=== PATIENT | female | born 1970 | race Caucasian/White ===

== ENCOUNTER 2024-01-23 02:22 | Day surgery (SDC) | payer BC, SELFPAY ==
[2024-01-16 09:23] VITALS: BMI 45.3
--- NOTE | 2024-01-16 09:32 | PC.NURSE ---
Report to the Outpatient Waiting Room, entrance under the green pavilion located off [facility], at time _1245_ on date _[id number]_. Planned Procedure Time: _245pm_.? Time changes happen often and if your time is changed the preop area will call you the afternoon before. - You and your visitor will be asked to self-screen and do not enter if you have any COVID symptoms. Please call surgeon if you need to reschedule. - A mask is optional within the hospital at this time. Patients may have clear liquids (water, carbonated beverages, clear teas, apple juice) until 3 hours prior to surgery with a maximum of 20 ounces. - No food from midnight until time of surgery and no smoking Take only the following medications with a SIP of water on the morning of surgery: ___Fluoxetine, Advair and if needed Albuterol DO NOT STOP ANY OF YOUR OTHER PRESCRIPTION MEDICATIONS PRIOR TO SURGERY EXCEPT THE FOLLOWING Medications to discontinue per physician ____All vitamins and supplements Date to take last tenr [id number] Please no make-up, nail bulgarian, hairspray, perfume, deodorant, or body powder the day of surgery.? No jewelry (including any body piercings) or valuables the day of surgery, leave them at home.? Please take a shower or bath the night before, or the morning of, surgery with an antibacterial soap.? Wear comfortable, loose fitting clothing.? - Jewelry must be removed prior to entering the operating room.? Rings and piercings that are not removed may be cut off. - The hospital will not accept responsibility for valuables.? - Please leave all valuables, including medications, at home the day of surgery. If you are going home after surgery, a licensed road driver must drive you home.? - NO public transportation without another adult if you receive anesthesia. - We recommend that an adult stay with you for 24 hours following discharge. - We also recommend that you do not drive, make important decision, drink alcoholic beverages, or take any drugs that were not prescribed by your health care provider for at least 24 hours after your discharge time. Follow any additional instructions given to you from your surgeon. Telephone instructions given to _Staci___and asked if any additional questions and then verbalized understanding. Patient advised to call surgeon office or pre surgery nurse liaison [phone] if any additional questions.
--- NOTE | 2024-01-23 12:13 | PM.IMHP ---
H&P: HPI History of Present Illness Date/Time: 01/23/24 12:13 Chief Complaint: Heavy bleeding. Narrative: 53 y/o female with menometrorrhagia complicating chronic anemia. Ultrasound exam unremarkable. The endometrial complex is 5.7 mm thick. Review of Systems Review of Systems: All systems reviewed & are unremarkable except as noted in HPI and below PMFSH Past Medical History Medical History delivery delivered 1995 Surgical History Surgical History H/O cataract removal with insertion of prosthetic lens 2009 History of appendectomy 1996 History of bone marrow biopsy 2015 History of cholecystectomy 2006 Family History Family History Mother Heart disease Hypertension Father Heart disease Hypertension Sibling Cancer Heart disease Alcohol abuse Hypertension Diabetes mellitus Breast cancer Grandparent Heart disease Social History Social History Social History: caffeine use daily Years smoked: 6 Smoking status: Former smoker Tobacco type: cigarettes Smoking end date: 01/16/96 Alcohol intake: current Drinks per week: 2 Alcohol use details: 1 to 4 drinks weekly Substance use: never Substance use type: does not use Do You Feel Safe in your Home?: Yes Lack of Transportation: No Lack of Food: Never True Current Housing: I Have Housing Concerned About Future Housing: No Difficulty Paying Gas/Electric Bills: No Difficulty Paying for Meds: No Currently Unemployed: No Difficulty w/ Childcare or Family Care: No Living arrangements: with family Spiritual care concerns: No Meds Home Medications and Allergies Home Medications Medication Instructions Recorded Confirmed Type albuterol sulfate 90 mcg/actuation 2 inh inhalation Q6-8H PRN 12/25/23 01/16/24 Rx aerosol inhaler shortness of breath or wheezing #8.5 grams cholecalciferol (vitamin D3) 50 50 mcg PO DAILY 12/25/23 01/16/24 History mcg (2,000 unit) capsule cyclobenzaprine 10 mg tablet 10 mg PO TID PRN Spasms 12/25/23 01/16/24 History fluoxetine 20 mg capsule 20 mg PO DAILY 12/25/23 01/16/24 History fluticasone propionate 115 2 puff inhalation BID 12/25/23 01/16/24 History mcg-salmeterol 21 mcg/actuation HFA inhaler (Advair HFA) ketoconazole 2 % topical cream 1 applic topical DAILY PRN Rash 12/25/23 01/16/24 History montelukast 10 mg tablet 10 mg PO DAILY 12/25/23 01/16/24 History ramipril 10 mg capsule 10 mg PO BID 12/25/23 01/16/24 History rosuvastatin 5 mg tablet 5 mg PO DAILY 12/25/23 01/16/24 History albuterol sulfate 2.5 mg/3 mL 2.5 mg (3 mL) inhalation Q4-6H PRN 01/04/24 01/16/24 Rx (0.083 %) solution for nebulization shortness of breath or wheezing #75 mL semaglutide 1 mg/dose (4 mg/3 mL) 1 mg (0.75 mL) subcut WEEKLY #3 mL 01/04/24 01/16/24 Rx subcutaneous pen injector (Circlefive) flaxseed oil 1,000 mg capsule 1,000 mg PO DAILY 01/16/24 01/16/24 History Allergies Allergy/AdvReac Type Severity Reaction Status Date / Time Penicillins AdvReac Intermediate Hives Verified 01/16/24 09:18 valsartan [From Diovan] AdvReac Intermediate sweating Verified 01/16/24 09:18 and cramping Exam Const: Orientation/consciousness: patient oriented x3 Other: Well-developed, well-nourished female in no acute distress. Neck: Thyroid: thyroid normal Lymphatic: no lymphadenopathy noted (in neck, axilla or inguinal nodes) Resp: Effort & Inspection: normal respiratory effort Auscultation: clear to auscultation bilaterally Cardio: Rate: regular rate Rhythm: regular rhythm Heart sounds: S1 normal heart sound present and S2 normal heart sound present GI: Other: ABD: Soft, nontender, nondistended. No guarding or rebound ten
[2024-01-23] MEDS: LACTATED RINGERS 1,000 ML 30 ML IV CONT (13:00)
[2024-01-23 13:23] LABS: Glucose Point of Care 84 mg/dl (65-105)
[2024-01-23 13:30] VITALS: BP 144/83; PULSE 71; RESP 16; TEMP 36.1; O2SAT 100
[2024-01-23] MEDS: ACETAMINOPHEN 500 MG TABLET 1000 MG PO (13:35)
--- NOTE | 2024-01-23 13:51 | WPDHPUPDATE1 ---
History and Physical Update Update Date/Time: 01/23/24 13:51 History and Physical has been reviewed, including an updated exam of the patient. There are NO changes in the patient's condition. Risks, benefits, and alternatives have been discussed and questions answered. Patient agrees to proceed with procedure.
--- NOTE | 2024-01-23 14:04 | WPDANESEPPF ---
Anes - Initial Pre Proc Eval Procedure: Operation Date: 01/23/24 14:45 Proposed Procedures p Hysteroscopy Dilation and Curettage with Ronel Endometrial Ablation - Rigo Geronimo MD Date/Time: 01/23/24 14:04 Surgeon: Rigo Geronimo MD Pre Op Diagnosis: menorrhagia, chronic anemia Patient Data Age: 53 Gender: F Height: 1.55 m Weight: 109 kg Allergies Allergy/AdvReac Type Severity Reaction Status Date / Time Penicillins AdvReac Intermediate Hives Verified 01/16/24 09:18 valsartan [From Diovan] AdvReac Intermediate sweating Verified 01/16/24 09:18 and cramping Home Medications Medication Instructions Recorded Confirmed Type albuterol sulfate 90 mcg/actuation 2 inh inhalation Q6-8H PRN 12/25/23 01/16/24 Rx aerosol inhaler shortness of breath or wheezing #8.5 grams cholecalciferol (vitamin D3) 50 50 mcg PO DAILY 12/25/23 01/16/24 History mcg (2,000 unit) capsule cyclobenzaprine 10 mg tablet 10 mg PO TID PRN Spasms 12/25/23 01/16/24 History fluoxetine 20 mg capsule 20 mg PO DAILY 12/25/23 01/16/24 History fluticasone propionate 115 2 puff inhalation BID 12/25/23 01/16/24 History mcg-salmeterol 21 mcg/actuation HFA inhaler (Advair HFA) ketoconazole 2 % topical cream 1 applic topical DAILY PRN Rash 12/25/23 01/16/24 History montelukast 10 mg tablet 10 mg PO DAILY 12/25/23 01/16/24 History ramipril 10 mg capsule 10 mg PO BID 12/25/23 01/16/24 History rosuvastatin 5 mg tablet 5 mg PO DAILY 12/25/23 01/16/24 History albuterol sulfate 2.5 mg/3 mL 2.5 mg (3 mL) inhalation Q4-6H PRN 01/04/24 01/16/24 Rx (0.083 %) solution for nebulization shortness of breath or wheezing #75 mL semaglutide 1 mg/dose (4 mg/3 mL) 1 mg (0.75 mL) subcut WEEKLY #3 mL 01/04/24 01/16/24 Rx subcutaneous pen injector (Ozempic) flaxseed oil 1,000 mg capsule 1,000 mg PO DAILY 01/16/24 01/16/24 History oxycodone-acetaminophen 5 mg-325 1 - 2 tablet PO Q6H PRN pain #30 01/23/24 Rx mg tablet (Percocet) tabs Laboratory Tests 01/23/24 13:17 POC Capillary Glucose 84 mg/dl (65-105) Patient hx anesthesia problems: none Family hx anesthesia problems: none Results Review: All pre-operative results and documents have been reviewed as part of the pre-operative evaluation. [facility] Past Medical History Medical History delivery delivered 1995 Surgical History Surgical History H/O cataract removal with insertion of prosthetic lens 2009 History of appendectomy 1996 History of bone marrow biopsy 2015 History of cholecystectomy 2007 Family History Family History Mother Heart disease Hypertension Father Heart disease Hypertension Sibling Cancer Heart disease Alcohol abuse Hypertension Diabetes mellitus Breast cancer Grandparent Heart disease Social History Social History Social History: caffeine use daily Years smoked: 6 Smoking status: Former smoker Tobacco type: cigarettes Smoking end date: 01/16/96 Alcohol intake: current Drinks per week: 2 Alcohol use details: 1 to 4 drinks weekly Substance use: never Substance use type: does not use Do You Feel Safe in your Home?: Yes Lack of Transportation: No Lack of Food: Never True Current Housing: I Have Housing Concerned About Future Housing: No Difficulty Paying Gas/Electric Bills: No Difficulty Paying for Meds: No Currently Unemployed: No Difficulty w/ Childcare or Family Care: No Living arrangements: with family Spiritual care concerns: No Anes - Eval Final PreProcedure Day of Procedure 01/23/24 14:04 Patient weight: morbidly obese Heart: regular rate and rhythm Lungs: clear to auscultation Airway: Mallampati scale class II Ne
[2024-01-23] MEDS: LIDOCAINE HCL 1% LOCAL INJ 20 ML VIAL 10 ML INFILTRATE (14:56)
[2024-01-23 15:04] VITALS: BP 121/64; PULSE 75; RESP 14; O2SAT 98
--- NOTE | 2024-01-23 15:05 | W.PM.PROC2 ---
Procedure Note - Detailed Date of Procedure 01/23/24 Pre-op Diagnosis Menometrorrhagia Post-op Diagnosis Same Procedure Performed Hysteroscopy Dilation and sharp curettage Endometrial ablation Surgeon Rigo Geronimo MD Anesthesia MAC and Local (1% lidocaine) Findings Unremarkable endometrial cavity. Both tubal ostia seen. Description of Procedure The patient was taken to the operating room where she was prepared and draped in the usual sterile fashion in the dorsal lithotomy position. The bladder was drained with a red rubber catheter. A sterile speculum was placed into the vagina. The anterior lip of the cervix was grasped with single-tooth tenaculum. Ten mL of 1% lidocaine was administered in a paracervical block. The cervix was then gently dilated using Hegar dilators until a 7 mm dilator could be passed. Hysteroscopy was performed using sterile saline as a distention medium. Findings are as noted above. Sharp curettage was then performed, and endometrial curettings were collected on a Telfa pad and passed off to be sent to pathology. Finally, the the Ronel device was advanced and endometrial ablation commenced without difficulty. The device was withdrawn and a second look was taken using the hysteroscope. Excellent coverage of the endometrial cavity was noted. The tenaculum was removed. Hemostasis was excellent. Sponge, lap, needle and instrument counts were correct. The patient was awakened and taken to the recovery room in stable condition. I was present and scrubbed through the entire procedure. Implants None Estimated Blood Loss 5 Drains No Packing No Pathology Yes (Endometrial curettings) Complications None Condition Stable Disposition PACU
[2024-01-23 15:24] LABS: Glucose Point of Care 77 mg/dl (65-105)
[2024-01-23 15:30] VITALS: BP 147/70; PULSE 64; RESP 14
[2024-01-23 15:42] LABS: BEDSIDEPREGUCG Negative (Negative)
[2024-01-23] MEDS: oxyCODONE HCL (*CRX) 5 MG TAB IR PO (15:47)
[2024-01-23 16:00] VITALS: BP 137/63; PULSE 64; RESP 14
== END 2024-01-23 16:06 | disposition home or self-care (01) ==
PROVIDERS: PCP Family Medicine; Visit Provider Obstetrics & Gynecology
PROC: 0U5B8ZZ Destruction of Endometrium, Via Natural or Artificial Opening Endoscopic (ICD-10-PCS; CPT 58563; principal; 2024-01-23 14:45)
DX: N85.8 Other specified noninflammatory disorders of uterus (principal); D64.9 Anemia, unspecified; G89.18 Other acute postprocedural pain; E66.01 Morbid (severe) obesity due to excess calories; Z68.42 Body mass index [BMI] 45.0-49.9, adult; Z79.51 Long term (current) use of inhaled steroids; Z79.85 Long-term (current) use of injectable non-insulin antidiabetic drugs; Z79.891 Long term (current) use of opiate analgesic; Z98.890 Other specified postprocedural states; Z90.49 Acquired absence of other specified parts of digestive tract; Z87.891 Personal history of nicotine dependence; Z80.3 Family history of malignant neoplasm of breast; Z82.49 Family history of ischemic heart disease and other diseases of the circulatory system
CPT/HCPCS: 58563; 82948; 88305; A9270; J2003; J2250; J2704; J3010; J7120

== ENCOUNTER 2024-04-24 08:24 | Emergency (ER) | payer OTHER, SELFPAY ==
[2024-04-24 08:34] VITALS: BP 146/63; PULSE 89; RESP 18; TEMP 36.7; O2SAT 97
[2024-04-24 09:00] LABS: EDCOVIDSCREEN Negative (Negative); EDINFLUASCREEN Positive (Negative); EDINFLUBSCREEN Negative (Negative); EDSTREPNEGPOS1 Negative (Negative)
--- NOTE | 2024-04-24 09:34 | ED.URI ---
HPI - URI/Sore Throat General Chief Complaint: Upper Respiratory Infection Stated Complaint: sore throat / body aches Time Seen by Provider: 04/24/24 08:40 Source: patient Mode of arrival: ambulatory Limitations: no limitations History of Present Illness HPI Narrative: 54-year-old female presents with complaint of cough, nasal congestion, headache, fatigue, nausea, low-grade fever for 2 days. Symptoms getting progressively worse. No vomiting or diarrhea. Denies chest pain and shortness of breath. All systems reviewed and negative except as noted above. Related Data Home Medications ?Medication ?Instructions ?Recorded ?Confirmed ?Last Taken ?Type cholecalciferol (vitamin D3) 50 50 mcg PO DAILY 12/25/23 01/16/24 Unknown History mcg (2,000 unit) capsule cyclobenzaprine 10 mg tablet 10 mg PO TID PRN Spasms 12/25/23 01/16/24 Unknown History ketoconazole 2 % topical cream 1 applic topical DAILY PRN Rash 12/25/23 01/16/24 Unknown History flaxseed oil 1,000 mg capsule 1,000 mg PO DAILY 01/16/24 01/16/24 Unknown History Allergies Allergy/AdvReac Type Severity Reaction Status Date / Time Penicillins AdvReac Intermediate Hives Verified 01/23/24 15:37 valsartan (From Diovan) AdvReac Intermediate sweating Verified 01/23/24 15:37 and cramping Review of Systems Review of Systems: CONSTITUTIONAL: Reports fever, chills, or sweats. EYES: Denies visual changes, redness, or discharge. ENT: reports rhinorrhea, congestion, sore throat. Denies otalgia. CARDIOVASCULAR: Denies chest pain, palpitations, or edema. RESPIRATORY: reports cough. Deniesdyspnea. GASTROINTESTINAL: Denies abdominal pain, nausea, vomiting, or diarrhea. GENITOURINARY: Denies dysuria or hematuria. SKIN: Denies rash or itching. MUSCULOSKELETAL: Denies back pain, joint pain, or myalgia. NEUROLOGIC: reports headache. Denies numbness, or weakness. PSYCHIATRIC: Denies anxiety or depression. All other systems reviewed are negative, except as documented in HPI. [facility] Past Medical History Medical History delivery delivered 1995 Surgical History Surgical History H/O cataract removal with insertion of prosthetic lens 2009 History of appendectomy 1996 History of bone marrow biopsy 2015 History of cholecystectomy 2007 Family History Family History Mother Heart disease Hypertension Father Heart disease Hypertension Sibling Cancer Heart disease Alcohol abuse Hypertension Diabetes mellitus Breast cancer Grandparent Heart disease Social History Social History Social History: caffeine use daily Years smoked: 6 Smoking status: Former smoker Tobacco type: cigarettes Smoking end date: 01/16/96 Alcohol intake: current Drinks per week: 2 Alcohol use details: 1 to 4 drinks weekly Substance use: never Substance use type: does not use Do You Feel Safe in your Home?: Yes Lack of Transportation: No Lack of Food: Never True Current Housing: I Have Housing Concerned About Future Housing: No Difficulty Paying Gas/Electric Bills: No Difficulty Paying for Meds: No Currently Unemployed: No Difficulty w/ Childcare or Family Care: No Living arrangements: with family Spiritual care concerns: No Comments At time of signature, agree with nursing past medical, surgical, social and family history. There is no relevant family history pertinent to the presenting complaint. Exam Narrative: GENERAL: This is a well-nourished, well-developed patient, Patient ill-appearing but in no acute distress HEAD: normocephalic, atraumatic. EYES: PERRL. Sclera clear/white. Vision is grossly intact. EARS: External ears normal, auditory canals clear and without drainage, TMs normal without perforation. Hearing grossly intact. NOSE: External nose normal with mild congestion, clear nasal drainage THROAT: Mucous membranes moist, postnasal drainage with mild erythema. No swelling or exudates. NECK: Neck supple, non-tender without lymphadenopathy, masses or thyromegaly. CARDIOVASCULAR: Regular rate and rhythm without murmurs, gallops, or rubs. RESPIRATORY: Clear to auscultation. Breath sounds equal bilaterally. No wheezes, rales, or rhonchi. SKIN: warm, Dry, intact with no suspicious lesions or rash, good texture and turgor. NEURO: awake, alert, and oriented to person, place and time. There were no obvious focal neurologic abnormalities. EXTREMITIES: No joint tenderness, effusion, or edema noted. Course Course Level of Care: Express Care Visit Vital Signs Vital signs: Vital Signs Temperature 36.7 C 04/24/24 08:34 Pulse Rate 89 04/24/24 08:34 Respiratory Rate 18 04/24/24 08:34 Blood Pressure 146/63 H 04/24/24 08:34 Pulse Oximetry 97 04/24/24 08:34 Oxygen Delivery Room Air 04/24/24 08:34 Temperature 36.7 C 04/24/24 08:34 Pulse Rate 89 04/24/24 08:34 Respiratory Rate 18 04/24/24 08:34 Blood Pressure 146/63 H 04/24/24 08:34 Pulse Oximetry 97 04/24/24 08:34 Oxygen Delivery Room Air 04/24/24 08:34 reviewed MDM - URI/Sore Throat MDM Narrative Medical decision making narrative: patient positive for influenza A. Discussed results and diagnosis with patient. Prescribed Tamiflu and Zofran to treat patient's symptoms. Recommend she taking [id number] medication such as DayQuil NyQuil cold and flu. Patient agrees with plan of care. She is well-appearing, nontoxic. Patient is aware of diagnosis, understands and agrees to treatment plan. Anticipatory guidance given. Patient agrees to follow-up as directed and is aware of reasons to seek care at the emergency department. Portions of this record may have been created with voice recognition software Differential Diagnosis Differential diagnosis: Likely upper respiratory infection, sinusitis, viral infection, influenza and pharyngitis Lab Data Labs: Lab Results 04/24/24 Range/Units 08:58 POC Influenza A Ag Positive (Negative) POC Influenza B Ag Negative (Negative) POC SARS CoV-2 Ag Negative (Negative) POC Grp A Strep Screen Negative (Negative) Discharge Plan Discharge Clinical Impression: Influenza A Patient Disposition: Home, Self-Care Condition: Stable Instructions: Influenza (ED) Additional Instructions: You were positive for influenza A today. Influenza is a virus and symptoms may last 10-14 days. Take medications as prescribed. Take an [id number] medication to treat her symptoms such as DayQuil NyQuil cold and flu. Take ibuprofen every 6-8 hours as needed for pain and fever. Drink at least 64 oz of water a day. Follow-up with your primary care physician if symptoms not improving. Patient Language: Azerbaijani Prescriptions: New oseltamivir [Tamiflu] 75 mg capsule 75 mg PO Q12H 5 Days Qty: 10 0RF ondansetron 4 mg tablet,disintegrating 4 mg PO Q8H PRN (Reason: nausea and vomiting) Qty: 12 0RF No Action cholecalciferol (vitamin D3) 50 mcg (2,000 unit) capsule 50 mcg PO DAILY cyclobenzaprine 10 mg tablet 10 mg PO TID PRN (Reason: Spasms) ketoconazole 2 % cream 1 applic topical DAILY PRN (Reason: Rash) albuterol sulfate 90 mcg/actuation HFA aerosol inhaler 2 inh inhalation Q6-8H PRN (Reason: shortness of breath or wheezing) Qty: 8.5 3RF flaxseed oil 1,000 mg Capsule 1,000 mg PO DAILY Rx Instructions: administer with a meal oxycodone-acetaminophen [Percocet] 5-325 mg tablet 1 - 2 tablet PO Q6H PRN (Reason: pain) Qty: 30 0RF Ozempic 2 mg/dose (8 mg/3 mL) pen injector 2 mg subcut WEEKLY Qty: 3 6RF albuterol sulfate 2.5 mg /3 mL (0.083 %) solution for nebulization 2.5 mg inhalation Q4-6H PRN (Reason: shortness of breath or wheezing) Qty: 75 1RF rosuvastatin 5 mg tablet 5 mg PO DAILY Qty: 90 2RF montelukast 10 mg tablet 10 mg PO DAILY Qty: 90 2RF ramipril 10 mg capsule 10 mg PO BID Qty: 180 1RF fluoxetine 20 mg capsule 20 mg PO DAILY Qty: 90 2RF fluticasone propion-salmeterol [Advair HFA] 115-21 mcg/actuation HFA aerosol inhaler 2 puff inhalation BID Qty: 12 5RF Follow-up/Referrals: Laura Shepard MD [Primary Care Provider] - Stand Alone Forms: Work/School Release IP Time of Disposition: 08:55
== END 2024-04-24 09:02 | disposition home or self-care (01) ==
PROVIDERS: Emergency Provider Nurse Practitioner Family; PCP Family Medicine
DX: J10.1 Influenza due to other identified influenza virus with other respiratory manifestations (principal); Z87.891 Personal history of nicotine dependence; Z20.822 Contact with and (suspected) exposure to COVID-19
CPT/HCPCS: 87081; 87426; 87804; 87880; 99213; G0463

== ENCOUNTER 2024-05-07 07:37 | Outpatient (CLI) | payer OTHER, SELFPAY ==
--- NOTE | ~2024-05-07 | MM_ITS ---
EXAMINATION: MM screening [facility] BI w jennifer HISTORY: Screening TECHNIQUE: Craniocaudal and mediolateral oblique 3-D tomosynthesis images were obtained and synthetic 2-D images were generated. CAD analysis was submitted and interpreted. COMPARISON: Comparison to multiple prior studies sequentially, with oldest reviewed study dated 11/25. BREAST PARENCHYMAL COMPOSITION: Not dense: There are scattered areas of fibroglandular density. FINDINGS: There is no evidence of suspicious mass, calcification, or architectural distortion to sugg est malignancy in either breast. There has been no suspicious interval change. IMPRESSION: 1. No mammographic evidence of malignancy. 2. Recommend routine screening mammography in one year. BI-RADS Category 1: Negative Reviewed, dictated and finalized at location A. [facility]
== END 2024-05-07 07:38 | disposition home or self-care (01) ==
LOC: ANHIMG 07:41
PROVIDERS: PCP Family Medicine; Visit Provider Obstetrics & Gynecology
DX: Z12.31 Encounter for screening mammogram for malignant neoplasm of breast (principal)
CPT/HCPCS: 77063; 77067

== ENCOUNTER 2024-07-11 07:53 | Outpatient (CLI) | payer OTHER, SELFPAY ==
--- OUTSIDE RECORDS SUMMARY | 2024-07-11 07:56 | XMS_ITS | Data Portability ---
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 Plan of Treatment Reminders Order Date Submit Date Provider Last Modified By Organization Details Last Modified Time Details Appointments None recorded. Lab None recorded. Referral None recorded. Procedures None recorded. Surgeries None recorded. Imaging None recorded. Medication Orders Advair HFA 115 mcg-21 mcg/actuat ion aerosol inhaler 2021 022 [id number], [address] [place], [place], [id number], 2 11:03:32 Singulair 10 mg tablet 2021 022 [facility] #[id number], [address] [place], [id number], 2 11:03:31 montelukas t 10 mg tablet 2018 019 INTERFACE [facility][id number], [address] [place], [place], [id number], 9 09:50:59 montelukas t 10 mg tablet 2017 018 INTERFACE [id number], [address] [place], [address], 8 10:30:00 Patient TargetsNo targets recorded. Patient Instructions Encounter Date Encounter Id Patient Instructions Last Modified By Organization Details Last Modified Time 10/12/2017 [id number] controlling your asthma: care instructions Not available 10/12/2017 10:29:58 learning about asthma Not available 10/12/2017 10:29:58 sleep apnea: car e instructions Not available 10/12/2017 10:29:59 sleep study, polysomnogram with continuous positive airway pressure* [email or web address] Not available 10/12/2017 12:16:04 shortness of breath: care instructions Not available 10/12/2017 10:30:57 complete PFT w/ post bronchodilator spirometry* SOHAIL Not available 11/26/2017 10:23:54 01/11/2018 [id number] controlling your asthma: care instructions Not available 01/11/2018 11:55:46 learning about asthma Not available 01/11/2018 11:55:46 sleep apnea: car e instructions Not available 01/11/2018 11:55:46 shortness of breath: care instructions Not available 01/11/2018 11:55:46 11/15/2018 [id number] controlling your asthma: care instructions Not available 11/15/2018 09:50:54 learning about asthma Not available 11/15/2018 09:50:54 sleep apnea: car e instructions Not available 11/15/2018 09:50:53 shortness of breath: care instructions Not available 11/15/2018 09:50:54 complete PFT w/ post bronchodilator spirometry* smallafre Not available 11/15/2018 09:55:18 12/02/2019 [id number] controlling your asthma: care instructions Not available 12/02/2019 16:36:46 learning about asthma Not available 12/02/2019 16:36:46 sleep apnea: car e instructions Not available 12/02/2019 16:36:46 shortness of breath: care instructions Not available 12/02/2019 16:36:46 11/04/2021 [id number] controlling your asthma: care instructions Not available 11/04/2021 11:03:22 learning about asthma Not available 11/04/2021 11:03:22 sleep apnea: car e instructions Not available 11/04/2021 11:03:22 shortness of breath: care instructions Not available 11/04/2021 11:03:22 complete PFT w/ post bronchodilator spirometry* SOHAIL Not available 11/18/2021 11:39:04 Reason for Referral None Reported. Results Created Date Observation Date Name Description Value Unit Range Abnormal Flag Note LastModifiedBy Organization Detail LastModifiedTime 11/27/19 18 11/26/2017 compl ete PFT w/ post [facility] hodil ator ochoa metry * No observ ation record ed. [facility] ([facility]) [address] [facility] [address], [place], [address], 01/11/2018 11:51:52 11/26/19 20 11/26/2019 compl ete PFT* No observ ation record ed. [facility] ([facility]) [address] [facility] [address], [place], [address], 12/02/2019 16:34:52 11/19/19 22 11/18/2021 compl ete PFT w/ post [facility] hodil ator ochoa metry * No observ ation record ed. [email or web address] [facility] ([facility]) [address] [facility] [address], [place], [address], 11/30/2021 09:25:04 Result Notes None recorded. Problems Name Problem SNOMED Code Status Onset Date Resolution Date Notes Provider Name and Address Organization Details Recorded Time Obstructive sleep apnea syndrome 42105196 Active Ashely moreno [place] [facility] 5 08:42:39 Overweight 987236957 Active Giana Cunningham MD [address] [facility] [address], [place], [address] [place] [address] - [facility] 4 10:57:09 Allergic rhinitis [id number] Ifeoma Cunningham MD [address] [facility] [address], [place], [address], [facility] 4 10:57:09 Asthma [id number] Ifeoma Cunningham MD [address] [facility] [address], [place], [address], [facility] 4 10:57:09 Periodic limb movement disorder [id number] Ifeoma Cunningham MD [address] [facility] [address], [place], [address], [facility] 4 10:57:09 Problem Notes None recorded. Procedures Surgical History Date Name Laterality Status Provider Name and Address Organization Details Recorded Time 08/26/19 23 PAP Compliance cancelled zan cole [facility] 08/21/2022 08:17:03 11/05/19 22 PAP Compliance completed Cari Mills [facility] 11/02/2021 13:34:39 12/02/19 20 PAP Compliance completed Jyotsna Caballero [facility] 12/02/2019 16:15:26 11/16/19 19 PAP Compliance completed Yamileth Betancourt [facility] 11/15/2018 08:55:07 CHOLECYSTECTOMY completed jose pinto [facility] 10/12/2017 10:03:42 delivery completed jose pinto [facility] 10/12/2017 10:03:58 APPENDECTOMY completed Daisy Choi [facility] 05/31/2012 13:44:12 Imaging Results Imaging Date Name Status LastModified by Organization Details LastModified Time 11/26/2017 complete PFT w/ post bronchodilator spirometry* completed [facility] [address] [facility] [address], [place], [address], 01/11/2018 11:51:52 11/26/2019 complete PFT* completed [facility] [address] [facility] [address], [place], [address], 12/02/2019 16:34:52 11/18/2021 complete PFT w/ post bronchodilator spirometry* completed [email or web address] [facility] ([facility]) [address] [facility] [address], [place], [address], 11/30/2021 09:25:04 Procedure Notes None recorded. Medical Equipment None Reported. Allergies Allergen ID Allergen Name Allergen Category Reaction Reaction Severity Criticality Documentation Date Start Date Code Code System Note Provider Name and Address Organization Details Recorded Time 33931 Diovan medicatio n Not available Not available Not available 05/31/2012 15537 2 [facility] 3 13:44:12 98842 Product containin g penicilli n (product) medicatio n Not available Not available Not available 05/31/2012 28989 8001 [facility]ED [facility] 3 13:44:12 Medications Name Sig Start Date Stop Date Status Note LastModified by Organization Details LastModified Time cyclobenzap rine 10 mg tablet TAKE 1 TABLET BY MOUTH THREE TIMES DAILY FOR 10 DAYS NEEDED active Not Available Not Available No t Available amoxicillin 500 mg capsule active Not Available Not Available Not Available prednisone 10 mg tablet active Not Available Not Available Not Available sulfasalazi ne 500 mg tablet TAKE 2 TABLETS BY MOUTH TWICE DAILY AFTER MEALS 11/04 completed Not Available Not Available Not Available albuterol sulfate 2.5 mg/3 mL (0.083 %) solution for nebulizatio n USE 1 VIAL IN NEBULIZER FOUR TIMES DAILY NEEDED active Not Available Not Available No t Available azithromyci n 250 mg tablet active Not Available Not Available Not Available fluconazole 150 mg tablet TAKE 1 TABLET BY MOUTH EVERY 72 HOURS 11/04 completed Not Available Not Available Not Available benzonatate 200 mg capsule 10/12 completed Not Available Not Available Not Available prednisone 5 mg tablet 11/04 completed Not Available Not Available Not Available meclizine 12.5 mg tablet TAKE 1 TABLET BY MOUTH THREE TIMES DAILY NEEDED 11/04 completed Not Available Not Available Not Available phentermine 37.5 mg tablet TK 1 T PO QD FOR 30 DAYS 10/12 completed Not Available Not Available Not Available methotrexat e sodium 25 mg/mL injection solution INJECT 0.7 ML UNDER THE SKIN EVERY WEEK 10/12 completed Not Available Not Available Not Available ciprofloxac in 500 mg tablet TAKE 1 TABLET BY MOUTH TWICE DAILY active Not Available Not Available No t Available Tamiflu 75 mg capsule active Not Available Not Available N ot Available sulfamethox azole 800 mg-trimetho prim 160 mg tablet TAKE 1 TABLET BY MOUTH EVERY 12 HOURS FOR 10 DAYS active Not Available Not Available No t Available triamcinolo ne acetonide 0.1 % topical cream 10/12 completed Not Available Not Available Not Available BD Safety-Ferdinand Tuberculin 1 mL 27 gauge x 1/2 syringe U WITH METHOTREX ATE ONCE WEEKLY 10/12 completed Not Available Not Available Not Available BD Tuberculin Syringe 1 mL 27 x 1/2 U WITH METHOTREX ATE ONCE WEEKLY 10/12 completed Not Available Not Available Not Available amoxicillin 875 mg tablet 10/12 completed Not Available Not Available Not Available lorazepam 0.5 mg tablet Take 2 tablets 3 times a day by oral route. active Not Available Not Available No t Available benzonatate 100 mg capsule active Not Available Not Available Not Available cephalexin 500 mg capsule active Not Available Not Available Not Available fluoxetine 20 mg tablet Take 1 tablet every day by oral route. 11/15 completed Not Available Not Available Not Available nystatin 100,000 unit/gram topical cream APPLY TOPICALLY TO THE AFFECTED AREA TWICE DAILY active Not Available Not Available No t Available omeprazole 20 mg capsule,del ayed release 10/12 completed Not Available Not Available Not Available folic acid 1 mg tablet TK 1 T PO QD 11/04 completed Not Available Not Available Not Available montelukast 10 mg tablet TAKE 1 TABLET BY MOUTH EVERY DAY active Not Available Not Available No t Available ammonium lactate 12 % topical cream 11/15 completed Not Available Not Available Not Available mupirocin 2 % topical ointment DEIRDRE AA WITH Q BANDAGE CHANGE UNTIL FULLY HEALED 11/15 completed Not Available Not Available Not Available clobetasol 0.05 % topical ointment 11/15 completed Not Available Not Available Not Available azelastine 137 mcg (0.1 %) nasal spray active Not Available Not Available Not Available hydroxychlo roquine 200 mg tablet TK 2 TS PO QD 10/12 completed Not Available Not Available Not Available methylpredn isolone 4 mg tablets in a dose pack FOLLOW PACKAGE DIRECTION S active Not Available Not Available No t Available albuterol sulfate HFA 90 mcg/actuati on aerosol inhaler INL 2 PFS PO Q 4 H PRN active Not Available Not Available No t Available ketoconazol e 2 % topical cream APPLY EXTERNALL Y TO THE AFFECTED AREA EVERY DAY 11/04 completed Not Available Not Available Not Available ondansetron 4 mg disintegrat ing tablet active Not Available Not Available N ot Available fluoxetine 20 mg capsule TAKE 1 CAPSULE BY MOUTH EVERY DAY active Not Available Not Available No t Available fluticasone propionate 50 mcg/actuati on nasal spray,suspe nsion active Not Available Not Available Not Available ramipril 10 mg capsule TAKE 1 CAPSULE BY MOUTH TWICE DAILY active Not Available Not Available No t Available amoxicillin 875 mg-potassiu m clavulanate 125 mg tablet active Not Available Not Available Not Available rosuvastati n 5 mg tablet TAKE 1 TABLET BY MOUTH EVERY NIGHT AT BEDTIME active Not Available Not Available No t Available iron 11/04 completed Not Available Not Available Not Available Humira Pen 40 mg/0.8 mL subcutaneou s kit 10/12 completed Not Available Not Available Not Available Advair HFA 115 mcg-21 mcg/actuati on aerosol inhaler INHALE 2 PUFFS BY MOUTH TWICE DAILY active Not Available Not Available No t Available Simponi 50 mg/0.5 mL subcutaneou s pen injector Inject 0.5 mL every month by subcutane ous route. 11/15 completed Not Available Not Available Not Available Vitamin D3 50 mcg (2,000 unit) capsule Take by oral route. active Not Available Not Available No t Available TRUEplus Lancets 30 gauge U BID UTD 11/15 completed Not Available Not Available Not Available True Metrix Glucose Test Strip 11/15 completed Not Available Not Available Not Available Cosentyx Pen 300 mg/2 pens (150 mg/mL) subcutaneou s pen injector 11/04 completed Not Available Not Available Not Available True Metrix Air Glucose Meter 11/15 completed Not Available Not Available Not Available Vitamin B12 active Not Available Not A vailable Not Available Taltz Autoinjecto r 80 mg/mL subcutaneou s 11/04 completed Not Available Not Available Not Available Orencia ClickJect 125 mg/mL subcutaneou s auto-inject or 11/15 completed Not Available Not Available Not Available Lomaira 8 mg tablet TK 1 T PO TID 10/12 completed Not Available Not Available Not Available Norlyda 0.35 mg tablet TK 1 T PO QD 11/04 completed Not Available Not Available Not Available Isibloom 0.15 mg-0.03 mg tablet TK 1 T PO D 11/15 completed Not Available Not Available Not Available Isibloom 11/15 completed Not Available Not Available Not Available Tremfya 100 mg/mL subcutaneou s auto-inject or active Not Available Not Available Not Available Ozempic 1 mg/dose (4 mg/3 mL) subcutaneou s pen injector INJECT 1 MG UNDER THE SKIN EVERY WEEK active Not Available Not Available No t Available Paxlovid 300 mg (150 mg x 2)-100 mg tablets in a dose pack TAKE DIRECTED active Not Available Not Available No t Available Vitals Date Recorded Body height Body mass index (BMI) Body weight Respiratory rate Heart rate Oxygen saturation Oxygen saturation in Arterial blood by Pulse oximetry Body temperature Systolic blood pressure Diastolic blood pressure Provider Name and Address Organization Details Last Updated DateTime 8 157.48 cm 49.5 kg/m2 783769. 38 g 16 /min 75 /min 97 % 97 % 98 [degF] 128 mm[Hg] 78 mm[Hg] [facility] 8 10:10:47 Date Recorded Body height Body mass index (BMI) Body weight Respiratory rate Heart rate Oxygen saturation Oxygen saturation in Arterial blood by Pulse oximetry Body temperature Systolic blood pressure Diastolic blood pressure Provider Name and Address Organization Details Last Updated DateTime 8 157.48 cm 49.4 kg/m2 189176. 94 g 16 /min 76 /min 97 % 97 % 98.6 [degF] 130 mm[Hg] 80 mm[Hg] [facility] 8 11:42:39 Date Recorded Body height Body mass index (BMI) Body weight Heart rate Respiratory rate Oxygen saturation Oxygen saturation in Arterial blood by Pulse oximetry Body temperature Systolic blood pressure Diastolic blood pressure Provider Name and Address Organization Details Last Updated DateTime 9 157.48 cm 45.5 kg/m2 253174. 78 g 71 /min 18 /min 98 % 98 % 98.7 [degF] 118 mm[Hg] 80 mm[Hg] Yamileth Betancourt [facility] 9 08:59:15 Date Recorded Heart rate Oxygen saturation Oxygen saturation in Arterial blood by Pulse oximetry Respiratory rate Body temperature Body weight Body mass index (BMI) Body height Systolic blood pressure Diastolic blood pressure Provider Name and Address Organization Details Last Updated DateTime 2 69 /min 98 % 98 % 18 /min 98.7 [degF] 812410. 72 g 49.9 kg/m2 157.48 cm 120 mm[Hg] 70 mm[Hg] Cari Mills [facility] Sleep [facility] 2 10:36:56 Social History Question Answer Notes LastModified by [employer] ion Details LastModified Time Tobacco Smoking Status [facility] 05/31/2012 13:44:12 Do You Have An Advance Directive? No Information not available 11/15/2018 What Is Your Level Of Alcohol Consumption? Occasional [email or web address] Information not available 05/31/2012 Are You Blind Or Do You Have Difficulty Seeing? No Information not available 11/04/2021 What Is Your Level Of Caffeine Consumption? Moderate 3 Cups Daily Information not available 11/15/2018 How Much Tobacco Do You Chew? None Information not available 11/15/2018 In The 14 Days Before Symptom Onset, Have You Had Close Contact With A Laboratory-confir med COVID-19 While That Case Was Ill? No [email or web address] Information not available 12/02/2019 In The 14 Days Before Symptom Onset, Have You Had Close Contact With A Person Who Is Under Investigation For COVID-19 While That Person Was Ill? No [email or web address] Information not available 12/02/2019 Have You Been To An Area Known To Be High Risk For COVID-19? No [email or web address] Information not available 12/02/2019 Are You Deaf Or Do You Have Serious Difficulty Hearing? No Information not available 11/04/2021 Do You Or Have You Ever Used E-cigarettes Or Vape? 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 3 Information not available 11/04/2021 Have You Been Exposed To Chemicals Or Toxins? No Information not available 11/04/2021 Live Alone Or With Others? With Others [email or web address] Information not available 05/31/2012 Tobacco-quit Date 25 Years Of Age Information not available 11/15/2018 Marital Status [email or web address] Informatio n not available 05/31/2012 Do You Have A Medical Power Of Manager Intensive Care Unit? No Information not available 11/04/2021 What Was The Date Of Your Most Recent Tobacco Screening? 11/04/2021 Information not available 11/04/2021 Are There Any Occupational Health Risks Where You Work? Denies Information not available 11/15/2018 Do You Have An Out Of Hospital DNR? No Information not available 11/04/2021 At What Age Did You Start Smoking Tobacco? 17 Information not available 05/31/2012 Are You Passively Exposed To Smoke? Yes All Of Life Information not available 10/12/2017 Do You Or Have You Ever Used Smokeless Tobacco? Never Used Smokeless Tobacco Information not available 11/15/2018 Are There Any Smokers In Your House? No Information not available 11/04/2021 How Much Tobacco Do You Smoke? 1 PPD [email or web address] Information not available 05/31/2012 Do You Feel Stressed (tense, Restless, Nervous, Or Anxious, Or Unable To Sleep At Night)? [id number] Information not available 11/04/2021 Do You Use Any Illicit Or Recreational Drugs? No Information not available 11/04/2021 Has Tobacco Cessation Counseling Been Provided? No Information not available 11/04/2021 How Many Years Have You Smoked Tobacco? 8 Information not available 10/12/2017 Have You Recently Traveled Abroad? No Information not available 11/04/2021 Do You Or Have You Ever Used Any Other Forms Of Tobacco Or Nicotine? No Information not available 11/04/2021 Sex: Unknown Functional Status Question Answer Note LastModified by Organizat ion Details LastModified Time Do you have difficulty walking or climbing stairs? No Information not available 11/04/2021 Are you able to walk? YESWOREST Information not available 11/04/2021 Do you have difficulty doing errands alone? No Information not available 11/04/2021 Are you able to care for yourself? Yes Information not available 11/04/2021 Do you have difficulty dressing or bathing? No Information not available 11/04/2021 What is your exercise level? Occasional Information not available 11/04/2021 Mental Status Question Answer Note LastModified by Organization D etails LastModified Time Do you have difficulty concentrating, remembering or making decisions? No Information no t available 11/04/2021 Family History Relationship Description Onset Age of this Age Resolved Age Notes LastModified by Organization Details LastModified Time Father Problem 83 adenise Not available 0 04/25/2013 10:32:19 Mother Heart disease 55 [email or web address] Not available 2017 10:02:49 Medical History Condition Response COPD N COR PULMONALE N OBESITY Y GERD N OVERWEIGHT N RENAL FAILURE N EMPHYSEMA N PLEURAL EFFUSION N CAD N ASTHMA Y ANEMIA N CHF N CVA N TIFFANI Y HYPERTENSION Y HEART DISEASE N LUNG CANCER N CENTRAL SLEEP APNEA N PULMONARY FIBROSIS N TB exposure N CANCER N PULMONARY HYPERTENSION N RLS N GI BLEEDING N NARCOLEPSY N BRONCHIECTASIS N ARRHYTHMIA N DIABETES, TYPE II UNSPECIFIED N ALLERGIC RHINITIS Y PULMONARY EMBOLISM N BLACK LUNG DISEASE N Gynecological HistoryNo gynecological history recorded. Obstetrics History GPAL:G 0 P 0 0 0 0 Immunizations Vaccine Type Date Status Note Provider Nam e and Address Organization Details Recorded Time influenza, unspecified formulation 7 completed [facility] 10/12/2017 10:07:56 Influenza, [place] 8 completed Yamileth Cranedahlia [facility] 11/15/2018 08:59:38 COVID-19, mRNA, LNP-S, PF, 100 mcg/0.5mL dose or 50 mcg/0.25mL dose 1 completed Cari Mills [facility] 11/04/2021 10:38:18 COVID-19, mRNA, LNP-S, PF, 100 mcg/0.5mL dose or 50 mcg/0.25mL dose 1 completed Cari Mills [facility] 11/04/2021 10:38:24 COVID-19, mRNA, LNP-S, PF, 100 mcg/0.5mL dose or 50 mcg/0.25mL dose 1 completed Cari Mills [facility] 11/04/2021 10:38:40 Influenza, split virus, quadrivalent, preservative 1 completed Cari Mills [facility] 11/04/2021 10:39:05 Influenza, split virus, trivalent, preservative 0 completed Daisy Choi [facility] 05/31/2012 13:52:53 Past Encounters Encounter ID Performer Location Encounter Start Date Encounter Closed Date Diagnosis/Indication Diagnosis SNOMED-CT Code Diagnosis ICD10 Code Diagnosis Note [id number] MD MASTER Dinh [address] [place] [address] [address] [facility] [place] [address] 05/31/2012 13:27:03 05/31/2012 14:37:57 [id number] Tana Jerry [facility] [id number] [place] [address] [address] [facility] [place] [address] 07/26/2012 09:18:03 07/26/2012 09:51:04 [id number] LISSYLEVI [place] [address] [place] [address] [address] [facility] [place] [address] 10/04/2012 10:48:55 10/04/2012 11:42:45 [id number] MASTER XAVIER [id number] [place] [address] [address] [address] [place] [address] 04/25/2013 10:26:44 04/25/2013 11:01:44 Obstructive sleep apnea syndrome [id number] On CPAP 9 with full face mask , she has being tolerating well , last compliance data was 90% She has being loosing weight and will notify me if lost more than 50 pounds Overweight [id number] con t weight loss and diest modificati on. Asthma [id number] Cont advair and singualir Albuterol as needed ( ventolin) Periodic l imb movement disorder [id number] she is asymptomat ic Allergic rhinitis 55857268 cont singualir [id number] JASPER MONA VERMA MARY [address] [place] [address] 10/12/2017 09:11:31 10/12/2017 11:29:34 Obstructive sleep apnea syndrome [id number] G47.33 She has TIFFANI since 2012 and has been on CPAP 9 . She has gain over 30 pounds and has been tired during the day , taking naps even when she ahs been complaint w treatment . She has new diagnosis of autoimmune ds .I recommende d to get the compliance and maybe change to APAP 5-15 given that her CPAP machine it is not working properly , she may need a titration given the weight gain Asthma 846918779 J45.90 9 I will cont the adavair and sent for PFTa nd restart singualair , proair as needed Ex-smoker 1029297 Z87.89 1 and second hand exposure Anemia 745990882 D64.9 she has iron infusion Obesity 369718188 E66.9 weight loss recommeded Dyspnea 147641374 R06.02 [id number] Giana Young [address] [place] [address] 01/11/2018 10:57:13 01/11/2018 12:11:49 Obstructive sleep apnea syndrome 29111418 G47.33 She has TIFFANI since 2012 and she has been now on APAP and she has been compliant and w benefit .INITIAL COMPLIANCE PASSED @ 100 % AHI 0.4 LEAK WNL Asthma 274717813 J45.90 9 I have reviewed the PFT and she has good reversibil ity and will cont advair and singualir and proair as needed Obesity 045365072 E66.9 weight loss recommende d Dyspnea 221375794 R06.02 [id number] Giana Young [place] [id number] [place], [place] [address] [address] [place] [address] 11/15/2018 08:50:05 11/15/2018 09:55:55 Obstructive sleep apnea syndrome 18319196 G47.33 She ahs oksana on the APAP and sh ehas been 97% complaint and AHI .7She ahs oksana loosing weight and soing well and w great benefit Asthma 255619093 J45.90 9 She ahs been on the advaircont singulairp roair as neededwill follow PFT Obesity 194532396 E66.9 she has been loosing weight and doing well w dieta na recommende d exercise Dyspnea 919304853 R06.02 Ex-smoker 7017057 Z87.89 1 and second hand exposure [id number] Giana Young [address] [facility] [place] [address] 12/02/2019 16:14:58 12/02/2019 16:44:39 Obstructive sleep apnea syndrome 51153143 G47.33 she has been complaint and with benefits and I have reviewed compliance Asthma 012315925 J45.90 9 She ahs oksana stable on the advair 115cont singulairp roair as needed Obesity 169343654 E66.9 she ahs been trying to loose weight Dyspnea 086763076 R06.02 Ex-smoker 1148168 Z87.89 1 and second hand exposure Psoriatic arthritis 1563 96594 L40.50 on cocentric 031453 Giana Young [address] [place] [address] 11/04/2021 10:16:02 11/04/2021 11:15:34 Obstructive sleep apnea syndrome 22505915 G47.33 I have reviewed the complaince and she has been complaint and with great benefitsI have reviewed the complaince Asthma 205949266 J45.90 9 stable on the advair 115 BIDcont singulairp roair as needed Obesity 841687236 E66.9 weight loss recommende d Dyspnea 973293761 R06.02 Ex-smoker 4303751 Z87.89 1 and second hand exposure Psoriatic arthritis 1563 21691 L40.50 on biologics Health Concerns Section Related Observation LastModified by Organization Detai ls LastModified Time None Recorded Concern Status LastModified by Organization Details LastModified Time None Recorded Advance Directives Directive N: Payers Encounter Date Sequence Insurance Name Policy Number Policy Clarke Covered Member ID Clarke Member ID Guarantor Name 10/12/2017 1 [place] [id number] Cristian New [id number] [place] 01/11/2018 1 [place] [id number] Cristian New [id number] [place]aci [place] 11/15/2018 1 [place] [id number] Cristian New [id number] [place] [place] 12/02/2019 1 [place] [id number] Cristian New [id number] [place] 11/04/2021 1 [place] [id number] Cristian New [id number] [place] Notes Date Note Type Note Provider Name and Address Organization Details Recorded Time 10/12/2017 text/html She is here to b e established for TIFFANI . In the last 4 years she was treated for vasculitis and iron deficiency anemia , she has been seen the rheumatology and has been started on biologicals and she is better . She has SOB on exertion and she has been complaining of sneezing and post nasal drip , she has no wheezing . She has been on the advair and she has been using the rescue inhalers as needed , now more with the heat .She has been using the CPAp at night and she can no sleep without it . She has been gaining weight on and off about 30 pounds . She has been taking nap at lunch everyday and she takes naps in am , she has dreams sometimes and ofr the last couple months she talk on her sleep . She does not snores but has been tired during the day. . JASPER HERNANDEZ [address] [facility],[address], [place], [address], [facility] 10/12/2017 15:38:49 01/11/2018 text/html She si shere for follow up and she ahs been doing well , she has a little cough likely from allergies and she ahs no sputum and ahs no wheezing and she has been on the advair and no need to use the rescue inhalers . Giana Cunningham [address] [address], [place], [address], [facility] 01/11/2018 11:56:12 11/15/2018 text/html She si here for follow up and she has been diagnosed w diabetes. She ahs oksana on a diest and loosing weight. She ahs been seen rheumatology for possible Psoriatic arthritis . She has been using the advair daily and no need to use the rescue inhaler. Giana Cunningham Md[address] [facility],[place] [address], [place], [address], [facility] 11/15/2018 09:51:28 12/02/2019 text/html Patient is seen on AUDIO/TELE Medicine due to COVID-19 and agree w encounter . She ahs oksana doing well and she ahs been started on medication for psoriatic arthritis . She ahs oksana doing well on the PAp and has been tolerating well .She ahs not been taking naps usually . She ahs mild cough from post nasal drip . She ahs no wheezing and has been on the singualir . Has been on the advair Giana Young [address] [facility],[address], [place], [address], [facility] 12/02/2019 16:38:15 11/04/2021 text/html She is here for follow up and has been doing well . She has some nasal congestion , she has some cough from nasal drip . doing the advair and singulair Patient with sleep apnea, has been compliant and is benefiting and has passed the CDL which I reviewed with the patient. She si sleeping well on the pap but she has been a little more tired during the day . Giana Cunningham Md[address] [facility],[address], [place], [address], [facility] - [facility] 11/04/2021 11:03:51 OBGyn Episode No OBEpisode recorded.
--- OUTSIDE RECORDS SUMMARY | 2024-07-11 07:57 | XMS_ITS | Data Portability ---
Author Organization [facility] [employer], [facility], [facility] Address [address] [place] [address] Care Team Providers Care Winter Intern Name Role Phone TATIANA STORY Referring Provider [phone] DIA MONDRAGON OTHER GLORIA FOOTE OTHER Assessment No assessment recorded. Plan of Treatment Reminders Order Date Submit Date Provider Last Modified By Organization Details Last Modified Time Details Appointments None recorded. Lab CMP, serum or plasma 2022 023 [facility], [address], [place], [address], 3 14:43:40 lipid panel, serum 2022 023 [facility], [address] [place], [address], 3 14:43:41 CK (creatine kinase), total, serum 2022 023 [facility], [address] [place], [address], 3 14:43:41 CBC 2022 023 [facility], [address] [place], [address], 3 14:43:41 TSH, serum or plasma 2022 023 [facility], [address], [place], [address], 3 09:38:13 uric acid, serum or plasma 2022 023 [facility], [address], [place], [address], 3 09:38:22 urinalysi s, complete 2022 023 [facility], [address], [place], [address], 3 18:41:59 vitamin B12, serum 2022 023 [facility], [address], [place], [address], 3 09:38:10 CBC 2022 023 [facility], [address], [place], [address], 3 18:23:27 CMP, serum or plasma 2022 023 [facility], [address], [place], [address], 3 09:38:18 T4, free, serum 2022 023 [facility], [address], [place], [address], 3 09:38:12 vitamin D, 25-hydrox y, total, serum 2022 023 [facility], [address], [place], [address], 3 09:38:16 lipid panel, serum 2022 023 [facility], [address], [place], [address], 3 09:38:20 HbA1c (hemoglob in A1c), blood 2022 023 [facility], [address], [place], [address], 3 18:23:26 microalbu min/creat inine, ratio, urine 2022 023 [facility], [address], [place], [address], 3 14:31:48 venipunct ure 2022 023 [facility], [address], [place], [address], 3 11:49:24 HbA1c (hemoglob in A1c), blood 2022 023 [email or web address], [address], [place], [address], 3 14:43:40 microalbu min/creat inine, ratio, urine 2022 023 [facility], [address], [place], [address], 3 14:43:40 venipunct ure 2022 023 [facility], [address], [place], [address], 3 14:43:40 Referral podiatris t referral 2022 023 [id number] Nina Damon DP ([facility]), [address] [place] [address], [place], [address], 3 08:04:40 Procedures None recorded. Surgeries None recorded. Imaging MAMMO, screening , tomosynth esis, bilateral 2022 023 [facility], [facility], All Locations, [place], [address], 3 09:36:44 electroca rdiogram 2022 023 [facility] In-Office Order, Internal Use Only DO Not Attach Compendium DO Not Attach Compendium, Do Not Delete/merge, [id number] 3 11:40:56 XR, chest, 2 view 2022 023 [facility], [facility], All Locations, [place], [address], 3 09:25:23 Medication Orders cyclobenz aprine 10 mg tablet 2022 023 [facility][id number], [address] [place], [place], [id number], 3 13:21:27 Cipro 500 mg tablet 2022 023 [facility] #[id number], [address] [place], [place], [id number], 3 13:21:24 albuterol sulfate 2.5 mg/3 mL (0.083 %) solution for nebulizat ion 2022 023 [facility], [address] [place], [place], [id number], 3 09:07:25 Medrol (Diaz) 4 mg tablets in a dose pack 2022 023 [facility] #93466, [address] [place], [place], [id number], 3 13:06:11 Zithromax Z-Diaz 250 mg tablet 2022 023 [facility] #47348, [address] [place], [place], [id number], 3 13:06:15 dexametha sone sodium phosphate 4 mg/mL injection solution 2022 023 [facility] Not available 3 13:05:48 Depo-Medr ol 80 mg/mL suspensio n for injection 2022 023 [facility] Not available 3 13:05:46 Bactrim DS 800 mg-160 mg tablet 2022 023 [facility] #41317, [address] [place], [place], [id number], 3 13:21:47 Patient TargetsNo targets recorded. Patient Instructions Encounter Date Encounter Id Patient Instructions Last Modified By Organization Details Last Modified Time 05/08/2022 [id number] learning about type 2 diabetes Not available 05/08/2022 08:46:35 05/16/2022 [id number] starting a weigh t loss plan: care instructions Not available 05/16/2022 09:07:13 learning about type 2 diabetes Not available 05/16/2022 09:07:13 bronchitis: care instructions Not available 05/16/2022 09:07:13 05/26/2022 [id number] learning about type 2 diabetes Not available 05/26/2022 11:08:53 Acute Sinusitis: Care Instructions Not available 05/26/2022 11:08:54 08/04/2022 [id number] Vaccine Consent form Not available 08/04/2022 11:36:27 toenail fungus: care instructions Not available 08/04/2022 11:36:29 Anticipatory Guidance for preventive visits Not available 08/04/2022 11:36:27 starting a weigh t loss plan: care instructions Not available 08/04/2022 11:36:27 learning about type 2 diabetes Not available 08/04/2022 11:36:27 01/03/2023 [id number] Vaccine Consent form mburt Not available 01/03/2023 08:10:53 learning about type 2 diabetes Not available 01/03/2023 08:10:52 external records - Please provide record of this patient's Diabetic Eye Exam within the last 12 months. Thank you [email or web address] Not available 01/16/2023 08:58:55 [place] out [place] the [place] and will find a new dr there and cont. care. 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 Referring Physician: Tatiana Story, Family Medicine, Encounter Date: 08/04/2022 Results Created Date Observation Date Name Description Value Unit Range Abnormal Flag Note LastModifiedBy Organization Detail LastModifiedTime 05/08/19 23 05/14/2022 CULTU RE, AEROB IC AND ANAER OBIC W/GRA M STAIN culture, anaerobic bacteria w/gram stain SEE NOTE CULTU RE, ANAER OBIC BACTE COREY W/GRA M STAIN Micro Numbe r: [id number] Test Statu s: Final Speci men Sourc e: Groin Speci men Quali ty: Adequ ate Gram Stain : Few epith elial cells No white blood cells seen No organ isms seen Resul t: Light growt h of Propi oniba cteri um acnes Not Available [facility] [address] [place], [place] [address], [place], [address], 05/14/2022 08:47:30 05/08/19 23 05/14/2022 CULTU RE, AEROB IC AND ANAER OBIC W/GRA M STAIN culture, aerobic bacteria SEE NOTE CULTU RE, AEROB IC BACTE COREY Micro Numbe r: [id number] Test Statu s: Final Speci men Sourc e: Groin Speci men Quali ty: Adequ ate Resul t: Growt h of skin shahid (note : Growt h does not inclu de S. aureu s, beta- hemol ytic Strep tococ ci or P. aerug inosa ). Not Available [facility] [address], [place], [address], 05/14/2022 08:47:30 05/19/19 23 05/20/2022 ALBUM IN, RANDO M URINE W/CRE ATINI NE creatinine, random urine 111 mg/dL 20-275 normal Not Available [facility] [address] [place], [address], 05/20/2022 17:56:38 05/19/19 23 05/20/2022 ALBUM IN, RANDO M URINE W/CRE ATINI NE albumin, urine 2.7 mg/dL see note: normal Refer ence Range : Refer ence Range Not estab lishe d Not Available [facility] [place] [facility] [address], [place], [address], 05/20/2022 17:56:38 05/19/19 23 05/20/2022 ALBUM IN, RANDO M URINE W/CRE ATINI NE albumin/crea tinine ratio, random urine 24 mcg/m g_cre at <30 normal The ADA defin es abnor malit ies in album in excre tion as follo ws: Album inuri a Categ ory Resul t (mcg/ mg creat inine ) Anita l to Mildl y incre ased <30 Moder ately incre ased 30-29 9 Sever vern incre ased > OR = 300 The ADA recom mends that at least two of three speci mens colle cted withi n a 3-6 month perio d be abnor mal befor e consi margarita g a patie nt to be withi n a diagn ostic categ ory. Not Available [facility] [place] [facility] [address], [place], [address], 05/20/2022 17:56:38 05/19/19 23 05/20/2022 LIPID PANEL WITH REFLE X TO DIREC T LDL cholesterol, total 153 mg/dL <200 normal Not Available [facility] [place] [facility] [address], [place], [address], 05/20/2022 17:56:39 05/19/19 23 05/20/2022 LIPID PANEL WITH REFLE X TO DIREC T LDL HDL cholesterol 52 mg/dL > or = 50 normal Not Available [facility] [place] [facility] [address], [place], [address], 05/20/2022 17:56:39 05/19/19 23 05/20/2022 LIPID PANEL WITH REFLE X TO DIREC T LDL triglyceride s 140 mg/dL <150 normal Not Available [facility] [place] [facility] [address], [place], [address], 05/20/2022 17:56:39 05/19/19 23 05/20/2022 LIPID PANEL WITH REFLE X TO DIREC T LDL LDL-choleste rol 77 mg/dL _(anthony c) normal Refer ence range : <100 Napoleon able range <100 mg/dL for prima ry preve ntion ; <70 mg/dL for patie nts with CHD or diabe tic patie nts with > or = 2 CHD risk facto rs. LDL-C is now calcu lated using the Meagan n-Hop kins emelynu megan n, which is a valid ated novel metho d provi brunilda borrego r accur acy than the Fried roman equat ion in the estim ation of LDL-C . Meagan hoffman SS et al. ZANA. 2013; 310(7 8): 2061- 2068 (http ://ed ucati on.Qu Cedrick diaz Miralupas. com/f aq/FA Q164) Not Available [facility] [place] [facility] [address], [place], [address], 05/20/2022 17:56:39 05/19/19 23 05/20/2022 LIPID PANEL WITH REFLE X TO DIREC T LDL chol/HDLC ratio 2.9 (calc ) <5.0 normal Not Available [facility] [place] [facility] [address], [place], [address], 05/20/2022 17:56:39 05/19/19 23 05/20/2022 LIPID PANEL WITH REFLE X TO DIREC T LDL non HDL cholesterol 101 mg/dL _(anthony c) <130 normal For patie nts with diabe raza plus 1 major ASCVD risk facto r, treat ing to a non-H DL-C goal of <100 mg/dL (LDL- C of <70 mg/dL ) is consi dered a thera peuti c optio n. Not Available [facility] [place] [facility] [address], [place], [address], 05/20/2022 17:56:39 05/19/1905/20/2022 COMPR EHENS AREN METAB OLIC PANEL glucose 134 mg/dL 65-99 high Fasti ng refer ence inter elias For someo ne witho ut known diabe raza, a gluco se value >125 mg/dL indic ates that they may have diabe raza and this shoul d be confi rmed with a follo w-up test. Not Available [facility] [place] [facility] [address], [place], [address], 05/20/2022 17:56:40 05/19/19 23 05/20/2022 COMPR EHENS AREN METAB OLIC PANEL urea nitrogen (BUN) 13 mg/dL 7-25 normal Not Available [facility] [place] [facility] [address], [place], [address], 05/20/2022 17:56:40 05/19/19 23 05/20/2022 COMPR EHENS AREN METAB OLIC PANEL creatinine 0.56 mg/dL 0.50-1 .03 normal Not Available [facility] [address], [place], [address], 05/20/2022 17:56:40 05/19/19 23 05/20/2022 COMPR EHENS AREN METAB OLIC PANEL eGFR 109 mL/mi n/1.7 3m2 > or = 60 normal The eGFR is based on the CKD-E PI 2020 equat ion. To calcu late the new eGFR from a previ ous Creat inine or Cysta clyde C resul t, go to https ://aditi caballero.o letitia/livan chino s/ kdoqi /gfr% 5Fcal culat or Not Available [facility] [address], [place], [address], 05/20/2022 17:56:40 05/19/19 23 05/20/2022 COMPR EHENS AREN METAB OLIC PANEL BUN/creatini ne ratio NOT APPLIC ABLE (calc ) 6-22 Not Available [facility] [address], [place], [address], 05/20/2022 17:56:40 05/19/19 23 05/20/2022 COMPR EHENS AREN METAB OLIC PANEL sodium 138 mmol/ L 135-14 6 normal Not Available [facility] [place] [facility] [address], [place], [address], 05/20/2022 17:56:40 05/19/19 23 05/20/2022 COMPR EHENS AREN METAB OLIC PANEL potassium 4.5 mmol/ L 3.5-5. 3 normal Not Available [facility] [address], [place], [address], 05/20/2022 17:56:40 05/19/19 23 05/20/2022 COMPR EHENS AREN METAB OLIC PANEL chloride 101 mmol/ L 98-110 normal Not Available [facility] [address], [place], [address], 05/20/2022 17:56:40 05/19/19 23 05/20/2022 COMPR EHENS AREN METAB OLIC PANEL carbon dioxide 25 mmol/ L 20-32 normal Not Available [facility] [address], [place], [address], 05/20/2022 17:56:40 05/19/19 23 05/20/2022 COMPR EHENS AREN METAB OLIC PANEL calcium 9.6 mg/dL 8.6-10 .4 normal Not Available [facility] [address], [place], [address], 05/20/2022 17:56:40 05/19/19 23 05/20/2022 COMPR EHENS AREN METAB OLIC PANEL protein, total 7.2 g/dL 6.1-8. 1 normal Not Available [facility] [address], [place], [address], 05/20/2022 17:56:40 05/19/19 23 05/20/2022 COMPR EHENS AREN METAB OLIC PANEL albumin 4.0 g/dL 3.6-5. 1 normal Not Available [facility] [address], [place], [address], 05/20/2022 17:56:40 05/19/19 23 05/20/2022 COMPR EHENS AREN METAB OLIC PANEL globulin 3.2 g/dL_ (calc ) 1.9-3. 7 normal Not Available [facility] [address], [place], [address], 05/20/2022 17:56:40 05/19/19 23 05/20/2022 COMPR EHENS AREN METAB OLIC PANEL albumin/glob ulin ratio 1.3 (calc ) 1.0-2. 5 normal Not Available [facility] [address], [place], [address], 05/20/2022 17:56:40 05/19/19 23 05/20/2022 COMPR EHENS AREN METAB OLIC PANEL bilirubin, total 0.2 mg/dL 0.2-1. 2 normal Not Available [facility] [address], [place], [address], 05/20/2022 17:56:40 05/19/19 23 05/20/2022 COMPR EHENS AREN METAB OLIC PANEL alkaline phosphatase 80 U/L 37-153 normal Not Available [facility] [address], [place], [address], 05/20/2022 17:56:40 05/19/19 23 05/20/2022 COMPR EHENS AREN METAB OLIC PANEL AST 11 U/L 10-35 normal Not Available [facility] [address], [place], [address], 05/20/2022 17:56:40 05/19/19 23 05/20/2022 COMPR EHENS AREN METAB OLIC PANEL ALT 21 U/L 6-29 normal Not Available [facility] [address], [place], [address], 05/20/2022 17:56:40 05/19/19 23 05/20/2022 HEMOG LOBIN A1C hemoglobin A1C 5.9 %_of_ total _HGB <5.7 high For someo ne witho ut known diabe raza, a hemog lobin A1c value betwe en 5.7% and 6.4% is consi stent with predi abete s and shoul d be confi rmed with a follo w-up test. For someo ne with known diabe raza, a value <7% indic ates that their diabe raza is well contr olled . A1c targe ts shoul d be indiv idual ized based on durat ion of diabe raza, age, comor bid condi tions , and other consi derat ions. This assay resul t is consi stent with an incre ased risk of diabe raza. Curre ntly, no conse nsus exist s regar ding use of hemog lobin A1c for diagn osis of diabe raza for child kushal. Not Available [facility] [place] [facility] [address], [place], [address], 05/20/2022 17:56:40 05/19/1905/20/2022 CREAT INE KINAS E, TOTAL creatine kinase, total 27 U/L 29-143 low Not Available [facility] [place] [facility] [address], [place], [address], 05/20/2022 17:56:41 05/19/19 23 05/20/2022 CBC (INCL UDES DIFF/ PLT) white blood cell count 14.8 thous and/u L 3.8-10 .8 high Not Available [facility] [place] [facility] [address], [place], [address], 05/20/2022 17:56:42 05/19/19 23 05/20/2022 CBC (INCL UDES DIFF/ PLT) red blood cell count 4.96 yanet on/uL 3.80-5 .10 normal Not Available [facility] [place] [facility] [address], [place], [address], 05/20/2022 17:56:42 05/19/19 23 05/20/2022 CBC (INCL UDES DIFF/ PLT) hemoglobin 13.8 g/dL 11.7-1 5.5 normal Not Available [facility] [place] [facility] [address], [place], [address], 05/20/2022 17:56:42 05/19/19 23 05/20/2022 CBC (INCL UDES DIFF/ PLT) hematocrit 41.4 % 35.0-4 5.0 normal Not Available [facility] [address], [place], [address], 05/20/2022 17:56:42 05/19/19 23 05/20/2022 CBC (INCL UDES DIFF/ PLT) MCV 83.5 fL 80.0-1 00.0 normal Not Available [facility] [address], [place], [address], 05/20/2022 17:56:42 05/19/19 23 05/20/2022 CBC (INCL UDES DIFF/ PLT) MCH 27.8 pg 27.0-3 3.0 normal Not Available [facility] [address], [place], [address], 05/20/2022 17:56:42 05/19/19 23 05/20/2022 CBC (INCL UDES DIFF/ PLT) MCHC 33.3 g/dL 32.0-3 6.0 normal Not Available [facility] [address], [place], [address], 05/20/2022 17:56:42 05/19/19 23 05/20/2022 CBC (INCL UDES DIFF/ PLT) RDW 15.9 % 11.0-1 5.0 high Not Available [facility] [address], [place], [address], 05/20/2022 17:56:42 05/19/19 23 05/20/2022 CBC (INCL UDES DIFF/ PLT) platelet count 308 thous and/u L 140-40 0 normal Not Available [facility] [address], [place], [address], 05/20/2022 17:56:42 05/19/19 23 05/20/2022 CBC (INCL UDES DIFF/ PLT) MPV 10.1 fL 7.5-12 .5 normal Not Available [facility] [place] [facility] [address], [place], [address], 05/20/2022 17:56:42 05/19/19 23 05/20/2022 CBC (INCL UDES DIFF/ PLT) absolute neutrophils 78058 cells /uL 1500-7 800 high Not Available [facility] [place] [facility] [address], [place], [address], 05/20/2022 17:56:42 05/19/19 23 05/20/2022 CBC (INCL UDES DIFF/ PLT) absolute lymphocytes 2057 cells /uL 850-39 00 normal Not Available [facility] [place] [facility] [address], [place], [address], 05/20/2022 17:56:42 05/19/19 23 05/20/2022 CBC (INCL UDES DIFF/ PLT) absolute monocytes 829 cells /uL 200-95 0 normal Not Available [facility] [place] [facility] [address], [place], [address], 05/20/2022 17:56:42 05/19/19 23 05/20/2022 CBC (INCL UDES DIFF/ PLT) absolute eosinophils 0 cells /uL 15-500 low Not Available [facility] [place] [facility] [address], [place], [address], 05/20/2022 17:56:42 05/19/19 23 05/20/2022 CBC (INCL UDES DIFF/ PLT) absolute basophils 15 cells /uL 0-200 normal Not Available [facility] [place] [facility] [address], [place], [address], 05/20/2022 17:56:42 05/19/19 23 05/20/2022 CBC (INCL UDES DIFF/ PLT) neutrophils 80.4 % normal Not Available [facility] [place] [facility] [address], [place], [address], 05/20/2022 17:56:42 05/19/19 23 05/20/2022 CBC (INCL UDES DIFF/ PLT) lymphocytes 13.9 % normal Not Available [facility] [place] [facility] [address], [place], [address], 05/20/2022 17:56:42 05/19/19 23 05/20/2022 CBC (INCL UDES DIFF/ PLT) monocytes 5.6 % normal Not Available [facility] [place] [facility] [address], [place], [address], 05/20/2022 17:56:42 05/19/19 23 05/20/2022 CBC (INCL UDES DIFF/ PLT) eosinophils 0.0 % normal Not Available [facility] [address], [place], [address], 05/20/2022 17:56:42 05/19/19 23 05/20/2022 CBC (INCL UDES DIFF/ PLT) basophils 0.1 % normal Not Available [facility] [place] [facility] [address], [place], [address], 05/20/2022 17:56:42 08/05/19 23 08/04/2022 A1C hemoglobin A1C 5.2 % 4.3-5. 6 ADA RECOM MANPREET D GUIDE LINES FOR HgbA1 C 5.7-6 .4 % predi abeti c <7.0% Reaso nable glyce ciara goal for non-p regna nt adult s <8.0 Appro priat e for patie nts with hypog lycem ia or advan nancy micro /macr o vascu lar compl icati ons Not Available [facility] [address], [place], [address], 08/04/2022 18:23:26 08/05/19 23 08/04/2022 A1C estimated average glucose 102.5 mg/dL 97.0-1 40.0 Not Available [facility] [address], [place], [address], 08/04/2022 18:23:26 08/05/19 23 08/04/2022 CBC W/ AUTOD IFF, COMPL ETE BLOOD COUNT WBC 12.5 K/uL 3.6-10 .0 high Not Available [facility] [address], [place], [address], 08/04/2022 18:23:27 08/05/19 23 08/04/2022 CBC W/ AUTOD IFF, COMPL ETE BLOOD COUNT nucleated RBC 0.00 % 0.00-2 .00 Not Available [facility], [place], [address], 08/04/2022 18:23:27 08/05/19 23 08/04/2022 CBC W/ AUTOD IFF, COMPL ETE BLOOD COUNT RBC 4.76 M/uL 3.90-5 .00 Not Available [facility], [place], [address], 08/04/2022 18:23:27 08/05/19 23 08/04/2022 CBC W/ AUTOD IFF, COMPL ETE BLOOD COUNT HGB 13.1 g/dL 12.0-1 5.0 Not Available [facility], [place], [address], 08/04/2022 18:23:27 08/05/19 23 08/04/2022 CBC W/ AUTOD IFF, COMPL ETE BLOOD COUNT hematocrit 40.30 % 35.00- 45.00 Not Available [facility], [place], [address], 08/04/2022 18:23:27 08/05/19 23 08/04/2022 CBC W/ AUTOD IFF, COMPL ETE BLOOD COUNT MCV 84.8 fL 80.0-9 9.0 Not Available [facility], [place], [address], 08/04/2022 18:23:27 08/05/19 23 08/04/2022 CBC W/ AUTOD IFF, COMPL ETE BLOOD COUNT MCH 27.6 pg 27.0-3 3.0 Not Available [facility], [place], [address], 08/04/2022 18:23:27 08/05/19 23 08/04/2022 CBC W/ AUTOD IFF, COMPL ETE BLOOD COUNT MCHC 32.5 g/dL 32.0-3 6.0 Not Available [facility] [address] [place] [address] [address], [place], [address], 08/04/2022 18:23:27 08/05/19 23 08/04/2022 CBC W/ AUTOD IFF, COMPL ETE BLOOD COUNT platelets 298 K/uL 140-44 0 Not Available [facility], [place], [address], 08/04/2022 18:23:27 08/05/19 23 08/04/2022 CBC W/ AUTOD IFF, COMPL ETE BLOOD COUNT RDW 17.1 % 11.0-1 5.0 high Not Available [facility] [address] [place] [address] [address], [place], [address], 08/04/2022 18:23:27 08/05/19 23 08/04/2022 CBC W/ AUTOD IFF, COMPL ETE BLOOD COUNT MPV 8.4 fL 7.4-10 .4 Not Available [facility], [place], [address], 08/04/2022 18:23:27 08/05/19 23 08/04/2022 CBC W/ AUTOD IFF, COMPL ETE BLOOD COUNT neutrophil, % 68.3 % Not Available [facility] [address], [place], [address], 08/04/2022 18:23:27 08/05/19 23 08/04/2022 CBC W/ AUTOD IFF, COMPL ETE BLOOD COUNT lymphocyte % 23.2 % Not Available [facility], [place], [address], 08/04/2022 18:23:27 08/05/19 23 08/04/2022 CBC W/ AUTOD IFF, COMPL ETE BLOOD COUNT monocyte % 6.4 % Not Available [facility] [address], [place], [address], 08/04/2022 18:23:27 08/05/19 23 08/04/2022 CBC W/ AUTOD IFF, COMPL ETE BLOOD COUNT eosinophil % 1.8 % Not Available [facility] [address] [address] [place], [place] [address]y [address], [place], [address], 08/04/2022 18:23:27 08/05/19 23 08/04/2022 CBC W/ AUTOD IFF, COMPL ETE BLOOD COUNT basophil % 0.3 % Not Available [facility] [address], [place], [address], 08/04/2022 18:23:27 08/05/19 23 08/04/2022 CBC W/ AUTOD IFF, COMPL ETE BLOOD COUNT neutrophil, # 8.6 K/uL 1.5-7. 5 high Not Available [facility] [address], [place], [address], 08/04/2022 18:23:27 08/05/19 23 08/04/2022 CBC W/ AUTOD IFF, COMPL ETE BLOOD COUNT lymphocyte # 2.9 K/uL 0.8-4. 0 Not Available [facility] [address] [place], [place] [address], [place], [address], 08/04/2022 18:23:27 08/05/19 23 08/04/2022 CBC W/ AUTOD IFF, COMPL ETE BLOOD COUNT monocyte # 0.8 K/uL 0.1-1. 0 Not Available [facility] [address] [place], [place] [address] [address], [place], [address], 08/04/2022 18:23:27 08/05/19 23 08/04/2022 CBC W/ AUTOD IFF, COMPL ETE BLOOD COUNT eosinophil # 0.2 K/uL 0.1-1. 0 Not Available [facility] [address] [place], [place] [address] [address] [place], [address], 08/04/2022 18:23:27 08/05/19 23 08/04/2022 CBC W/ AUTOD IFF, COMPL ETE BLOOD COUNT basophil # 0.0 K/uL 0.0-0. 2 Not Available [facility] [address] [place], [place] [address] [address], [place], [address], 08/04/2022 18:23:27 08/05/19 23 08/04/2022 URINA LYSIS , COMPL ETE W/ REFLE X TO CULTU RE color LIGHT YELLOW yellow Not Available [facility] [address] [place], [place] [address] [address], [place], [address], 08/04/2022 18:41:59 08/05/19 23 08/04/2022 URINA LYSIS , COMPL ETE W/ REFLE X TO CULTU RE appearance CLEAR clear Not Available [facility] [address] [place], [place] [address] [address], [place], [address], 08/04/2022 18:41:59 08/05/19 23 08/04/2022 URINA LYSIS , COMPL ETE W/ REFLE X TO CULTU RE specific gravity 1.020 1.005- 1.030 Not Available [facility] [address] [facility], [place], [address], 08/04/2022 18:41:59 08/05/19 23 08/04/2022 URINA LYSIS , COMPL ETE W/ REFLE X TO CULTU RE pH 5.50 5.00-8 .00 Not Available [facility] [address] [place] [address] [address], [place], [address], 08/04/2022 18:41:59 08/05/19 23 08/04/2022 URINA LYSIS , COMPL ETE W/ REFLE X TO CULTU RE glucose NEGATI VE mg/dL negati ve Not Available [facility] [address] [place] [address] [address] [place], [address], 08/04/2022 18:41:59 08/05/19 23 08/04/2022 URINA LYSIS , COMPL ETE W/ REFLE X TO CULTU RE bilirubin NEGATI VE mg/dL negati ve Not Available [facility] [address] [place] [address] [address] [facility], [place], [address], 08/04/2022 18:41:59 08/05/19 23 08/04/2022 URINA LYSIS , COMPL ETE W/ REFLE X TO CULTU RE ketone NEGATI VE mg/dL negati ve Not Available [facility]7 [facility] [address] [facility], [place], [address], 08/04/2022 18:41:59 08/05/19 23 08/04/2022 URINA LYSIS , COMPL ETE W/ REFLE X TO CULTU RE blood NEGATI VE mg/dL negati ve Micro scopi c is indic ated for trace blood , trace leuko cytes + nitri raza, or 1+ prote in. All other s are consi dered negat aren and no micro scopi c neede d. Not Available [facility] [address] [place] [address] [address] [place], [address], 08/04/2022 18:41:59 08/05/19 23 08/04/2022 URINA LYSIS , COMPL ETE W/ REFLE X TO CULTU RE protein NEGATI VE mg/dL negati ve Not Available [facility] [address] [place] [address] [address] [place], [address], 08/04/2022 18:41:59 08/05/19 23 08/04/2022 URINA LYSIS , COMPL ETE W/ REFLE X TO CULTU RE urobilinogen NORMAL E.U./ dL normal Not Available [facility] [address] [place] [address] [address] [place], [address], 08/04/2022 18:41:59 08/05/19 23 08/04/2022 URINA LYSIS , COMPL ETE W/ REFLE X TO CULTU RE nitrite NEGATI VE negati ve Not Available [facility] [address] [place] [address] 41 [place], [address], 08/04/2022 18:41:59 08/05/19 23 08/04/2022 URINA LYSIS , COMPL ETE W/ REFLE X TO CULTU RE leukocytes NEGATI VE bhupinder/u L negati ve A Cultu re will refle x when any of the follo wing crite corey is met: - Posit aren Nitri te - Small , Moder ate or Large Leuko cytes - => 6 WBC/H PF - 4+ Bacte corey on micro scopi c exami natio n - Any amoun t of YEAST on micro scopi c exam Not Available [facility] [address] [place] [address] [address], [place], [address], 08/04/2022 18:41:59 08/05/19 23 08/05/2022 MICRO ALBUM IN, RAND( UR/CR EAT) creatinine, random urine 116 mg/dL 20-275 normal Not Available [facility] [address] [facility] [address] [place], [address], 08/05/2022 14:31:48 08/05/19 23 08/05/2022 MICRO ALBUM IN, RAND( UR/CR EAT) albumin, urine 1.0 mg/dL see note: normal Refer ence Range : Refer ence Range Not estab lishe d Not Available [facility] [address] [facility] [address], [place], [address], 08/05/2022 14:31:48 08/05/19 23 08/05/2022 MICRO ALBUM IN, RAND( UR/CR EAT) albumin/crea tinine ratio, random urine 9 mcg/m g_cre at <30 normal The ADA defin es abnor malit ies in album in excre tion as follo ws: Album inuri a Categ ory Resul t (mcg/ mg creat inine ) Anita l to Mildl y incre ased <30 Moder ately incre ased 30-29 9 Sever vern incre ased > OR = 300 The ADA recom mends that at least two of three speci mens colle cted withi n a 3-6 month perio d be abnor mal befor e consi margarita g a patie nt to be withi n a diagn ostic categ ory. Not Available [facility] [address] [facility] [address] [place], [address], 08/05/2022 14:31:48 08/05/19 23 08/06/2022 VITAM IN B-12 vitamin B12 425 pg/mL 200-11 00 normal Not Available [facility] [address] [facility] [address] [place], [address], 08/06/2022 09:38:09 08/05/19 23 08/06/2022 T4, FREE T4, free 0.9 NG/dL 0.8-1. 8 normal Not Available [facility] [address], [place], [address], 08/06/2022 09:38:11 08/05/1908/06/2022 TSH, THYRO ID STIMU LATIN G HORMO NE TSH 2.07 mIU/L normal Refer ence Range > or = 20 Years 0.40- 4.50 Pregn nely Range s First trime ster 0.26- 2.66 Secon d trime ster 0.55- 2.73 Third trime ster 0.43- 2.91 Not Available [facility] [address], [place], [address], 08/06/2022 09:38:13 08/05/1908/06/2022 VITAM IN D, 25-HY DROXY vitamin D,25-oh,tota l,ia 32 NG/mL 30-100 normal Vitam in D Statu s 25-OH Vitam in D: Defic iency : <20 ng/mL Insuf ficie ncy: 20 - 29 ng/mL Optim al: > or = 30 ng/mL For 25-OH Vitam in D testi ng on patie nts on D2-marroquin pplem entat ion and patie nts for whom quant itati on of D2 and D3 fract ions is requi red, the [facility] eD(TM ) 25-OH VIT D, (D2,D 3), LC/MS /MS is recom manpreet d: order code 44594 (liz ents >2yrs ). See Note 1 Note 1 For addit ional infor keyla odell e refer to http: //pj hoffman.Que stDia gnost ics.c om/fa q/FAQ 199 (This link is being provi ded for infor rebeca ovalles/ narcisa block purpo ses only. ) Not Available [facility] [address], [place], [address], 08/06/2022 09:38:15 08/05/1908/06/2022 CMP, COMPR EHENS AREN METAB OLIC PANEL glucose 78 mg/dL 65-99 normal Fasti ng refer ence inter elias Not Available [facility] [address] [facility] [address], [place], [address], 08/06/2022 09:38:17 08/05/19 23 08/06/2022 CMP, COMPR EHENS AREN METAB OLIC PANEL urea nitrogen (BUN) 13 mg/dL 7-25 normal Not Available [facility] [address] [facility] [address], [place], [address], 08/06/2022 09:38:17 08/05/1908/06/2022 CMP, COMPR EHENS AREN METAB OLIC PANEL creatinine 0.70 mg/dL 0.50-1 .03 normal Not Available [facility] [address] [facility] [address], [place], [address], 08/06/2022 09:38:17 08/05/1908/06/2022 CMP, COMPR EHENS AREN METAB OLIC PANEL eGFR 103 mL/mi n/1.7 3m2 > or = 60 normal The eGFR is based on the CKD-E PI 2020 equat ion. To calcu late the new eGFR from a previ ous Creat inine or Cysta tin C resul t, go to https ://aditi caballero.yue dong/livan chino s/ kdoqi /gfr% 5Fcal culat or Not Available [facility] [address] [facility] [address], [place], [address], 08/06/2022 09:38:17 08/05/1908/06/2022 CMP, COMPR EHENS AREN METAB OLIC PANEL BUN/creatini ne ratio NOT APPLIC ABLE (calc ) 6-22 Not Available [facility] [address] [facility] [address], [place], [address], 08/06/2022 09:38:17 08/05/19 23 08/06/2022 CMP, COMPR EHENS AREN METAB OLIC PANEL sodium 139 mmol/ L 135-14 6 normal Not Available [facility] [address], [place], [address], 08/06/2022 09:38:17 08/05/19 23 08/06/2022 CMP, COMPR EHENS AREN METAB OLIC PANEL potassium 4.5 mmol/ L 3.5-5. 3 normal Not Available [facility] [address] [facility] [address], [place], [address], 08/06/2022 09:38:17 08/05/1908/06/2022 CMP, COMPR EHENS AREN METAB OLIC PANEL chloride 102 mmol/ L 98-110 normal Not Available [facility] [address] [facility] [address], [place], [address], 08/06/2022 09:38:17 08/05/1908/06/2022 CMP, COMPR EHENS AREN METAB OLIC PANEL carbon dioxide 24 mmol/ L 20-32 normal Not Available [facility] [address], [place], [address], 08/06/2022 09:38:17 08/05/1908/06/2022 CMP, COMPR EHENS AREN METAB OLIC PANEL calcium 9.5 mg/dL 8.6-10 .4 normal Not Available [facility] [address] [facility] [address], [place], [address], 08/06/2022 09:38:17 08/05/1908/06/2022 CMP, COMPR EHENS AREN METAB OLIC PANEL protein, total 7.5 g/dL 6.1-8. 1 normal Not Available [facility] [address] [facility] [address], [place], [address], 08/06/2022 09:38:17 08/05/19 23 08/06/2022 CMP, COMPR EHENS AREN METAB OLIC PANEL albumin 4.1 g/dL 3.6-5. 1 normal Not Available [facility] [address] [facility] [address], [place], [address], 08/06/2022 09:38:17 08/05/19 23 08/06/2022 CMP, COMPR EHENS AREN METAB OLIC PANEL globulin 3.4 g/dL_ (calc ) 1.9-3. 7 normal Not Available [facility] [address] [facility] [address], [place], [address], 08/06/2022 09:38:17 08/05/19 23 08/06/2022 CMP, COMPR EHENS AREN METAB OLIC PANEL albumin/glob ulin ratio 1.2 (calc ) 1.0-2. 5 normal Not Available [facility] [address] [facility] [address], [place], [address], 08/06/2022 09:38:17 08/05/19 23 08/06/2022 CMP, COMPR EHENS AREN METAB OLIC PANEL bilirubin, total 0.4 mg/dL 0.2-1. 2 normal Not Available [facility] [address] [facility] [address], [place], [address], 08/06/2022 09:38:17 08/05/19 23 08/06/2022 CMP, COMPR EHENS AREN METAB OLIC PANEL alkaline phosphatase 80 U/L 37-153 normal Not Available [facility] [address] [facility] [address], [place], [address], 08/06/2022 09:38:17 08/05/19 23 08/06/2022 CMP, COMPR EHENS AREN METAB OLIC PANEL AST 19 U/L 10-35 normal Not Available [facility] [address] [facility] [address], [place], [address], 08/06/2022 09:38:17 08/05/19 23 08/06/2022 CMP, COMPR EHENS AREN METAB OLIC PANEL ALT 18 U/L 6-29 normal Not Available [facility] [address] [facility] [address], [place], [address], 08/06/2022 09:38:17 08/05/19 23 08/06/2022 LIPID PANEL REF DLDL cholesterol, total 137 mg/dL <200 normal Not Available [facility] [address] [facility] [address], [place], [address], 08/06/2022 09:38:20 08/05/19 23 08/06/2022 LIPID PANEL REF DLDL HDL cholesterol 48 mg/dL > or = 50 low Not Available [facility] [address] [facility] [address], [place], [address], 08/06/2022 09:38:20 08/05/19 23 08/06/2022 LIPID PANEL REF DLDL triglyceride s 108 mg/dL <150 normal Not Available [facility] [address] [facility] [address] [place], [address], 08/06/2022 09:38:20 08/05/19 23 08/06/2022 LIPID PANEL REF DLDL LDL-choleste rol 70 mg/dL _(anthony c) normal Refer ence range : <100 Napoleon able range <100 mg/dL for prima ry preve ntion ; <70 mg/dL for patie nts with CHD or diabe tic patie nts with > or = 2 CHD risk facto rs. LDL-C is now calcu lated using the Meagan n-Hop kins emelynu megan n, which is a valid ated novel peña borrego r accur acy than the Fried roman equat ion in the estim ation of LDL-C . Meagan hoffman SS et al. ZANA. 2013; 310(1 9): 2061- 2068 (http ://ed ucati on.Qu estDi agnos Miralupas. com/f aq/FA Q164) Not Available [facility] [address], [place], [address], 08/06/2022 09:38:20 08/05/19 23 08/06/2022 LIPID PANEL REF DLDL chol/HDLC ratio 2.9 (calc ) <5.0 normal Not Available [facility] [address] [facility] [address], [place], [address], 08/06/2022 09:38:20 08/05/19 23 08/06/2022 LIPID PANEL REF DLDL non HDL cholesterol 89 mg/dL _(anthony c) <130 normal For patie nts with diabe raza plus 1 major ASCVD risk facto r, treat ing to a non-H DL-C goal of <100 mg/dL (LDL- C of <70 mg/dL ) is consi dered a thera peuti c optio n. Not Available [facility] [address] [facility] [address], [place], [address], 08/06/2022 09:38:20 08/05/19 23 08/06/2022 URIC ACID uric acid 5.0 mg/dL 2.5-7. 0 normal Thera peuti c targe t for gout patie nts: <6.0 mg/dL Not Available [facility] [address] [facility] [address], [place], [address], 08/06/2022 09:38:22 08/05/19 23 08/04/2022 VENIP UNCTU RE results Compl ete Not Available [facility] [address] [facility] [address], [place], [address], 08/04/2022 11:49:24 12/28/19 23 12/28/2022 ALBUM IN, RANDO M URINE W/CRE ATINI NE creatinine, random urine 83 mg/dL 20-275 normal Not Available [facility] [address], [place], [address], 12/28/2022 11:48:22 12/28/19 23 12/28/2022 ALBUM IN, RANDO M URINE W/CRE ATINI NE albumin, urine 0.4 mg/dL see note: normal Refer ence Range : Refer ence Range Not estab lishe d Not Available [facility] [address], [place], [address], 12/28/2022 11:48:22 12/28/19 23 12/28/2022 ALBUM IN, RANDO M URINE W/CRE ATINI NE albumin/crea tinine ratio, random urine 5 mcg/m g_cre at <30 normal The ADA defin es abnor malit ies in album in excre tion as follo ws: Album inuri a Categ ory Resul t (mcg/ mg creat inine ) Anita l to Mildl y incre ased <30 Moder ately incre ased 30-29 9 Sever vern incre ased > OR = 300 The ADA recom mends that at least two of three speci mens colle cted withi n a 3-6 month perio d be abnor mal befor e consi margarita g a patie nt to be withi n a diagn ostic categ ory. Not Available [facility] [address], [place], [address], 12/28/2022 11:48:22 12/28/19 23 12/28/2022 LIPID PANEL WITH REFLE X TO DIREC T LDL cholesterol, total 124 mg/dL <200 normal Not Available [facility] [place] [facility] [address], [place], [address], 12/28/2022 11:48:23 12/28/19 23 12/28/2022 LIPID PANEL WITH REFLE X TO DIREC T LDL HDL cholesterol 44 mg/dL > or = 50 low Not Available [facility] [address], [place], [address], 12/28/2022 11:48:23 12/28/19 23 12/28/2022 LIPID PANEL WITH REFLE X TO DIREC T LDL triglyceride s 98 mg/dL <150 normal Not Available [facility] [address], [place], [address], 12/28/2022 11:48:23 12/28/19 23 12/28/2022 LIPID PANEL WITH REFLE X TO DIREC T LDL LDL-choleste rol 62 mg/dL _(anthony c) normal Refer ence range : <100 Napoleon able range <100 mg/dL for prima ry preve ntion ; <70 mg/dL for patie nts with CHD or diabe tic patie nts with > or = 2 CHD risk facto rs. LDL-C is now calcu lated using the Meagan n-Hop kins calcu megan n, which is a valid ated novel yasmino shelli worley salima r accur acy than the Fried roman equat ion in the estim ation of LDL-C . Meagan hoffman SS et al. ZANA. 2013; 310(1 9): 2061- 2068 (http ://ed ucati on.[employer]. com/f aq/FA Q164) Not Available [facility] [address], [place], [address], 12/28/2022 11:48:23 12/28/19 23 12/28/2022 LIPID PANEL WITH REFLE X TO DIREC T LDL chol/HDLC ratio 2.8 (calc ) <5.0 normal Not Available [facility] [place] [facility] [address], [place], [address], 12/28/2022 11:48:23 12/28/19 23 12/28/2022 LIPID PANEL WITH REFLE X TO DIREC T LDL non HDL cholesterol 80 mg/dL _(anthony c) <130 normal For patie nts with diabe raza plus 1 major ASCVD risk facto r, treat ing to a non-H DL-C goal of <100 mg/dL (LDL- C of <70 mg/dL ) is consi dered a thera peuti c optio n. Not Available [facility] [address], [place], [address], 12/28/2022 11:48:23 12/28/19 23 12/28/2022 COMPR EHENS AREN METAB OLIC PANEL glucose 88 mg/dL 65-99 normal Fasti ng refer ence inter elias Not Available [facility] [address], [place], [address], 12/28/2022 11:48:24 12/28/19 23 12/28/2022 COMPR EHENS AREN METAB OLIC PANEL urea nitrogen (BUN) 15 mg/dL 7-25 normal Not Available [facility] [address], [place], [address], 12/28/2022 11:48:24 12/28/19 23 12/28/2022 COMPR EHENS AREN METAB OLIC PANEL creatinine 0.82 mg/dL 0.50-1 .03 normal Not Available [facility] [address], [place], [address], 12/28/2022 11:48:24 12/28/19 23 12/28/2022 COMPR EHENS AREN METAB OLIC PANEL eGFR 85 mL/mi n/1.7 3m2 > or = 60 normal Not Available [facility] [address], [place], [address], 12/28/2022 11:48:24 12/28/19 23 12/28/2022 COMPR EHENS AREN METAB OLIC PANEL BUN/creatini ne ratio SEE NOTE: (calc ) 6-22 Not Repor april: BUN and Creat inine are withi n refer ence range . Not Available [facility] [address], [place], [address], 12/28/2022 11:48:24 12/28/19 23 12/28/2022 COMPR EHENS AREN METAB OLIC PANEL sodium 138 mmol/ L 135-14 6 normal Not Available [facility] [address], [place], [address], 12/28/2022 11:48:24 12/28/19 23 12/28/2022 COMPR EHENS AREN METAB OLIC PANEL potassium 4.5 mmol/ L 3.5-5. 3 normal Not Available [facility] [address], [place], [address], 12/28/2022 11:48:24 12/28/19 23 12/28/2022 COMPR EHENS AREN METAB OLIC PANEL chloride 103 mmol/ L 98-110 normal Not Available [facility] [address], [place], [address], 12/28/2022 11:48:24 12/28/19 23 12/28/2022 COMPR EHENS AREN METAB OLIC PANEL carbon dioxide 30 mmol/ L 20-32 normal Not Available [facility] [address], [place], [address], 12/28/2022 11:48:24 12/28/19 23 12/28/2022 COMPR EHENS AREN METAB OLIC PANEL calcium 9.1 mg/dL 8.6-10 .4 normal Not Available [facility] [address], [place], [address], 12/28/2022 11:48:24 12/28/19 23 12/28/2022 COMPR EHENS AREN METAB OLIC PANEL protein, total 7.2 g/dL 6.1-8. 1 normal Not Available [facility] [address], [place], [address], 12/28/2022 11:48:24 12/28/19 23 12/28/2022 COMPR EHENS AREN METAB OLIC PANEL albumin 4.0 g/dL 3.6-5. 1 normal Not Available [facility] [address], [place], [address], 12/28/2022 11:48:24 12/28/19 23 12/28/2022 COMPR EHENS AREN METAB OLIC PANEL globulin 3.2 g/dL_ (calc ) 1.9-3. 7 normal Not Available [facility] [address], [place], [address], 12/28/2022 11:48:24 12/28/19 23 12/28/2022 COMPR EHENS AREN METAB OLIC PANEL albumin/glob ulin ratio 1.3 (calc ) 1.0-2. 5 normal Not Available [facility] [address], [place], [address], 12/28/2022 11:48:24 12/28/19 23 12/28/2022 COMPR EHENS AREN METAB OLIC PANEL bilirubin, total 0.3 mg/dL 0.2-1. 2 normal Not Available [facility] [address], [place], [address], 12/28/2022 11:48:24 12/28/19 23 12/28/2022 COMPR EHENS AREN METAB OLIC PANEL alkaline phosphatase 73 U/L 37-153 normal Not Available [facility] [address], [place], [address], 12/28/2022 11:48:24 12/28/19 23 12/28/2022 COMPR EHENS AREN METAB OLIC PANEL AST 19 U/L 10-35 normal Not Available [facility] [address], [place], [address], 12/28/2022 11:48:24 12/28/19 23 12/28/2022 COMPR EHENS AREN METAB OLIC PANEL ALT 20 U/L 6-29 normal Not Available [facility] [place] [facility] [address], [place], [address], 12/28/2022 11:48:24 12/28/19 23 12/28/2022 HEMOG LOBIN A1C hemoglobin A1C 5.1 %_of_ total _HGB <5.7 normal For the purpo se of scree king for the prese nce of diabe raza: <5.7% Consi stent with the absen ce of diabe raza 5.7-6 .4% Consi stent with incre ased risk for diabe raza (pred iabet es) > or =6.5% Consi stent with diabe raza This assay resul t is consi stent with a decre ased risk of diabe raza. Curre ntly, no conse nsus exist s poli wor[place] use of hemog lobin A1c for diagn osis of diabe raza in child kushal. Accor ding to Ameri can Diabe raza Assoc iatio n (ADA) guide lines , hemog lobin A1c <7.0% repre sents optim al contr ol in non-p regna nt diabe tic patie nts. Diffe rent metri cs may apply to speci fic patie nt popul ation s. [facility] al [facility] in Diabe raza(A DA). Not Available [facility] [address], [place], [address], 12/28/2022 11:48:25 12/28/19 23 12/28/2022 VITAM IN D,25- OH,TO BRITTANY,I A vitamin D,25-oh,tota l,ia 49 NG/mL 30-100 normal Vitam in D Statu s 25-OH Vitam in D: Defic iency : <20 ng/mL Insuf ficie ncy: 20 - 29 ng/mL Optim al: > or = 30 ng/mL For 25-OH Vitam in D testi ng on patie nts on D2-marroquin pplem entat ion and patie nts for whom quant itati on of D2 and D3 fract ions is requi red, the [facility](TM ) 25-OH VIT D, (D2,D 3), LC/MS /MS is recom manpreet d: order code 13173 (liz ents >2yrs ). See Note 1 Note 1 For addit ional infor keyla odell refer to http: //pj [email or web address] [employer] gnost ics.c om/fa q/FAQ 199 (This link is being provi ded for infor rebeca ovalles/ educa franky block purpo ses only. ) Not Available [facility] [address], [place], [address], 12/28/2022 11:48:26 12/28/19 23 12/28/2022 URIC ACID uric acid 5.5 mg/dL 2.5-7. 0 normal Thera peuti c targe t for gout patie nts: <6.0 mg/dL Not Available [facility] [address], [place], [address], 12/28/2022 11:48:27 12/28/19 23 12/28/2022 CREAT INE KINAS E, TOTAL creatine kinase, total 81 U/L 29-143 normal Not Available [facility] [address], [place], [address], 12/28/2022 11:48:28 12/28/19 23 12/28/2022 TSH TSH 3.14 mIU/L normal Refer ence Range > or = 20 Years 0.40- 4.50 Pregn nely Range s First trime ster 0.26- 2.66 Secon d trime ster 0.55- 2.73 Third trime ster 0.43- 2.91 Not Available [facility] [address], [place], [address], 12/28/2022 11:48:29 12/28/19 23 12/28/2022 T4, FREE T4, free 1.0 NG/dL 0.8-1. 8 normal Not Available [facility] [address], [place], [address], 12/28/2022 11:48:31 12/28/19 23 12/28/2022 CBC (INCL UDES DIFF/ PLT) white blood cell count 9.6 thous and/u L 3.8-10 .8 normal Not Available [facility] [address], [place], [address], 12/28/2022 11:48:32 12/28/19 23 12/28/2022 CBC (INCL UDES DIFF/ PLT) red blood cell count 4.96 yanet on/uL 3.80-5 .10 normal Not Available [facility] [address], [place], [address], 12/28/2022 11:48:32 12/28/19 23 12/28/2022 CBC (INCL UDES DIFF/ PLT) hemoglobin 13.1 g/dL 11.7-1 5.5 normal Not Available [facility] [address], [place], [address], 12/28/2022 11:48:32 12/28/19 23 12/28/2022 CBC (INCL UDES DIFF/ PLT) hematocrit 40.0 % 35.0-4 5.0 normal Not Available [facility] [address], [place], [address], 12/28/2022 11:48:32 12/28/19 23 12/28/2022 CBC (INCL UDES DIFF/ PLT) MCV 80.6 fL 80.0-1 00.0 normal Not Available [facility] [address], [place], [address], 12/28/2022 11:48:32 12/28/19 23 12/28/2022 CBC (INCL UDES DIFF/ PLT) MCH 26.4 pg 27.0-3 3.0 low Not Available [facility] [address], [place], [address], 12/28/2022 11:48:32 12/28/19 23 12/28/2022 CBC (INCL UDES DIFF/ PLT) MCHC 32.8 g/dL 32.0-3 6.0 normal Not Available [facility] [address], [place], [address], 12/28/2022 11:48:32 12/28/19 23 12/28/2022 CBC (INCL UDES DIFF/ PLT) RDW 15.2 % 11.0-1 5.0 high Not Available [facility] [address], [place], [address], 12/28/2022 11:48:32 12/28/19 23 12/28/2022 CBC (INCL UDES DIFF/ PLT) platelet count 257 thous and/u L 140-40 0 normal Not Available [facility] [address], [place], [address], 12/28/2022 11:48:32 12/28/19 23 12/28/2022 CBC (INCL UDES DIFF/ PLT) MPV 10.4 fL 7.5-12 .5 normal Not Available [facility] [address], [place], [address], 12/28/2022 11:48:32 12/28/19 23 12/28/2022 CBC (INCL UDES DIFF/ PLT) absolute neutrophils 6096 cells /uL 1500-7 800 normal Not Available [facility] [address], [place], [address], 12/28/2022 11:48:32 12/28/19 23 12/28/2022 CBC (INCL UDES DIFF/ PLT) absolute lymphocytes 2419 cells /uL 850-39 00 normal Not Available [facility] [address], [place], [address], 12/28/2022 11:48:32 12/28/19 23 12/28/2022 CBC (INCL UDES DIFF/ PLT) absolute monocytes 710 cells /uL 200-95 0 normal Not Available [facility] [address], [place], [address], 12/28/2022 11:48:32 12/28/19 23 12/28/2022 CBC (INCL UDES DIFF/ PLT) absolute eosinophils 336 cells /uL 15-500 normal Not Available [facility] [address], [place], [address], 12/28/2022 11:48:32 12/28/19 23 12/28/2022 CBC (INCL UDES DIFF/ PLT) absolute basophils 38 cells /uL 0-200 normal Not Available [facility] [address], [place], [address], 12/28/2022 11:48:32 12/28/19 23 12/28/2022 CBC (INCL UDES DIFF/ PLT) neutrophils 63.5 % normal Not Available [facility] [address], [place], [address], 12/28/2022 11:48:32 12/28/19 23 12/28/2022 CBC (INCL UDES DIFF/ PLT) lymphocytes 25.2 % normal Not Available [facility] [address], [place], [address], 12/28/2022 11:48:32 12/28/19 23 12/28/2022 CBC (INCL UDES DIFF/ PLT) monocytes 7.4 % normal Not Available [facility] [address], [place], [address], 12/28/2022 11:48:32 12/28/19 23 12/28/2022 CBC (INCL UDES DIFF/ PLT) eosinophils 3.5 % normal Not Available [facility] [address], [place], [address], 12/28/2022 11:48:32 12/28/19 23 12/28/2022 CBC (INCL UDES DIFF/ PLT) basophils 0.4 % normal Not Available [facility] [address], [place], [address], 12/28/2022 11:48:32 12/28/19 23 12/28/2022 URINA LYSIS , COMPL ETE W/REF MARIO TO CULTU RE color YELLOW yellow normal Not Available [facility] [address], [place], [address], 12/28/2022 11:48:33 12/28/19 23 12/28/2022 URINA LYSIS , COMPL ETE W/REF MARIO TO CULTU RE appearance CLEAR clear normal Not Available [facility] [address], [place], [address], 12/28/2022 11:48:33 12/28/19 23 12/28/2022 URINA LYSIS , COMPL ETE W/REF MARIO TO CULTU RE specific gravity 1.016 1.001- 1.035 normal Not Available [facility] [address], [place], [address], 12/28/2022 11:48:33 12/28/19 23 12/28/2022 URINA LYSIS , COMPL ETE W/REF MARIO TO CULTU RE pH 6.0 5.0-8. 0 normal Not Available [facility] [address], [place], [address], 12/28/2022 11:48:33 12/28/19 23 12/28/2022 URINA LYSIS , COMPL ETE W/REF MARIO TO CULTU RE glucose NEGATI VE negati ve normal Not Available [facility] [address], [place], [address], 12/28/2022 11:48:33 12/28/19 23 12/28/2022 URINA LYSIS , COMPL ETE W/REF MARIO TO CULTU RE bilirubin NEGATI VE negati ve normal Not Available [facility] [place] [facility] [address], [place], [address], 12/28/2022 11:48:33 12/28/19 23 12/28/2022 URINA LYSIS , COMPL ETE W/REF MARIO TO CULTU RE ketones NEGATI VE negati ve normal Not Available [facility] [place] [facility] [address], [place], [address], 12/28/2022 11:48:33 12/28/19 23 12/28/2022 URINA LYSIS , COMPL ETE W/REF MARIO TO CULTU RE occult blood NEGATI VE negati ve normal Not Available [facility] [place] [facility] [address], [place], [address], 12/28/2022 11:48:33 12/28/19 23 12/28/2022 URINA LYSIS , COMPL ETE W/REF MARIO TO CULTU RE protein NEGATI VE negati ve normal Not Available [facility] [place] [facility] [address], [place], [address], 12/28/2022 11:48:33 12/28/19 23 12/28/2022 URINA LYSIS , COMPL ETE W/REF MARIO TO CULTU RE nitrite NEGATI VE negati ve normal Not Available [facility] [place] [facility] [address], [place], [address], 12/28/2022 11:48:33 12/28/19 23 12/28/2022 URINA LYSIS , COMPL ETE W/REF MARIO TO CULTU RE leukocyte esterase NEGATI VE negati ve normal Not Available [facility] [place] [facility] [address], [place], [address], 12/28/2022 11:48:33 12/28/19 23 12/28/2022 URINA LYSIS , COMPL ETE W/REF MARIO TO CULTU RE WBC NONE SEEN /hpf < or = 5 normal Not Available [facility] [address], [place], [address], 12/28/2022 11:48:33 12/28/19 23 12/28/2022 URINA LYSIS , COMPL ETE W/REF MARIO TO CULTU RE RBC NONE SEEN /hpf < or = 2 normal Not Available [facility] [address], [place], [address], 12/28/2022 11:48:33 12/28/19 23 12/28/2022 URINA LYSIS , COMPL ETE W/REF MARIO TO CULTU RE squamous epithelial cells 0-5 /hpf < or = 5 Not Available [facility] [address], [place], [address], 12/28/2022 11:48:33 12/28/19 23 12/28/2022 URINA LYSIS , COMPL ETE W/REF MARIO TO CULTU RE bacteria NONE SEEN /hpf none seen normal Not Available [facility] [address], [place], [address], 12/28/2022 11:48:33 12/28/19 23 12/28/2022 URINA LYSIS , COMPL ETE W/REF MARIO TO CULTU RE hyaline cast NONE SEEN /lpf none seen normal Not Available [facility] [address], [place], [address], 12/28/2022 11:48:33 12/28/19 23 12/28/2022 URINA LYSIS , COMPL ETE W/REF MARIO TO CULTU RE note This urine was kendall zed for the prese nce of WBC, RBC, bacte corey, casts , and other forme d eleme nts. Only those eleme nts seen were repor april. Not Available [facility] [place] [facility] [address], [place], [address], 12/28/2022 11:48:33 12/28/1912/28/2022 REFLE XIVE URINE CULTU RE reflexive urine culture NO CULTU RE INDIC ATED Not Available [facility] [place] [facility] [address], [place], [address], 12/28/2022 11:48:34 12/28/1912/28/2022 VITAM IN B12 vitamin B12 >2000 pg/mL 200-11 00 high Not Available [facility] [place] [facility] [address], [place], [address], 12/28/2022 11:48:34 08/05/19 elect rocar diogr am No observ ation record ed. Not Available 2022 11:41:01 08/08/19 23 08/04/2022 XR, chest , 2 view INDICA TION: Z00.00 Encntr for genera l adult medica l exam w/o abnorm al findin gs. TECHNI QUE: 2 view chest. COMPAR ARA: None FINDIN GS: The bones and soft tissue s demons trateT he bones and soft tissue s demons trate no acute abnorm ality. Cardio medias tinal silhou ette is unrema rkable . The lung keita are clear. IMPRES AZAM: There is no signif icant acute cardio pulmon mackenzie diseas e, see detail above Note: The [employer] y, CMS and the [place] preven tative servic es task force now approv e CT low-do se chest screen ing in the follow ing patien ts: - Age 55-77 who curren tly smoke or who have quit within the last 15 years - Asympt omatic patien ts with a 30-pac k-year histor y of smokin g Electr onical ly Signed By: Michelle Lundberg James Sign Date: [id number] [facility] Locations, [place], [address], 02/29/2024 19:37:36 12/05/1912/01/2022 MAMMO , scree king, tomos ynthe sis, bilat eral INDICA TION: Screen ing mammog kirk. . The patien t's sister has a histor y of breast cancer . TECHNI QUE: SCREEN ING 3D BILATE RAL MAMMOG KIRK WITH TOMOSY NTHESI S Comput er aided detect ion softwa re was utiliz ed. Digita l breast tomosy nthesi s was perfor med and used in the interp retati on of this exam. COMPAR ARA: 022. The breast parenc hyma is catego ry C: Hetero geneou sly dense MAMMOG KIRK FINDIN GS: No visibl e suspic ious mass, or microc alcifi cation s detect ed by mammog radames. There is a focal area of asymme tric fibrog landul ar tissue identi fied within the upper outer quadra nts of both breast s. There are a few solita ry coarse benign -appea ring calcif icatio ns in both breast s. IMPRES AZAM: 1. No eviden ce to sugges t malign nely within either breast . Progre ss examin ation in one year is recomm ended. The patien t will be notifi ed of these findin gs as per [place] a law. BI-RAD S catego ry: 2: Benign findin gs Notes: -Mammo graphy should be supple mented by routin e clinic al and monthl y self exams. A negati ve mammog kirk result should not deter biopsy of a clinic ally suspic ious lesion . Electr onical ly Signed By: Darren potter D.O., David Sign Date: [id number] [facility] Locations, [place], [address], 02/29/2024 19:34:36 Result Notes None recorded. Problems Name Problem SNOMED Code Status Onset Date Resolution Date Notes Provider Name and Address Organization Details Recorded Time Mixed hyperlipid emia 867593910 Active 2004 Not Available [facility] 17:20:35 Dyspnea 904358224 Completed 200211/20/[address], [place], [address] , [facility], [facility] 7 16:58:47 Long-term drug therapy Completed 200611/20/[address] DO [address], [place], [address] , [facility], [facility] 7 16:58:51 Herpes simplex 97845264 Completed 200611/20/[address], [place], [address] , [facility], [facility] 7 16:58:54 Palpitatio ns 07750518 Completed 200502/04/[address], [place], [address] , [facility], [facility] 6 08:14:28 Urinary tract infectious disease 22527539 Completed 200511/20/[address], [place], [address] , [facility], [facility] 7 16:58:59 Screening for malignant neoplasm of cervix Completed 201011/20/[address], [place], [address] , [facility], [facility] 7 16:59:23 Benign essential hypertensi on 4791187 Active 2002 Not Available [facility] 17:20:35 Acute pharyngiti s 012082092 Completed 201002/04/[address], [place], [address] , [facility] 6 08:14:58 Allergic rhinitis 07442987 Completed 200211/20/[address], [place], [address] , [facility], [facility] 7 16:59:08 Intrinsic asthma with asthma attack Completed 200502/04/[address] DO [address], [place], [place], [address] , [facility], [facility] 6 08:13:36 Verruca vulgaris 41418705 Completed 200202/04/[address], [place], [address] , [facility], [facility] 6 08:14:08 Joint pain 25989050 Completed 200302/04/[address], [place], [address] , [facility], [facility] 6 08:14:23 Knee pain Completed 200302/04/[address] DO [address], [place], [address] , [facility], [facility] 6 08:15:12 Irregular periods 46635680 Completed 200211/20/[address], [place], [address] , [facility], [facility] 7 16:59:01 Allergic rhinitis caused by pollen 77345489 Completed 200611/20/[address], [place], [address] , [facility], [facility] 7 16:59:16 Acute maxillary sinusitis 34851399 Completed 200611/20/[address], [place], [address] , [facility], [facility] 7 16:59:05 Anemia 241307157 Completed 200411/20/2016 Tatiana Story DO [address], [place], [address] , [facility], [facility] 7 16:58:38 Specialize d medical examinatio n Completed 201008/07/2014 Marialuisa moreno [facility], [facility] 6 15:02:13 Amenorrhea 94181381 Completed 200211/20/2016 Tatiana Story DO [address], [place], [address] , [facility], [facility] 7 16:59:34 Acute bronchitis 36474955 Completed 200611/20/[address], [place], [address] , [facility], [facility] 7 16:59:40 Gynecologi c examinatio n Completed 200411/20/[address], [place], [address] , [facility], [facility] 7 16:58:56 Malaise and fatigue 143162958 Completed 200211/20/[address], [place], [address] , [facility], [facility] 7 16:58:35 Obesity 988473750 Completed 200208/07/2014 Marialuisa moreno [facility], [facility] 6 15:02:13 Lipoprotei n deficiency disorder 053263779 Completed 200211/20/2016 Tatiana Story DO [address], [place], [address] , [facility], [facility] 7 16:58:45 Adult health examinatio n Completed 201011/20/[address] DO [address], [place], [address] , [facility], [facility] 7 16:58:40 Contact dermatitis 93889017 Completed 200202/04/[address], [place], [address] , [facility], [facility] 6 08:14:55 Cough 83372740 Completed 200602/04/[address] DO [address], [place], [address] , [facility], [facility] 6 08:14:02 Right upper quadrant pain 410225351 Completed 200602/04/2016 DO [address], [place], [address] , [facility], [facility] 6 08:13:51 Laboratory test Completed 201002/04/[address], [place], [address] , [facility], [facility] 6 08:13:18 Chronic obstructiv e pulmonary disease 96278299 Active 2002 DO Kate [address], [place], [address] , [facility], [facility] 2 06:35:13 Generalize d anxiety disorder 05970959 Completed 200202/04/2016 DO [address], [place], [address] , [facility], [facility] 6 08:13:31 Gastro-eso phageal reflux disease with esophagiti s 057245806 Active 2002 Not Available [facility] 1 17:20:35 Mitral stenosis with insufficie ncy 716157830 Active 2005 Not Available [facility] 1 17:20:35 Heart murmur 62174711 Completed 200502/04/2016 Tatiana Story DO [address], [place], [address] , [facility], [facility] 6 08:14:44 Screening mammograph y Completed 201011/20/2016 Tatiana Story DO [address], [place], [address] , [facility], [facility] 7 16:59:13 Chronic sinusitis 99355411 Completed 200402/04/2016 Tatiana Story DO [address], [place], [address] , [facility], [facility] 6 08:15:02 Allergic asthma without status asthmaticu s 61050379 Active 2002 Not Available [facility] 1 17:20:35 Pure hyperchole sterolemia 388863184 Completed 201002/04/[address], [place], [address] , [facility], [facility] 6 08:13:44 Shoulder joint pain 070066831 Completed 200211/20/[address], [place], [address] , [facility], [facility] 7 16:58:42 Screening for malignant neoplasm of rectum Completed 201002/04/[address], [place], [address] , [facility], [facility] 6 08:15:15 Joint pain in ankle and foot Completed 200602/04/[address], [place], [address] , [facility] 6 08:13:57 Adjustment disorder with depressed mood 12928006 Completed 200611/05/2019 Tatiana Story DO [address], [place], [address] , [facility], [facility] 0 07:50:30 Acute upper respirator y infection 29620843 Completed 200602/04/2016 Tatiana Story DO [address], [place], [address] , [facility], [facility] 6 08:14:17 Chronic lymphoid leukemia in remission 08955502 Completed 200202/04/2016 Tatiana Story DO [address], [place], [address] , [facility], [facility] 6 08:14:37 Abnormal weight loss 070475345 Completed 200411/20/2016 Tatiana Story DO [address], [place], [address] , [facility], [facility] 7 16:58:49 Laboratory procedure performed 419131025 Completed 200411/20/2016 Tatiana Story DO [address], [place], [address] , [facility], [facility] 7 16:59:27 Herpes zoster 7399975 Completed 200202/04/2016 Tatiana Story DO [address], [place], [address] , [facility], [facility] 6 08:14:52 Abnormal weight gain 637187279 Completed 200611/20/2016 Tatiana Story DO [address], [place], [address] , [facility], [facility] 7 16:59:32 Dysuria 86273005 Completed 02/04/2016 Tatiana Story DO [address], [place], [address] , [facility], [facility] 6 08:14:48 Conjunctiv itis 7854169 Completed 200602/04/2016 Tatiana Story DO [address], [place], [address] , [facility], [facility] 6 08:14:33 Hypothyroi dism 59319385 Completed 201004/23/2019 Tatiana Story DO [address], [place], [place], [address] , [facility], [facility] 0 08:11:20 Acute tonsilliti s 78010055 Completed 200202/04/2016 Tatiana Story DO [address], [place], [address] , [facility], [facility] 6 08:13:22 Asthma 859293659 Completed 200211/20/2016 Tatiana Story DO [address], [place], [place], [address] , [facility], [facility] 7 16:59:19 Pain in limb 91741265 Completed 200302/04/2016 Tatiana Story DO [address], [place], [place], [address] , [facility], [facility] 6 08:14:41 Calcaneal spur 77744581 Completed 200602/04/2016 Tatiana Story DO [address], [place], [address] , [facility], [facility] 6 08:14:14 Pulmonary emphysema 73855805 Active 2021 Tatiana Story DO [address], [place], [address] , [facility], [facility] 2 06:34:53 Rheumatoid arthritis of multiple joints 466900478 Active 2022 Tatiana Story, DO [address], [place], [address] , [facility], [facility] 3 09:06:42 Has a sore throat 858497384 Completed 11/20/2016 Tatiana Story, DO [address], [place], [address] , [facility], [facility] 7 16:59:29 Obesity 805247728 Completed 11/20/2016 Tatiana Story DO [address], [place], [address] , [facility], [facility] 7 16:59:42 Rheumatoid arthritis [id number] Active 2016 Tatiana Story DO [address], [place], [address] , [facility], [facility] 2 06:34:56 Type 2 diabetes mellitus without complicati on [id number] Active 2017 Tatiana Story DO [address], [place], [address] , [facility], [facility] 2 06:35:03 Single major depressive episode Completed 201711/05/2019 Tatiana Story DO [address], [place], [address] , [facility], [facility] 0 07:54:41 Mild major depression , single episode [id number] Completed 201911/05/2019 Tatiana Story DO [address], [place], [address] , [facility], [facility] 2 06:34:50 Mild major depression , single episode [id number] Active 2019 Tatiana Story DO [address], [place], [address] , [facility], [facility] 06:34:50 Immunodefi ciency disorder [id number] Active 2020 Tatiana Story, DO [address], [place], [address] , [facility], [facility] 06:34:45 Problem Notes None recorded. Procedures Surgical History Date Name Laterality Status Provider Name and Address Organization Details Recorded Time 12/23/19 23 diabetic retinal eye exam completed Theo Mack [facility], [facility] 01/16/2023 08:57:34 05/08/19 23 Incision and Drainage (PCP, WIC, Spec) completed Tatiana Story DO [address], [place], [address], [facility], [facility] 05/08/2022 08:43:33 12/21/19 22 diabetic retinopathy screening completed Marialuisa Carter [facility], [facility] 12/20/2021 11:02:32 12/01/19 22 mammography completed Yamilemulu Garcia [facility], [facility] 01/17/2022 14:41:28 08/04/19 22 Diabetic Foot Exam completed Tatiana Story, DO [address], [place], [address], [facility], [facility] 07/05/2021 06:33:51 11/30/19 21 Date of Last Mammogram [facility] 08/03/2021 09:32:39 04/28/19 21 Diabetic Foot Exam completed Tatiana Story, DO [address], [place], [address], [facility] Physician [facility], [facility] 04/28/2020 08:53:49 05/09/19 20 Colonoscopy completed Tatiana Story, DO [address], [place], [address], [facility] Physician [facility], [facility] 05/12/2019 07:15:48 07/03/19 19 Diabetic education completed Di Young RN, [facility], [facility] 07/03/2018 17:33:52 05/09/19 19 Diabetic education completed Di Young RN, [facility], [facility] 07/03/2018 17:41:03 05/07/19 19 Diabetic education completed Di Young RN, [place], [facility] 07/03/2018 17:48:24 05/06/19 19 Diabetic education completed Di Young RN, [facility] 07/03/2018 17:51:39 07/09/19 16 Biopsy completed [facility] 02/04/2016 08:03:54 11/08/19 10 Cataract excision completed [facility] 02/04/2016 08:03:54 04/09/19 07 Cholecystectomy completed [facility] 02/04/2016 08:03:54 01/07/19 97 Appendectomy completed [facility] 10/31/2012 15:23:40 02/07/19 96 [facility]/2012 15:23:40 Cholecystectomy completed [facility] 02/04/2016 08:03:54 Imaging Results Imaging Date Name Status LastModified by Organization Details LastModified Time 08/04/2022 electrocardiogram completed Informa tion not available 08/04/2022 11:41:01 08/04/2022 XR, chest, 2 view completed [id number] All Locations, [place], [address], 02/29/2024 19:37:36 12/01/2022 MAMMO, screening, tomosynthesis, bilateral completed [id number] All Locations, [place], [address], 02/29/2024 19:34:36 Procedure Notes None recorded. Medical Equipment None Reported. Allergies Allergen ID Allergen Name Allergen Category Reaction Reaction Severity Criticality Documentation Date Start Date Code Code System Note Provider Name and Address Organization Details Recorded Time 120005 Product containin g penicilli n (product) medicatio n rash mild Not available 05/18/2015 [id number] SNOMED Roseline Rico [facility], [facility] 6 08:36:38 39075 Diovan medicatio n other Not available Not available 03/15/2012 28688 2 RxNorm Thalia Blevins-Marci mcguire [facility], [facility] 3 10:01:01 Medications Name Sig Start Date Stop Date Status Note LastModified by Organization Details LastModified Time cyclobenz aprine 10 mg tablet TAKE 1 TABLET BY MOUTH THREE TIMES DAILY FOR 10 DAYS NEEDED 2023 active Not Available Not Available Not Avai lable amoxicill in 500 mg capsule Take 1 capsule every 12 hours by oral route. active Not Available Not Available No t Available Altace 5 mg capsule 1 CAPSULE (HARD, SOFT, ETC.) EA QD 12/18 completed INCREASE TO 10 MGS Not Available Not Available Not Available nystatin 100,000 unit/mL oral suspensio n Take 5 mL 4 times a day by oral route for 10 days. 01/27 completed Not Available Not Available Not Available prednison e 10 mg tablet start tomorrow , 3 po q d x 3 then 2 q d x 3 then 1 q d x 3 01/17 completed Not Available Not Available Not Available sulfasala zine 500 mg tablet Take 1 tablet twice a day by oral route. 04/18 completed Not Available Not Available Not Available albuterol sulfate 2.5 mg/3 mL (0.083 %) solution for nebulizat ion USE 1 VIAL IN NEBULIZE R FOUR TIMES DAILY NEEDED active Not Available Not Available No t Available Lidocaine Viscous 2 % mucosal solution RINSE AND SWOLLEN 5CC QID PRN 10/22 completed Not Available Not Available Not Available benzonata te 200 mg capsule Take 1 capsule 3 times a day by oral route for 10 days. active Not Available Not Available No t Available Claritin 10 mg tablet 1 TABLET EA QD 03/18 completed Not Available Not Available Not Available Keflex 500 mg capsule Take 1 capsule 3 times a day by oral route for 10 days. 01/17 completed Not Available Not Available Not Available Avelox 400 mg tablet 1 TABLET EA QD 11/20 completed Not Available Not Available Not Available famotidin e 40 mg tablet Take 1 tablet every day by oral route. 05/05 completed Not Available Not Available Not Available Medrol (Diaz) 4 mg tablets in a dose pack Take as directed , start tomorrow 05/24 completed Not Available Not Available Not Available Zithromax Z-Diaz 250 mg tablet TAKE 2 TABLETS (500 MG) BY ORAL ROUTE ONCE DAILY FOR 1 DAY THEN 1 TABLET (250 MG) BY ORAL ROUTE ONCE DAILY FOR 4 DAYS 05/24 completed Not Available Not Available Not Available Diflucan 150 mg tablet 1 TABLET EA q 72 hours 01/25 completed Not Available Not Available Not Available Wellbutri n SR 150 mg tablet, 12 hr sustained -release 1 TABLET, EXTENDED RELEASE EA QD 05/19 completed Not Available Not Available Not Available Advair Diskus 100 mcg-50 mcg/dose powder for inhalatio n 1 DISK, WITH INHALATI ON DEVICE EA QD 03/18 completed DOSE CHANGE Not Available Not Available Not Available meclizine 12.5 mg tablet Take 1 tablet 3 times a day by oral route as needed. 08/03 completed Not Available Not Available Not Available potassium chloride ER 10 mEq tablet,ex tended release TAKE 1 TABLET BY MOUTH EVERY DAY active Not Available Not Available No t Available Zyrtec 10 mg tablet 1 TABLET EA QD 11/09 completed Not Available Not Available Not Available phentermi ne 37.5 mg tablet 01/08 completed Not Available Not Available Not Available methotrex ate sodium 25 mg/mL injection solution 03/19 completed Not Available Not Available Not Available Ciloxan 0.3 % eye drops 1-2 EVERY 2 HOURS WA X 2 DAYS, THEN EVERY 4 HOURS. 06/10 completed Not Available Not Available Not Available ciproflox acin 500 mg tablet TAKE 1 TABLET BY MOUTH TWICE DAILY 09/26 /2023 completed Not Available Not Available Not Available Tamiflu 75 mg capsule Take 1 capsule twice a day by oral route. active Not Available Not Available No t Available sulfameth oxazole 800 mg-trimet hoprim 160 mg tablet TAKE 1 TABLET BY MOUTH EVERY 12 HOURS FOR 10 DAYS 01/02 completed Not Available Not Available Not Available tramadol 50 mg tablet PRN active Not Available Not Available Not Available triamcino lone acetonide 0.1 % topical cream 04/08 completed Not Available Not Available Not Available BD Safety-Lo k Tuberculi n 1 mL 27 gauge x 1/2 syringe U WITH METHOTRE XATE ONCE WEEKLY active Not Available Not Available No t Available Depo-Medr ol 80 mg/mL suspensio n for injection Take 1 mL by injectio n route. 05/24 completed Not Available Not Available Not Available prednison e 10 mg tablets in a dose pack Take by oral route. active Not Available Not Available No t Available Celebrex 200 mg capsule 1 CAPSULE (HARD, SOFT, ETC.) EA QD 01/11 completed Not Available Not Available Not Available ciclopiro x 8 % topical solution APPLY 1 ML EVERY DAY BY TOPICAL ROUTE FOR 30 DAYS 05/05 completed Not Available Not Available Not Available BD Tuberculi n Syringe 1 mL 27 x 1/2 U WITH METHOTRE XATE ONCE WEEKLY 11/13 completed Not Available Not Available Not Available Tessalon Perles 100 mg capsule Take 2 capsules twice a day by oral route for 7 days. 09/27 completed Not Available Not Available Not Available amoxicill in 875 mg tablet Take 1 tablet every 12 hours by oral route for 14 days. active Not Available Not Available No t Available Denavir 1 % topical cream APPLY TO AFFECTED AREA PRN 11/23 completed Not Available Not Available Not Available lorazepam 0.5 mg tablet Take 1 tablet every day by oral route as needed for 30 days. active Not Available Not Available No t Available methotrex ate sodium 2.5 mg tablet 01/08 completed Not Available Not Available Not Available gentamici n 0.3 % eye drops INSTILL 2 DROP INTO AFFECTED EYE(S) BY OPHTHALM IC ROUTE EVERY 4 HOURS active Not Available Not Available No t Available Keflex 250 mg capsule Take 1 capsule 3 times a day by oral route for 10 days. 12/01 completed Not Available Not Available Not Available dexametha sone 1 mg tablet TK 1 T PO D 01/27 completed Not Available Not Available Not Available Zofran ODT 4 mg disintegr ating tablet Take 1 tablet every 6 hours by oral route as needed for 10 days. 11/21 completed Not Available Not Available Not Available Mary Ann 180 mg tablet 1 TABLET EA QD 09/17 completed Not Available Not Available Not Available Lasix 20 mg tablet active Not Available Not Available No t Available nystatin 100,000 unit/gram topical cream APPLY TO THE AFFECTED AREA(S) BY TOPICAL ROUTE 2 TIMES PER DAY 2021 active Not Available Not Available Not Avai lable Mary Ann-D 12 Hour 60 mg-120 mg tablet,ex tended release 1 TABLET EA Q12HR 03/31 completed Not Available Not Available Not Available cefazolin 500 mg solution for injection 1000 mg IM 04/08 completed 2 unit to be billed Not Available Not Available Not Available Valtrex 1 gram tablet 1 TABLET EA BID 09/13 completed Not Available Not Available Not Available omeprazol e 20 mg capsule,d elayed release Take 1 capsule every day by oral route for 30 days. active Not Available Not Available No t Available Hycodan (with homatropi ne) 5 mg-1.5 mg/5 mL oral solution 1 TSP PO EVERY 4 HOURS PRN COUGH 10/15 completed Not Available Not Available Not Available folic acid 1 mg tablet TAKE 1 TABLET BY MOUTH EVERY DAY 04/28 completed Not Available Not Available Not Available monteluka st 10 mg tablet TAKE 1 TABLET BY MOUTH EVERY DAY active Not Available Not Available No t Available ammonium lactate 12 % topical cream 06/05 completed Not Available Not Available Not Available mupirocin 2 % topical ointment DEIRDRE AA WITH Q BANDAGE CHANGE UNTIL FULLY HEALED 04/08 completed Not Available Not Available Not Available Levaquin 500 mg tablet 1 TABLET EA QD 07/03 completed Not Available Not Available Not Available albuterol 90 mcg/actua tion aerosol inhaler 1 AEROSOL (ML) GR QD 12/09/ 2002 12/10 /2002 completed PT. STOPPED TAKING Not Available Not Available Not Available clobetaso l 0.05 % topical ointment 11/13 completed Not Available Not Available Not Available nystatin 100,000 unit/gram topical powder Apply 1 applicat ion twice a day by topical route for 10 days. 05/18 completed Not Available Not Available Not Available dexametha sone sodium phosphate 4 mg/mL injection solution 4 mg Take by injectio n route. 05/24 completed Not Available Not Available Not Available azelastin e 137 mcg (0.1 %) nasal spray active Not Available Not Available Not Available hydroxych loroquine 200 mg tablet TK 2 TS PO QD 04/08 completed Not Available Not Available Not Available Nasonex 50 mcg/actua tion [place] 1 SPRAY, NON-AERO KRISTINA (GRAM) GR QD 09/28 completed PT STOPPED Not Available Not Available Not Available norethind dana (contrace ptive) 0.35 mg tablet TK 1 T PO D 08/27 completed Not Available Not Available Not Available Naprosyn 500 mg tablet 1 TABLET EA BID 12/02 completed PT STOPPED Not Available Not Available Not Available ketoconaz ole 2 % topical cream APPLY TO THE AFFECTED AREA(S) BY TOPICAL ROUTE ONCE DAILY 2023 active Not Available Not Available Not Avai lable Tussionex Penn[place]et ic ER 10 mg-8 mg/5 mL suspensio n,extende d release ONE TEASPOON EVERY 12HOURS PRN COUGH DISPENSE 6 OZ 09/14 completed Not Available Not Available Not Available Zovirax 5 % topical ointment 1 OINTMENT (GRAM) GR QD 09/06 completed Not Available Not Available Not Available fluoxetin e 20 mg capsule TAKE 1 CAPSULE BY MOUTH EVERY DAY active Not Available Not Available No t Available fluticaso ne propionat e 50 mcg/actua tion nasal spray,trisha pension active Not Available Not Available Not Available Altace 2.5 mg capsule 1 CAPSULE (HARD, SOFT, ETC.) EA QD 08/15 completed DOSE CHANGE Not Available Not Available Not Available ramipril 10 mg capsule TAKE 1 CAPSULE BY MOUTH TWICE DAILY active Not Available Not Available No t Available amoxicill in 875 mg-potass ium clavulana te 125 mg tablet 1 TABLET EA BID active Not Available Not Available No t Available AcipHex 20 mg tablet,de layed release 1 TABLET, DELAYED RELEASE (ENTERIC COATED) EA QD 09/06 completed SAMPLES Not Available Not Available Not Available Sterapred 5 mg tablets in a dose pack 1 TABLET, DOSE PACK EA QD 04/07 completed Not Available Not Available Not Available Humira 40 mg/0.8 mL subcutane ous syringe kit Inject 0.8 mL every 2 weeks by subcutan eous route. 08/31 completed Not Available Not Available Not Available rosuvasta tin 5 mg tablet TAKE 1 TABLET BY MOUTH EVERY NIGHT AT BEDTIME active Not Available Not Available No t Available Wellbutri n XL 150 mg 24 hr tablet, extended release 1 TABLET, EXTENDED RELEASE 24 HR EA QD 04/09 completed Not Available Not Available Not Available Ketek 400 mg tablet TAKE 2TABS DAILY FOR 5 DAYS 04/30 completed Not Available Not Available Not Available Duratuss HD 10 mg-2.5 mg-225 mg/5 mL oral solution DISP 6 OUNCES.. .1 TSP EVERY 6 HOURS PRN COUGH AND CONGESTI ON 08/19 completed Not Available Not Available Not Available iron 08/03 completed Not Available Not Available Not Available Vitamin D3 once a day active Not Available Not Available No t Available Mucinex active Not Available Not Avail able Not Available ProAir HFA 90 mcg/actua tion aerosol inhaler INHALE 2 PUFFS BY MOUTH EVERY 4 HOURS NEEDED 2023 active Not Available Not Available Not Avai lable Humira Pen 40 mg/0.8 mL subcutane ous kit 08/31 completed Not Available Not Available Not Available fluticaso ne propionat e 115 mcg-salme terol 21 mcg/actua tion HFA inhaler INHALE 2 PUFFS BY MOUTH TWICE DAILY active Not Available Not Available No t Available Align (B.infant is) 2012 active Not Available Not Available Not Avai lable Simponi 50 mg/0.5 mL subcutane ous pen injector Inject 0.5 mL every month by subcutan eous route. 04/08 completed Not Available Not Available Not Available Astepro 205.5 mcg (0.15 %) nasal spray 1 AEROSOL, SPRAY WITH PUMP (ML) ML BID 06/09 completed D/C PER PT Not Available Not Available Not Available Probiotic once a day 04/08 completed Not Available Not Available Not Available turmeric root extract 01/08 completed Not Available Not Available Not Available TRUEplus Lancets 30 gauge U BID UTD active Not Available Not Available No t Available True Metrix Glucose Test Strip USE TO TEST BID active Not Available Not Available No t Available Cosentyx Pen 300 mg/2 pens (150 mg/mL) subcutane ous pen injector Inject 300ml weekly for 5 weeks, THen 300ml Monthly 12/29 completed Not Available Not Available Not Available True Metrix Air Glucose Meter UTD 04/28 completed Not Available Not Available Not Available Vitamin B12 active currentl y on hold Not Available Not Available Not Available Taltz Autoinjec tor (2 Pack) 80 mg/mL subcutane ous Inject 1 mL every 4 weeks by subcutan eous route. 04/18 completed Not Available Not Available Not Available Orencia ClickJect 125 mg/mL subcutane ous auto-inje ctor 07/08 completed Not Available Not Available Not Available Lomaira 8 mg tablet TK 1 T PO TID 04/08 completed Not Available Not Available Not Available Isibloom 0.15 mg-0.03 mg tablet TK 1 T PO D 06/05 completed Not Available Not Available Not Available Ozempic 1 mg/dose (2 mg/1.5 mL) subcutane ous pen injector INJECT 1 MG UNDER THE SKIN EVERY WEEK 01/02 completed Not Available Not Available Not Available Tremfya 100 mg/mL subcutane ous auto-inje ctor Inject 1 mL by subcutan eous route. 02/20 completed Not Available Not Available Not Available Ozempic 1 mg/dose (4 mg/3 mL) subcutane ous pen injector 2023 active Not Available Not Available Not Avai lable Wegovy 2.4 mg/0.75 mL subcutane ous pen injector 04/18 completed Not Available Not Available Not Available Wegovy 1.7 mg/0.75 mL subcutane ous pen injector Inject 0.75 mL every week by subcutan eous route as directed . 01/25 completed Not Available Not Available Not Available Wegovy 1 mg/0.5 mL subcutane ous pen injector 01/25 completed Not Available Not Available Not Available Wegovy 0.25 mg/0.5 mL subcutane ous pen injector Inject 1 mL every week by subcutan eous route. 01/25 completed Not Available Not Available Not Available Wegovy 0.5 mg/0.5 mL subcutane ous pen injector 01/25 completed Not Available Not Available Not Available Paxlovid 300 mg (150 mg x 2)-100 mg tablets in a dose pack take as directed 01/25 completed Not Available Not Available Not Available Vitals Date Recorded Body height Pain severity - 0-10 verbal numeric rating [Score] - Reported Body mass index (BMI) Body weight Body temperature Heart rate Oxygen saturation Oxygen saturation in Arterial blood by Pulse oximetry Respiratory rate Systolic blood pressure Diastolic blood pressure Provider Name and Address Organization Details Last Updated DateTime 3 154.94 cm 0 47 kg/m2 646409. 5 g 97.7 [degF] 80 /min 99 % 99 % 20 /min 128 mm[Hg] 86 mm[Hg] Yamile Garcia [place] [facility], [facility] 3 08:23:10 Date Recorded Body height Pain severity - 0-10 verbal numeric rating [Score] - Reported Body temperature Heart rate Oxygen saturation Oxygen saturation in Arterial blood by Pulse oximetry Respiratory rate Body mass index (BMI) Body weight Systolic blood pressure Diastolic blood pressure Provider Name and Address Organization Details Last Updated DateTime 3 154.94 cm 0 97.4 [degF] 76 /min 97 % 97 % 24 /min 47 kg/m2 743801. 5 g 118 mm[Hg] 76 mm[Hg] Yamilemulu Garcia [facility], [facility] 3 08:51:38 Date Recorded Pain severity - 0-10 verbal numeric rating [Score] - Reported Body weight Body mass index (BMI) Body height Heart rate Oxygen saturation Oxygen saturation in Arterial blood by Pulse oximetry Respiratory rate Body temperature Systolic blood pressure Diastolic blood pressure Provider Name and Address Organization Details Last Updated DateTime 3 0 549727. 54 g 46.9 kg/m2 153.67 cm 80 /min 98 % 98 % 20 /min 98.1 [degF] 122 mm[Hg] 82 mm[Hg] [facility] 3 10:45:52 Date Recorded Body height Pain severity - 0-10 verbal numeric rating [Score] - Reported Body mass index (BMI) Body weight Body temperature Heart rate Oxygen saturation Oxygen saturation in Arterial blood by Pulse oximetry Respiratory rate Systolic blood pressure Diastolic blood pressure Provider Name and Address Organization Details Last Updated DateTime 3 153.67 cm 0 47.1 kg/m2 387424. 13 g 98 [degF] 80 /min 97 % 97 % 20 /min 112 mm[Hg] 84 mm[Hg] [facility], [facility] 3 11:06:23 Date Recorded Body height Body mass index (BMI) Body weight Body temperature Heart rate Oxygen saturation Oxygen saturation in Arterial blood by Pulse oximetry Respiratory rate Systolic blood pressure Diastolic blood pressure Provider Name and Address Organization Details Last Updated DateTime 3 153.67 cm 43.8 kg/m2 161143. 06 g 98.5 [degF] 67 /min 97 % 97 % 20 /min 112 mm[Hg] 62 mm[Hg] [facility], [facility] 3 08:01:09 Social History Question Answer Notes LastModified by Organizat ion Details LastModified Time Tobacco Smoking Status Former Smoker Ashely moreno [facility], [facility] 03/15/2012 11:31:17 Do You Have An Advance Directive? No [email or web address] Information not available 07/08/2012 What Is Your Level Of Alcohol Consumption? Occasional Information not available 06/12/2019 Is Blood Transfusion Acceptable In An Emergency? Yes Information not available 08/03/2021 What Is Your Level Of Caffeine Consumption? Moderate Information not available 06/12/2019 How Much Tobacco Do You Chew? None Information not available 03/15/2012 In The 14 Days Before Symptom Onset, Have You Had Close Contact With A Laboratory-confir med COVID-19 While That Case Was Ill? No [email or web address] Information not available 01/03/2023 In The 14 Days Before Symptom Onset, Have You Had Close Contact With A Person Who Is Under Investigation For COVID-19 While That Person Was Ill? No [email or web address] Information not available 01/03/2023 Have You Been To An Area Known To Be High Risk For COVID-19? No [email or web address] Information not available 01/03/2023 What Type Of Diet Are You Following? REGULAR Information not available 06/12/2019 Which Illicit Or Recreational Drugs Have You Used? None Information not available 03/15/2012 Do You Or Have You Ever Used E-cigarettes Or Vape? Never Used Electronic Cigarettes Information not available 11/07/2018 Education 12 [email or web address] Information no t available 01/03/2023 What Is The Highest Grade Or Level Of School You Have Completed Or The Highest Degree You Have Received? [id number] Information not available 08/03/2021 What Is Your Occupation? Employed Information not available 03/15/2012 How Many Days In The Past Year Have You Had A Heavy Drinking Consumption (4+ Female, 5+ Male)? 0 [email or web address] Information no t available 01/03/2023 Dexa 04/12/2017 Information no t available 11/07/2018 Echo 08/27/2015 Information no t available 11/07/2018 Stress Test 09/03/2015 Information n ot available 11/07/2018 EKG 04/08/2018 Information no t available 11/07/2018 Pap (female) 01/08/2014 Information not available 11/07/2018 PFT 11/26/2017 Information no t available 11/07/2018 Cxr 03/26/2018 Information no t available 11/07/2018 Mammogram 11/27/2019 Information no t available 04/27/2020 Colonoscopy 05/09/2019 Loi Up, DO Information not available 06/16/2019 Alcohol Use Less Than 1 Per Month Information not available 03/15/2012 Year Quit Tobacco Use 1995 Information not available 03/19/2017 Marital Status [email or web address]-27 Informatio n not available 01/03/2023 What Was The Date Of Your Most Recent Tobacco Screening? 01/03/2023 [email or web address]-27 Information not available 01/03/2023 What Is Your Relationship Status? Information not available 12/29/2020 Are You Sexually Active? Yes Information not available 06/12/2019 At What Age Did You Start Smoking Tobacco? 17 Information not available 03/15/2012 Do You Or Have You Ever Used Smokeless Tobacco? Never Used Smokeless Tobacco Information not available 11/07/2018 How Much Tobacco Do You Smoke? 0.5 PPD Information not available 03/15/2012 Has Tobacco Cessation Counseling Been Provided? Yes API-27 Information not available 01/03/2023 On What Date Was Tobacco Cessation Counseling Provided? 01/03/2023 API-27 Information not available 01/03/2023 How Many Years Have You Smoked Tobacco? 6 [email or web address] Information not available 04/23/2019 Sex: Female Functional Status Question Answer Note LastModified by Organizat ion Details LastModified Time What is your exercise level? Occasional Information not available 03/15/2012 Mental Status None recorded. Family History Relationship Description Onset Age of this Age Resolved Age Notes LastModified by Organization Details LastModified Time Sister Diabetes mellitus previo usly record ed as Diabet es adobrowski Not available 12/22/2015 15:04:15 Sister Malignant tumor of breast previo usly record ed as Breast cancer [email or web address] Not available 01/03/2023 07:53:26 Sister Heart disease adobrowski Not available 02/03 08:03:04 Sister Heart disease [email or web address] Not available 2022 07:53:26 Sister Heart disease [email or web address] Not available 2022 07:53:26 Sister Deep venous thrombosis [email or web address] Not available 01/03 07:53:26 Sister Fibrocystic disease of breast API-27 Not available 2022 07:53:26 Sister Fibrocystic disease of breast API-27 Not available 2022 07:53:26 Sister Hypertensive disorder Not available 2019 10:26:19 Mother Heart disease Not available 2016 15:19:35 Mother Congestive heart failure previo usly record ed as Conges tive heart failur e (CHF) Not available 01/08/2017 15:19:35 Mother Arthritis Not available 01/08/2017 15:19:35 Mother Hypertensive disorder Not available 2019 10:26:19 Paternal Grandfather Alzheimer's disease previo usly record ed as Alzhei sara's larry Not available 12/22/2015 15:04:15 Paternal Grandfather History of dementia larry Not available 02/03 08:05:38 Maternal Grandfather Emphysema previo usly record ed as COPD/E susan juarez Not available 12/22/2015 15:04:15 Father Arthritis Not available 01/08/2017 15:19:35 Father Natural 83 [email or web address]-27 Not available 2022 07:53:26 Father Hypertensive disorder Not available 2019 10:26:19 Paternal Grandmother Arthritis nitishobrowski Not available 1 08:05:38 Maternal Grandmother Arthritis adobrowski Not available 1 08:05:38 Maternal Grandmother Asthma nitishobyelena Not available 08:05:38 Brother Alcoholism Not availab le 01/08/2017 15:20:33 Unspecified Relation Hypertensive disorder Not available 2019 10:26:19 Medical History Condition Response Cancer (location) N Other N Gout N Thyroid Disease N Kidney Stones N Measles/Mumps N Emphysema/COPD N Sexually Transmitted Disease N Depression Y Prostate Problems N Vascular Disease N Rash/Skin Condition Y Amputation (location) N Parkinson's N Paralysis N Headaches/Migraines N Cardiac Pacemaker/defibrillator N Nerve Damage / Neuropathy N Arthritis N Sleep disorder/Insomnia N Infertility N Heart disease / Heart Attack N Crohn's Disease N HIV/AIDS N Stroke/TIA N Colon Problems N High Cholesterol N Serious Injuries N Kidney Disease N Memory Loss/Alzheimer's N Gallbladder disease N High blood pressure Y Congestive heart failure N Falls N Alcohol Overuse N Blood Thinner Treatment N Hormone Replacement N Nervous Breakdown N Sanders's Esophagus N Anemia Y Urinary Problems N Colon Polyps N Gastritis N Hospitalizations (other than operations) N Back pain N Diabetes Y Rheumatic Fever N Bleeding Disorder N Cardiac Arrhythmias /irregular heart rat e N Osteopenia/Osteoporosis N Anxiety/Stress Y Asthma Y Vision Problems N Erectile / Sexual Dysfunction N Ostomies (location) N Seizures N Jaundice N Sleep Apnea Y Hepatitis N Past Reacton to Contrast Media N Cirrhosis N GERD/Ulcer N Chicken Pox N Allergies (other than meds) Y Gynecological History Statement/Question Response Abnormal Pap N Flow Heavy Date of Last Mammogram 11/29/2020 Date of LMP 06/19/2022 HPV Vaccine N Duration of Flow (days) 7 Current Control Method BCPs Age at Menarche 12 1 Age at First Child 25 Para 1 Frequency of Cycle (Q days) 28 N/A Menses Monthly Y LMP Approximate Obstetrics History GPAL:G 1 P 1 0 0 1 Type Value Full Term 1 Living 1 Total 1 Immunizations Vaccine Type Date Status Note Provider Nam e and Address Organization Details Recorded Time Influenza, MDCK, quadrivalent, PF 2 [facility] 14:05:38 Influenza, split virus, trivalent, preservative 7 completed Not Available [facility] 03/11/2021 17:20:36 Influenza, split virus, trivalent, PF 6 completed Not Available [facility] 03/11/2021 17:20:35 Pneumococcal conjugate PCV20, polysaccharide [id number] conjugate, adjuvant, PF 3 completed Marialuisa moreno [facility] 08/04/2022 17:20:56 Influenza, MDCK, quadrivalent, PF 3 completed Marialuisa moreno [facility] 01/03/2023 09:58:37 Influenza, split virus, quadrivalent, preservative 8 completed Yamile moreno [facility] 01/02/2023 13:20:22 Influenza, split virus, quadrivalent, preservative 9 completed Yamile Glasera null, [facility] 01/02/2023 13:20:22 Novel [id number], all formulations 9 completed Yamile Radha null, [facility] 01/02/2023 13:20:22 Influenza, split virus, quadrivalent, PF 8 completed Not Available [facility] 03/11/2021 17:20:35 Influenza, MDCK, quadrivalent, PF 0 completed Not Available [facility] 03/11/2021 17:20:36 Influenza, MDCK, quadrivalent, PF 1 completed Not Available [facility] 03/11/2021 17:20:36 COVID-19, mRNA, LNP-S, PF, 100 mcg/0.5mL dose or 50 mcg/0.25mL dose 1 completed Not Available [facility] 03/11/2021 17:20:35 COVID-19, mRNA, LNP-S, PF, 100 mcg/0.5mL dose or 50 mcg/0.25mL dose 1 completed Yamile Glasera null, [facility], [facility] 01/02/2023 13:20:22 COVID-19, mRNA, LNP-S, PF, 100 mcg/0.5mL dose or 50 mcg/0.25mL dose 1 completed Not Available [facility] 03/11/2021 17:20:35 COVID-19, mRNA, LNP-S, PF, 100 mcg/0.5mL dose or 50 mcg/0.25mL dose 1 completed Yamile Glasera null, [facility] 12/02/2021 08:58:57 COVID-19, mRNA, LNP-S, bivalent, PF, 30 mcg/0.3 mL dose 2 completed Yamile Radha null, [facility], [facility] 05/08/2022 08:19:03 Td (adult), 2 Lf tetanus toxoid, preservative free, adsorbed 5 completed Not Available [facility] 03/11/2021 17:20:36 zoster recombinant 3 completed Yamile moreno, [facility], [facility] 01/02/2023 13:20:22 zoster recombinant 3 completed Yamile moreno, [facility], [facility] 01/02/2023 13:20:22 Influenza, split virus, trivalent, PF 6 completed Not Available [facility] 03/11/2021 17:20:36 Novel [id number] 9 completed Not Available [facility] 03/11/2021 17:20:35 Influenza, split virus, trivalent, PF 7 completed Not Available [facility] 03/11/2021 17:20:36 Past Encounters Encounter ID Performer Location Encounter Start Date Encounter Closed Date Diagnosis/Indication Diagnosis SNOMED-CT Code Diagnosis ICD10 Code Diagnosis Note [id number] Tatiana Story DO [facility] [address] [place] [address] 03/15/2012 11:12:54 03/15/2012 12:41:34 [id number] [facility] [address] [place] [address] 07/08/2012 08:24:23 07/08/2012 09:29:27 [id number] Luana Jc [facility] [address] [place] [address] 09/20/2012 13:15:51 09/20/2012 14:38:55 [id number] [facility] [address] [place] [address] 10/31/2012 15:10:52 10/31/2012 15:55:36 [id number] Luana Jc [facility] [address] [place] [address] 11/11/2012 10:23:19 11/11/2012 15:55:59 [id number] Maty Jones [facility] [address] [place] [address] 11/13/2012 14:52:42 11/13/2012 16:10:34 [id number] Thalia putnam [facility] [address] [place] [address] 11/21/2012 15:49:43 11/21/2012 16:24:19 [id number] Diamond petit [facility] [address] [place] [address] 11/25/2012 11:12:43 11/25/2012 11:41:15 [id number] Luana Reciores [facility] [address] [place] [address] 12/11/2012 09:45:39 12/11/2012 15:23:49 [id number] Luana Reciores [facility] [address] [place] [address] 01/07/2013 13:11:04 01/07/2013 16:16:24 Ingrowing toenail [id number] Luana Reciores [facility] [address] [place] [address] 02/14/2013 08:02:26 02/14/2013 15:18:59 Obesity 821101009 [id number] Luana Reciores [facility] [address] [place] [address] 03/24/2013 08:55:24 03/24/2013 11:43:25 Obesity 808724658 Pain in elbow 07402244 r est ice, nsaids as discussed. fu in 2 weeks if not better [id number] Elvi Cervantes [facility] [address] [place] [address] 05/08/2013 08:25:55 05/08/2013 10:11:37 Obesity 765485205 pt has not adhered to meds as she has been over whelmed with loss of her father, and her mother in law having surgery. she anthony contact us when she is ready to resume her meds. Tinea pedis [id number] Ashely Howell [facility] [address] [place] [address] 01/06/2014 15:15:13 01/06/2014 17:01:10 Adult health examination [id number] Gynecologi c examination 45565869 Screening for malignant neoplasm of cervix 897971640 Screening for malignant neoplasm of rectum 950101204 Body mass index 40+ - severely obese 835894524 weight issues discussed and informatio n on weight loss given. needs follow up on weight control as scheduled. Education handout on diets given. Exercise counseling done. Will arrange referral for dietitian, nutritioni st, Physical/o ccupationa l therapy as needed or desired. Also will consider pharmaceut ical and supplement al interventi ons Morbid obesity 255515446 see BMI above for details [id number] MARY Irene [facility] [address] [place] [address] 02/11/2014 13:17:19 02/11/2014 14:32:56 Influenza 8780803 [id number] Elvi Cervantes [facility] [address] [place] [address] 02/20/2014 10:14:41 02/20/2014 14:37:31 Sinusitis 36164129 [id number] [facility] [address] [address] [place] [address] 05/20/2014 13:47:36 05/20/2014 14:58:13 Goiter [id number] [id number] Sumi Elias [facility] [address] [place] [address] 06/03/2014 14:47:40 06/03/2014 15:55:28 Benign essential hypertension 0701055 Body mass index 40+ - severely obese 838324685 weight issues discussed and informatio n on weight loss given. needs follow up on weight control as scheduled. Education handout on diets given. Exercise counseling done. Will arrange referral for dietitian, nutritioni st, Physical/o ccupationa l therapy as needed or desired. Also will consider pharmaceut ical and supplement al interventi ons [id number] [facility] [address] [facility] [place] [address] 08/07/2014 16:03:12 08/07/2014 17:22:24 Cough 68765545 hot showers, hot fluids, vicks vapo rub Has a sore throat 786437739 gargle soak toothbrush Acute sinusitis 50691167 warm compresses , Tylenol prn Otitis 38923529 pt aware med will cover this too. [id number] Tatiana Story DO [facility] [address] [place] [address] 05/07/2015 09:12:43 05/07/2015 12:31:11 Contact dermatitis 69021511 L25.9 [id number] Tatiana Story, DO [facility] [address] [facility] [place] [address] 05/14/2015 14:39:37 05/14/2015 17:12:21 Pain in throat 520834664 R07.0 Candidiasis of mouth 797 79919 B37.9 [id number] Tatiana Story, DO [facility] [address] [place] [address] 05/18/2015 07:49:37 05/18/2015 17:00:31 Eruption caused by drug 10519566 L27.0 acute, begin medication s [id number] Tatiana Story DO [facility] [address] [place] [address] 05/28/2015 08:33:38 05/28/2015 13:45:14 Contact dermatitis 96269512 L25.9 acute, worsening, needs further work up and consult. discussed case with dermalogy, they will see her today in 1 hour Purpuric rash 353875822 D69.2 [id number] MARY Irene [facility] [address] [place] [address] 06/03/2015 13:45:29 06/03/2015 14:52:08 Vasculitis of the skin 18997252 L95.9 acute, just came from dermatolog y, increased concern with disease process, will send to rheumatolo gy obtain further labs. I feel her anemia can progress from this as well, send to hematology for further eval per Dr Olivares request. she will see Dr Reina today Anemia 635751538 D64.9 Cough 03908141 R05 [id number] Tatiana Story DO [facility] [address] [place] [address] 06/29/2015 11:09:37 06/29/2015 14:29:47 Cyst of ovary 23732620 N83.20 Anemia 180751019 D64.9 chronic, cont. iron infusions and monitor Vasculitis of the skin 50226209 L95.9 acute, resolving, cont. methotrexa te and cont. to f/u with Rheumology [id number] Tatiana Story DO [facility] [address] [place] [address] 08/16/2015 15:42:00 08/16/2015 16:58:17 Tinea corporis 10085056 B35.4 acute, begin medication s Chest pain 85554359 R07. 9 Electrocar diogram abnormal 666097703 R94.31 [id number] Tatiana Story [facility] [address] [facility] [place] [address] 08/20/2015 14:14:26 08/20/2015 15:11:29 Acute conjunctivitis 92259774 H10.33 acute Vasculitis of the skin 76493773 L95.9 acute, resolving, cont. methotrexa te and cont. to f/u with Rheumology [id number] Tatiana Story DO [facility] [address] [place] [address] 10/22/2015 15:53:10 10/22/2015 16:28:15 Edema of lower extremity 609446140 R60.0 Body mass index 40+ - severely obese 140518160 Z68.43 weight issues discussed and informatio n on weight loss given. needs follow up on weight control as scheduled. Education handout on diets given. Exercise counseling done. Will arrange referral for dietitian, nutritioni st, Physical/o ccupationa l therapy as needed or desired. Also will consider pharmaceut ical and supplement al interventi ons Morbid obesity 143053098 E66.01 see BMI above for details [id number] Tatiana Story DO [facility] [address] [place] [address] 12/08/2015 10:15:34 12/08/2015 12:10:48 Adult health examination 984866542 Z00.00 Benign ess ential hypertension 2121714 I10 Body mass index 40+ - severely obese 190292608 Z68.43 weight issues discussed and informatio n on weight loss given. needs follow up on weight control as scheduled. Education handout on diets given. Exercise counseling done. Will arrange referral for dietitian, nutritioni st, Physical/o ccupationa l therapy as needed or desired. Also will consider pharmaceut ical and supplement al interventi ons Morbid obesity 238499857 E66.01 see BMI above for details Allergic a sthma without status asthmaticus 83086695 J45.949 [id number] Tatiana Story DO [facility] [address] [place] [address] 12/22/2015 14:51:57 12/22/2015 16:56:58 Lower abdominal pain 60725462 R10.30 Acute constipation 36882 9006 K59.00 [id number] MARY Irene [facility] [address] [place] [address] 01/28/2016 08:52:41 01/28/2016 16:25:43 Abdominal pain 62325168 R10.9 acute, start work up, begin medication . Monitor close [id number] Tatiana Story DO [facility] [address] [place] [address] 02/04/2016 07:50:12 02/04/2016 11:56:59 Obesity 431447246 E66.9 Body mass index 40+ - severely obese 546345108 Z68.42 weight issues discussed and informatio n on weight loss given. needs follow up on weight control as scheduled. Education handout on diets given. Exercise counseling done. Will arrange referral for dietitian, nutritioni st, Physical/o ccupationa l therapy as needed or desired. Also will consider pharmaceut ical and supplement al interventi ons Morbid obesity 072653202 E66.01 see BMI above for details Asthma 711941953 J45.90 9 Onychomyco sis due to dermatophyte 531314220 B35.1 Influenza vaccine needed 4119881484 106 Z23 [id number] Tatiana Story DO [facility] [address] [place] [address] 05/05/2016 11:22:29 05/05/2016 17:21:55 Abnormal vision 7293544 H54.7 Body mass index 40+ - severely obese 299487483 Z68.41 weight issues discussed and informatio n on weight loss given. needs follow up on weight control as scheduled. Education handout on diets given. Exercise counseling done. Will arrange referral for dietitian, nutritioni st, Physical/o ccupationa l therapy as needed or desired. Also will consider pharmaceut ical and supplement al interventi ons Morbid obesity 424274518 E66.01 see BMI above for details. [id number] Tatiana Story DO [facility] [address] [place] [address] 05/15/2016 08:54:13 05/15/2016 16:43:35 Acute gastroenteritis 95689911 K52.9 acute, fluids monitor [id number] Tatiana Story DO [facility] [address] [place] [address] 10/18/2016 09:56:39 10/18/2016 17:56:02 Coronary arteriosclerosis in [place] artery 3398953079 107 I25.10 [id number] Tatiana Story DO [facility] [address] [place] [address] 12/08/2016 15:39:37 12/08/2016 16:49:23 Adult health examination 803509249 Z00.00 Chronic ob structive pulmonary disease 70073964 J44.9 Gastro-eso phageal reflux disease with esophagitis 876084140 K21.0 Mixed hyperlipidemia 267 986417 E78.2 Benign ess ential hypertension 8872585 I10 Body mass index 40+ - severely obese 398719713 Z68.42 weight issues discussed and informatio n on weight loss given. needs follow up on weight control as scheduled. Education handout on diets given. Exercise counseling done. Will arrange referral for dietitian, nutritioni st, Physical/o ccupationa l therapy as needed or desired. Also will consider pharmaceut ical and supplement al interventi ons Morbid obesity 262647071 E66.01 see BMI above for details [id number] Tatiana Story DO [facility] [address] [facility] [address] 01/08/2017 15:18:25 01/08/2017 16:58:46 Pain in throat 486750710 R07.0 Rheumatoid arthritis 698 49250 M06.9 chronic, stable [id number] Tatiana Story DO [facility] [address] [place] [address] 03/19/2017 09:55:53 03/20/2017 14:05:40 Acute maxillary sinusitis 23469065 J01.00 acute Body mass index 40+ - severely obese 453210877 Z68.42 weight issues discussed and informatio n on weight loss given. needs follow up on weight control as scheduled. Education handout on diets given. Exercise counseling done. Will arrange referral for dietitian, nutritioni st, Physical/o ccupationa l therapy as needed or desired. Also will consider pharmaceut ical and supplement al interventi ons Morbid obesity 309648846 E66.01 see BMI above for details Diet education 38399514 Z71.3 as above [id number] Tatiana Story [facility] [address] [place] [address] 08/31/2017 08:23:39 08/31/2017 11:50:16 Cellulitis 323634585 L03.90 acute, begin medication s and monitor [id number] Tatiana Story DO [facility] [address] [facility] [place] [address] 09/07/2017 12:49:49 09/07/2017 15:00:13 Cellulitis 914202971 L03.90 acute, improving. monitor [id number] Tatiana Story DO [facility] [address] [facility] [place] [address] 04/08/2018 08:07:40 04/11/2018 15:10:29 Adult health examination 145422992 Z00.00 Body mass index 40+ - severely obese 578725562 Z68.43 weight issues discussed and informatio n on weight loss given. needs follow up on weight control as scheduled. Education handout on diets given. Exercise counseling done. Will arrange referral for dietitian, nutritioni st, Physical/o ccupationa l therapy as needed or desired. Also will consider pharmaceut ical and supplement al interventi ons Morbid obesity 643380769 E66.01 see BMI above for details Diet education 20063601 Z71.3 as above Rheumatoid arthritis 698 55738 M06.9 chronic, stable, cont. with rheum Benign ess ential hypertension 2617130 I10 stable, monitor Chronic ob structive pulmonary disease 06049242 J44.9 chronic with emphysema. Continue same treatments and monitor for worsening symptoms. Pulmonary emphysema 8743 3001 J43.8 chronic, continue current regimen and monitor for worsening symptoms Gastro-eso phageal reflux disease with esophagitis 745726671 K21.0 Mixed hyperlipidemia 267 610164 E78.2 Hypothyroidism 06128442 E03.9 Allergic a sthma without status asthmaticus 68128158 J45.909 Type 2 elizabeth betes mellitus without complication 034299786 E11.9 acute, needs education and ADA diets and therapeuti c lifesytyle changes Single pj or depressive episode 800177991 F32.0 chronic, stable. treatment needed. Follow up as scheduled. Screening mammography 24 063537 Z12.31 [id number] Di Young RN, SOFÍAE [facility] [address] [place] [address] 05/06/2018 16:46:36 05/06/2018 17:26:27 Type 2 diabetes mellitus without complication 416526896 E11.9 [id number] Di Young RN, SOFÍAE [facility] [address] [facility] [place] [address] 05/07/2018 17:04:36 05/07/2018 17:34:07 Type 2 diabetes mellitus without complication 868064174 E11.9 [id number] Di Young RN, BEVERLEY [facility] [address] [place] [address] 05/09/2018 17:55:44 05/10/2018 09:09:42 Type 2 diabetes mellitus without complication 207704078 E11.9 Staci completed the 3 day DM Ed Program. Very motivated. To return in 1 month for individual follow up with glucose log and 2 day food diary. Please see Chart note for Patient DM Assess/Olimpia f Management goals. Di Young RN CDE [id number] Tatiana Story DO [facility] [address] [facility] [place] [address] 06/05/2018 15:40:26 06/05/2018 16:43:40 Type 2 diabetes mellitus without complication 901345413 E11.9 chronic stable, improving monitor Rheumatoid arthritis 698 19477 M06.9 chronic, stable, cont. with rheum Benign ess ential hypertension 2091357 I10 stable, monitor Chronic ob structive pulmonary disease 07694208 J44.9 chronic with emphysema. Continue same treatments and monitor for worsening symptoms. [id number] Di Young RN, CDE [facility] [address] [facility] [place] [address] 07/02/2018 10:12:39 07/03/2018 17:14:37 Type 2 diabetes mellitus without complication 150072034 E11.9 Staci is here for individual follow up to the DM Ed Program she completed. She is doing great!. Current DM Regiment: Diet/activ ity controlled at this time. Glucose readings at home are on target, she notes weight loss. A1C 5.1% (7%). She has made some nice dietary changes, working on exercise regimen, but room for improvemen t. Sleep is good, uses C-Pap religiousl y. Hydration is good. Last dilated eye exam Nov 2017 w/Dr Babcock @ [facility] [place], consult note pending. Advised pt to follow up as recommende d and request vision care provider send copy of note to Dr Story. Reinforced the many positive lifestyle changes she has made. Very motivated, but has a lot of medical issues on her plate. Please see Chart note for Patient DM Assess/Olimpia f-Manageme nt goals. Di Young RN CDE [id number] Tatiana Story DO [facility] [address] [place] [address] 07/08/2018 10:52:57 07/09/2018 12:33:56 Type 2 diabetes mellitus without complication 792762350 E11.9 chronic stable cont tx and monitor Rheumatoid arthritis 698 72745 M06.9 chronic, stable, cont. with rheum Benign ess ential hypertension 3924417 I10 stable, monitor Chronic ob structive pulmonary disease 47046160 J44.9 chronic with emphysema. Continue same treatments and monitor for worsening symptoms. Body mass index 40+ - severely obese 241360555 Z68.42 weight issues discussed and informatio n on weight loss given. needs follow up on weight control as scheduled. Education handout on diets given. Exercise counseling done. Will arrange referral for dietitian, nutritioni st, Physical/o ccupationa l therapy as needed or desired. Also will consider pharmaceut ical and supplement al interventi ons Morbid obesity 216816164 E66.01 see BMI above for details Diet education 74047605 Z71.3 as above Allergic a sthma without status asthmaticus 98375881 J45.508 [id number] Tatiana Story DO [facility] [address] [place] [address] 11/13/2018 08:22:21 11/13/2018 13:44:08 Type 2 diabetes mellitus without complication 636024946 E11.9 chronic stable cont tx and monitor Rheumatoid arthritis 698 04923 M06.9 chronic, stable, cont. with rheum Benign ess ential hypertension 0816438 I10 stable, monitor Chronic ob structive pulmonary disease 94074540 J44.9 chronic with emphysema. Continue same treatments and monitor for worsening symptoms. Mixed hyperlipidemia 267 152109 E78.2 Hypothyroidism 43315991 E03.9 Body mass index 40+ - severely obese 112671996 Z68.42 weight issues discussed and informatio n on weight loss given. needs follow up on weight control as scheduled. Education handout on diets given. Exercise counseling done. Will arrange referral for dietitian, nutritioni st, Physical/o ccupationa l therapy as needed or desired. Also will consider pharmaceut ical and supplement al interventi ons Morbid obesity 210827304 E66.01 see BMI above for details Diet education 37751396 Z71.3 as above [id number] Tatiana Story DO [facility] [address] [place] [address] 11/27/2018 08:21:15 12/03/2018 16:44:41 Neck pain 04147926 M54.2 acute, begin medication s and monitor Muscle spa sm of cervical muscle of neck [id number] 04 M62.838 acute, begin medication s above and monitor [id number] Tatiana Story DO [facility] [address] [place] [address] 04/23/2019 07:43:21 04/23/2019 13:00:29 Adult health examination 135733546 Z00.00 Benign ess ential hypertension 5429862 I10 stable, monitor Chronic ob structive pulmonary disease 33862416 J44.9 chronic with emphysema. Continue same treatments and monitor for worsening symptoms. Rheumatoid arthritis 698 57602 M06.9 chronic, stable, cont. with rheum Type 2 elizabeth betes mellitus without complication 554928754 E11.9 chronic stable cont tx and monitor Body mass index 40+ - severely obese 039889280 Z68.42 weight issues discussed and informatio n on weight loss given. needs follow up on weight control as scheduled. Education handout on diets given. Exercise counseling done. Will arrange referral for dietitian, nutritioni st, Physical/o ccupationa l therapy as needed or desired. Also will consider pharmaceut ical and supplement al interventi ons Morbid obesity 013690579 E66.01 see BMI above for details Diet education 75584902 Z71.3 as above Dyslipidemia 925340247 E 78.5 [id number] MARY Irene [facility] [address] [place] [address] 06/12/2019 10:25:02 06/25/2019 18:10:38 Acute maxillary sinusitis 11205370 J01.00 acute start medsDiscus sed with patient potential complicati ons of medication s presdcribe d, increase po fluids and rest, use OTC medication for symptomati c relief, pt agrees with POC denies any questions at this time [id number] Tatiana Story DO [facility] [address] [place] [address] 06/16/2019 08:43:25 06/18/2019 16:15:35 Acute maxillary sinusitis 09288141 J01.00 acute begin medication s and monitor [id number] Tatiana Story DO [facility] [address] [place] [address] 11/05/2019 07:43:56 11/05/2019 14:48:17 Type 2 diabetes mellitus without complication 283189044 E11.9 chronic stable cont tx and monitor Mixed hyperlipidemia 267 847809 E78.2 Chronic, controlled , continue same, follow up as scheduled Gastro-eso phageal reflux disease with esophagitis 607620741 K21.0 Chronic, controlled , continue same, follow up as scheduled Chronic ob structive pulmonary disease 82538637 J44.9 chronic with emphysema. Continue same treatments and monitor for worsening symptoms. Benign ess ential hypertension 2830923 I10 stable, monitor Body mass index 40+ - severely obese 085172869 Z68.42 weight issues discussed and informatio n on weight loss given. needs follow up on weight control as scheduled. Education handout on diets given. Exercise counseling done. Will arrange referral for dietitian, nutritioni st, Physical/o ccupationa l therapy as needed or desired. Also will consider pharmaceut ical and supplement al interventi ons Morbid obesity 476941824 E66.01 see BMI above for details Diet education 58505922 Z71.3 as above Mild major depression, single episode 16028427 F32.0 chronic, controlled , cont. medication s and monitor [id number] Tatiana Story DO [facility] [address] [facility] [place] [address] 11/14/2019 07:43:00 11/14/2019 13:32:51 Cellulitis 680651949 L03.90 acute, begin medication s Type 2 elizabeth betes mellitus without complication 344530147 E11.9 chronic stable cont tx and monitor [id number] Tatiana Story DO [facility] [address] [facility] [address] 12/26/2019 12:45:31 12/26/2019 16:07:03 Pain in left knee 6268422389 44552 M25.562 chronic, worsening Pain in left foot 613810 9546 95082 M79.672 chronic, worsening Lumbar dis c disorder with myelopathy 088060798 M51.06 [id number] Tatiana StoryDO [facility] [address] [place] [address] 04/28/2020 08:20:52 04/28/2020 16:17:59 Adult health examination 613584371 Z00.00 Benign ess ential hypertension 3721527 I10 Chronic {{complain t conditio n disease finding il lness inju ry problem * symptom sign othe r matter}}, stable at blood pressure goal. Needs monitoring . Prescripti on drug management : {{Ramipril 10mg q d # Add meds to current as noted below Begi n meds as noted below Ashley ge medication s as noted below Cont inue medication s as in med list Disco ntinue meds as noted No meds given at this time No meds given until results back No rx indicated OTC meds only Pt refuses rx Restart meds as noted in prescripti on below }}. Continue with therapeuti c lifestyle changes (TLC) and continue home bp monitoring . Plan of care will be to use TLC and/or medication s with periodic follow up visits to maintain a safe blood pressure goal of 140/90 or lower. Follow up as scheduled. Follow up as scheduled. Mixed hyperlipidemia 267 599798 E78.2 Chronic {{complain t conditio n disease finding il lness inju ry problem * symptom sign othe r matter}}, {{stable - at or near* unst able - not at }} LDL goal. Needs monitoring . Prescripti on drug management : {{Add meds to current as noted below Begi n meds as noted below Ashley ge medication s as noted below Cont inue medication s as in med list Disco ntinue meds as noted No meds given at this time * No meds given until results back No rx indicated OTC meds only Pt refuses rx Restart meds as noted in prescripti on below }}. Follow up as scheduled. Plan of care: {{Continue * Improve Restart}} therapeuti c lifestyle changes and/or medication s to maintain an LDL below 100. Periodic visits and labs and appropriat e therapeuti c changes will occur to help meet this goal to minimize risk of atheroscle rotic disease. Recheck labs as ordered. Rheumatoid arthritis 698 34865 M06.9 chronic {{complain t conditio n disease finding il lness inju ry problem * symptom sign othe r matter}}, stable with no significan t clinical changes. Needs monitoring . Prescripti on drug management : {{Cosentyx 300mL q 5 weeks# Add meds to current as noted below Begi n meds as noted below Ashley ge medication s as noted below Cont inue medication s as in med list No meds given until results back No meds given at this time Disco ntinue meds as noted Rest art meds as noted in prescripti on below Pt refuses rx No rx indicated OTC meds only }}. Pt cont to follow up with rheumology and Follow up as scheduled with myself to monitor for progressio n. Type 2 elizabeth betes mellitus without complication 517123715 E11.9 Chronic {{complain t conditio n disease finding il lness inju ry problem * symptom sign othe r matter}}, {{stable - at or near* unst able - not at }} HbA1c goal. Needs monitoring . Prescripti on drug management : {{Add meds to current as noted below Begi n meds as noted below Ashley ge medication s as noted below Cont inue medication s as in med list Disco ntinue meds as noted No meds given at this time * No meds given until results back No rx indicated OTC meds only Pt refuses rx Restart meds as noted in prescripti on below }}. Follow up as scheduled. Plan of care: {{Continue * Improve Restart}} therapeuti c lifestyle changes and/or medication s to maintain a healthy blood sugar with goal HbA1c of {{5.6# 6.5 <7.0 7.0- 7.5 <7.5 7 .5-8.0 <8. 0 <9.0}}. Periodic visits and recheck of labs with appropriat e therapeuti c changes will be done to help with this goal. Allergic a sthma without status asthmaticus 45474509 J45.909 chronic {{complain t conditio n disease finding il lness inju ry problem * symptom sign othe r matter}}, stable with no significan t clinical changes. Needs monitoring . Prescripti on drug management : {{albutero l for neb prn and advair 2 puffs BID# Add meds to current as noted below Begi n meds as noted below Ashley ge medication s as noted below Cont inue medication s as in med list No meds given until results back No meds given at this time Disco ntinue meds as noted Rest art meds as noted in prescripti on below Pt refuses rx No rx indicated OTC meds only }}. Follow up as scheduled. Chronic ob structive pulmonary disease 99970603 J44.9 chronic {{complain t conditio n disease finding il lness inju ry problem * symptom sign othe r matter}}, stable with no significan t clinical changes. Needs monitoring . Prescripti on drug management : {{albutero l for neb prn and advair 2 puffs BID# Add meds to current as noted below Begi n meds as noted below Ashley ge medication s as noted below Cont inue medication s as in med list No meds given until results back No meds given at this time Disco ntinue meds as noted Rest art meds as noted in prescripti on below Pt refuses rx No rx indicated OTC meds only }}. Plan of care: Reduce Impairment , prevent chronic symptoms, require infrequent use of short-acti ng beta 2-agonist (ANTHONY). Maintain (near) normal lung function and normal activity levels.. Reduce Risk, prevent exacerbati ons. Minimize need for emergency care, hospitaliz ation.. Prevent loss of lung function. Minimize adverse effects of therapy. Follow up as scheduled Pulmonary emphysema 8743 3001 J43.8 chronic, continue current regimen and monitor for worsening symptoms Immunodefi ciency disorder 377959438 D84.81 chronic {{complain t conditio n disease finding il lness inju ry problem * symptom sign othe r matter}}, stable with no significan t clinical changes. Needs monitoring . Prescripti on drug management : {{Add meds to current as noted below Begi n meds as noted below Ashley ge medication s as noted below Cont inue medication s as in med list No meds given until results back No meds given at this time Disco ntinue meds as noted Rest art meds as noted in prescripti on below Pt refuses rx No rx indicated* OTC meds only }}. Follow up as scheduled. Education given to pt. about increase risk for secondary infections and follow up as scheduled to monitor for secondary issues. Mild major depression, single episode 88076823 F32.0 chronic problem, stable, Needs monitoring , Prescripti on drug Fluoxetine 20mg q d needed at this time, Cont. with TCL including healthy diet, exercise with periodic follow up visits to monitor Body mass index 40+ - severely obese 209090795 Z68.42 weight issues discussed and informatio n on weight loss given. needs follow up on weight control as scheduled. Education handout on diets given. Exercise counseling done. Will arrange referral for dietitian, nutritioni st, Physical/o ccupationa l therapy as needed or desired. Also will consider pharmaceut ical and supplement al interventi ons Morbid obesity 320827799 E66.01 see BMI above for details Diet education 17048335 Z71.3 as above [id number] Tatiana Story DO [facility] [address] [place] [address] 08/27/2020 07:51:46 08/27/2020 13:47:46 Abscess 905867378 L02.91 {{Acute* N ew New undiagnose d}} {{self-winn ited uncom pliated un diagnosed with uncertain prognosis with systemic symptoms c omplicated injury lif e threatenin g Improvin g#}} {{complain t conditio n disease finding il lness inju ry problem * symptom sign othe r matter}}. Prescripti on drug management : {{Add meds to current as noted below Begi n meds as noted below Ashley ge medication s as noted below Cont inue medication s as in med list Disco ntinue meds as noted No meds given at this time No meds given until results back No rx indicated* OTC meds only Pt refuses rx Restart meds as noted in prescripti on below}}. Pt informed to seek immediate medical attention should symptoms worsen. Benign ess ential hypertension 7790403 I10 R94.31 Chronic {{complain t conditio n* disease finding i llness inj ury proble m symptom sign othe r matter}}, stable at blood pressure goal. Needs monitoring . Prescripti on drug management : {{Add meds to current as noted below Begi n meds as noted below Ashley ge medication s as noted below Cont inue medication s as in med list Disco ntinue meds as noted No meds given at this time No meds given until results back No rx indicated OTC meds only Pt refuses rx Restart meds as noted in prescripti on below Rami pril 10mg q d #}}. Continue with therapeuti c lifestyle changes (TLC) and continue home bp monitoring . Plan of care will be to use TLC and/or medication s with periodic follow up visits to maintain a safe blood pressure goal of 140/90 or lower. Follow up as scheduled. Follow up as scheduled. Rheumatoid arthritis 698 55398 M06.9 chronic {{complain t conditio n disease finding il lness inju ry problem * symptom sign othe r matter}}, stable with no significan t clinical changes. Needs monitoring . Prescripti on drug management : {{Cosentyx 300mL q 5 weeks# Add meds to current as noted below Begi n meds as noted below Ashley ge medication s as noted below Cont inue medication s as in med list No meds given until results back No meds given at this time Disco ntinue meds as noted Rest art meds as noted in prescripti on below Pt refuses rx No rx indicated OTC meds only }}. Pt cont to follow up with rheumology and Follow up as scheduled with myself to monitor for progressio n. Type 2 elizabeth betes mellitus without complication 979241871 E11.9 Chronic {{complain t conditio n disease finding il lness inju ry problem * symptom sign othe r matter}}, {{stable - at or near* unst able - not at }} HbA1c goal. Needs monitoring . Prescripti on drug management : {{Add meds to current as noted below Begi n meds as noted below Ashley ge medication s as noted below Cont inue medication s as in med list Disco ntinue meds as noted No meds given at this time * No meds given until results back No rx indicated OTC meds only Pt refuses rx Restart meds as noted in prescripti on below }}. Follow up as scheduled. Plan of care: {{Continue * Improve Restart}} therapeuti c lifestyle changes and/or medication s to maintain a healthy blood sugar with goal HbA1c of {{5.6# 6.5 <7.0 7.0- 7.5 <7.5 7 .5-8.0 <8. 0 <9.0}}. Periodic visits and recheck of labs with appropriat e therapeuti c changes will be done to help with this goal. [id number] Tatiana Story DO [facility] [address] [place] [address] 12/29/2020 11:33:55 12/29/2020 15:05:20 Allergic asthma without status asthmaticus 16940189 J45.909 chronic {{complain t conditio n disease finding il lness inju ry problem * symptom sign othe r matter}}, stable with no significan t clinical changes. Needs monitoring . Prescripti on drug management : {{albutero l for neb prn and advair 2 puffs BID# Add meds to current as noted below Begi n meds as noted below Ashley ge medication s as noted below Cont inue medication s as in med list No meds given until results back No meds given at this time Disco ntinue meds as noted Rest art meds as noted in prescripti on below Pt refuses rx No rx indicated OTC meds only }}. Follow up as scheduled. Benign ess ential hypertension 4961047 I10 R94.31 Chronic {{complain t conditio n* disease finding i llness inj ury proble m symptom sign othe r matter}}, stable at blood pressure goal. Needs monitoring . Prescripti on drug management : {{Add meds to current as noted below Begi n meds as noted below Ashley ge medication s as noted below Cont inue medication s as in med list Disco ntinue meds as noted No meds given at this time No meds given until results back No rx indicated OTC meds only Pt refuses rx Restart meds as noted in prescripti on below Rami pril 10mg q d #}}. Continue with therapeuti c lifestyle changes (TLC) and continue home bp monitoring . Plan of care will be to use TLC and/or medication s with periodic follow up visits to maintain a safe blood pressure goal of 140/90 or lower. Follow up as scheduled. Follow up as scheduled. Chronic ob structive pulmonary disease 63593383 J44.9 chronic {{complain t conditio n disease finding il lness inju ry problem * symptom sign othe r matter}}, stable with no significan t clinical changes. Needs monitoring . Prescripti on drug management : {{albutero l for neb prn and advair 2 puffs BID# Add meds to current as noted below Begi n meds as noted below Ashley ge medication s as noted below Cont inue medication s as in med list No meds given until results back No meds given at this time Disco ntinue meds as noted Rest art meds as noted in prescripti on below Pt refuses rx No rx indicated OTC meds only }}. Plan of care: Reduce Impairment , prevent chronic symptoms, require infrequent use of short-acti ng beta 2-agonist (ANTHONY). Maintain (near) normal lung function and normal activity levels.. Reduce Risk, prevent exacerbati ons. Minimize need for emergency care, hospitaliz ation.. Prevent loss of lung function. Minimize adverse effects of therapy. Follow up as scheduled Immunodefi ciency disorder 934539378 D84.81 chronic {{complain t conditio n disease finding il lness inju ry problem * symptom sign othe r matter}}, Secondary to RA and tx plan. stable with no significan t clinical changes. Needs monitoring . Prescripti on drug management : {{Add meds to current as noted below Begi n meds as noted below Ashley ge medication s as noted below Cont inue medication s as in med list No meds given until results back No meds given at this time Disco ntinue meds as noted Rest art meds as noted in prescripti on below Pt refuses rx No rx indicated* OTC meds only}}. Follow up as scheduled. Education given to pt. about increase risk for secondary infections and follow up as scheduled to monitor for secondary issues. Mild major depression, single episode 78692876 F32.0 chronic problem, stable, Needs monitoring , Prescripti on drug Fluoxetine 20mg q d needed at this time, Cont. with TCL including healthy diet, exercise with periodic follow up visits to monitor Mixed hyperlipidemia 267 924137 E78.2 Chronic {{complain t conditio n disease finding il lness inju ry problem * symptom sign othe r matter}}, {{stable - at or near unsta ble - not at stable - at or near, LDL 91#}} LDL goal. Needs monitoring . Prescripti on drug management : {{Add meds to current as noted below Begi n meds as noted below Ashley ge medication s as noted below Cont inue medication s as in med list Disco ntinue meds as noted No meds given at this time No meds given until results back No rx indicated OTC meds only Pt refuses rx Restart meds as noted in prescripti on below ifeanyi tor 5mg q d #}}. Follow up as scheduled. Plan of care: {{Continue * Improve Restart}} therapeuti c lifestyle changes and/or medication s to maintain an LDL below 100. Periodic visits and labs and appropriat e therapeuti c changes will occur to help meet this goal to minimize risk of atheroscle rotic disease. Recheck labs as ordered. Rheumatoid arthritis 698 74114 M06.9 chronic {{complain t conditio n disease finding il lness inju ry problem * symptom sign othe r matter}}, stable with no significan t clinical changes. Needs monitoring . Prescripti on drug management : {{Cosentyx 300mL q 5 weeks# Add meds to current as noted below Begi n meds as noted below Ashley ge medication s as noted below Cont inue medication s as in med list No meds given until results back No meds given at this time Disco ntinue meds as noted Rest art meds as noted in prescripti on below Pt refuses rx No rx indicated OTC meds only }}. Pt cont to follow up with rheumology and Follow up as scheduled with myself to monitor for progressio n. Type 2 elizabeth betes mellitus without complication [id number] E11.9 Chronic {{complain t conditio n disease finding il lness inju ry problem * symptom sign othe r matter}}, {{stable - at or near unsta ble - not at stable - at or near, A1C 5.7#}} HbA1c goal. Needs monitoring . Prescripti on drug management : {{Add meds to current as noted below Begi n meds as noted below Ashley ge medication s as noted below Cont inue medication s as in med list Disco ntinue meds as noted No meds given at this time * No meds given until results back No rx indicated OTC meds only Pt refuses rx Restart meds as noted in prescripti on below}}. Follow up as scheduled. Plan of care: {{Continue * Improve Restart}} therapeuti c lifestyle changes and/or medication s to maintain a healthy blood sugar with goal HbA1c of {{6.5 <7.0 7.0-7.5 < 7.5 7.5-8. 0 <8.0 <9. 0 5.6#}}. Periodic visits and recheck of labs with appropriat e therapeuti c changes will be done to help with this goal. Body mass index 40+ - severely obese 623026478 Z68.43 weight issues discussed and informatio n on weight loss given. needs follow up on weight control as scheduled. Education handout on diets given. Exercise counseling done. Will arrange referral for dietitian, nutritioni st, Physical/o ccupationa l therapy as needed or desired. Also will consider pharmaceut ical and supplement al interventi ons Morbid obesity 914884987 E66.01 see BMI above for details Diet education 62534885 Z71.3 as above [id number] Tatiana Story DO [facility] [address] [place] [address] 01/25/2021 15:40:17 01/26/2021 11:39:10 Cellulitis 692020057 L03.90 {{Acute* N ew New undiagnose d}} {{undiagno sed with uncertain prognosis with systemic symptoms c omplicated }} {{complain t conditio n disease finding il lness inju ry problem * symptom sign othe r matter}}. Prescripti on drug management : {{Add meds to current as noted below Begi n meds as noted below Ashley ge medication s as noted below Cont inue medication s as in med list Disco ntinue meds as noted No meds given at this time No meds given until results back No rx indicated OTC meds only Pt refuses rx Restart meds as noted in prescripti on below begi n cipro 500mg BID#}}. Needs monitoring to determine stability of condition. Type 2 elizabeth betes mellitus without complication [id number] E11.9 Chronic {{complain t conditio n disease finding il lness inju ry problem * symptom sign othe r matter}}, {{stable - at or near unsta ble - not at stable - at or near, A1C 5.7#}} HbA1c goal. Needs monitoring . Prescripti on drug management : {{Add meds to current as noted below Begi n meds as noted below Ashley ge medication s as noted below Cont inue medication s as in med list Disco ntinue meds as noted No meds given at this time * No meds given until results back No rx indicated OTC meds only Pt refuses rx Restart meds as noted in prescripti on below}}. Follow up as scheduled. Plan of care: {{Continue * Improve Restart}} therapeuti c lifestyle changes and/or medication s to maintain a healthy blood sugar with goal HbA1c of {{6.5 <7.0 7.0-7.5 < 7.5 7.5-8. 0 <8.0 <9. 0 5.6#}}. Periodic visits and recheck of labs with appropriat e therapeuti c changes will be done to help with this goal. [id number] Tatiana Story DO [facility] [address] [place] [address] 02/04/2021 15:41:28 02/07/2021 11:17:04 Cellulitis [id number] L03.90 {{Acute* N ew New undiagnose d}} {{undiagno sed with uncertain prognosis with systemic symptoms c omplicated }} {{complain t conditio n disease finding il lness inju ry problem * symptom sign othe r matter}}. Prescripti on drug management : {{Add meds to current as noted below Begi n meds as noted below Ashley ge medication s as noted below Cont inue medication s as in med list Disco ntinue meds as noted No meds given at this time No meds given until results back No rx indicated OTC meds only Pt refuses rx Restart meds as noted in prescripti on below cont . cipro 500mg BID#}}. Needs monitoring to determine stability of condition. Type 2 elizabeth betes mellitus without complication [id number] E11.9 Chronic {{complain t conditio n disease finding il lness inju ry problem * symptom sign othe r matter}}, {{stable - at or near unsta ble - not at stable - at or near, A1C 5.7#}} HbA1c goal. Needs monitoring . Prescripti on drug management : {{Add meds to current as noted below Begi n meds as noted below Ashley ge medication s as noted below Cont inue medication s as in med list Disco ntinue meds as noted No meds given at this time * No meds given until results back No rx indicated OTC meds only Pt refuses rx Restart meds as noted in prescripti on below}}. Follow up as scheduled. Plan of care: {{Continue * Improve Restart}} therapeuti c lifestyle changes and/or medication s to maintain a healthy blood sugar with goal HbA1c of {{6.5 <7.0 7.0-7.5 < 7.5 7.5-8. 0 <8.0 <9. 0 5.6#}}. Periodic visits and recheck of labs with appropriat e therapeuti c changes will be done to help with this goal. [id number] Tatiana Story DO [facility] [address] [place] [address] 03/16/2021 08:48:34 03/18/2021 18:07:29 Vaginitis [id number] N76.0 {{Acute* N ew New undiagnose d}} {{self-winn ited uncom pliated* u ndiagnosed with uncertain prognosis with systemic symptoms c omplicated injury lif e threatenin g}} {{complain t conditio n disease finding il lness inju ry problem * symptom sign othe r matter}}. Prescripti on drug management : {{Add meds to current as noted below Begi n meds as noted below Ashley ge medication s as noted below Cont inue medication s as in med list Disco ntinue meds as noted No meds given at this time No meds given until results back No rx indicated * OTC meds only Pt refuses rx Restart meds as noted in prescripti on below}}. Resolved, will monitor, education given. Pt informed to seek immediate medical attention should symptoms worsen. Body mass index 40+ - severely obese [id number] Z68.43 weight issues discussed and informatio n on weight loss given. needs follow up on weight control as scheduled. Education handout on diets given. Exercise counseling done. Will arrange referral for dietitian, nutritioni st, Physical/o ccupationa l therapy as needed or desired. Also will consider pharmaceut ical and supplement al interventi ons Morbid obesity [id number] E66.01 see BMI above for details Diet education [id number] Z71.3 as above [id number] Tatiana Story DO [facility] [address] [facility] [place] [address] 04/18/2021 15:54:09 2021 14:41:02 Intervertebral disc disorder of lumbar region with myelopathy [id number] M51.06 {{Acute* N ew New undiagnose d}} {{undiagno sed with uncertain prognosis with systemic symptoms* complicate d}} {{complain t conditio n disease finding il lness inju ry problem * symptom sign othe r matter}}. Prescripti on drug management : {{Add meds to current as noted below Begi n meds as noted below Ashley ge medication s as noted below* Con tinue medication s as in med list Disco ntinue meds as noted No meds given at this time No meds given until results back No rx indicated OTC meds only Pt refuses rx Restart meds as noted in prescripti on below}}. Needs monitoring to determine stability of condition. Type 2 elizabeth betes mellitus without complication [id number] E11.9 Chronic {{complain t conditio n disease finding il lness inju ry problem * symptom sign othe r matter}}, {{stable - at or near unsta ble - not at stable - at or near, A1C 5.7#}} HbA1c goal. Needs monitoring . Prescripti on drug management : {{Add meds to current as noted below Begi n meds as noted below Ashley ge medication s as noted below Cont inue medication s as in med list Disco ntinue meds as noted No meds given at this time * No meds given until results back No rx indicated OTC meds only Pt refuses rx Restart meds as noted in prescripti on below}}. Follow up as scheduled. Plan of care: {{Continue * Improve Restart}} therapeuti c lifestyle changes and/or medication s to maintain a healthy blood sugar with goal HbA1c of {{6.5 <7.0 7.0-7.5 < 7.5 7.5-8. 0 <8.0 <9. 0 5.6#}}. Periodic visits and recheck of labs with appropriat e therapeuti c changes will be done to help with this goal. Rheumatoid arthritis 698 37728 M06.9 chronic {{complain t conditio n disease finding il lness inju ry problem * symptom sign othe r matter}}, stable with no significan t clinical changes. Needs monitoring . Prescripti on drug management : {{Cosentyx 300mL q 5 weeks# Add meds to current as noted below Begi n meds as noted below Ashley ge medication s as noted below Cont inue medication s as in med list No meds given until results back No meds given at this time Disco ntinue meds as noted Rest art meds as noted in prescripti on below Pt refuses rx No rx indicated OTC meds only }}. Pt cont to follow up with rheumology and Follow up as scheduled with myself to monitor for progressio n. Benign ess ential hypertension [id number] I10 R94.31 Chronic {{complain t conditio n* disease finding i llness inj ury proble m symptom sign othe r matter}}, stable at blood pressure goal. Needs monitoring . Prescripti on drug management : {{Add meds to current as noted below Begi n meds as noted below Ashley ge medication s as noted below Cont inue medication s as in med list Disco ntinue meds as noted No meds given at this time No meds given until results back No rx indicated OTC meds only Pt refuses rx Restart meds as noted in prescripti on below Rami pril 10mg q d #}}. Continue with therapeuti c lifestyle changes (TLC) and continue home bp monitoring . Plan of care will be to use TLC and/or medication s with periodic follow up visits to maintain a safe blood pressure goal of 140/90 or lower. Follow up as scheduled. Follow up as scheduled. Body mass index 40+ - severely obese [id number] Z68.43 weight issues discussed and informatio n on weight loss given. needs follow up on weight control as scheduled. Education handout on diets given. Exercise counseling done. Will arrange referral for dietitian, nutritioni st, Physical/o ccupationa l therapy as needed or desired. Also will consider pharmaceut ical and supplement al interventi ons Morbid obesity [id number] E66.01 see BMI above for details Diet education [id number] Z71.3 as above Immunodefi ciency disorder [id number] D84.81 chronic {{complain t conditio n disease finding il lness inju ry problem * symptom sign othe r matter}}, Secondary to RA and tx plan. stable with no significan t clinical changes. Needs monitoring . Prescripti on drug management : {{Add meds to current as noted below Begi n meds as noted below Ashley ge medication s as noted below Cont inue medication s as in med list No meds given until results back No meds given at this time Disco ntinue meds as noted Rest art meds as noted in prescripti on below Pt refuses rx No rx indicated* OTC meds only}}. Follow up as scheduled. Education given to pt. about increase risk for secondary infections and follow up as scheduled to monitor for secondary issues. Mild major depression, single episode [id number] F32.0 chronic problem, stable, Needs monitoring , Prescripti on drug Fluoxetine 20mg q d needed at this time, Cont. with TCL including healthy diet, exercise with periodic follow up visits to monitor Pulmonary emphysema 8743 3001 J43.8 chronic {{complain t conditio n disease finding il lness inju ry problem * symptom sign othe r matter}}, {{stable with no significan t clinical changes* u nstable,no t at goal unsta ble with exacerbati on unstabl e with progressio n unstable with side effect of medication }}. Needs monitoring . Prescripti on drug management : {{Add meds to current as noted below Begi n meds as noted below Ashley ge medication s as noted below Cont inue medication s as in med list* No meds given until results back No meds given at this time Disco ntinue meds as noted Rest art meds as noted in prescripti on below Pt refuses rx No rx indicated OTC meds only }}. Follow up as scheduled. [id number] Tatiana DO Rigoberto [facility] [address] [place] [address] 08/03/2021 09:21:24 08/03/2021 14:12:06 Adult health examination [id number] Z00.00 Preventive visit done today. Anticipato ry guidance given as noted below. Type 2 elizabeth betes mellitus without complication [id number] E11.9 Chronic {{complain t conditio n disease finding il lness inju ry problem * symptom sign othe r matter}}, {{stable - at or near unsta ble - not at stable - at or near, A1C 6.4#}} HbA1c goal. Needs monitoring . Prescripti on drug management : {{Add meds to current as noted below Begi n meds as noted below Ashley ge medication s as noted below Cont inue medication s as in med list Disco ntinue meds as noted No meds given at this time * No meds given until results back No rx indicated OTC meds only Pt refuses rx Restart meds as noted in prescripti on below}}. Follow up as scheduled. Plan of care: {{Continue * Improve Restart}} therapeuti c lifestyle changes and/or medication s to maintain a healthy blood sugar with goal HbA1c of {{6.5 <7.0 7.0-7.5 < 7.5 7.5-8. 0 <8.0 <9. 0 5.6#}}. Periodic visits and recheck of labs with appropriat e therapeuti c changes will be done to help with this goal. Rheumatoid arthritis 698 80988 M06.9 chronic {{complain t conditio n disease finding il lness inju ry problem * symptom sign othe r matter}}, stable with no significan t clinical changes. Needs monitoring . Prescripti on drug management : {{Cosentyx 300mL q 5 weeks# Add meds to current as noted below Begi n meds as noted below Ashley ge medication s as noted below Cont inue medication s as in med list No meds given until results back No meds given at this time Disco ntinue meds as noted Rest art meds as noted in prescripti on below Pt refuses rx No rx indicated OTC meds only }}. Pt cont to follow up with rheumology and Follow up as scheduled with myself to monitor for progressio n. Pulmonary emphysema 8743 3001 J43.8 chronic {{complain t conditio n disease finding il lness inju ry problem * symptom sign othe r matter}}, {{stable with no significan t clinical changes* u nstable,no t at goal unsta ble with exacerbati on unstabl e with progressio n unstable with side effect of medication }}. Needs monitoring . Prescripti on drug management : {{Add meds to current as noted below Begi n meds as noted below Ashley ge medication s as noted below Cont inue medication s as in med list* No meds given until results back No meds given at this time Disco ntinue meds as noted Rest art meds as noted in prescripti on below Pt refuses rx No rx indicated OTC meds only }}. Follow up as scheduled. Mild major depression, single episode [id number] F32.0 chronic problem, stable, Needs monitoring , Prescripti on drug Fluoxetine 20mg q d needed at this time, Cont. with TCL including healthy diet, exercise with periodic follow up visits to monitor Immunodefi ciency disorder [id number] D84.81 chronic {{complain t conditio n disease finding il lness inju ry problem * symptom sign othe r matter}}, Secondary to RA and tx plan. stable with no significan t clinical changes. Needs monitoring . Prescripti on drug management : {{Add meds to current as noted below Begi n meds as noted below Ashley ge medication s as noted below Cont inue medication s as in med list No meds given until results back No meds given at this time Disco ntinue meds as noted Rest art meds as noted in prescripti on below Pt refuses rx No rx indicated* OTC meds only}}. Follow up as scheduled. Education given to pt. about increase risk for secondary infections and follow up as scheduled to monitor for secondary issues. Mixed hyperlipidemia [id number] [id number] E78.2 Chronic {{complain t conditio n disease finding il lness inju ry problem * symptom sign othe r matter}}, {{stable - at or near unsta ble - not at stable - at or near, LDL 57#}} LDL goal. Needs monitoring . Prescripti on drug management : {{Add meds to current as noted below Begi n meds as noted below Ashley ge medication s as noted below Cont inue medication s as in med list Disco ntinue meds as noted No meds given at this time No meds given until results back No rx indicated OTC meds only Pt refuses rx Restart meds as noted in prescripti on below ifeanyi tor 5mg q d #}}. Follow up as scheduled. Plan of care: {{Continue * Improve Restart}} therapeuti c lifestyle changes and/or medication s to maintain an LDL below 100. Periodic visits and labs and appropriat e therapeuti c changes will occur to help meet this goal to minimize risk of atheroscle rotic disease. Recheck labs as ordered. Benign ess ential hypertension [id number] I10 R94.31 Chronic {{complain t conditio n* disease finding i llness inj ury proble m symptom sign othe r matter}}, stable at blood pressure goal. Needs monitoring . Prescripti on drug management : {{Add meds to current as noted below Begi n meds as noted below Ashley ge medication s as noted below Cont inue medication s as in med list Disco ntinue meds as noted No meds given at this time No meds given until results back No rx indicated OTC meds only Pt refuses rx Restart meds as noted in prescripti on below Rami pril 10mg q d #}}. Continue with therapeuti c lifestyle changes (TLC) and continue home bp monitoring . Plan of care will be to use TLC and/or medication s with periodic follow up visits to maintain a safe blood pressure goal of 140/90 or lower. Follow up as scheduled. Follow up as scheduled. 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 Needs monitoring . Prescripti on drug management : {{albutero l for neb prn and advair 2 puffs BID# Add meds to current as noted below Begi n meds as noted below Ashley ge medication s as noted below Cont inue medication s as in med list No meds given until results back No meds given at this time Disco ntinue meds as noted Rest art meds as noted in prescripti on below Pt refuses rx No rx indicated OTC meds only }}. Follow up as scheduled. Gynecologi c examination [id number] Z01.419 low risk Screening for malignant neoplasm of cervix [id number] Z12.4 low risk with liquid based pap performed [id number] MARY Irene MP [facility] [address] [place] [address] 10/14/2021 08:10:13 10/17/2021 09:05:45 Candidiasis of vagina [id number] B37.3 {{Acute* N ew New undiagnose d}} {{self-winn ited uncom pliated* u ndiagnosed with uncertain prognosis with systemic symptoms c omplicated injury lif e threatenin g}} {{complain t conditio n disease finding il lness inju ry problem * symptom sign othe r matter}}. Prescripti on drug management : {{Add meds to current as noted below Begi n meds as noted below* Chelle nge medication s as noted below Cont inue medication s as in med list Disco ntinue meds as noted No meds given at this time No meds given until results back No rx indicated OTC meds only Pt refuses rx Restart meds as noted in prescripti on below}}. Pt informed to seek immediate medical attention should symptoms worsen. [id number] Tatiana Story DO [facility] [address] [place] [address] 12/02/2021 08:57:04 12/02/2021 13:21:05 Intervertebral disc disorder of lumbar region with myelopathy 13770513 M51.06 {{Acute* N ew New undiagnose d}} {{undiagno sed with uncertain prognosis with systemic symptoms* complicate d}} {{complain t conditio n disease finding il lness inju ry problem * symptom sign othe r matter}}. Prescripti on drug management : {{Add meds to current as noted below Begi n meds as noted below Ashley ge medication s as noted below Cont inue medication s as in med list Disco ntinue meds as noted No meds given at this time No meds given until results back No rx indicated OTC meds only Pt refuses rx Restart meds as noted in prescripti on below 80/8 now then flexeril TID prn and prednisone taper#}}. Needs monitoring to determine stability of condition. Cellulitis of breast 758 57214 N61.0 {{Acute* N ew New undiagnose d}} {{undiagno sed with uncertain prognosis with systemic symptoms c omplicated }} {{complain t conditio n disease finding il lness inju ry problem * symptom sign othe r matter}}. Prescripti on drug management : {{Add meds to current as noted below Begi n meds as noted below Ashley ge medication s as noted below Cont inue medication s as in med list Disco ntinue meds as noted No meds given at this time No meds given until results back No rx indicated OTC meds only Pt refuses rx Restart meds as noted in prescripti on below bact rim DS BID#}}. Needs monitoring to determine stability of condition. Benign ess ential hypertension 4750590 I10 R94.31 Chronic {{complain t conditio n* disease finding i llness inj ury proble m symptom sign othe r matter}}, stable at blood pressure goal. Needs monitoring . Prescripti on drug management : {{Add meds to current as noted below Begi n meds as noted below Ashley ge medication s as noted below Cont inue medication s as in med list Disco ntinue meds as noted No meds given at this time No meds given until results back No rx indicated OTC meds only Pt refuses rx Restart meds as noted in prescripti on below Rami pril 10mg q d #}}. Continue with therapeuti c lifestyle changes (TLC) and continue home bp monitoring . Plan of care will be to use TLC and/or medication s with periodic follow up visits to maintain a safe blood pressure goal of 140/90 or lower. Follow up as scheduled. Follow up as scheduled. Type 2 elizabeth betes mellitus without complication [id number] E11.9 Chronic {{complain t conditio n disease finding il lness inju ry problem * symptom sign othe r matter}}, {{stable - at or near unsta ble - not at stable - at or near, A1C 6.4#}} HbA1c goal. Needs monitoring . Prescripti on drug management : {{Add meds to current as noted below Begi n meds as noted below Ashley ge medication s as noted below Cont inue medication s as in med list Disco ntinue meds as noted No meds given at this time * No meds given until results back No rx indicated OTC meds only Pt refuses rx Restart meds as noted in prescripti on below}}. Follow up as scheduled. Plan of care: {{Continue * Improve Restart}} therapeuti c lifestyle changes and/or medication s to maintain a healthy blood sugar with goal HbA1c of {{6.5 <7.0 7.0-7.5 < 7.5 7.5-8. 0 <8.0 <9. 0 5.6#}}. Periodic visits and recheck of labs with appropriat e therapeuti c changes will be done to help with this goal. [id number] Tatiana Story DO [facility] [address] [place] [address] 01/17/2022 14:52:17 01/18/2022 13:37:03 Pain in throat [id number] R07.0 COVID-19 [id number] U07.1 Discussed the need for immediate isolation, Advised patient to inform their immediate household/ contacts that they wish to be tested and quarantine d as well. Reviewed locations and people they have been in contact with over the last 2 weeksRevie wed the s/s of COVID-19In formed patient that they will likely be contacted by a public health worker and asked patient that they provide them with a list of people they have been in contact with for contact tracing, encouraged them to answer the callDiscus sed services that might help the patient successful ly isolate and quarantine at home.Pt will start Vit D 2000 units q d, Vit C 500mg q d and Zinc 50mg q d as part of the tx plan.Pt will monitor symptoms and if they change they will either call me MILE or go directly to ER. [id number] Tatiana Story, [facility] [address] [place] [address] 02/20/2022 11:38:23 02/20/2022 17:04:46 Administration of influenza vaccine [id number] Z23 Benign ess ential hypertension 3771953 I10 R94.31 Chronic {{complain t conditio n* disease finding i llness inj ury proble m symptom sign othe r matter}}, stable at blood pressure goal. Needs monitoring . Prescripti on drug management : {{Add meds to current as noted below Begi n meds as noted below Ashley ge medication s as noted below Cont inue medication s as in med list Disco ntinue meds as noted No meds given at this time No meds given until results back No rx indicated OTC meds only Pt refuses rx Restart meds as noted in prescripti on below Rami pril 10mg q d #}}. Continue with therapeuti c lifestyle changes (TLC) and continue home bp monitoring . Plan of care will be to use TLC and/or medication s with periodic follow up visits to maintain a safe blood pressure goal of 140/90 or lower. Follow up as scheduled. Follow up as scheduled. Type 2 elizabeth betes mellitus without complication [id number] E11.9 Chronic {{complain t conditio n disease finding il lness inju ry problem * symptom sign othe r matter}}, {{stable - at or near unsta ble - not at unstabl e - not at A1C 7.1#}} HbA1c goal. Needs monitoring . Prescripti on drug management : {{Add meds to current as noted below Begi n meds as noted below Ashley ge medication s as noted below Cont inue medication s as in med list Disco ntinue meds as noted No meds given at this time No meds given until results back No rx indicated OTC meds only Pt refuses rx Restart meds as noted in prescripti on below add Ozempic#}} . Follow up as scheduled. Plan of care: {{Continue * Improve Restart}} therapeuti c lifestyle changes and/or medication s to maintain a healthy blood sugar with goal HbA1c of {{6.5 <7.0 7.0-7.5 < 7.5 7.5-8. 0 <8.0 <9. 0 5.6#}}. Periodic visits and recheck of labs with appropriat e therapeuti c changes will be done to help with this goal. Rheumatoid arthritis 698 10279 M06.9 chronic {{complain t conditio n disease finding il lness inju ry problem * symptom sign othe r matter}}, stable with no significan t clinical changes. Needs monitoring . Prescripti on drug management : {{Cosentyx 300mL q 5 weeks# Add meds to current as noted below Begi n meds as noted below Ashley ge medication s as noted below Cont inue medication s as in med list No meds given until results back No meds given at this time Disco ntinue meds as noted Rest art meds as noted in prescripti on below Pt refuses rx No rx indicated OTC meds only }}. Pt cont to follow up with rheumology and Follow up as scheduled with myself to monitor for progressio n. Pulmonary emphysema 8743 3001 J43.8 chronic {{complain t conditio n disease finding il lness inju ry problem * symptom sign othe r matter}}, {{stable with no significan t clinical changes* u nstable,no t at goal unsta ble with exacerbati on unstabl e with progressio n unstable with side effect of medication }}. Needs monitoring . Prescripti on drug management : {{Add meds to current as noted below Begi n meds as noted below Ashley ge medication s as noted below Cont inue medication s as in med list* No meds given until results back No meds given at this time Disco ntinue meds as noted Rest art meds as noted in prescripti on below Pt refuses rx No rx indicated OTC meds only }}. Follow up as scheduled. Mixed hyperlipidemia [id number] E78.2 Chronic {{complain t conditio n disease finding il lness inju ry problem * symptom sign othe r matter}}, {{stable - at or near unsta ble - not at stable - at or near, LDL 57#}} LDL goal. Needs monitoring . Prescripti on drug management : {{Add meds to current as noted below Begi n meds as noted below Ashley ge medication s as noted below Cont inue medication s as in med list Disco ntinue meds as noted No meds given at this time No meds given until results back No rx indicated OTC meds only Pt refuses rx Restart meds as noted in prescripti on below ifeanyi tor 5mg q d #}}. Follow up as scheduled. Plan of care: {{Continue * Improve Restart}} therapeuti c lifestyle changes and/or medication s to maintain an LDL below 100. Periodic visits and labs and appropriat e therapeuti c changes will occur to help meet this goal to minimize risk of atheroscle rotic disease. Recheck labs as ordered. [id number] Tatiana Story DO [facility] [address] [place] [address] 05/08/2022 08:18:00 05/08/2022 11:25:30 Abscess [id number] L02.91 {{Acute* N ew New undiagnose d}} {{self-winn ited uncom pliated un diagnosed with uncertain prognosis with systemic symptoms c omplicated injury lif e threatenin g Improvin g#}} {{complain t conditio n disease finding il lness inju ry problem * symptom sign othe r matter}}. Prescripti on drug management : {{Add meds to current as noted below Begi n meds as noted below* Chelle nge medication s as noted below Cont inue medication s as in med list Disco ntinue meds as noted No meds given at this time No meds given until results back No rx indicated OTC meds only Pt refuses rx Restart meds as noted in prescripti on below}}. Pt informed to seek immediate medical attention should symptoms worsen. Type 2 elizabeth betes mellitus without complication [id number] E11.9 Chronic {{complain t conditio n disease finding il lness inju ry problem * symptom sign othe r matter}}, {{stable - at or near unsta ble - not at unstabl e - not at A1C 7.1#}} HbA1c goal. Needs monitoring . Prescripti on drug management : {{Add meds to current as noted below Begi n meds as noted below Ashley ge medication s as noted below Cont inue medication s as in med list Disco ntinue meds as noted No meds given at this time No meds given until results back No rx indicated OTC meds only Pt refuses rx Restart meds as noted in prescripti on below add Ozempic#}} . Follow up as scheduled. Plan of care: {{Continue * Improve Restart}} therapeuti c lifestyle changes and/or medication s to maintain a healthy blood sugar with goal HbA1c of {{6.5 <7.0 7.0-7.5 < 7.5 7.5-8. 0 <8.0 <9. 0 5.6#}}. Periodic visits and recheck of labs with appropriat e therapeuti c changes will be done to help with this goal. [id number] Tatiana Story DO [facility] [address] [place] [address] 05/16/2022 08:46:57 05/16/2022 15:33:56 Acute bronchitis [id number] J20.9 Asthma [id number] J45.90 9 chronic {{complain t conditio n disease finding il lness inju ry problem * symptom sign othe r matter}}, stable with no significan t clinical changes. Needs monitoring . Prescripti on drug management : {{Add meds to current as noted below Begi n meds as noted below Ashley ge medication s as noted below Cont inue medication s as in med list* No meds given until results back No meds given at this time Disco ntinue meds as noted Rest art meds as noted in prescripti on below Pt refuses rx No rx indicated OTC meds only}}. Follow up as scheduled. Type 2 elizabeth betes mellitus without complication [id number] E11.9 Chronic {{complain t conditio n disease finding il lness inju ry problem * symptom sign othe r matter}}, {{stable - at or near unsta ble - not at unstabl e - not at A1C 7.1#}} HbA1c goal. Needs monitoring . Prescripti on drug management : {{Add meds to current as noted below Begi n meds as noted below Ashley ge medication s as noted below Cont inue medication s as in med list Disco ntinue meds as noted No meds given at this time No meds given until results back No rx indicated OTC meds only Pt refuses rx Restart meds as noted in prescripti on below add Ozempic#}} . Follow up as scheduled. Plan of care: {{Continue * Improve Restart}} therapeuti c lifestyle changes and/or medication s to maintain a healthy blood sugar with goal HbA1c of {{6.5 <7.0 7.0-7.5 < 7.5 7.5-8. 0 <8.0 <9. 0 5.6#}}. Periodic visits and recheck of labs with appropriat e therapeuti c changes will be done to help with this goal. Pulmonary emphysema 8743 3001 J43.8 chronic {{complain t conditio n disease finding il lness inju ry problem * symptom sign othe r matter}}, {{stable with no significan t clinical changes* u nstable,no t at goal unsta ble with exacerbati on unstabl e with progressio n unstable with side effect of medication }}. Needs monitoring . Prescripti on drug management : {{Add meds to current as noted below Begi n meds as noted below Ashley ge medication s as noted below Cont inue medication s as in med list* No meds given until results back No meds given at this time Disco ntinue meds as noted Rest art meds as noted in prescripti on below Pt refuses rx No rx indicated OTC meds only }}. Follow up as scheduled. Body mass index 40+ - severely obese [id number] Z68.42 weight issues discussed and informatio n on weight loss given. needs follow up on weight control as scheduled. Education handout on diets given. Exercise counseling done. Will arrange referral for dietitian, nutritioni st, Physical/o ccupationa l therapy as needed or desired. Also will consider pharmaceut ical and supplement al interventi ons Morbid obesity [id number] E66.01 see BMI above for details Diet education 45938257 Z71.3 as above Mild major depression, single episode [id number] F32.0 chronic problem, stable, Needs monitoring , Prescripti on drug Fluoxetine 20mg q d needed at this time, Cont. with TCL including healthy diet, exercise with periodic follow up visits to monitor Immunodefi ciency disorder [id number] D84.81 chronic {{complain t conditio n disease finding il lness inju ry problem * symptom sign othe r matter}}, Secondary to RA and tx plan. stable with no significan t clinical changes. Needs monitoring . Prescripti on drug management : {{Add meds to current as noted below Begi n meds as noted below Ashley ge medication s as noted below Cont inue medication s as in med list No meds given until results back No meds given at this time Disco ntinue meds as noted Rest art meds as noted in prescripti on below Pt refuses rx No rx indicated* OTC meds only}}. Follow up as scheduled. Education given to pt. about increase risk for secondary infections and follow up as scheduled to monitor for secondary issues. Rheumatoid arthritis of multiple joints [id number] M06.09 chronic {{complain t conditio n disease finding il lness inju ry problem * symptom sign othe r matter}}, stable with no significan t clinical changes. Needs monitoring . Prescripti on drug management : {{Add meds to current as noted below Begi n meds as noted below Ashley ge medication s as noted below Cont inue medication s as in med list No meds given until results back No meds given at this time Disco ntinue meds as noted Rest art meds as noted in prescripti on below Pt refuses rx No rx indicated OTC meds only Cosen tyx 300mL q 5 weeks#}}. Pt cont to follow up with rheumology and Follow up as scheduled with myself to monitor for progressio n. Psoriasis with arthropathy [id number] L40.59 chronic {{complain t conditio n disease finding il lness inju ry problem * symptom sign othe r matter}}, stable with no significan t clinical changes. Needs monitoring . Prescripti on drug management : {{Add meds to current as noted below Begi n meds as noted below Ashley ge medication s as noted below Cont inue medication s as in med list* No meds given until results back No meds given at this time Disco ntinue meds as noted Rest art meds as noted in prescripti on below Pt refuses rx No rx indicated OTC meds only}}. Follow up as scheduled. Morbid obesity [id number] E66.01 see BMI above for details Pulmonary emphysema 8743 3001 J43.9 chronic {{complain t conditio n disease finding il lness inju ry problem * symptom sign othe r matter}}, {{stable with no significan t clinical changes* u nstable,no t at goal unsta ble with exacerbati on unstabl e with progressio n unstable with side effect of medication }}. Needs monitoring . Prescripti on drug management : {{Add meds to current as noted below Begi n meds as noted below Ashley ge medication s as noted below Cont inue medication s as in med list* No meds given until results back No meds given at this time Disco ntinue meds as noted Rest art meds as noted in prescripti on below Pt refuses rx No rx indicated OTC meds only }}. Follow up as scheduled. [id number] Tatiana Story DO [facility] [address] [facility] [address] [place] [address] 05/26/2022 10:39:55 05/26/2022 15:21:06 Benign essential hypertension [id number] I10 R94.31 Chronic {{complain t conditio n* disease finding i llness inj ury proble m symptom sign othe r matter}}, stable at blood pressure goal. Needs monitoring . Prescripti on drug management : {{Add meds to current as noted below Begi n meds as noted below Ashley ge medication s as noted below Cont inue medication s as in med list Disco ntinue meds as noted No meds given at this time No meds given until results back No rx indicated OTC meds only Pt refuses rx Restart meds as noted in prescripti on below Rami pril 10mg q d #}}. Continue with therapeuti c lifestyle changes (TLC) and continue home bp monitoring . Plan of care will be to use TLC and/or medication s with periodic follow up visits to maintain a safe blood pressure goal of 140/90 or lower. Follow up as scheduled. Follow up as scheduled. Mixed hyperlipidemia [id number] 030365 E78.2 Chronic {{complain t conditio n disease finding il lness inju ry problem * symptom sign othe r matter}}, {{stable - at or near unsta ble - not at stable - at or near, LDL 57#}} LDL goal. Needs monitoring . Prescripti on drug management : {{Add meds to current as noted below Begi n meds as noted below Ashley ge medication s as noted below Cont inue medication s as in med list Disco ntinue meds as noted No meds given at this time No meds given until results back No rx indicated OTC meds only Pt refuses rx Restart meds as noted in prescripti on below ifeanyi tor 5mg q d #}}. Follow up as scheduled. Plan of care: {{Continue * Improve Restart}} therapeuti c lifestyle changes and/or medication s to maintain an LDL below 100. Periodic visits and labs and appropriat e therapeuti c changes will occur to help meet this goal to minimize risk of atheroscle rotic disease. Recheck labs as ordered. Rheumatoid arthritis 698 08360 M06.9 chronic {{complain t conditio n disease finding il lness inju ry problem * symptom sign othe r matter}}, stable with no significan t clinical changes. Needs monitoring . Prescripti on drug management : {{Cosentyx 300mL q 5 weeks# Add meds to current as noted below Begi n meds as noted below Ashley ge medication s as noted below Cont inue medication s as in med list No meds given until results back No meds given at this time Disco ntinue meds as noted Rest art meds as noted in prescripti on below Pt refuses rx No rx indicated OTC meds only }}. Pt cont to follow up with rheumology and Follow up as scheduled with myself to monitor for progressio n. Type 2 elizabeth betes mellitus without complication [id number] E11.9 Chronic {{complain t conditio n disease finding il lness inju ry problem * symptom sign othe r matter}}, {{stable - at or near unsta ble - not at unstabl e - not at A1C 5.9#}} HbA1c goal. Needs monitoring . Prescripti on drug management : {{Add meds to current as noted below Begi n meds as noted below Ashley ge medication s as noted below Cont inue medication s as in med list Disco ntinue meds as noted No meds given at this time No meds given until results back No rx indicated OTC meds only Pt refuses rx Restart meds as noted in prescripti on below add Ozempic#}} . Follow up as scheduled. Plan of care: {{Continue * Improve Restart}} therapeuti c lifestyle changes and/or medication s to maintain a healthy blood sugar with goal HbA1c of {{6.5 <7.0 7.0-7.5 < 7.5 7.5-8. 0 <8.0 <9. 0 5.6#}}. Periodic visits and recheck of labs with appropriat e therapeuti c changes will be done to help with this goal. Mild major depression, single episode [id number] F32.0 chronic problem, stable, Needs monitoring , Prescripti on drug Fluoxetine 20mg q d needed at this time, Cont. with TCL including healthy diet, exercise with periodic follow up visits to monitor Immunodefi ciency disorder [id number] D84.81 chronic {{complain t conditio n disease finding il lness inju ry problem * symptom sign othe r matter}}, Secondary to RA and tx plan. stable with no significan t clinical changes. Needs monitoring . Prescripti on drug management : {{Add meds to current as noted below Begi n meds as noted below Ashley ge medication s as noted below Cont inue medication s as in med list No meds given until results back No meds given at this time Disco ntinue meds as noted Rest art meds as noted in prescripti on below Pt refuses rx No rx indicated* OTC meds only}}. Follow up as scheduled. Education given to pt. about increase risk for secondary infections and follow up as scheduled to monitor for secondary issues. Acute maxi llary sinusitis 45303958 J01.00 {{Acute* N ew New undiagnose d}} {{undiagno sed with uncertain prognosis with systemic symptoms c omplicated }} {{complain t conditio n disease finding il lness inju ry problem * symptom sign othe r matter}}. Prescripti on drug management : {{Add meds to current as noted below Begi n meds as noted below Ashley ge medication s as noted below* Con tinue medication s as in med list Disco ntinue meds as noted No meds given at this time No meds given until results back No rx indicated OTC meds only Pt refuses rx Restart meds as noted in prescripti on below}}. Needs monitoring to determine stability of condition. [id number] Tatiana DO Rigoberto [facility] [address] [place] [address] 08/04/2022 10:53:46 08/07/2022 15:53:55 Adult health examination [id number] Z00.00 Preventive visit done today. Anticipato ry guidance given as noted below. 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 Prescripti on drug management : {{Add meds to current as noted below Begi n meds as noted below Ashley ge medication s as noted below Cont inue medication s as in med list Disco ntinue meds as noted No meds given at this time No meds given until results back No rx indicated OTC meds only Pt refuses rx Restart meds as noted in prescripti on below 80/8 now then flexeril TID prn and prednisone taper#}}. Needs monitoring to determine stability of condition. Benign ess ential hypertension 6368989 I10 R94.31 Chronic {{complain t conditio n* disease finding i llness inj ury proble m symptom sign othe r matter}}, stable at blood pressure goal. Needs monitoring . Prescripti on drug management : {{Add meds to current as noted below Begi n meds as noted below Ashley ge medication s as noted below Cont inue medication s as in med list Disco ntinue meds as noted No meds given at this time No meds given until results back No rx indicated OTC meds only Pt refuses rx Restart meds as noted in prescripti on below Rami pril 10mg q d #}}. Continue with therapeuti c lifestyle changes (TLC) and continue home bp monitoring . Plan of care will be to use TLC and/or medication s with periodic follow up visits to maintain a safe blood pressure goal of 140/90 or lower. Follow up as scheduled. Follow up as scheduled. Immunodefi ciency disorder [id number] D84.81 chronic {{complain t conditio n disease finding il lness inju ry problem * symptom sign othe r matter}}, Secondary to RA and tx plan. stable with no significan t clinical changes. Needs monitoring . Prescripti on drug management : {{Add meds to current as noted below Begi n meds as noted below Ashley ge medication s as noted below Cont inue medication s as in med list No meds given until results back No meds given at this time Disco ntinue meds as noted Rest art meds as noted in prescripti on below Pt refuses rx No rx indicated* OTC meds only}}. Follow up as scheduled. Education given to pt. about increase risk for secondary infections and follow up as scheduled to monitor for secondary issues. Mixed hyperlipidemia 267 842170 E78.2 Chronic {{complain t conditio n disease finding il lness inju ry problem * symptom sign othe r matter}}, {{stable - at or near unsta ble - not at stable - at or near, LDL 57#}} LDL goal. Needs monitoring . Prescripti on drug management : {{Add meds to current as noted below Begi n meds as noted below Ashley ge medication s as noted below Cont inue medication s as in med list Disco ntinue meds as noted No meds given at this time No meds given until results back No rx indicated OTC meds only Pt refuses rx Restart meds as noted in prescripti on below ifeanyi tor 5mg q d #}}. Follow up as scheduled. Plan of care: {{Continue * Improve Restart}} therapeuti c lifestyle changes and/or medication s to maintain an LDL below 100. Periodic visits and labs and appropriat e therapeuti c changes will occur to help meet this goal to minimize risk of atheroscle rotic disease. Recheck labs as ordered. Pulmonary emphysema 8743 3001 J43.8 J43.9 chronic {{complain t conditio n disease finding il lness inju ry problem * symptom sign othe r matter}}, {{stable with no significan t clinical changes* u nstable,no t at goal unsta ble with exacerbati on unstabl e with progressio n unstable with side effect of medication }}. Needs monitoring . Prescripti on drug management : {{Add meds to current as noted below Begi n meds as noted below Ashley ge medication s as noted below Cont inue medication s as in med list* No meds given until results back No meds given at this time Disco ntinue meds as noted Rest art meds as noted in prescripti on below Pt refuses rx No rx indicated OTC meds only }}. Follow up as scheduled. Rheumatoid arthritis 698 30041 M06.9 chronic {{complain t conditio n disease finding il lness inju ry problem * symptom sign othe r matter}}, stable with no significan t clinical changes. Needs monitoring . Prescripti on drug management : {{Cosentyx 300mL q 5 weeks# Add meds to current as noted below Begi n meds as noted below Ashley ge medication s as noted below Cont inue medication s as in med list No meds given until results back No meds given at this time Disco ntinue meds as noted Rest art meds as noted in prescripti on below Pt refuses rx No rx indicated OTC meds only }}. Pt cont to follow up with rheumology and Follow up as scheduled with myself to monitor for progressio n. Type 2 elizabeth betes mellitus without complication [id number] E11.9 Chronic {{complain t conditio n disease finding il lness inju ry problem * symptom sign othe r matter}}, {{stable - at or near unsta ble - not at unstabl e - not at A1C 5.9#}} HbA1c goal. Needs monitoring . Prescripti on drug management : {{Add meds to current as noted below Begi n meds as noted below Ashley ge medication s as noted below Cont inue medication s as in med list Disco ntinue meds as noted No meds given at this time No meds given until results back No rx indicated OTC meds only Pt refuses rx Restart meds as noted in prescripti on below add Ozempic#}} . Follow up as scheduled. Plan of care: {{Continue * Improve Restart}} therapeuti c lifestyle changes and/or medication s to maintain a healthy blood sugar with goal HbA1c of {{6.5 <7.0 7.0-7.5 < 7.5 7.5-8. 0 <8.0 <9. 0 5.6#}}. Periodic visits and recheck of labs with appropriat e therapeuti c changes will be done to help with this goal. Mild major depression, single episode 47982704 F32.0 chronic problem, stable, Needs monitoring , Prescripti on drug Fluoxetine 20mg q d needed at this time, Cont. with TCL including healthy diet, exercise with periodic follow up visits to monitor Body mass index 40+ - severely obese 414364332 Z68.42 weight issues discussed and informatio n on weight loss given. needs follow up on weight control as scheduled. Education handout on diets given. Exercise counseling done. Will arrange referral for dietitian, nutritioni st, Physical/o ccupationa l therapy as needed or desired. Also will consider pharmaceut ical and supplement al interventi ons Morbid obesity 174868660 E66.01 see BMI above for details Diet education 99083292 Z71.3 as above Administra tion of pneumococcal vaccine 17780068 Z23 Screening mammography 24 137122 Z12.31 Laboratory test 40141035 Z00.00 Onychomycosis 463082219 B35.1 Chronic {{complain t conditio n disease finding il lness inju ry problem * symptom sign othe r matter}} with {{exacerba tion progr ession cedrick e effect of treatment severe exacerbati on severe progressio n severe side effect of treatment} }. Prescripti on drug management : {{Add meds to current as noted below Begi n meds as noted below Ashley ge medication s as noted below Cont inue medication s as in med list No meds given until results back No meds given at this time* Disc ontinue meds as noted Rest art meds as noted in prescripti on below Pt refuses rx No rx indicated OTC meds only}}. Recheck as scheduled. [id number] Tatiana Story DO [facility] [address] [place] [address] 01/03/2023 07:53:21 01/03/2023 10:10:07 Benign essential hypertension 7237869 I10 R94.31 Chronic {{complain t conditio n* disease finding i llness inj ury proble m symptom sign othe r matter}}, stable at blood pressure goal. Needs monitoring . Prescripti on drug management : {{Add meds to current as noted below Begi n meds as noted below Ashley ge medication s as noted below Cont inue medication s as in med list Disco ntinue meds as noted No meds given at this time No meds given until results back No rx indicated OTC meds only Pt refuses rx Restart meds as noted in prescripti on below Rami pril 10mg q d #}}. Continue with therapeuti c lifestyle changes (TLC) and continue home bp monitoring . Plan of care will be to use TLC and/or medication s with periodic follow up visits to maintain a safe blood pressure goal of 140/90 or lower. Follow up as scheduled. Follow up as scheduled. Mixed hyperlipidemia 267 158950 E78.2 Chronic {{complain t conditio n disease finding il lness inju ry problem * symptom sign othe r matter}}, {{stable - at or near unsta ble - not at stable - at or near, LDL 62#}} LDL goal. Needs monitoring . Prescripti on drug management : {{Add meds to current as noted below Begi n meds as noted below Ashley ge medication s as noted below Cont inue medication s as in med list Disco ntinue meds as noted No meds given at this time No meds given until results back No rx indicated OTC meds only Pt refuses rx Restart meds as noted in prescripti on below ifeanyi tor 5mg q d #}}. Follow up as scheduled. Plan of care: {{Continue * Improve Restart}} therapeuti c lifestyle changes and/or medication s to maintain an LDL below 100. Periodic visits and labs and appropriat e therapeuti c changes will occur to help meet this goal to minimize risk of atheroscle rotic disease. Recheck labs as ordered. Pulmonary emphysema [id number] J43.8 J43.9 chronic {{complain t conditio n disease finding il lness inju ry problem * symptom sign othe r matter}}, {{stable with no significan t clinical changes* u nstable,no t at goal unsta ble with exacerbati on unstabl e with progressio n unstable with side effect of medication }}. Needs monitoring . Prescripti on drug management : {{Add meds to current as noted below Begi n meds as noted below Ashley ge medication s as noted below Cont inue medication s as in med list* No meds given until results back No meds given at this time Disco ntinue meds as noted Rest art meds as noted in prescripti on below Pt refuses rx No rx indicated OTC meds only}}. Follow up as scheduled. Rheumatoid arthritis [id number] M06.9 chronic {{complain t conditio n disease finding il lness inju ry problem * symptom sign othe r matter}}, stable with no significan t clinical changes. Needs monitoring . Prescripti on drug management : {{Add meds to current as noted below Begi n meds as noted below Ashley ge medication s as noted below Cont inue medication s as in med list No meds given until results back No meds given at this time Disco ntinue meds as noted Rest art meds as noted in prescripti on below Pt refuses rx No rx indicated OTC meds only Cosen tyx 300mL q 5 weeks#}}. Pt cont to follow up with rheumology and Follow up as scheduled with myself to monitor for progressio n. Type 2 elizabeth betes mellitus without complication [id number] E11.9 Chronic {{complain t conditio n disease finding il lness inju ry problem * symptom sign othe r matter}}, {{stable - at or near unsta ble - not at unstabl e - not at A1C 5.1#}} HbA1c goal. Needs monitoring . Prescripti on drug management : {{Add meds to current as noted below Begi n meds as noted below Ashley ge medication s as noted below Cont inue medication s as in med list Disco ntinue meds as noted No meds given at this time No meds given until results back No rx indicated OTC meds only Pt refuses rx Restart meds as noted in prescripti on below Ozem pic 1mg q week#}}. Follow up as scheduled. Plan of care: {{Continue * Improve Restart}} therapeuti c lifestyle changes and/or medication s to maintain a healthy blood sugar with goal HbA1c of {{6.5 <7.0 7.0-7.5 < 7.5 7.5-8. 0 <8.0 <9. 0 5.6#}}. Periodic visits and recheck of labs with appropriat e therapeuti c changes will be done to help with this goal. Mild major depression, single episode [id number] F32.0 chronic problem, stable, Needs monitoring , Prescripti on drug Fluoxetine 20mg q d needed at this time, Cont. with TCL including healthy diet, exercise with periodic follow up visits to monitor Immunodefi ciency disorder [id number] D84.81 chronic {{complain t conditio n disease finding il lness inju ry problem * symptom sign othe r matter}}, Secondary to RA and tx plan. stable with no significan t clinical changes. Needs monitoring . Prescripti on drug management : {{Add meds to current as noted below Begi n meds as noted below Ashley ge medication s as noted below Cont inue medication s as in med list No meds given until results back No meds given at this time Disco ntinue meds as noted Rest art meds as noted in prescripti on below Pt refuses rx No rx indicated* OTC meds only}}. Follow up as scheduled. Education given to pt. about increase risk for secondary infections and follow up as scheduled to monitor for secondary issues. Administra tion of influenza vaccine [id number] Z23 Health Concerns Section Related Observation LastModified by Organization Detai ls LastModified Time None Recorded Concern Status LastModified by Organization Details LastModified Time None Recorded Advance Directives Directive N: Payers Encounter Date Sequence Insurance Name Policy Number Policy Clarke Covered Member ID Clarke Member ID Guarantor Name 05/08/2022 2 [place] [id number] Cristian New [id number] Staci Maggy New 05/16/2022 2 [place] [id number] Cristian New [id number] Staci New 05/26/2022 2 [place] [id number] Cristian New [id number] Staci New 08/04/2022 2 [place]) [id number] Cristian New [id number] Staci New 01/03/2023 1 [employer] [place] [id number] Staci New [id number] Staci New Notes Date Note Type Note Provider Name and Address Organization Details Recorded Time 05/08/19 23 text/htm l Abscess/CellulitisReported bypatient.Reason for visit:acute complaint Location:[facility] Quality:inflammed;irritated Severity:moderate 7/10 Duration:constant Onset/Timing:gradual;several days ago Context:no recent travel; no recent injury; no recent stings/bites Alleviating factors:nothing Aggravating factors:nothing Associated Symptoms:no fever; no chillsDiabetes with Complications*Reported bypatient.Reason for visit:follow-up of exacerbation of chronic complaint Diabetes*:type 2 Review finger sticks:blood glucose data brought to clinic visit: yes; frequency of blood glucose monitorin times daily. Metabolic Control and Effort:usually well controlled; home blood sugars (in the low 100s) Self Care:taking aspirin daily; taking an LUIS ALFREDO inhibitor; seeing eye doctor regularly Tatiana Story DO [email or web address], [place], [address], [facility] [employer] [facility], [facility] 05/08/2022 08:47:02 05/16/19 23 text/htm l Cough / ColdReported bypatient.Quality:productive Sputum Quality:yellow-green, thick (purulent) Severity:moderate Duration:constant Associated Symptoms:malaise Tatiana Story DO [address], [place], [address], [facility] Physician [facility], [facility] 05/16/2022 09:07:40 05/26/19 23 text/htm l ArthritisReported bypatient.Reason for visit:continued care of chronic complaint Diagnosis:Rheumatoid Arthritis Age of onset/treatment:47 years old Presenting symptoms/method of diagnosis:weakness;fatigue Current therapy:medication list reviewed Current control and compliance:usually well controlled/stable; usually compliant with regimen; exercising regularly; eating healthy meals Current symptoms/concerns:no side effectsChronic Complaints follow upReported bypatient.Reason for visit:continued care of chronic complaint(s) Diagnosis:Immunodeficiency secondary to chronic illnessDepression Major*Reported bypatient.Reason for visit:continued care of chronic complaint Diagnosis:Major depression single episode Symptoms*: (at least 1 must be present)depressed mood better;loss of interest in most activities better Additional Symptoms*:(at least 4 must be present)change in weight or appetite better;sleep disturbance better;behavior changes better;fatigue or lack of energy better;feelings of worthlessness or guilt better;poor concentration or indecisiveness better Severity:severe(improved) Duration*:constant;almost every day, most of the day Alleviating factors:medicationDiabetes with Complications*Reported bypatient.Reason for visit:follow-up of exacerbation of chronic complaint Diabetes*:type 2 Review finger sticks:blood glucose data brought to clinic visit: yes; frequency of blood glucose monitorin times daily. Metabolic Control and Effort:usually well controlled; home blood sugars (in the low 100s) Self Care:taking aspirin daily; taking an LUIS ALFREDO inhibitor; seeing eye doctor regularlyDyslipidemiaReported bypatient.Diagnosis:hypercholest erolemia Complications due to diagnosis:no complicatons Current therapy:using diet and exercise; using other therapeutic lifestyle changes Current Symptoms/Concerns:none statedHypertension/Hypertensive diseasesReported bypatient.Hypertension Diagnosis:Benign Essential hypertension Current therapy:medication list reviewed Current control and compliance:usually well controlled Current Symptoms/Concerns:none stated Tatiana Story DO [address] [address], [place], [address], [facility] - [facility], [facility] 05/26/2022 11:10:06 08/05/19 23 text/htm l ArthritisReported bypatient.Reason for visit:continued care of chronic complaint Diagnosis:Rheumatoid Arthritis Age of onset/treatment:47 years old Presenting symptoms/method of diagnosis:weakness;fatigue Current therapy:medication list reviewed Current control and compliance:usually well controlled/stable; usually compliant with regimen; exercising regularly; eating healthy meals Current symptoms/concerns:no side effectsChronic Complaints follow upReported bypatient.Reason for visit:continued care of chronic complaint(s) Diagnosis:Immunodeficiency secondary to chronic illnessDepression Major*Reported bypatient.Reason for visit:continued care of chronic complaint Diagnosis:Major depression single episode Symptoms*: (at least 1 must be present)depressed mood better;loss of interest in most activities better Additional Symptoms*:(at least 4 must be present)change in weight or appetite better;sleep disturbance better;behavior changes better;fatigue or lack of energy better;feelings of worthlessness or guilt better;poor concentration or indecisiveness better Severity:severe(improved) Duration*:constant;almost every day, most of the day Alleviating factors:medicationDiabetes with Complications*Reported bypatient.Reason for visit:follow-up of exacerbation of chronic complaint Diabetes*:type 2 Review finger sticks:blood glucose data brought to clinic visit: yes; frequency of blood glucose monitorin times daily. Metabolic Control and Effort:usually well controlled; home blood sugars (in the low 100s) Self Care:taking aspirin daily; taking an LUIS ALFREDO inhibitor; seeing eye doctor regularlyDyslipidemiaReported bypatient.Diagnosis:hypercholest erolemia Complications due to diagnosis:no complicatons Current therapy:using diet and exercise; using other therapeutic lifestyle changes Current Symptoms/Concerns:none statedExtensive/Preventative ExamReported bypatient.Reason for Visit:extensive exam Problem list, past medical, surgical, social and family history are reviewed and updatedyes All health maintenance tasks and referrals are detailed in QM tab and assessment/plan areayesHypertension/Hypertensive diseasesReported bypatient.Hypertension Diagnosis:Benign Essential hypertension Current therapy:medication list reviewed Current control and compliance:usually well controlled Current Symptoms/Concerns:none stated QUALITY MEASURE QUESTIONNAIRE When did the Patient complete the annual diabetic eye exam 12/20/2021 Imported from [facility] on 08/04/2022 Tatiana Story DO [address] [address], [place], [address], [facility], [facility] 08/04/2022 11:37:45 01/04/20 23 text/htm l ArthritisReported bypatient.Reason for visit:continued care of chronic complaint Diagnosis:Rheumatoid Arthritis Age of onset/treatment:47 years old Presenting symptoms/method of diagnosis:weakness;fatigue Current therapy:medication list reviewed Current control and compliance:usually well controlled/stable; usually compliant with regimen; exercising regularly; eating healthy meals Current symptoms/concerns:no side effectsChronic Complaints follow upReported bypatient.Reason for visit:continued care of chronic complaint(s) Diagnosis:Immunodeficiency secondary to chronic illnessDepression Major*Reported bypatient.Reason for visit:continued care of chronic complaint Diagnosis:Major depression single episode Symptoms*: (at least 1 must be present)depressed mood better;loss of interest in most activities better Additional Symptoms*:(at least 4 must be present)change in weight or appetite better;sleep disturbance better;behavior changes better;fatigue or lack of energy better;feelings of worthlessness or guilt better;poor concentration or indecisiveness better Severity:severe(improved) Duration*:constant;almost every day, most of the day Alleviating factors:medicationDiabetes with Complications*Reported bypatient.Reason for visit:follow-up of exacerbation of chronic complaint Diabetes*:type 2 Review finger sticks:blood glucose data brought to clinic visit: yes; frequency of blood glucose monitorin times daily. Metabolic Control and Effort:usually well controlled; home blood sugars (in the low 100s) Self Care:taking aspirin daily; taking an LUIS ALFREDO inhibitor; seeing eye doctor regularlyDyslipidemiaReported bypatient.Diagnosis:hypercholest erolemia Complications due to diagnosis:no complicatons Current therapy:using diet and exercise; using other therapeutic lifestyle changes Current Symptoms/Concerns:none statedHypertension/Hypertensive diseasesReported bypatient.Hypertension Diagnosis:Benign Essential hypertension Current therapy:medication list reviewed Current control and compliance:usually well controlled Current Symptoms/Concerns:none stated Tatiana Story DO [address], [place], [address], [facility] - [facility], [facility] 01/03/2023 08:12:59 OBGyn Episode No OBEpisode recorded.
--- NOTE | 2024-08-05 11:56 | WPDSLEEPSTUD ---
Sleep Study Date of Study: 07/11/24 Ordering Provider: Yuniel Betancourt APRN Interpreting Physician: Rena Hamilton DO Sleep Study Type: CPAP Titration Height: 1.55 m Weight: 108.409 kg Body Mass Index: 45.1 Neck Circumference (inches): 18 Phelan: 8 Reason for Sleep Study Study required for new CPAP Equipment Sleep History The patient is a 54-year-old female with previously diagnosed sleep apnea AutoPAP that had a sleep study ordered her care to get new equipment. The patient occasionally awakens at night with coughing. She frequently snores and is frequently loud enough that others complain. She frequently has trouble sleeping when she has a cold. She denies waking up gasping for air throughout the night. She frequently has breathing problems at night observed by herself or others. She occasionally sweats excessively at night. She rarely has heart palpitations or irregular heartbeats during the night. She occasionally falls asleep during the day but never while driving. She denies sleep paralysis and cataplexy. She rarely has trouble at school or work due to sleepiness. She rarely experiences vivid dreamlike scenes upon awakening or falling asleep. She denies feeling afraid of going to sleep. She rarely has nightmares. She rarely remembers her dreams. She occasionally has thoughts racing through her mind. She rarely feels sad, depressed or anxious. She constantly has muscular tension. She rarely notices parts of her body jerk. She denies kicking during the night. She occasionally has crawling and aching feelings in her legs and occasionally has leg pain during the night. She is occasionally bothered by pain during the day and occasionally awakened by pain during the night. She occasionally wakes up feeling stiff in the morning. She occasionally wakes up with sore or achy muscles. She occasionally wakes up with pain in the neck, spine or other joints. She goes to bed between 9-9:30 p.m. on weekdays and between 8:30-9 p.m. on the weekends. It takes her 15 minutes to fall asleep. She wakes up 3 times at most throughout the night to urinate and is able to fall back asleep immediately. She wakes up between 6-7 a.m. on both weekdays and weekends. She typically gets 7-9 hours of sleep per night. She does not stay in bed after waking up in the morning. She currently lives with her . She will consume caffeinated beverages within 2 hours of bedtime. She denies engaging in physical exercise before bedtime. She will watch television before falling asleep. She will occasionally take naps in the afternoon or the evening She consumes 2-4 caffeinated beverages per day. She quit smoking cigarettes over 20 years ago. She will occasionally consume an alcoholic beverage. She denies recreational drug use. REPLACED BY [facility] Past Medical History Medical History delivery delivered 1995 Surgical History Surgical History History of cholecystectomy 2006 History of bone marrow biopsy 2015 H/O cataract removal with insertion of prosthetic lens 2009 History of appendectomy 1996 Family History Family History Mother Heart disease Hypertension Father Heart disease Hypertension Sibling Cancer Heart disease Alcohol abuse Hypertension Diabetes mellitus Breast cancer Grandparent Heart disease Social History Social History Social History: caffeine use daily Years smoked: 6 Smoking status: Former smoker Tobacco type: cigarettes Smoking end date: 01/16/96 Alcohol intake: current Alcohol use details: occasionally Substance use: never Substance use type: does not use Do You Feel Safe in your Home?: Yes Lack of Transportation: No Lack of Food: Never True Current Housing: I Have Housing Concerned About Future Housing: No Difficulty Paying Gas/Electric Bills: No Difficulty Paying for Meds: No Currently Unemployed: No Difficulty w/ Childcare or Family Care: No Living arrangements: with family Spiritual care concerns: No Medications Home Medications ?Medication ?Instructions ?Recorded ?Confirmed ?Type albuterol sulfate 90 mcg/actuation 2 inh inhalation Q6-8H PRN 12/25/23 04/28/24 Rx aerosol inhaler shortness of breath or wheezing #8.5 grams cholecalciferol (vitamin D3) 50 50 mcg PO DAILY 12/25/23 06/09/24 History mcg (2,000 unit) capsule cyclobenzaprine 10 mg tablet 10 mg PO TID PRN Spasms 12/25/23 06/09/24 History ketoconazole 2 % topical cream 1 applic topical DAILY PRN Rash 12/25/23 06/09/24 History flaxseed oil 1,000 mg capsule 1,000 mg PO DAILY 01/16/24 06/09/24 History Ozempic 2 mg/dose (8 mg/3 mL) 2 mg (0.75 mL) subcut WEEKLY #3 mL 01/23/24 06/09/24 Rx subcutaneous pen injector (semaglutide) albuterol sulfate 2.5 mg/3 mL 2.5 mg (3 mL) inhalation Q4-6H PRN 01/31/24 04/28/24 Rx (0.083 %) solution for nebulization shortness of breath or wheezing #75 mL fluoxetine 20 mg capsule 20 mg PO DAILY #90 caps 02/07/24 06/09/24 Rx montelukast 10 mg tablet 10 mg PO DAILY #90 tabs 02/07/24 06/09/24 Rx rosuvastatin 5 mg tablet 5 mg PO DAILY #90 tabs 02/07/24 06/09/24 Rx fluticasone 100 mcg-salmeterol 50 1 inh inhalation Q12H #60 ea 05/23/24 06/09/24 Rx mcg/dose blistr powdr for inhalation (Wixela Inhub) ramipril 10 mg capsule 10 mg PO BID #180 caps 08/05/24 Rx Sleep Procedure A full night CPAP Titration using the [employer] Sleep[employer]azze multi-channel system recorded the standard physiologic parameters including EEG, EOG, submentalis EMG, anterior tibialis EMG, EKG, body position, nasal and oral airflow using nasal pressure sensor and thermistor.? Respiratory parameters of chest and abdominal movements were recorded with Respiratory Inductance Plethysmography belts. Oxygen saturation was recorded by pulse oximetry. Video monitoring was also performed. Sleep stages, periodic limb movements, and EEG arousals were scored in 30 second epochs according to the criteria of the AASM Scoring Manual. The Apnea-Hypopnea Index was calculated using CMS guidelines for definition of hypopnea with 4% O2 desaturations while scoring respiratory events. Sleep Architecture The total recording time was 505.6 minutes.? The total sleep time was 413.0 minutes. Sleep latency was 37.2 minutes. REM latency was 219.5 minutes. Sleep efficiency was 81.7%. The patient had 16 awakenings for an awakening index of 2.3. Wake after Sleep Onset time was 55.5 minutes. The patient spent 30.5 minutes, 7.4% of total sleep time in Stage N1. The patient spent 291.0 minutes, 70.5% in Stage N2. The patient spent 1.0 minutes, 0.2% in Stage N3. The patient spent 90.5 minutes, 21.9% in Stage REM. Respiratory Analysis The patient had 8 hypopneas for an overall Apnea Hypopnea Index of 1.2 events per hour. The REM Apnea Hypopnea Index was 2.7. The NREM Apnea Hypopnea Index was 0.7. The patient had a Central Apnea Hypopnea Index of 0. There was no evidence of Ga-Murphy Respirations. The patient was Started on CPAP 5 cm H2O and titrated to CPAP 9 cm H2O due to hypopneas. The patient was able to fall asleep starting on CPAP 7 cm H2O. The patient was able to achieve REM sleep starting on CPAP 7 cm H2O. The patient was able to achieve a residual AHI less than 5 with both NREM and REM sleep in the supine position on the final two pressure settings. On CPAP 9 cm H2O, the patient spent 148 minutes in NREM and 39.5 minutes in REM with no respiratory events, resulting in an AHI of 0. The patient had a sleep efficiency of 95.4% on this pressure setting. Arousals There were 124 total arousals for an arousal index of 18.0. There were 64 spontaneous arousals for an index of 9.3. ?There were 4 arousals due to respiratory events for an index of 0.6. There were 44 arousals due to periodic limb movements for an index of 6.4.? There were 13 arousals due to isolated limb movements for an index of 1.9. Periodic Limb Movements The patient had 52 isolated limb movements with an index of 7.6. The patient had 339 periodic limb movements with index of 49.2, which is elevated (normal < 15). Patient had a total of 391 limb movements with a total limb movement index of 56.8. Oximetry Data The patient had an average oxygen saturation of 91.4% in sleep with a minimum oxygen saturation of 84.0% and a maximum oxygen saturation of 96.0%. The patient had 11 oxygen desaturations that were 4% or greater resulting in an Oxygen Desaturation Index of 1.7.? The patient spent 16.3 minutes, 3.3% of total sleep time with an oxygen saturation below 88%. Snoring Profile Mild snoring was present intermittently in the beginning of the study. The snoring resolved once the patient was titrated to 9 cm H2O. Cardiac Profile The EKG showed normal sinus rhythm. No arrhythmias or premature beats were seen. The patient had an average pulse rate of 72.0 bpm with a minimum pulse rate of 57.0 bpm and a maximum pulse rate of 91.0 bpm. ? EEG Profile No signs of seizure activity seen. Assessment and Plan Assessment and Plan (1) TIFFANI (obstructive sleep apnea): Code(s): G47.33 - Obstructive sleep apnea (adult) (pediatric) Status: Acute Assessment and Plan: The patient was Started on CPAP 5 cm H2O and titrated to CPAP 9 cm H2O due to hypopneas. The patient's sleep apnea resolved on the final pressure setting with a high sleep efficiency. I recommend that the patient be prescribed CPAP 9 cm H2O without EPR, size small ResMed Mirage Quattro full face mask, CPAP filters/tubing and heated humidity. This should be used with all episodes of sleep.? Compliance should be reviewed within 31-90 days of starting therapy for usage greater than 4 hours per night greater than 70% of the nights. The patient should be asked about symptoms such as?excessive daytime sleepiness, quality of sleep, decreased nocturia, increased?mental functioning such as memory, mood, and concentration. (2) PLMD (periodic limb movement disorder): Code(s): G47.61 - Periodic limb movement disorder Status: Acute Assessment and Plan: The patient had a significant number of limb movements during the study with the majority being periodic in nature. Over 10% of the periodic limb movements caused arousals in the patient's sleep. The patient's sleep history does not overly suggest Restless Leg Syndrome. I recommend that the patient have a serum ferritin drawn for evaluation of iron deficiency anemia. If the patient has a serum ferritin less than 75 ng/mL, I recommend starting a daily iron supplement and a Vitamin C supplement for better absorption. If the serum ferritin is greater than 75 ng/mL, I recommend starting a dopamine agonist and titrating the dose until symptoms resolve. There are nonpharmacological methods to treat limb movements including daily exercise, stretching calf muscles before bed, avoiding excessive amounts of caffeine and alcohol, vitamin B supplementation, magnesium lotion massaged into legs before bed, and use of a weighted blanket. Data The data obtained during this sleep study is adequate for interpretation. Certification This sleep study has been reviewed by a board certified sleep medicine physician.
[2024-08-05 11:57] VITALS: BMI 45.1
== END 2024-07-12 06:30 | disposition home or self-care (01) ==
LOC: ANHCSM 07:54
PROVIDERS: PCP Family Medicine; Visit Provider Student in an Organized Health Care Education/Training Program
DX: G47.33 Obstructive sleep apnea (adult) (pediatric) (principal); G47.61 Periodic limb movement disorder
CPT/HCPCS: 95811

== ENCOUNTER 2024-08-25 08:45 | Outpatient (CLI) | payer OTHER, SELFPAY ==
--- OUTSIDE RECORDS SUMMARY | 2024-08-25 08:58 | XMS_ITS | Data Portability ---
Author Organization [place] - [facility], [facility] - ER Address [address] [place] [address] Care Team Providers Care Supervisor Wet Pour Name Role Phone [employer] [facility] OTHER WILLIE STORY Primary Care Provider Assessment No assessment recorded. Plan of Treatment Reminders Order Date Submit Date Provider Last Modified By Organization Details Last Modified Time Details Appointments None recorded. Lab None recorded. Referral None recorded. Procedures None recorded. Surgeries None recorded. Imaging None recorded. Medication Orders Advair HFA 115 mcg-21 mcg/actuat ion aerosol inhaler 2021 022 [facility]30470, [address], [place], [id number], 11:03:32 Singulair 10 mg tablet 2021 022 [facility] #25983, [address] [place], [id number], 2 11:03:31 montelukas t 10 mg tablet 2018 019 [facility], [address], [id number], 9 09:50:59 montelukas t 10 mg tablet 2017 018 INTERFACE [id number], [address] [place], [address], 8 10:30:00 Patient TargetsNo targets recorded. Patient Instructions Encounter Date Encounter Id Patient Instructions Last Modified By Organization Details Last Modified Time 10/12/2017 [id number] controlling your asthma: care instructions Not available 10/12/2017 10:29:58 learning about asthma Not available 10/12/2017 10:29:58 sleep apnea: car e instructions Not available 10/12/2017 10:29:59 sleep study, polysomnogram with continuous positive airway pressure* [email or web address] Not available 10/12/2017 12:16:04 shortness of breath: care instructions Not available 10/12/2017 10:30:57 complete PFT w/ post bronchodilator spirometry* SOHAIL Not available 11/26/2017 10:23:54 01/11/2018 [id number] controlling your asthma: care instructions Not available 01/11/2018 11:55:46 learning about asthma Not available 01/11/2018 11:55:46 sleep apnea: car e instructions Not available 01/11/2018 11:55:46 shortness of breath: care instructions Not available 01/11/2018 11:55:46 11/15/2018 [id number] controlling your asthma: care instructions Not available 11/15/2018 09:50:54 learning about asthma Not available 11/15/2018 09:50:54 sleep apnea: car e instructions Not available 11/15/2018 09:50:53 shortness of breath: care instructions Not available 11/15/2018 09:50:54 complete PFT w/ post bronchodilator spirometry* smallafre Not available 11/15/2018 09:55:18 12/02/2019 [id number] controlling your asthma: care instructions Not available 12/02/2019 16:36:46 learning about asthma Not available 12/02/2019 16:36:46 sleep apnea: car e instructions Not available 12/02/2019 16:36:46 shortness of breath: care instructions Not available 12/02/2019 16:36:46 11/04/2021 [id number] controlling your asthma: care instructions Not available [...] 18 11/26/2017 compl ete PFT w/ post [facility] hodil ator ochoa metry * No observ ation record ed. [facility] ([facility]) [address] [facility] [address], [place], [address], 01/11/2018 11:51:52 11/26/19 20 11/26/2019 compl ete PFT* No observ ation record ed. [facility] ([facility]) [address] [facility] [address], [place], [address], 12/02/2019 16:34:52 11/19/19 22 11/18/2021 compl ete PFT w/ post [facility] hodil ator ochoa metry * No observ ation record ed. [email or web address] [facility] ([facility]) [address] [facility] [address], [place], [address], 11/30/2021 09:25:04 Result Notes None recorded. Problems Name Problem SNOMED Code Status Onset Date Resolution Date Notes Provider Name and Address Organization Details Recorded Time Obstructive sleep apnea syndrome 92044139 Active Ashely moreno [place] [facility] 5 08:42:39 Overweight 410780633 Active Giana Cunningham MD [address] [facility] [address], [place], [address] [place] [address] - [facility] 4 10:57:09 Allergic rhinitis 29662202 Active Giana Cunningham MD [address] [facility] [address], [place], [address], [facility] 4 10:57:09 Asthma [id number] Ifeoma Cunningham MD [address] [facility] [address], [place], [address], [facility] 4 10:57:09 Periodic limb movement disorder 961900773 Active Giana Cunningham MD [address] [facility] [address], [place], [address], [facility] 4 10:57:09 Problem Notes None recorded. Procedures Surgical History Date Name Laterality Status Provider Name and Address Organization Details Recorded Time 08/26/19 23 PAP Compliance cancelled zan cole [facility] 08/21/2022 08:17:03 11/05/19 22 PAP Compliance completed Cari Mills [facility] 11/02/2021 13:34:39 12/02/19 20 PAP Compliance completed Jyotsna Caballero [facility] 12/02/2019 16:15:26 11/16/19 19 PAP Compliance completed Yamileth Betancourt [facility] 11/15/2018 08:55:07 CHOLECYSTECTOMY completed jose pinto [facility] 10/12/2017 10:03:42 delivery completed jose pinto [facility] 10/12/2017 10:03:58 APPENDECTOMY completed Daisy Choi [facility] 05/31/2012 13:44:12 Imaging Results Imaging Date Name Status LastModified by Organization Details LastModified Time 11/26/2017 complete PFT w/ post bronchodilator spirometry* completed [facility] [address] [facility] [address], [place], [address], 01/11/2018 11:51:52 11/26/2019 complete PFT* completed [facility] [address] [facility] [address], [place], [address], 12/02/2019 16:34:52 11/18/2021 complete PFT w/ post bronchodilator spirometry* completed [email or web address] [facility] ([facility]) [address] [facility] [address], [place], [address], 11/30/2021 09:25:04 Procedure Notes None recorded. Medical Equipment None Reported. Allergies Allergen ID Allergen Name Allergen Category Reaction Reaction Severity Criticality Documentation Date Start Date Code Code System Note Provider Name and Address Organization Details Recorded Time 48396 Diovan medicatio n Not available Not available Not available 05/31/2012 55254 2 [facility] 3 13:44:12 36269 Product containin g penicilli n (product) medicatio n Not available Not available Not available 05/31/2012 66905 8001 [facility]ED [facility] 3 13:44:12 Medications Name Sig Start [...] Updated DateTime 8 157.48 cm 49.5 kg/m2 903689. 38 g 16 /min 75 /min 97 % 97 % 98 [degF] 128 mm[Hg] 78 mm[Hg] [facility] 8 10:10:47 Date Recorded Body height Body mass index (BMI) Body weight Respiratory rate Heart rate Oxygen saturation Oxygen saturation in Arterial blood by Pulse oximetry Body temperature Systolic blood pressure Diastolic blood pressure Provider Name and Address Organization Details Last Updated DateTime 8 157.48 cm 49.4 kg/m2 601020. 94 g 16 /min 76 /min 97 % 97 % 98.6 [degF] 130 mm[Hg] 80 mm[Hg] [facility] 8 11:42:39 Date Recorded Body height Body mass index (BMI) Body weight Heart rate Respiratory rate Oxygen saturation Oxygen saturation in Arterial blood by Pulse oximetry Body temperature Systolic blood pressure Diastolic blood pressure Provider Name and Address Organization Details Last Updated DateTime 9 157.48 cm 45.5 kg/m2 492329. 78 g 71 /min 18 /min 98 % 98 % 98.7 [degF] 118 mm[Hg] 80 mm[Hg] Yamileth Betancourt [facility] 9 08:59:15 Date Recorded Heart rate Oxygen saturation Oxygen saturation in Arterial blood by Pulse oximetry Respiratory rate Body temperature Body weight Body mass index (BMI) Body height Systolic blood pressure Diastolic blood pressure Provider Name and Address Organization Details Last Updated DateTime 2 69 /min 98 % 98 % 18 /min 98.7 [degF] 866874. 72 g 49.9 kg/m2 157.48 cm 120 mm[Hg] 70 mm[Hg] Cari Mills [facility] 2 10:36:56 Social History Question Answer Notes LastModified by Kiwiple ion Details LastModified Time Tobacco Smoking Status [facility] 05/31/2012 13:44:12 Do You Have An Advance Directive? No Information not available 11/15/2018 Are You Blind Or Do You Have Difficulty Seeing? No Information not available 11/04/2021 What Is Your Level Of Caffeine Consumption? Moderate 3 Cups Daily Information not available 11/15/2018 How Much Tobacco Do You Chew? None Information not available 11/15/2018 In The 14 Days Before Symptom Onset, Have You Had Close Contact With A Laboratory-confir med COVID-19 While That Case Was Ill? No Information not available 12/02/2019 In The 14 Days Before Symptom Onset, Have You Had Close Contact With A Person Who Is Under Investigation For COVID-19 While That Person Was Ill? No [email or web address] Information not available 12/02/2019 Have You Been To An Area Known To Be High Risk For COVID-19? No [email or web address] Information not available 12/02/2019 Are You Deaf Or Do You Have Serious Difficulty Hearing? No Information not available 11/04/2021 How Many Days Of Moderate To Strenuous Exercise, Like A Brisk Walk, Did You Do In The Last 7 Days? 3 Information not available 11/04/2021 Live Alone Or With Others? With Others [email or web address] Information not available 05/31/2012 Tobacco-quit Date 25 Years Of Age Information not available 11/15/2018 Marital Status [email or web address] Informatio n not available 05/31/2012 Do You Have A Medical Power Of Clam Shucker? No Information not available 11/04/2021 What Was The Date Of Your Most Recent Tobacco Screening? 11/04/2021 Information not available 11/04/2021 Are There Any Occupational Health Risks Where You Work? Denies Information not available 11/15/2018 Do You Have An Out Of Hospital DNR? No Information not available 11/04/2021 At What Age Did You Start Smoking Tobacco? 17 [email or web address] Information not available 05/31/2012 Are You Passively Exposed To Smoke? Yes All Of Life Information not available 10/12/2017 Are There Any Smokers In Your House? No Information not available 11/04/2021 How Much Tobacco Do You Smoke? 1 PPD [email or web address] Information not available 05/31/2012 Has Tobacco Cessation Counseling Been Provided? No Information not available 11/04/2021 How Many Years Have You Smoked Tobacco? 8 Information not available 10/12/2017 Have You Recently Traveled Abroad? No Information not available 11/04/2021 Do You Have Difficulty Walking Or Climbing Stairs? No Information not available 11/04/2021 Sex: Unknown Functional Status Question Answer Note LastModified by Organizat ion Details LastModified Time Do you use any illicit or recreational drugs? No Information not available 11/04/2021 Do you or have you ever used any other forms of tobacco or nicotine? No Information not available 11/04/2021 What is your level of alcohol consumption? Occasional [email or web address] Information not available 05/31/2012 Do you or have you ever used smokeless tobacco? Never used smokeless tobacco Information not available 11/15/2018 Have you been exposed to chemicals or toxins? No Information not available 11/04/2021 Are you able to walk? YESWOREST Information not available 11/04/2021 Do you have difficulty doing errands alone? No Information not available 11/04/2021 Are you able to care for yourself? 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 No Information not available 11/04/2021 Do you or have you ever used e-cigarettes or vape? Never used electronic cigarettes Information not available 11/15/2018 What is your exercise level? Occasional Information not available 11/04/2021 Mental Status Question Answer Note LastModified by Organizat ion Details LastModified Time Do you feel stressed (tense, restless, nervous, or anxious, or unable to sleep at night)? [id number] [email or web address] Information not available 11/04/2021 Do you have difficulty concentrating, remembering or making decisions? No Information no t available 11/04/2021 Family History Relationship Description Onset Age of this Age Resolved Age Notes LastModified by Organization Details LastModified Time Father Problem 83 adenise Not available 0 04/25/2013 10:32:19 Mother Heart disease 55 [email or web address] Not available 2017 10:02:49 Medical History Condition Response RENAL FAILURE N PULMONARY HYPERTENSION N LUNG CANCER N RLS N EMPHYSEMA N PLEURAL EFFUSION N COPD N GI BLEEDING N NARCOLEPSY N CENTRAL SLEEP APNEA N BRONCHIECTASIS N CAD N ASTHMA Y ANEMIA N COR PULMONALE N CHF N PULMONARY FIBROSIS N ARRHYTHMIA N CVA N DIABETES, TYPE II UNSPECIFIED N ALLERGIC RHINITIS Y TIFFANI Y HYPERTENSION Y OBESITY Y GERD N PULMONARY EMBOLISM N TB exposure N BLACK LUNG DISEASE N HEART DISEASE N OVERWEIGHT N CANCER N Gynecological HistoryNo gynecological history recorded. Obstetrics History GPAL:G 0 P 0 0 0 0 Immunizations Vaccine Type Date Status Note Provider Nam e and Address Organization Details Recorded Time influenza, unspecified formulation 7 [facility] 10/12/2017 10:07:56 Influenza, [place] 8 completed Yamileth Betancourt [facility] 11/15/2018 08:59:38 COVID-19, mRNA, LNP-S, PF, 100 mcg/0.5mL dose or 50 mcg/0.25mL dose 1 completed Cari Mills [facility] 11/04/2021 10:38:18 COVID-19, mRNA, LNP-S, PF, 100 mcg/0.5mL dose or 50 mcg/0.25mL dose 1 completed Cari Mills [facility] 11/04/2021 10:38:24 COVID-19, mRNA, LNP-S, PF, 100 mcg/0.5mL dose or 50 mcg/0.25mL dose 1 completed Cari Mills [facility] 11/04/2021 10:38:40 Influenza, split virus, quadrivalent, preservative 1 completed Cari Mills [facility] 11/04/2021 10:39:05 Influenza, split virus, trivalent, preservative 0 completed Daisy Choi [facility] 05/31/2012 13:52:53 Past Encounters Encounter ID Performer Location Encounter Start Date Encounter Closed Date Diagnosis/Indication Diagnosis SNOMED-CT Code Diagnosis ICD10 Code Diagnosis Note [id number] MD MASTER Dinh [address] [place] [address] [address] [place] [address] 05/31/2012 13:27:03 05/31/2012 14:37:57 [id number] MD MASTER Dinh [address] [place] [address] [address] [place] [address] 07/26/2012 09:18:03 07/26/2012 09:51:04 [id number] MD MASTER Dinh [address] [place] [address] [address] [place] [address] 10/04/2012 10:48:55 10/04/2012 11:42:45 [id number] Giana Cunningham MD [facility] [id number] [place] [address] [address] [place] [address] 04/25/2013 10:26:44 04/25/2013 11:01:44 Obstructive sleep apnea syndrome 98262754 On CPAP 9 with full face mask , she has being tolerating well , last compliance data was 90% She has being loosing weight and will notify me if lost more than 50 pounds Overweight 262493079 con t weight loss and diest modificati on. Asthma 347241354 Cont advair and singualir Albuterol as needed ( ventolin) Periodic l imb movement disorder 359452935 she is asymptomat ic Allergic rhinitis 95008213 cont singualir [id number] Giana Young [place] [id number] [place] [address] [address] [place] [address] 10/12/2017 09:11:31 10/12/2017 11:29:34 Obstructive sleep apnea syndrome 47998429 G47.33 She has TIFFANI since 2012 and [...] a titration given the weight gain Asthma 927841897 J45.90 9 I will cont the adavair and sent for PFTa nd restart singualair , proair as needed Ex-smoker 0355951 Z87.89 1 and second hand exposure Anemia 405190390 D64.9 she has iron infusion Obesity 531384583 E66.9 weight loss recommeded Dyspnea 567387094 R06.02 [id number] Giana Young [place] [id number] [place] [address] [address] [place] [address] 01/11/2018 10:57:13 01/11/2018 12:11:49 Obstructive sleep apnea syndrome 01273953 G47.33 She has TIFFANI since 2012 and she has been now on APAP and she has been compliant and w benefit .INITIAL COMPLIANCE PASSED @ 100 % AHI 0.4 LEAK WNL Asthma 392511805 J45.90 9 I have reviewed the PFT and she has good reversibil ity and will cont advair and singualir and proair as needed Obesity 801481629 E66.9 weight loss recommende d Dyspnea 814409812 R06.02 [id number] Giana Cunningham Md[address] [place] [id number] [facility], [address] [place] [address] 11/15/2018 08:50:05 11/15/2018 09:55:55 Obstructive sleep apnea syndrome 44300110 G47.33 She ahs oksana on the APAP and sh ehas been 97% complaint and AHI .7She ahs oksana [id number]|2024-08-25 08:59:00|2024-08-25 08:58:00|XMS_ITS|BKG DAEMON|External Medical Summaries|[id number]|" Data Portability Created on: August 25, 2024 Staci New .[id number] : 1970 Sex: Female Author Organization [facility], [facility], [facility] Address [address] [place] [address] Care Team Providers Care Supervisor Wet Pour Name Role Phone WILLIE STORY Referring Provider [phone] DIA MONDRAGON OTHER GLORIA FOOTE OTHER Assessment No assessment recorded. Plan of Treatment Reminders Order Date Submit Date Provider Last Modified By Organization Details Last Modified Time Details Appointments None recorded. Lab CMP, serum or plasma 2022 023 larry [facility], [address] [place] [address] [address] [place], [address], 3 14:43:40 lipid panel, serum 2022 023 [facility], [address], [place], [address], 3 14:43:41 CK (creatine kinase), total, serum 2022 023 [facility], [address], [place], [address], 3 14:43:41 CBC 2022 023 [facility], [address], [place], [address], 3 14:43:41 TSH, serum or plasma 2022 023 SHUNK [facility], [address], [place], [address], 3 09:38:13 uric acid, serum or plasma 2022 023 SHUNK [facility], [address], [place], [address], 3 09:38:22 urinalysi s, complete 2022 023 SOHAIL [facility], [address], [place], [address], 3 18:41:59 vitamin B12, serum 2022 023 [facility], [address], [place], [address], 3 09:38:10 CBC 2022 023 [facility], [address], [place], [address], 3 18:23:27 CMP, serum or plasma 2022 023 [facility], [address], [place], [address], 3 09:38:18 T4, free, serum 2022 023 [facility], [address], [place], [address], 3 09:38:12 vitamin D, 25-hydrox y, total, serum 2022 023 [facility], [address], [place], [address], 3 09:38:16 lipid panel, serum 2022 023 [facility], [address], [place], [address], 3 09:38:20 HbA1c (hemoglob in A1c), blood 2022 023 [facility], [address], [place], [address], 3 18:23:26 microalbu min/creat inine, ratio, urine 2022 023 [facility], [address], [place], [address], 3 14:31:48 venipunct ure 2022 023 [facility], [address], [place], [address], 3 11:49:24 HbA1c (hemoglob in A1c), blood 2022 023 [facility], [address], [place], [address], 3 14:43:40 microalbu min/creat inine, ratio, urine 2022 023 [facility], [address], [place], [address], 3 14:43:40 venipunct ure 2022 023 [facility], [address], [place], [address], 3 14:43:40 Referral podiatris t referral 2022 023 [id number] Nina Damon [facility] ([facility]), [address] [place] [address], [address], 3 08:04:40 Procedures None recorded. Surgeries None recorded. Imaging MAMMO, screening , tomosynth esis, bilateral 2022 023 SHUNK [facility], [facility], All Locations, [place], [address], 3 09:36:44 electroca rdiogram 2022 023 SHUNK In-Office Order, Internal Use Only DO Not Attach Compendium DO Not Attach Compendium, Do Not Delete/merge, [address] 3 11:40:56 XR, chest, 2 view 2022 023 SHUNK [facility], [facility], All Locations, [place], [address], 3 09:25:23 Medication Orders cyclobenz aprine 10 mg tablet 2022 023 [facility] #84426, [address] [facility], [place], [place], [id number], 3 13:21:27 Cipro 500 mg tablet 2022 023 [facility] #99032, [address] [facility], [place], [place], [id number], 3 13:21:24 albuterol sulfate 2.5 mg/3 mL (0.083 %) solution for nebulizat ion 2022 023 [facility] #02284, [address] [facility], [place], [place], [id number], 3 09:07:25 Medrol (Diaz) 4 mg tablets in a dose pack 2022 023 [facility] #94716, [address] [place], [place], [address], 3 13:06:11 Zithromax Z-Diaz 250 mg tablet 2022 023 [facility] #70977, [address] [place], [place], [address], 3 13:06:15 dexametha sone sodium phosphate 4 mg/mL injection solution 2022 023 bbacha Not available 3 13:05:48 Depo-Medr ol 80 mg/mL suspensio n for injection 2022 023 bbacha Not available 13:05:46 Bactrim DS 800 mg-160 mg tablet 2022 023 [facility] #49447, [address] [facility], [place], [place], [id number], 13:21:47 Patient TargetsNo targets recorded. Patient Instructions Encounter Date Encounter Id Patient Instructions Last Modified By Organization Details Last Modified Time 05/08/2022 [id number] learning about type 2 diabetes Not available 05/08/2022 08:46:35 05/16/2022 [id number] starting a weigh t loss plan: care instructions Not available 05/16/2022 09:07:13 learning about type 2 diabetes Not available 05/16/2022 09:07:13 bronchitis: care instructions Not available 05/16/2022 09:07:13 05/26/2022 [id number] learning about type 2 diabetes Not available 05/26/2022 11:08:53 Acute Sinusitis: Care Instructions Not available 05/26/2022 11:08:54 08/04/2022 [id number] Vaccine Consent form Not available 08/04/2022 11:36:27 toenail fungus: care instructions Not available 08/04/2022 11:36:29 Anticipatory Guidance for preventive visits Not available 08/04/2022 11:36:27 starting a weigh t loss plan: care instructions Not available 08/04/2022 11:36:27 learning about type 2 diabetes Not available 08/04/2022 11:36:27 01/03/2023 [id number] Vaccine Consent form Not available 01/03/2023 08:10:53 learning about type 2 diabetes Not available 01/03/2023 08:10:52 external records - Please provide record of this patient's Diabetic Eye Exam within the last 12 months. Thank you bronwyn Not available 01/16/2023 08:58:55 [place] out of the [place] and will find a new dr there and cont. care. Not available 01/03/2023 08:12:07 Reason for Referral Solar Manager Referral for Onyc homycosis Referring Physician: Willie Story, Family Medicine, Encounter Date: 08/04/2022 Results Created Date Observation Date Name Description Value Unit Range Abnormal Flag Note LastModifiedBy Organization Detail LastModifiedTime 05/08/1905/14/2022 CULTU RE, AEROB IC AND ANAER OBIC W/GRA M STAIN culture, anaerobic bacteria w/gram stain SEE NOTE CULTU RE, ANAER OBIC BACTE COREY W/GRA M STAIN Micro Numbe r: [id number] Test Statu s: Final Speci men Sourc e: Groin Speci men Quali ty: Adequ ate Gram Stain : Few epith elial cells No white blood cells seen No organ isms seen Resul t: Light growt h of Propi oniba cteri um acnes Not Available [facility] [address], [place], [address], 05/14/2022 08:47:30 05/08/19 23 05/14/2022 CULTU RE, AEROB IC AND ANAER OBIC W/GRA M STAIN culture, aerobic bacteria SEE NOTE CULTU RE, AEROB IC BACTE COREY Micro Numbe r: [id number] Test Statu s: Final Speci men Sourc e: Groin Speci men Quali ty: Adequ ate Resul t: Growt h of skin shahid (note : Growt h does not inclu de S. aureu s, beta- hemol ytic Strep tococ ci or P. aerug inosa ). Not Available [facility] [address], [place], [address], 05/14/2022 08:47:30 05/19/19 23 05/20/2022 ALBUM IN, RANDO M URINE W/CRE ATINI NE creatinine, random urine 111 mg/dL 20-[address] [facility] [address], [place], [address], 05/20/2022 17:56:38 05/19/19 23 05/20/2022 ALBUM IN, RANDO M URINE W/CRE ATINI NE albumin, urine 2.7 mg/dL see note: normal Refer ence Range : Refer ence Range Not estab lishe d Not Available [facility] [place] [facility] [address], [place], [address], 05/20/2022 17:56:38 05/19/19 23 05/20/2022 ALBUM IN, [...] categ ory. Not Available [facility] [address], [place], [address], 05/20/2022 17:56:38 05/19/19 23 05/20/2022 LIPID PANEL WITH REFLE X TO DIREC T LDL cholesterol, total 153 mg/dL <200 normal Not Available [facility] [address], [place], [address], 05/20/2022 17:56:39 05/19/19 23 05/20/2022 LIPID PANEL WITH REFLE X TO DIREC T LDL HDL cholesterol 52 mg/dL > or = 50 normal Not Available [facility] [address], [place], [address], 05/20/2022 17:56:39 05/19/19 23 05/20/2022 LIPID PANEL WITH REFLE X TO DIREC T LDL triglyceride s 140 mg/dL <150 normal Not Available [facility] [address], [place], [address], 05/20/2022 17:56:39 05/19/19 23 05/20/2022 LIPID PANEL [...] which is a valid ated novel peña worley salima r accur acy than the Fried roman equat ion in the estim ation of LDL-C . Meagan hoffman SS et al. ZANA. 2013; 310(1 9): 2061- 2068 (http ://ed ucati on.Qu [employer]. com/f aq/FA Q164) Not Available [facility] [place] [facility] [address], [place], [address], 05/20/2022 17:56:39 05/19/19 23 05/20/2022 LIPID PANEL WITH REFLE X TO DIREC T LDL chol/HDLC ratio 2.9 (calc ) <5.0 normal Not Available [facility] [place] [address], [place], [address], 05/20/2022 17:56:39 05/19/19 23 05/20/2022 LIPID PANEL WITH REFLE X TO DIREC T LDL non HDL cholesterol 101 mg/dL _(anthony c) <130 normal For patie nts with diabe raza plus 1 major ASCVD risk facto r, treat ing to a non-H DL-C goal of <100 mg/dL (LDL- C of <70 mg/dL ) is consi dered a thera peuti c optio n. Not Available [facility] [place] [address], [place], [address], 05/20/2022 17:56:39 05/19/19 23 05/20/2022 COMPR EHENS AREN METAB OLIC PANEL glucose 134 mg/dL 65-99 high Fasti ng refer ence inter elias For someo ne witho ut known diabe raza, a gluco se value >125 mg/dL indic ates that they may have diabe raza and this shoul d be confi rmed with a follo w-up test. Not Available [facility] [place] [address], [place], [address], 05/20/2022 17:56:40 05/19/19 23 05/20/2022 COMPR EHENS AREN METAB OLIC PANEL urea nitrogen (BUN) 13 mg/dL 7-25 normal Not Available [facility] [place] [address], [place], [address], 05/20/2022 17:56:40 05/19/19 23 05/20/2022 COMPR EHENS AREN METAB OLIC PANEL creatinine 0.56 mg/dL 0.50-1 .03 normal Not Available [facility] [place] [address], [place], [address], 05/20/2022 17:56:40 05/19/19 23 05/20/2022 COMPR EHENS AREN METAB OLIC PANEL eGFR 109 mL/mi n/1.7 3m2 > or = 60 normal The eGFR is based on the CKD-E PI 2020 equat ion. To calcu late the new eGFR from a previ ous Creat inine or Cysta tin C resul t, go to https ://aditi dong/livan donahue/ kdoqi /gfr% 5Fcal culat or Not Available [facility] [place] [address], [place], [address], 05/20/2022 17:56:40 05/19/19 23 05/20/2022 COMPR EHENS AREN METAB OLIC PANEL BUN/creatini ne ratio NOT APPLIC ABLE (calc ) 6-22 Not Available [facility] [address], [place], [address], 05/20/2022 17:56:40 05/19/19 23 05/20/2022 COMPR EHENS AREN METAB OLIC PANEL sodium 138 mmol/ L 135-14 6 normal Not Available [facility] [address], [place], [address], 05/20/2022 17:56:40 05/19/19 23 05/20/2022 COMPR EHENS AREN METAB OLIC PANEL potassium 4.5 mmol/ L 3.5-5. 3 normal Not Available [facility] [address], [place], [address], 05/20/2022 17:56:40 05/19/19 23 05/20/2022 COMPR EHENS AREN METAB OLIC PANEL chloride 101 mmol/ L 98-110 normal Not Available [facility] [address], [place], [address], 05/20/2022 17:56:40 05/19/19 23 05/20/2022 COMPR EHENS AREN METAB OLIC PANEL carbon dioxide 25 mmol/ L 20-32 normal Not Available [facility] [address], [place], [address], 05/20/2022 17:56:40 05/19/19 23 05/20/2022 COMPR EHENS AREN METAB OLIC PANEL calcium 9.6 mg/dL 8.6-10 .4 normal Not Available [facility] [address], [place], [address], 05/20/2022 17:56:40 05/19/19 23 05/20/2022 COMPR EHENS AREN METAB OLIC PANEL protein, total 7.2 g/dL 6.1-8. 1 normal Not Available [facility] [address], [place], [address], 05/20/2022 17:56:40 05/19/19 23 05/20/2022 COMPR EHENS AREN METAB OLIC PANEL albumin 4.0 g/dL 3.6-5. 1 normal Not Available [employer] [facility] [address], [place], [address], 05/20/2022 17:56:40 05/19/19 23 05/20/2022 COMPR EHENS AREN METAB OLIC PANEL globulin 3.2 g/dL_ (calc ) 1.9-3. 7 normal Not Available [employer] [facility] [address], [place], [address], 05/20/2022 17:56:40 05/19/19 23 05/20/2022 COMPR EHENS AREN METAB OLIC PANEL albumin/glob ulin ratio 1.3 (calc ) 1.0-2. 5 normal Not Available [employer] [facility] [address], [place], [address], 05/20/2022 17:56:40 05/19/19 23 05/20/2022 COMPR EHENS AREN METAB OLIC PANEL bilirubin, total 0.2 mg/dL 0.2-1. 2 normal Not Available [employer] [facility] [address], [place], [address], 05/20/2022 17:56:40 05/19/19 23 05/20/2022 COMPR EHENS AREN METAB OLIC PANEL alkaline phosphatase 80 U/L 37-153 normal Not Available [facility] [employer] [facility] [address], [place], [address], 05/20/2022 17:56:40 05/19/19 23 05/20/2022 COMPR EHENS AREN METAB OLIC PANEL AST 11 U/L 10-35 normal Not Available [employer] [facility] [address], [place], [address], 05/20/2022 17:56:40 05/19/19 23 05/20/2022 COMPR EHENS AREN METAB OLIC PANEL ALT 21 U/L 6-29 normal Not Available [facility] [place] [facility] [address], [place], [address], 05/20/2022 17:56:40 05/19/19 23 05/20/2022 HEMOG LOBIN [...] child kushal. Not Available [facility] [place] [facility] [address], [place], [address], 05/20/2022 17:56:40 05/19/19 23 05/20/2022 CREAT INE KINAS E, TOTAL creatine kinase, total 27 U/L 29-143 low Not Available [facility] [place] [facility] [address], [place], [address], 05/20/2022 17:56:41 05/19/19 23 05/20/2022 CBC (INCL UDES DIFF/ PLT) white blood cell count 14.8 thous and/u L 3.8-10 .8 high Not Available [facility] [place] [facility] [address], [place], [address], 05/20/2022 17:56:42 05/19/19 23 05/20/2022 CBC (INCL UDES DIFF/ PLT) red blood cell count 4.96 yanet on/uL 3.80-5 .10 normal Not Available [facility] [address], [place], [address], 05/20/2022 17:56:42 05/19/19 23 05/20/2022 CBC (INCL UDES DIFF/ PLT) hemoglobin 13.8 g/dL 11.7-1 5.5 normal Not Available [facility] [address], [place], [address], 05/20/2022 17:56:42 05/19/19 23 05/20/2022 CBC (INCL UDES DIFF/ PLT) hematocrit 41.4 % 35.0-4 5.0 normal Not Available [facility] [address], [place], [address], 05/20/2022 17:56:42 05/19/19 23 05/20/2022 CBC (INCL UDES DIFF/ PLT) MCV 83.5 fL 80.0-1 00.0 normal Not Available [facility] [address], [place], [address], 05/20/2022 17:56:42 05/19/19 23 05/20/2022 CBC (INCL UDES DIFF/ PLT) MCH 27.8 pg 27.0-3 3.0 normal Not Available [facility] [address], [place], [address], 05/20/2022 17:56:42 05/19/19 23 05/20/2022 CBC (INCL UDES DIFF/ PLT) MCHC 33.3 g/dL 32.0-3 6.0 normal Not Available [facility] [address], [place], [address], 05/20/2022 17:56:42 05/19/19 23 05/20/2022 CBC (INCL UDES DIFF/ PLT) RDW 15.9 % 11.0-1 5.0 high Not Available [facility] [address], [place], [address], 05/20/2022 17:56:42 05/19/19 23 05/20/2022 CBC (INCL UDES DIFF/ PLT) platelet count 308 thous and/u L 140-40 0 normal Not Available [facility] [place] [facility] [address], [place], [address], 05/20/2022 17:56:42 05/19/19 23 05/20/2022 CBC (INCL UDES DIFF/ PLT) MPV 10.1 fL 7.5-12 .5 normal Not Available [facility] [address], [place], [address], 05/20/2022 17:56:42 05/19/19 23 05/20/2022 CBC (INCL UDES DIFF/ PLT) absolute neutrophils 29146 cells /uL 1500-7 800 high Not Available [facility] [address], [place], [address], 05/20/2022 17:56:42 05/19/19 23 05/20/2022 CBC (INCL UDES DIFF/ PLT) absolute lymphocytes 2057 cells /uL 850-39 00 normal Not Available [facility] [place] [facility] [address], [place], [address], 05/20/2022 17:56:42 05/19/19 23 05/20/2022 CBC (INCL UDES DIFF/ PLT) absolute monocytes 829 cells /uL 200-95 0 normal Not Available [facility] [address], [place], [address], 05/20/2022 17:56:42 05/19/19 23 05/20/2022 CBC (INCL UDES DIFF/ PLT) absolute eosinophils 0 cells /uL 15-500 low Not Available [facility] [address], [place], [address], 05/20/2022 17:56:42 05/19/19 23 05/20/2022 CBC (INCL UDES DIFF/ PLT) absolute basophils 15 cells /uL 0-200 normal Not Available [facility] [address], [place], [address], 05/20/2022 17:56:42 05/19/19 23 05/20/2022 CBC (INCL UDES DIFF/ PLT) neutrophils 80.4 % normal Not Available [facility] [address], [place], [address], 05/20/2022 17:56:42 05/19/19 23 05/20/2022 CBC (INCL UDES DIFF/ PLT) lymphocytes 13.9 % normal Not Available [facility] [address], [place], [address], 05/20/2022 17:56:42 05/19/19 23 05/20/2022 CBC (INCL UDES DIFF/ PLT) monocytes 5.6 % normal Not Available [facility] [address], [place], [address], 05/20/2022 17:56:42 05/19/19 23 05/20/2022 CBC (INCL UDES DIFF/ PLT) eosinophils 0.0 % normal Not Available [facility] [address], [place], [address], 05/20/2022 17:56:42 05/19/19 23 05/20/2022 CBC (INCL UDES DIFF/ PLT) basophils 0.1 % normal Not Available [facility] [address], [place], [address], 05/20/2022 17:56:42 08/05/19 23 08/04/2022 A1C hemoglobin A1C 5.2 % 4.3-5. 6 ADA RECOM MO D GUIDE LINES FOR HgbA1 C 5.7-6 .4 % predi abeti c <7.0% Reaso nable glyce ciara goal for non-p regna nt adult s <8.0 Appro priat e for patie nts with hypog lycem ia or advan nancy micro /macr o vascu lar compl icati ons Not Available [facility] [address] [place], [address], 08/04/2022 18:23:26 08/05/19 23 08/04/2022 A1C estimated average glucose 102.5 mg/dL 97.0-1 40.0 Not Available [facility] [address] [place], [address], 08/04/2022 18:23:26 08/05/19 23 08/04/2022 CBC W/ AUTOD IFF, COMPL ETE BLOOD COUNT WBC 12.5 K/uL 3.6-10 .0 high Not Available [facility] [address] [place], [address], 08/04/2022 18:23:27 08/05/19 23 08/04/2022 CBC W/ AUTOD IFF, COMPL ETE BLOOD COUNT nucleated RBC 0.00 % 0.00-2 .00 Not Available [facility] [address] [place], [address], 08/04/2022 18:23:27 08/05/19 23 08/04/2022 CBC W/ AUTOD IFF, COMPL ETE BLOOD COUNT RBC 4.76 M/uL 3.90-5 .00 Not Available [facility] [address] [place], [address], 08/04/2022 18:23:27 08/05/19 23 08/04/2022 CBC W/ AUTOD IFF, COMPL ETE BLOOD COUNT HGB 13.1 g/dL 12.0-1 5.0 Not Available [facility] [address], [place], [address], 08/04/2022 18:23:27 08/05/19 23 08/04/2022 CBC W/ AUTOD IFF, COMPL ETE BLOOD COUNT hematocrit 40.30 % 35.00- 45.00 Not Available [facility] [address], [place], [address], 08/04/2022 18:23:27 08/05/19 23 08/04/2022 CBC W/ AUTOD IFF, COMPL ETE BLOOD COUNT MCV 84.8 fL 80.0-9 9.0 Not Available [facility] [address], [place], [address], 08/04/2022 18:23:27 08/05/19 23 08/04/2022 CBC W/ AUTOD IFF, COMPL ETE BLOOD COUNT MCH 27.6 pg 27.0-3 3.0 Not Available [facility], [place], [address], 08/04/2022 18:23:27 08/05/19 23 08/04/2022 CBC W/ AUTOD IFF, COMPL ETE BLOOD COUNT MCHC 32.5 g/dL 32.0-3 6.0 Not Available [facility] [address], [place], [address], 08/04/2022 18:23:27 08/05/19 23 08/04/2022 CBC W/ AUTOD IFF, COMPL ETE BLOOD COUNT platelets 298 K/uL 140-44 0 Not Available [facility] [address], [place], [address], 08/04/2022 18:23:27 08/05/19 23 08/04/2022 CBC W/ AUTOD IFF, COMPL ETE BLOOD COUNT RDW 17.1 % 11.0-1 5.0 high Not Available [facility] [address], [place], [address], 08/04/2022 18:23:27 08/05/19 23 08/04/2022 CBC W/ AUTOD IFF, COMPL ETE BLOOD COUNT MPV 8.4 fL 7.4-10 .4 Not Available [facility] [address] [address], [place], [address], 08/04/2022 18:23:27 08/05/19 23 08/04/2022 CBC W/ AUTOD IFF, COMPL ETE BLOOD COUNT neutrophil, % 68.3 % Not Available [facility], [place], [address], 08/04/2022 18:23:27 08/05/19 23 08/04/2022 CBC W/ AUTOD IFF, COMPL ETE BLOOD COUNT lymphocyte % 23.2 % Not Available [facility] [address] [place] [address] [address], [place], [address], 08/04/2022 18:23:27 08/05/19 23 08/04/2022 CBC W/ AUTOD IFF, COMPL ETE BLOOD COUNT monocyte % 6.4 % Not Available [facility] [address], [place], [address], 08/04/2022 18:23:27 08/05/19 23 08/04/2022 CBC W/ AUTOD IFF, COMPL ETE BLOOD COUNT eosinophil % 1.8 % Not Available [facility] [address], [place], [address], 08/04/2022 18:23:27 08/05/19 23 08/04/2022 CBC W/ AUTOD IFF, COMPL ETE BLOOD COUNT basophil % 0.3 % Not Available [facility] [address], [place], [address], 08/04/2022 18:23:27 08/05/19 23 08/04/2022 CBC W/ AUTOD IFF, COMPL ETE BLOOD COUNT neutrophil, # 8.6 K/uL 1.5-7. 5 high Not Available [facility], [place], [address], 08/04/2022 18:23:27 08/05/19 23 08/04/2022 CBC W/ AUTOD IFF, COMPL ETE BLOOD COUNT lymphocyte # 2.9 K/uL 0.8-4. 0 Not Available [facility] [address] [place], [place] [address]y [address], [place], [address], 08/04/2022 18:23:27 08/05/19 23 08/04/2022 CBC W/ AUTOD IFF, COMPL ETE BLOOD COUNT monocyte # 0.8 K/uL 0.1-1. 0 Not Available [facility] [address] [place], [place] [address], [place], [address], 08/04/2022 18:23:27 08/05/19 23 08/04/2022 CBC W/ AUTOD IFF, COMPL ETE BLOOD COUNT eosinophil # 0.2 K/uL 0.1-1. 0 Not Available [facility] [address] [place], [place] [address], [place], [address], 08/04/2022 18:23:27 08/05/19 23 08/04/2022 CBC W/ AUTOD IFF, COMPL ETE BLOOD COUNT basophil # 0.0 K/uL 0.0-0. 2 Not Available [facility] [address] [place] [address] [address], [place], [address], 08/04/2022 18:23:27 08/05/19 23 08/04/2022 URINA LYSIS , COMPL ETE W/ REFLE X TO CULTU RE color LIGHT YELLOW yellow Not Available [facility] [address] [place] [address] [address], [place], [address], 08/04/2022 18:41:59 08/05/19 23 08/04/2022 URINA LYSIS , COMPL ETE W/ REFLE X TO CULTU RE appearance CLEAR clear Not Available [facility] [address] [place] [address] [address], [place], [address], 08/04/2022 18:41:59 08/05/19 23 08/04/2022 URINA LYSIS , COMPL ETE W/ REFLE X TO CULTU RE specific gravity 1.020 1.005- 1.030 Not Available [facility] [address] [place] [address] [address] [place], [address], 08/04/2022 18:41:59 08/05/19 23 08/04/2022 URINA LYSIS , COMPL ETE W/ REFLE X TO CULTU RE pH 5.50 5.00-8 .00 Not Available [facility] [address] [place] [address] [address] [place], [address], 08/04/2022 18:41:59 08/05/19 23 08/04/2022 URINA LYSIS , COMPL ETE W/ REFLE X TO CULTU RE glucose NEGATI VE mg/dL negati ve Not Available [facility] [address] [place] [address] [address], [place], [address], 08/04/2022 18:41:59 08/05/19 23 08/04/2022 URINA LYSIS , COMPL ETE W/ REFLE X TO CULTU RE bilirubin NEGATI VE mg/dL negati ve Not Available [facility] [address] [facility], [place], [address],
[2024-08-25 09:08] LABS: Basophils Absolute Auto 0.1 K/mm3 (0.0-0.1); Basophils Percent Auto 0.6 % (0.2-1.2); Eosinophils Absolute Auto 0.3 K/mm3 (0-0.3); Eosinophils Percent Auto 2.5 % (0-4.4); Hemoglobin 13.7 g/dL (12.0-15.0); Immature Granulocyte Absolute 0.04 K/mm3 (0.00-0.031); Immature Granulocyte Percent A 0.3 % (0-0.5); Lymphocytes Absolute Auto 2.63 K/mm3 (0.9-3.2); Lymphocytes Percent Auto 22.4 % (18.3-44.2); Mean Corpuscular HGB Conc 29.8 g/dl (32-36); Mean Corpuscular Hemoglobin 25.5 pg (26-34); Mean Corpuscular Volume 85.5 fl (80-100); Monocytes Absolute Auto 0.8 K/mm3 (0.1-0.6); Monocytes Percent Auto 6.9 % (2.6-8.5); Neutrophils Absolute Auto 7.9 K/mm3 (1.3-6.7); Neutrophils Percent Auto 67.3 % (45.5-73.1); Platelet Count Result 310 k/mm3 (150-375); Red Blood Count 5.38 M/mm3 (4.2-5.4); Red Cell Distribution Width 16.5 % (11.5-14.5); White Blood Count 11.7 K/mm3 (4.5-10.0)
[2024-08-25 09:22] LABS: Alanine Aminotransferase 27 U/L (6-35); Albumin Level 4.6 g/dL (3.5-5.1); Alkaline Phosphatase 83 U/L (38-126); Anion Gap 12 mmol/L (4-12); Aspartate Amino Transferase 32 U/L (14-36); Bilirubin,Total 0.4 mg/dL (0.2-1.3); Blood Urea Nitrogen 8 mg/dL (7-17); Calcium 9.2 mg/dL (8.4-10.2); Carbon Dioxide 25 mmol/L (22-30); Chloride 105 mmol/L (98-107); Estimated Glomerular Filt Rate > 60; Glucose 99 mg/dL (65-110); Potassium 4.3 mmol/L (3.4-5.0); Sodium 142 mmol/L (137-145)
[2024-08-25 09:25] LABS: Hemoglobin A1C 5.4 % (<5.7)
[2024-08-25 09:30] LABS: Platelet Estimate Adequate (Adequate)
[2024-08-25 09:36] LABS: Creatinine Urine 185.6 mg/dL
[2024-08-25 09:40] LABS: MALB Creatinine Ratio 16.1 mg/g (0-30); Microalbumin Urine Random 29.9 mg/L (0-16.7)
== END 2024-08-25 08:46 | disposition home or self-care (01) ==
LOC: ANHLAB 08:48
PROVIDERS: PCP Family Medicine; Visit Provider Family Medicine
DX: D50.9 Iron deficiency anemia, unspecified (principal); F41.9 Anxiety disorder, unspecified; E11.29 Type 2 diabetes mellitus with other diabetic kidney complication; R80.9 Proteinuria, unspecified; I10 Essential (primary) hypertension
CPT/HCPCS: 36415; 80053; 82043; 82728; 83036; 84443; 85025

== ENCOUNTER 2024-09-08 09:00 | Outpatient (CLI) | payer OTHER, SELFPAY ==
--- OUTSIDE RECORDS SUMMARY | 2024-09-08 09:16 | XMS_ITS | Data Portability ---
Author Organization [place] - [facility], [facility] - ER Address [address] [place] [address] Care Team Providers Care Tangled Yarn Worker Name Role Phone [facility] [...] mcg-21 mcg/actuat ion aerosol inhaler 2021 022 [id number], [address] [place], [place], [id number], 11:03:32 Singulair 10 mg tablet 2021 022 [facility] #[id number], [address] [place], [id number], 2 11:03:31 montelukas t 10 mg tablet 2018 019 INTERFACE [facility][id number], [address] [place], [id number], 9 09:50:59 montelukas t 10 mg tablet 2017 018 INTERFACE [id number] [place], [address] [place], [address], 8 10:30:00 Patient TargetsNo targets recorded. Patient Instructions Encounter Date Encounter Id Patient Instructions Last Modified By Organization Details Last Modified Time 10/12/2017 [id number] controlling your asthma: care instructions Not available 10/12/2017 10:29:58 learning about asthma Not available 10/12/2017 10:29:58 sleep apnea: car e instructions Not available 10/12/2017 10:29:59 sleep study, polysomnogram with continuous positive airway pressure* [email or web address] Not available 10/12/2017 12:16:04 shortness of breath: care instructions Not available 10/12/2017 10:30:57 complete PFT w/ post bronchodilator spirometry* SOHAIL Not available 11/26/2017 10:23:54 01/11/2018 [id number] controlling your asthma: care instructions Not available 01/11/2018 11:55:46 learning about asthma Not available 01/11/2018 11:55:46 sleep apnea: car e instructions Not available 01/11/2018 11:55:46 shortness of breath: care instructions Not available 01/11/2018 11:55:46 11/15/2018 [id number] controlling your asthma: care instructions Not available 11/15/2018 09:50:54 learning about asthma Not available 11/15/2018 09:50:54 sleep apnea: car e instructions Not available 11/15/2018 09:50:53 shortness of breath: care instructions Not available 11/15/2018 09:50:54 complete PFT w/ post bronchodilator spirometry* smallafre Not available 11/15/2018 09:55:18 12/02/2019 [id number] controlling your asthma: care instructions Not available 12/02/2019 16:36:46 learning about asthma Not available 12/02/2019 16:36:46 sleep apnea: car e instructions Not available 12/02/2019 16:36:46 shortness of breath: care instructions Not available 12/02/2019 16:36:46 11/04/2021 [id number] controlling your asthma: care instructions Not available [...] 18 11/26/2017 compl ete PFT w/ post [facility] hodil ator ochoa metry * No observ ation record ed. [facility] ([facility]) [address], [place], [address], 01/11/2018 11:51:52 11/26/19 20 11/26/2019 compl ete PFT* No observ ation record ed. [facility] ([facility]) [address], [place], [address], 12/02/2019 16:34:52 11/19/19 22 11/18/2021 compl ete PFT w/ post [facility] hodil ator ochoa metry * No observ ation record ed. [email or web address] [facility] ([facility]) [address], [place], [address], 11/30/2021 09:25:04 Result Notes None recorded. Problems Name Problem SNOMED Code Status Onset Date Resolution Date Notes Provider Name and Address Organization Details Recorded Time Obstructive sleep apnea syndrome 47980679 Active sAhely moreno [place] - [facility] 5 08:42:39 Overweight 984673866 Active Giana Cunningham MD [address] [facility] [address], [place], [address] [place] [address] - [facility] 4 10:57:09 Allergic rhinitis 41895083 Ifeoma Cunningham MD [address] [facility] [address], [place], [address], [facility] 4 10:57:09 Asthma 826347656 Ifeoma Cunningham MD [address] [facility] [address], [place], [address], [facility] 4 10:57:09 Periodic limb movement disorder 301173521 Ifeoma Cunningham MD [address] [facility] [address], [place], [address], [facility] 4 10:57:09 Problem Notes None recorded. Procedures Surgical History Date Name Laterality Status Provider Name and Address Organization Details Recorded Time 08/26/19 23 PAP Compliance cancelled zan cole [facility] 08/21/2022 08:17:03 11/05/19 22 PAP Compliance completed Cari Mills [facility] 11/02/2021 13:34:39 12/02/19 20 PAP Compliance completed Jyotsna Caballero [facility] 12/02/2019 16:15:26 11/16/19 19 PAP Compliance completed Yamileth Betancourt [facility] 11/15/2018 08:55:07 CHOLECYSTECTOMY completed jose pinto [facility] 10/12/2017 10:03:42 delivery completed jose pinto [facility] 10/12/2017 10:03:58 APPENDECTOMY completed Daisy Choi [facility] 05/31/2012 13:44:12 Imaging Results None recorded. Procedure Notes None recorded. Medical Equipment None Reported. Allergies Allergen ID Allergen Name Allergen Category Reaction Reaction Severity Criticality Documentation Date Start Date Code Code System Note Provider Name and Address Organization Details Recorded Time 04942 Diovan medicatio n Not available Not available Not available 05/31/2012 89019 2 RxNorm Daisy moreno [facility] 3 13:44:12 66292 Product containin g penicilli n (product) medicatio n Not available Not available Not available 05/31/2012 74708 8001 SNOMED JACK [place] - [facility] 3 13:44:12 Medications Name Sig Start Date [...] Not Available Not A vailable Not Available Corie Autoinjecto r 80 mg/mL subcutaneou s 11/04 [...] Updated DateTime 8 157.48 cm 49.5 kg/m2 410910. 38 g 16 /min 75 /min 97 % 97 % 98 [degF] 128 mm[Hg] 78 mm[Hg] jose pinto [facility] 8 10:10:47 Date Recorded Heart rate Oxygen saturation Oxygen saturation in Arterial blood by Pulse oximetry Respiratory rate Body temperature Body weight Body mass index (BMI) Body height Systolic blood pressure Diastolic blood pressure Provider Name and Address Organization Details Last Updated DateTime 2 69 /min 98 % 98 % 18 /min 98.7 [degF] 554772. 72 g 49.9 kg/m2 157.48 cm 120 mm[Hg] 70 mm[Hg] Cari Mills [facility] 2 10:36:56 Date Recorded Body height Body mass index (BMI) Body weight Heart rate Respiratory rate Oxygen saturation Oxygen saturation in Arterial blood by Pulse oximetry Body temperature Systolic blood pressure Diastolic blood pressure Provider Name and Address Organization Details Last Updated DateTime 9 157.48 cm 45.5 kg/m2 130480. 78 g 71 /min 18 /min 98 % 98 % 98.7 [degF] 118 mm[Hg] 80 mm[Hg] Yamileth Betancourt [facility] 9 08:59:15 Date Recorded Body height Body mass index (BMI) Body weight Respiratory rate Heart rate Oxygen saturation Oxygen saturation in Arterial blood by Pulse oximetry Body temperature Systolic blood pressure Diastolic blood pressure Provider Name and Address Organization Details Last Updated DateTime 8 157.48 cm 49.4 kg/m2 231378. 94 g 16 /min 76 /min 97 % 97 % 98.6 [degF] 130 mm[Hg] 80 mm[Hg] jose pinto [facility] 8 11:42:39 Social History Question Answer Notes LastModified by Organizat ion Details LastModified Time Tobacco Smoking Status Former Smoker Daisy Jimbo moreno [facility] 05/31/2012 13:44:12 Do You Have An Advance [...] COVID-19 While That Case Was Ill? No [email or web address] Information not available 12/02/2019 In The 14 Days Before Symptom Onset, Have You Had Close Contact With A Person Who Is Under Investigation For COVID-19 While That Person Was Ill? No [email or web address] Information not available 12/02/2019 Have You Been To An Area Known To Be High Risk For COVID-19? No [email or web address] Information not available 12/02/2019 Are You Deaf Or Do You Have Serious Difficulty Hearing? No Information not available 11/04/2021 How Many Days Of Moderate To Strenuous Exercise, Like A Brisk Walk, Did You Do In The Last 7 Days? 3 Information not available 11/04/2021 Live Alone Or With Others? With Others [email or web address] Information not available 05/31/2012 Tobacco-quit Date 25 Years Of Age Information not available 11/15/2018 Marital Status [email or web address] Informatio n not available 05/31/2012 Do You Have A Medical Power Of Product Picker? No Information not available 11/04/2021 What Was The Date Of Your Most Recent Tobacco Screening? 11/04/2021 Information not available 11/04/2021 Are There Any Occupational Health Risks Where You Work? Denies Information not available 11/15/2018 Do You Have An Out Of Hospital DNR? No Information not available 11/04/2021 At What Age Did You Start Smoking Tobacco? 17 [email or web address] Information not available 05/31/2012 Are You Passively Exposed To Smoke? Yes All Of Life Information not available 10/12/2017 Are There Any Smokers In Your House? No Information not available 11/04/2021 How Much Tobacco Do You Smoke? 1 PPD Information not available 05/31/2012 Has Tobacco Cessation [...] is your level of alcohol consumption? 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 [id number] Information not available 11/04/2021 Do you have [...] influenza, unspecified formulation 7 completed jose pinto [facility] 10/12/2017 10:07:56 Influenza, [place] 8 completed Yamileth Betancourt [facility] 11/15/2018 08:59:38 COVID-19, mRNA, LNP-S, PF, 100 mcg/0.5mL dose or 50 mcg/0.25mL dose 1 completed Cari Mills [facility] 11/04/2021 10:38:18 COVID-19, mRNA, LNP-S, PF, 100 mcg/0.5mL dose or 50 mcg/0.25mL dose 1 completed Cari Mills [facility] 11/04/2021 10:38:24 COVID-19, mRNA, LNP-S, PF, 100 mcg/0.5mL dose or 50 mcg/0.25mL dose 1 completed Cari Mills [facility] 11/04/2021 10:38:40 Influenza, split virus, quadrivalent, preservative 1 completed Cari Gene [facility] 11/04/2021 10:39:05 Influenza, split virus, trivalent, preservative 0 completed Daisy Choi [facility] 05/31/2012 13:52:53 Past Encounters Encounter ID Performer Location Encounter Start Date Encounter Closed Date Diagnosis/Indication Diagnosis SNOMED-CT Code Diagnosis ICD10 Code Diagnosis Note [id number] MD MASTER Dinh [id number] [place] [address],[address] [place] [address] 05/31/2012 13:27:03 05/31/2012 14:37:57 [id number] MD MASTER Dinh [id number] [place] [address],[address] [place] [address] 07/26/2012 09:18:03 07/26/2012 09:51:04 [id number] MD MASTER Dinh [id number] [place] [address],[address] [place] [address] 10/04/2012 10:48:55 10/04/2012 11:42:45 [id number] MD MASTER Dinh [id number] [place] [address],[address] [place] [address] 04/25/2013 10:26:44 04/25/2013 11:01:44 Obstructive sleep apnea syndrome 75557926 On CPAP 9 with full face mask , she has being tolerating well , last compliance data was 90% She has being loosing weight and will notify me if lost more than 50 pounds Overweight 533068826 con t weight loss and diest modificati on. Asthma 418368861 Cont advair and singualir Albuterol as needed ( ventolin) Periodic l imb movement disorder 940441360 she is asymptomat ic Allergic rhinitis 92659810 cont singualir [id number] Giana Cunningham Md1 MASTER GORDSolitario [address] [facility] [place] [address] 10/12/2017 09:11:31 10/12/2017 11:29:34 Obstructive sleep apnea syndrome 60325190 G47.33 She has TIFFANI since 2013 and has been on CPAP 9 . [...] a titration given the weight gain Asthma 174591019 J45.90 9 I will cont the adavair and sent for PFTa nd restart singualair , proair as needed Ex-smoker 2797216 Z87.89 1 and second hand exposure Anemia 939798631 D64.9 she has iron infusion Obesity 067404451 E66.9 weight loss recommeded Dyspnea 739136220 R06.02 [id number] Giana Young [address] [place] [address] 01/11/2018 10:57:13 01/11/2018 12:11:49 Obstructive sleep apnea syndrome 66824771 G47.33 She has TIFFANI since 2012 and she has been now on APAP and she has been compliant and w benefit .INITIAL COMPLIANCE PASSED @ 100 % AHI 0.4 LEAK WNL Asthma 976865544 J45.90 9 I have reviewed the PFT and she has good reversibil ity and will cont advair and singualir and proair as needed Obesity 686351310 E66.9 weight loss recommende d Dyspnea 460189027 R06.02 [id number] Giana Young [place] [id number] [place] [address] [address] [place] [address] 11/15/2018 08:50:05 11/15/2018 09:55:55 Obstructive sleep apnea syndrome 10173799 G47.33 She ahs oksana on the APAP and sh ehas been 97% complaint and AHI .7She ahs oksana loosing weight and soing well and w great benefit Asthma 787453779 J45.90 9 She ahs been on the advaircont singulairp roair as neededwill follow PFT Obesity 437644912 E66.9 she has been loosing weight and doing well w dieta na recommende d exercise Dyspnea 033501202 R06.02 Ex-smoker 2952630 Z87.89 1 and second hand exposure [id number] Giana Cunningham Md1 LIND[place] 1 [address] [facility] [place] [address] 12/02/2019 16:14:58 12/02/2019 16:44:39 Obstructive sleep apnea syndrome 42888840 G47.33 she has been complaint and with benefits and I have reviewed compliance Asthma 765013591 J45.90 9 She ahs oksana stable on the advair 115cont singulairp roair as needed Obesity 245089084 E66.9 she ahs been trying to loose weight Dyspnea 760055920 R06.02 Ex-smoker 5979594 Z87.89 1 and second hand exposure Psoriatic arthritis 1563 70364 L40.50 on cocentric [id number] Giana Young [address] [address] 11/04/2021 10:16:02 11/04/2021 11:15:34 Obstructive sleep apnea syndrome 79988648 G47.33 I have reviewed the complaince and she has been complaint and with great benefitsI have reviewed the complaince Asthma 722219775 J45.90 9 stable on the advair 115 BIDcont singulairp roair as needed Obesity 438474492 E66.9 weight loss recommende d Dyspnea 952883921 R06.02 Ex-smoker 9702853 Z87.89 1 and second hand exposure Psoriatic arthritis 1563 24235 L40.50 on biologics Health Concerns Section Related Observation LastModified by Organization Detai ls LastModified Time None Recorded Concern Status LastModified by Organization Details LastModified Time None Recorded Advance Directives Directive N: Payers Encounter Date Sequence Insurance Name Policy Number Policy Clarke Covered Member ID Clarke Member ID Guarantor Name 10/12/2017 1 [place] [id number] Cristian New [id number] [place]aci [place] 01/11/2018 1 [place] [id number] Cristian New [id number] Staci [place] 11/15/2018 1 [place] [id number] Cristian New [id number] Staci [place] 12/02/2019 1 [place] [id number] Cristian New [id number] Staci [place] 11/04/2021 1 [place] [id number] Cristian New [id number] Staci New Notes Date Note Type [...] been tired during the day. . JASPER VERMA TECHNICAL OPERATIONS SPECIALIST [address] [facility], [place], [address], [facility] 10/12/2017 15:38:49 01/11/2018 text/html She si shere for follow up and she ahs been doing well , she has a little cough likely from allergies and she ahs no sputum and ahs no wheezing and she has been on the advair and no need to use the rescue inhalers . Giana Cunningham Md1 [address] [facility], [place], [address], [facility] 01/11/2018 11:56:12 11/15/2018 text/html She si here for follow up and she has been diagnosed w diabetes. She ahs oksana on a diest and loosing weight. She ahs been seen rheumatology for possible Psoriatic arthritis . She has been using the advair daily and no need to use the rescue inhaler. Giana Cunningham Md1 [address] [facility],[address], [place], [address], [facility] 11/15/2018 09:51:28 12/02/2019 text/html Patient is seen [...] . Has been on the advair Giana Cunningham Md1 [address] [facility] [address], [place], [address], [facility] 12/02/2019 16:38:15 11/04/2021 text/html She is here [...] during the day . Giana Cunningham Md1 [address] [facility],[address], [place], [address], [facility] 11/04/2021 11:03:51 OBGyn Episode No OBEpisode recorded.
--- OUTSIDE RECORDS SUMMARY | 2024-09-08 09:17 | XMS_ITS | Continuity of Care Document ---
Author Organization [facility] Address [address] [place] [address] Phone Care Team Providers Care Va Underwriter Name Role Phone Rebecca SANTOS Cait Unavailable Unavailable Allergies, Adverse Reactions, Alerts Substance Reaction Status Criticality valsartan Active No Information Penicillins Active No Information Advance Directives Directive Yes / No Effective Date File Name No Information Encounters Encounter Description Practice Location Reason(s) For Visit Diagnoses Date Provider Providers Copied on Encounter [facility], [address] [place], [place], [id number] , [place] tel: [phone] [facility] Other secondary cataract, right eyeType 2 diabetes mellitus without complicationsLong-t erm (current) use of injectable non-insulin antidiabetic drugs Sep- 3 Rebecca Chavira. [address] [place], [address], [place]. tel:[phone] [facility], [address] [place], [place], [address] , [place] tel: [phone] [facility] Type [address] for examination of eyes and vision with abnormal findingsPresbyopia Sep- 2 Sadiq Carrero. [address] [place], [address], [place]. tel:[phone] [facility], [address] [place], [place], [address] , [place] tel: [phone] [facility] Location Type 2 diabetes mellitus without complicationsOther chronic allergic conjunctivitis Sep-0 1 [facility] [place], [facility], . tel:[phone] [facility], [place], [address] [place] [address] , [place] tel: [phone] [facility] Location Type 2 diabetes mellitus without complications 0 [facility] Padmini Colung[place], [place], [facility], . tel:[phone] [facility], Padmini [place], [place], [address] [place] [address] , [place] tel: [phone] [facility] Location Presence of intraocular lensPresence of intraocular lensPsoriatic arthritis mutilans 0 9 [facility] Padmini Colung[place], [facility], . 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 Padmini Colung[place], [facility], . tel:[phone] [facility], Padmini Colunga [place], [place], [address] [place] [address] , tel: [phone] [facility] Location No Information 8 [facility]. Padmini [place], [place], [facility], [place]. tel:[phone] Family History Family Member Type Diagnosis Age At Onset Problem (finding) Fhx of diabetes mellitu s Problem (finding) Fhx of cancer Problem (finding) Fhx of arthritis Problem (finding) Fhx of cardiovascular d isease Payers Payer name Insurance type Covered libertarian ID Authoriza tion(s) No Information Social History [...] No Information Instructions Date Instruction Additional Infor chadwick Impression/Plan Related to [place] revealed posterior [...] Related to Locat ion 1: OD\nLocation 2: OS\t1335-64-91\nINACTIVE\nPriority: 2 Impression/Plan Related to Locat ion 1: OD\nLocation 2: OS\m1694-29-50\nINACTIVE\nPriority: 3 Impression/Plan Related to \nPri ority: 2 Assessments Type Assessment Date No Information Patient Care Teams Name Effective Dates (start - stop) Status Members No Information
--- OUTSIDE RECORDS SUMMARY | 2024-09-08 09:18 | XMS_ITS | Data Portability ---
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 Plan of Treatment Reminders Order Date Submit Date Provider Last Modified By Organization Details Last Modified Time Details Appointments None recorded. Lab CMP, serum or plasma 2022 023 [facility], [address], [place], [address], 3 14:43:40 lipid panel, serum 2022 023 [facility], [address] [place], [address], 3 14:43:41 CK (creatine kinase), total, serum 2022 023 [facility], [address] [place], [address], 3 14:43:41 CBC 2022 023 [facility], [address] [place], [address], 3 14:43:41 TSH, serum or plasma 2022 023 [facility], [address], [place], [address], 3 09:38:13 uric acid, serum or plasma 2022 023 [facility], [address], [place], [address], 3 09:38:22 urinalysi s, complete 2022 023 [facility], [address], [place], [address], 3 18:41:59 vitamin B12, serum 2022 023 [place] [facility], [address], [place], [address], 3 09:38:10 CBC 2022 023 [place], [address], [place], [address], 3 18:23:27 CMP, serum or plasma 2022 023 [facility], [address], [place], [address], 3 09:38:18 T4, free, serum 2022 023 [place] [facility], [address], [place], [address], 3 09:38:12 vitamin D, 25-hydrox y, total, serum 2022 023 [facility], [address], [place], [address], 3 09:38:16 lipid panel, serum 2022 023 [facility], [address], [place], [address], 3 09:38:20 HbA1c (hemoglob in A1c), blood 2022 023 [facility], [address], [place], [address], 3 18:23:26 microalbu min/creat inine, ratio, urine 2022 023 [facility], [address], [place], [address], 3 14:31:48 venipunct ure 2022 023 [facility], [address], [place], [address], 3 11:49:24 HbA1c (hemoglob in A1c), blood 2022 023 [facility], [address], [place], [address], 3 14:43:40 microalbu min/creat inine, ratio, urine 2022 023 [facility], [address], [place], [address], 3 14:43:40 venipunct ure 2022 023 [facility], [address], [place], [address], 3 14:43:40 Referral podiatris t referral 2022 023 [id number] Nina Damon DP ([facility]), [address] [place] [address], [place], [address], 3 08:04:40 Procedures None recorded. Surgeries None recorded. Imaging MAMMO, screening , tomosynth esis, bilateral 2022 023 [facility], [facility], All Locations, [place], [address], 3 09:36:44 electroca rdiogram 2022 023 [place] In-Office Order, Internal Use Only DO Not Attach Compendium DO Not Attach Compendium, Do Not Delete/merge, [id number] 3 11:40:56 XR, chest, 2 view 2022 023 [facility], [facility], All Locations, [place], [address], 3 09:25:23 Medication Orders cyclobenz aprine 10 mg tablet 2022 023 [facility]85639, [address] [place], [place], [id number], 3 13:21:27 Cipro 500 mg tablet 2022 023 [facility] #84110, [address] [place], [place], [id number], 3 13:21:24 albuterol sulfate 2.5 mg/3 mL (0.083 %) solution for nebulizat ion 20[address] [place] [address] [facility], [address] [place], [place], [id number], 3 09:07:25 Medrol (Diaz) 4 mg tablets in a dose pack 2022 023 [facility] #96700, [address] [place], [place], [id number], 3 13:06:11 Zithromax Z-Diaz 250 mg tablet 2022 023 [facility] #82913, [address] [place], [place], [id number], 3 13:06:15 dexametha sone sodium phosphate 4 mg/mL injection solution 2022 023 [facility] Not available 3 13:05:48 Depo-Medr ol 80 mg/mL suspensio n for injection 2022 023 [facility] Not available 3 13:05:46 Bactrim DS 800 mg-160 mg tablet 2022 023 [facility] #16505, [address] [place], [place], [id number], 3 13:21:47 Patient TargetsNo targets recorded. Patient Instructions Encounter Date Encounter Id Patient Instructions Last Modified By Organization Details Last Modified Time 05/08/2022 [id number] learning about type 2 diabetes Not available 05/08/2022 08:46:35 05/16/2022 [id number] starting a weigh t loss plan: care instructions Not available 05/16/2022 09:07:13 learning about type 2 diabetes Not available 05/16/2022 09:07:13 bronchitis: care instructions Not available 05/16/2022 09:07:13 05/26/2022 [id number] learning about type 2 diabetes Not available 05/26/2022 11:08:53 Acute Sinusitis: Care Instructions Not available 05/26/2022 11:08:54 08/04/2022 [id number] Vaccine Consent form Not available 08/04/2022 11:36:27 toenail fungus: care instructions Not available 08/04/2022 11:36:29 Anticipatory Guidance for preventive visits Not available 08/04/2022 11:36:27 starting a weigh t loss plan: care instructions Not available 08/04/2022 11:36:27 learning about type 2 diabetes Not available 08/04/2022 11:36:27 01/03/2023 [id number] Vaccine Consent form mburt Not available 01/03/2023 [...] Not available 01/03/2023 08:12:07 Reason for Referral Operations Support Representative Referral for Onyc homycosis Referring Physician: Tatiana Story, Family Medicine, Encounter Date: 08/04/2022 Results Created Date Observation Date Name Description Value Unit Range Abnormal Flag Note LastModifiedBy Organization Detail LastModifiedTime 05/08/19 23 05/14/2022 CULTU RE, AEROB IC AND ANAER OBIC W/GRA M STAIN culture, anaerobic bacteria w/gram stain SEE NOTE CULTU RE, ANAER OBIC BACTE COREY W/GRA M STAIN Micro Numbe r: [id number] Test Statu s: Final Speci men Sourc e: Groin Speci men Quali ty: Adequ ate Gram Stain : Few epith elial cells No white blood cells seen No organ isms seen Resul t: Light growt h of Propi oniba cteri um acnes Not Available [facility] [address] [place], [place] [address], [place], [address], 05/14/2022 08:47:30 05/08/19 23 05/14/2022 CULTU RE, AEROB IC AND ANAER OBIC W/GRA M STAIN culture, aerobic bacteria SEE NOTE CULTU RE, AEROB IC BACTE COREY Micro Numbe r: [id number] Test Statu s: Final Speci men Sourc e: Groin Speci men Quali ty: Adequ ate Resul t: Growt h of skin shahid (note : Growt h does not inclu de S. aureu s, beta- hemol ytic Strep tococ ci or P. aerug inosa ). Not Available [facility] [address], [place], [address], 05/14/2022 08:47:30 05/19/19 23 05/20/2022 ALBUM IN, RANDO M URINE W/CRE ATINI NE creatinine, random urine 111 mg/dL 20-275 normal Not Available [facility] [address] [place], [address], 05/20/2022 17:56:38 05/19/19 23 05/20/2022 ALBUM IN, RANDO M URINE W/CRE ATINI NE albumin, urine 2.7 mg/dL see note: normal Refer ence Range : Refer ence Range Not estab lishe d Not Available [facility] [place] [facility] [address], [place], [address], 05/20/2022 17:56:38 05/19/19 23 05/20/2022 ALBUM IN, [...] categ ory. Not Available [facility] [place] [facility] [address], [place], [address], 05/20/2022 17:56:38 05/19/19 23 05/20/2022 LIPID PANEL WITH REFLE X TO DIREC T LDL cholesterol, total 153 mg/dL <200 normal Not Available [facility] [place] [facility] [address], [place], [address], 05/20/2022 17:56:39 05/19/19 23 05/20/2022 LIPID PANEL WITH REFLE X TO DIREC T LDL HDL cholesterol 52 mg/dL > or = 50 normal Not Available [facility] [place] [facility] [address], [place], [address], 05/20/2022 17:56:39 05/19/19 23 05/20/2022 LIPID PANEL WITH REFLE X TO DIREC T LDL triglyceride s 140 mg/dL <150 normal Not Available [facility] [place] [facility] [address], [place], [address], 05/20/2022 17:56:39 05/19/19 23 05/20/2022 LIPID PANEL [...] Meagan hoffman SS et al. ZANA. 2013; 310(0 7): 2061- 2068 (http ://ed ucati on.Qu Cedrick diaz CreditCardsOnlines. com/f aq/FA Q164) Not Available [facility] [place] [facility] [address], [place], [address], 05/20/2022 17:56:39 05/19/19 23 05/20/2022 LIPID PANEL WITH REFLE X TO DIREC T LDL chol/HDLC ratio 2.9 (calc ) <5.0 normal Not Available [facility] [place] [facility] [address], [place], [address], 05/20/2022 17:56:39 05/19/19 23 05/20/2022 LIPID PANEL [...] optio n. Not Available [facility] [place] [facility] [address], [place], [address], 05/20/2022 17:56:39 05/19/1905/20/2022 COMPR EHENS AREN METAB OLIC PANEL glucose 134 mg/dL 65-99 high Fasti ng refer ence inter elias For someo ne witho ut known diabe raza, a gluco se value >125 mg/dL indic ates that they may have diabe raza and this shoul d be confi rmed with a follo w-up test. Not Available [facility] [place] [facility] [address], [place], [address], 05/20/2022 17:56:40 05/19/19 23 05/20/2022 COMPR EHENS AREN METAB OLIC PANEL urea nitrogen (BUN) 13 mg/dL 7-25 normal Not Available [facility] [place] [facility] [address], [place], [address], 05/20/2022 17:56:40 05/19/19 23 05/20/2022 COMPR EHENS AREN METAB OLIC PANEL creatinine 0.56 mg/dL 0.50-1 .03 normal Not Available [facility] [address], [place], [address], 05/20/2022 17:56:40 05/19/19 23 05/20/2022 COMPR EHENS [...] kdoqi /gfr% 5Fcal culat or Not Available [facility] [address], [place], [address], 05/20/2022 17:56:40 05/19/19 23 05/20/2022 COMPR EHENS AREN METAB OLIC PANEL BUN/creatini ne ratio NOT APPLIC ABLE (calc ) 6-22 Not Available [facility] [address], [place], [address], 05/20/2022 17:56:40 05/19/19 23 05/20/2022 COMPR EHENS AREN METAB OLIC PANEL sodium 138 mmol/ L 135-14 6 normal Not Available [facility] [place] [facility] [address], [place], [address], 05/20/2022 17:56:40 05/19/19 23 05/20/2022 COMPR EHENS AREN METAB OLIC PANEL potassium 4.5 mmol/ L 3.5-5. 3 normal Not Available [facility] [address], [place], [address], 05/20/2022 17:56:40 05/19/19 23 05/20/2022 COMPR EHENS AREN METAB OLIC PANEL chloride 101 mmol/ L 98-110 normal Not Available [facility] [address], [place], [address], 05/20/2022 17:56:40 05/19/19 23 05/20/2022 COMPR EHENS AREN METAB OLIC PANEL carbon dioxide 25 mmol/ L 20-32 normal Not Available [facility] [address], [place], [address], 05/20/2022 17:56:40 05/19/19 23 05/20/2022 COMPR EHENS AREN METAB OLIC PANEL calcium 9.6 mg/dL 8.6-10 .4 normal Not Available [facility] [address], [place], [address], 05/20/2022 17:56:40 05/19/19 23 05/20/2022 COMPR EHENS AREN METAB OLIC PANEL protein, total 7.2 g/dL 6.1-8. 1 normal Not Available [facility] [address], [place], [address], 05/20/2022 17:56:40 05/19/19 23 05/20/2022 COMPR EHENS AREN METAB OLIC PANEL albumin 4.0 g/dL 3.6-5. 1 normal Not Available [facility] [address], [place], [address], 05/20/2022 17:56:40 05/19/19 23 05/20/2022 COMPR EHENS AREN METAB OLIC PANEL globulin 3.2 g/dL_ (calc ) 1.9-3. 7 normal Not Available [facility] [address], [place], [address], 05/20/2022 17:56:40 05/19/19 23 05/20/2022 COMPR EHENS AREN METAB OLIC PANEL albumin/glob ulin ratio 1.3 (calc ) 1.0-2. 5 normal Not Available [facility] [address], [place], [address], 05/20/2022 17:56:40 05/19/19 23 05/20/2022 COMPR EHENS AREN METAB OLIC PANEL bilirubin, total 0.2 mg/dL 0.2-1. 2 normal Not Available [facility] [address], [place], [address], 05/20/2022 17:56:40 05/19/19 23 05/20/2022 COMPR EHENS AREN METAB OLIC PANEL alkaline phosphatase 80 U/L 37-153 normal Not Available [facility] [address], [place], [address], 05/20/2022 17:56:40 05/19/19 23 05/20/2022 COMPR EHENS AREN METAB OLIC PANEL AST 11 U/L 10-35 normal Not Available [facility] [address], [place], [address], 05/20/2022 17:56:40 05/19/19 23 05/20/2022 COMPR EHENS AREN METAB OLIC PANEL ALT 21 U/L 6-29 normal Not Available [facility] [address], [place], [address], 05/20/2022 17:56:40 05/19/19 23 05/20/2022 HEMOG LOBIN [...] child kushal. Not Available [facility] [place] [facility] [address], [place], [address], 05/20/2022 17:56:40 05/19/1905/20/2022 CREAT INE KINAS E, TOTAL creatine kinase, total 27 U/L 29-143 low Not Available [facility] [place] [facility] [address], [place], [address], 05/20/2022 17:56:41 05/19/19 23 05/20/2022 CBC (INCL UDES DIFF/ PLT) white blood cell count 14.8 thous and/u L 3.8-10 .8 high Not Available [facility] [place] [facility] [address], [place], [address], 05/20/2022 17:56:42 05/19/19 23 05/20/2022 CBC (INCL UDES DIFF/ PLT) red blood cell count 4.96 yanet on/uL 3.80-5 .10 normal Not Available [facility] [place] [facility] [address], [place], [address], 05/20/2022 17:56:42 05/19/19 23 05/20/2022 CBC (INCL UDES DIFF/ PLT) hemoglobin 13.8 g/dL 11.7-1 5.5 normal Not Available [facility] [place] [facility] [address], [place], [address], 05/20/2022 17:56:42 05/19/19 23 05/20/2022 CBC (INCL UDES DIFF/ PLT) hematocrit 41.4 % 35.0-4 5.0 normal Not Available [facility] [address], [place], [address], 05/20/2022 17:56:42 05/19/19 23 05/20/2022 CBC (INCL UDES DIFF/ PLT) MCV 83.5 fL 80.0-1 00.0 normal Not Available [facility] [address], [place], [address], 05/20/2022 17:56:42 05/19/19 23 05/20/2022 CBC (INCL UDES DIFF/ PLT) MCH 27.8 pg 27.0-3 3.0 normal Not Available [facility] [address], [place], [address], 05/20/2022 17:56:42 05/19/19 23 05/20/2022 CBC (INCL UDES DIFF/ PLT) MCHC 33.3 g/dL 32.0-3 6.0 normal Not Available [facility] [address], [place], [address], 05/20/2022 17:56:42 05/19/19 23 05/20/2022 CBC (INCL UDES DIFF/ PLT) RDW 15.9 % 11.0-1 5.0 high Not Available [facility] [address], [place], [address], 05/20/2022 17:56:42 05/19/19 23 05/20/2022 CBC (INCL UDES DIFF/ PLT) platelet count 308 thous and/u L 140-40 0 normal Not Available [facility] [address], [place], [address], 05/20/2022 17:56:42 05/19/19 23 05/20/2022 CBC (INCL UDES DIFF/ PLT) MPV 10.1 fL 7.5-12 .5 normal Not Available [facility] [place] [facility] [address], [place], [address], 05/20/2022 17:56:42 05/19/19 23 05/20/2022 CBC (INCL UDES DIFF/ PLT) absolute neutrophils 05834 cells /uL 1500-7 800 high Not Available [facility] [place] [facility] [address], [place], [address], 05/20/2022 17:56:42 05/19/19 23 05/20/2022 CBC (INCL UDES DIFF/ PLT) absolute lymphocytes 2057 cells /uL 850-39 00 normal Not Available [facility] [place] [facility] [address], [place], [address], 05/20/2022 17:56:42 05/19/19 23 05/20/2022 CBC (INCL UDES DIFF/ PLT) absolute monocytes 829 cells /uL 200-95 0 normal Not Available [facility] [place] [facility] [address], [place], [address], 05/20/2022 17:56:42 05/19/19 23 05/20/2022 CBC (INCL UDES DIFF/ PLT) absolute eosinophils 0 cells /uL 15-500 low Not Available [facility] [place] [facility] [address], [place], [address], 05/20/2022 17:56:42 05/19/19 23 05/20/2022 CBC (INCL UDES DIFF/ PLT) absolute basophils 15 cells /uL 0-200 normal Not Available [facility] [place] [facility] [address], [place], [address], 05/20/2022 17:56:42 05/19/19 23 05/20/2022 CBC (INCL UDES DIFF/ PLT) neutrophils 80.4 % normal Not Available [facility] [place] [facility] [address], [place], [address], 05/20/2022 17:56:42 05/19/19 23 05/20/2022 CBC (INCL UDES DIFF/ PLT) lymphocytes 13.9 % normal Not Available [facility] [place] [facility] [address], [place], [address], 05/20/2022 17:56:42 05/19/19 23 05/20/2022 CBC (INCL UDES DIFF/ PLT) monocytes 5.6 % normal Not Available [facility] [place] [facility] [address], [place], [address], 05/20/2022 17:56:42 05/19/19 23 05/20/2022 CBC (INCL UDES DIFF/ PLT) eosinophils 0.0 % normal Not Available [facility] [address], [place], [address], 05/20/2022 17:56:42 05/19/19 23 05/20/2022 CBC (INCL UDES DIFF/ PLT) basophils 0.1 % normal Not Available [facility] [place] [facility] [address], [place], [address], 05/20/2022 17:56:42 08/05/19 23 08/04/2022 A1C hemoglobin A1C 5.2 % 4.3-5. 6 ADA RECOM MANPREET D GUIDE LINES FOR HgbA1 C 5.7-6 .4 % predi abeti c <7.0% Reaso nable glyce ciara goal for non-p regna nt adult s <8.0 Appro priat e for patie nts with hypog lycem ia or advan nancy micro /macr o vascu lar compl icati ons Not Available [facility] [address], [place], [address], 08/04/2022 18:23:26 08/05/19 23 08/04/2022 A1C estimated average glucose 102.5 mg/dL 97.0-1 40.0 Not Available [facility] [address], [place], [address], 08/04/2022 18:23:26 08/05/19 23 08/04/2022 CBC W/ AUTOD IFF, COMPL ETE BLOOD COUNT WBC 12.5 K/uL 3.6-10 .0 high Not Available [facility] [address], [place], [address], 08/04/2022 18:23:27 08/05/19 23 08/04/2022 CBC W/ AUTOD IFF, COMPL ETE BLOOD COUNT nucleated RBC 0.00 % 0.00-2 .00 Not Available [facility], [place], [address], 08/04/2022 18:23:27 08/05/19 23 08/04/2022 CBC W/ AUTOD IFF, COMPL ETE BLOOD COUNT RBC 4.76 M/uL 3.90-5 .00 Not Available [facility], [place], [address], 08/04/2022 18:23:27 08/05/19 23 08/04/2022 CBC W/ AUTOD IFF, COMPL ETE BLOOD COUNT HGB 13.1 g/dL 12.0-1 5.0 Not Available [facility], [place], [address], 08/04/2022 18:23:27 08/05/19 23 08/04/2022 CBC W/ AUTOD IFF, COMPL ETE BLOOD COUNT hematocrit 40.30 % 35.00- 45.00 Not Available [facility], [place], [address], 08/04/2022 18:23:27 08/05/19 23 08/04/2022 CBC W/ AUTOD IFF, COMPL ETE BLOOD COUNT MCV 84.8 fL 80.0-9 9.0 Not Available [facility], [place], [address], 08/04/2022 18:23:27 08/05/19 23 08/04/2022 CBC W/ AUTOD IFF, COMPL ETE BLOOD COUNT MCH 27.6 pg 27.0-3 3.0 Not Available [facility], [place], [address], 08/04/2022 18:23:27 08/05/19 23 08/04/2022 CBC W/ AUTOD IFF, COMPL ETE BLOOD COUNT MCHC 32.5 g/dL 32.0-3 6.0 Not Available [facility] [address] [place] [address] [address], [place], [address], 08/04/2022 18:23:27 08/05/19 23 08/04/2022 CBC W/ AUTOD IFF, COMPL ETE BLOOD COUNT platelets 298 K/uL 140-44 0 Not Available [facility], [place], [address], 08/04/2022 18:23:27 08/05/19 23 08/04/2022 CBC W/ AUTOD IFF, COMPL ETE BLOOD COUNT RDW 17.1 % 11.0-1 5.0 high Not Available [facility] [address] [place] [address] [address], [place], [address], 08/04/2022 18:23:27 08/05/19 23 08/04/2022 CBC W/ AUTOD IFF, COMPL ETE BLOOD COUNT MPV 8.4 fL 7.4-10 .4 Not Available [facility], [place], [address], 08/04/2022 18:23:27 08/05/19 23 08/04/2022 CBC W/ AUTOD IFF, COMPL ETE BLOOD COUNT neutrophil, % 68.3 % Not Available [facility] [address], [place], [address], 08/04/2022 18:23:27 08/05/19 23 08/04/2022 CBC W/ AUTOD IFF, COMPL ETE BLOOD COUNT lymphocyte % 23.2 % Not Available [facility] [address], [place], [address], 08/04/2022 18:23:27 08/05/19 23 08/04/2022 CBC W/ AUTOD IFF, COMPL ETE BLOOD COUNT monocyte % 6.4 % Not Available [facility] [address] [facility] [facility] [address], [place], [address], 08/04/2022 18:23:27 08/05/19 23 08/04/2022 CBC W/ AUTOD IFF, COMPL ETE BLOOD COUNT eosinophil % 1.8 % Not Available [facility] [address] [place], [place] [address]y [address], [place], [address], 08/04/2022 18:23:27 08/05/19 23 08/04/2022 CBC W/ AUTOD IFF, COMPL ETE BLOOD COUNT basophil % 0.3 % Not Available [facility] [address], [place], [address], 08/04/2022 18:23:27 08/05/19 23 08/04/2022 CBC W/ AUTOD IFF, COMPL ETE BLOOD COUNT neutrophil, # 8.6 K/uL 1.5-7. 5 high Not Available [facility] [address], [place], [address], 08/04/2022 18:23:27 08/05/19 23 08/04/2022 CBC W/ AUTOD IFF, COMPL ETE BLOOD COUNT lymphocyte # 2.9 K/uL 0.8-4. 0 Not Available [facility] [address] [place], [place] [address], [place], [address], 08/04/2022 18:23:27 08/05/19 23 08/04/2022 CBC W/ AUTOD IFF, COMPL ETE BLOOD COUNT monocyte # 0.8 K/uL 0.1-1. 0 Not Available [facility] [address] [place], [place] [address], [place], [address], 08/04/2022 18:23:27 08/05/19 23 08/04/2022 CBC W/ AUTOD IFF, COMPL ETE BLOOD COUNT eosinophil # 0.2 K/uL 0.1-1. 0 Not Available [facility] [address] [place], [place] [address] [address] [place], [address], 08/04/2022 18:23:27 08/05/19 23 08/04/2022 CBC W/ AUTOD IFF, COMPL ETE BLOOD COUNT basophil # 0.0 K/uL 0.0-0. 2 Not Available [facility] [address] [place], [place] [address] [address], [place], [address], 08/04/2022 18:23:27 08/05/19 23 08/04/2022 URINA LYSIS , COMPL ETE W/ REFLE X TO CULTU RE color LIGHT YELLOW yellow Not Available [facility] [address] [place], [place] [address] [address], [place], [address], 08/04/2022 18:41:59 08/05/19 23 08/04/2022 URINA LYSIS , COMPL ETE W/ REFLE X TO CULTU RE appearance CLEAR clear Not Available [facility] [address] [place], [place] [address] [address], [place], [address], 08/04/2022 18:41:59 08/05/19 23 08/04/2022 URINA LYSIS , COMPL ETE W/ REFLE X TO CULTU RE specific gravity 1.020 1.005- 1.030 Not Available [facility] [address], [place], [address], 08/04/2022 18:41:59 08/05/19 23 08/04/2022 URINA LYSIS , COMPL ETE W/ REFLE X TO CULTU RE pH 5.50 5.00-8 .00 Not Available [facility] [address] [place] [address] [address], [place], [address], 08/04/2022 18:41:59 08/05/19 23 08/04/2022 URINA LYSIS , COMPL ETE W/ REFLE X TO CULTU RE glucose NEGATI VE mg/dL negati ve Not Available [facility] [address] [place] [address] [address] [place], [address], 08/04/2022 18:41:59 08/05/19 23 08/04/2022 URINA LYSIS , COMPL ETE W/ REFLE X TO CULTU RE bilirubin NEGATI VE mg/dL negati ve Not Available [facility] [address] [place] [address] [address], [place], [address], 08/04/2022 18:41:59 08/05/19 23 08/04/2022 URINA LYSIS , COMPL ETE W/ REFLE X TO CULTU RE ketone NEGATI VE mg/dL negati ve Not Available [facility] [address], [place], [address], 08/04/2022 18:41:59 08/05/19 23 08/04/2022 URINA LYSIS , COMPL ETE W/ REFLE X TO CULTU RE blood NEGATI VE mg/dL negati ve Micro scopi c is indic ated for trace blood , trace leuko cytes + nitri raza, or 1+ prote in. All other s are consi dered negat aren and no micro scopi c neede d. Not Available [facility] [address] [place] [address] [address] [place], [address], 08/04/2022 18:41:59 08/05/19 23 08/04/2022 URINA LYSIS , COMPL ETE W/ REFLE X TO CULTU RE protein NEGATI VE mg/dL negati ve Not Available [facility] [address] [place] [address] [address] [place], [address], 08/04/2022 18:41:59 08/05/19 23 08/04/2022 URINA LYSIS , COMPL ETE W/ REFLE X TO CULTU RE urobilinogen NORMAL E.U./ dL normal Not Available [facility] [address] [place] [address] [address] [place], [address], 08/04/2022 18:41:59 08/05/19 23 08/04/2022 URINA LYSIS , COMPL ETE W/ REFLE X TO CULTU RE nitrite NEGATI VE negati ve Not Available [facility] [address] [place] [address] [address] [place], [address], 08/04/2022 18:41:59 08/05/19 23 08/04/2022 URINA LYSIS [...] on micro scopi c exam Not Available [facility] [address] [place] [address] [address], [place], [address], 08/04/2022 18:41:59 08/05/19 23 08/05/2022 MICRO ALBUM IN, RAND( UR/CR EAT) creatinine, random urine 116 mg/dL 20-275 normal Not Available [facility] [address] [facility] [place], [address], 08/05/2022 14:31:48 08/05/19 23 08/05/2022 MICRO ALBUM IN, RAND( UR/CR EAT) albumin, urine 1.0 mg/dL see note: normal Refer ence Range : Refer ence Range Not estab lishe d Not Available [facility] [address] [facility] [address], [place], [address], 08/05/2022 14:31:48 08/05/19 23 08/05/2022 MICRO ALBUM [...] a diagn ostic categ ory. Not Available [facility] [address] [facility] [address] [place], [address], 08/05/2022 14:31:48 08/05/19 23 08/06/2022 VITAM IN B-12 vitamin B12 425 pg/mL 200-11 00 normal Not Available [facility] [address] [facility] [address] [place], [address], 08/06/2022 09:38:09 08/05/19 23 08/06/2022 T4, FREE T4, free 0.9 NG/dL 0.8-1. 8 normal Not Available [facility] [address], [place], [address], 08/06/2022 09:38:11 08/05/1908/06/2022 TSH, THYRO ID STIMU LATIN G HORMO NE TSH 2.07 mIU/L normal Refer ence Range > or = 20 Years 0.40- 4.50 Pregn nely Range s First trime ster 0.26- 2.66 Secon d trime ster 0.55- 2.73 Third trime ster 0.43- 2.91 Not Available [facility] [address], [place], [address], 08/06/2022 09:38:13 08/05/1908/06/2022 VITAM IN D, 25-HY [...] /MS is recom manpreet d: order code 88462 (liz ents >2yrs ). See Note 1 Note 1 For addit ional infor keyla odell e refer to http: //pj hoffman.Que stDia gnost ics.c om/fa q/FAQ 199 (This link is being provi ded for infor rebeca ovalles/ narcisa block purpo ses only. ) Not Available [facility] [address], [place], [address], 08/06/2022 09:38:15 08/05/1908/06/2022 CMP, COMPR EHENS AREN METAB OLIC PANEL glucose 78 mg/dL 65-99 normal Fasti ng refer ence inter elias Not Available [facility] [address] [facility], [place], [address], 08/06/2022 09:38:17 08/05/19 23 08/06/2022 CMP, COMPR EHENS AREN METAB OLIC PANEL urea nitrogen (BUN) 13 mg/dL 7-25 normal Not Available [facility] [address], [place], [address], 08/06/2022 09:38:17 08/05/1908/06/2022 CMP, COMPR EHENS AREN METAB OLIC PANEL creatinine 0.70 mg/dL 0.50-1 .03 normal Not Available [facility] [address] [facility] [address], [place], [address], 08/06/2022 09:38:17 08/05/1908/06/2022 CMP, COMPR EHENS AREN [...] or Not Available [facility] [address], [place], [address], 08/06/2022 09:38:17 08/05/1908/06/2022 CMP, COMPR EHENS AREN METAB OLIC PANEL BUN/creatini ne ratio NOT APPLIC ABLE (calc ) 6-22 Not Available [facility] [address], [place], [address], 08/06/2022 09:38:17 08/05/19 23 08/06/2022 CMP, COMPR EHENS AREN METAB OLIC PANEL sodium 139 mmol/ L 135-14 6 normal Not Available [facility] [address], [place], [address], 08/06/2022 09:38:17 08/05/19 23 08/06/2022 CMP, COMPR EHENS AREN METAB OLIC PANEL potassium 4.5 mmol/ L 3.5-5. 3 normal Not Available [facility] [address], [place], [address], 08/06/2022 09:38:17 08/05/1908/06/2022 CMP, COMPR EHENS AREN METAB OLIC PANEL chloride 102 mmol/ L 98-110 normal Not Available [facility] [address], [place], [address], 08/06/2022 09:38:17 08/05/1908/06/2022 CMP, COMPR EHENS AREN METAB OLIC PANEL carbon dioxide 24 mmol/ L 20-32 normal Not Available [facility] [address], [place], [address], 08/06/2022 09:38:17 08/05/1908/06/2022 CMP, COMPR EHENS AREN METAB OLIC PANEL calcium 9.5 mg/dL 8.6-10 .4 normal Not Available [facility] [address], [place], [address], 08/06/2022 09:38:17 08/05/1908/06/2022 CMP, COMPR EHENS AREN METAB OLIC PANEL protein, total 7.5 g/dL 6.1-8. 1 normal Not Available [facility] [address], [place], [address], 08/06/2022 09:38:17 08/05/19 23 08/06/2022 CMP, COMPR EHENS AREN METAB OLIC PANEL albumin 4.1 g/dL 3.6-5. 1 normal Not Available [facility] [address], [place], [address], 08/06/2022 09:38:17 08/05/19 23 08/06/2022 CMP, COMPR EHENS AREN METAB OLIC PANEL globulin 3.4 g/dL_ (calc ) 1.9-3. 7 normal Not Available [facility] [address], [place], [address], 08/06/2022 09:38:17 08/05/19 23 08/06/2022 CMP, COMPR EHENS AREN METAB OLIC PANEL albumin/glob ulin ratio 1.2 (calc ) 1.0-2. 5 normal Not Available [facility] [address], [place], [address], 08/06/2022 09:38:17 08/05/19 23 08/06/2022 CMP, COMPR EHENS AREN METAB OLIC PANEL bilirubin, total 0.4 mg/dL 0.2-1. 2 normal Not Available [facility] [address], [place], [address], 08/06/2022 09:38:17 08/05/19 23 08/06/2022 CMP, COMPR EHENS AREN METAB OLIC PANEL alkaline phosphatase 80 U/L 37-153 normal Not Available [facility] [address], [place], [address], 08/06/2022 09:38:17 08/05/19 23 08/06/2022 CMP, COMPR EHENS AREN METAB OLIC PANEL AST 19 U/L 10-35 normal Not Available [facility] [address], [place], [address], 08/06/2022 09:38:17 08/05/19 23 08/06/2022 CMP, COMPR EHENS AREN METAB OLIC PANEL ALT 18 U/L 6-29 normal Not Available [facility] [address] [facility] [address], [place], [address], 08/06/2022 09:38:17 08/05/19 23 08/06/2022 LIPID PANEL REF DLDL cholesterol, total 137 mg/dL <200 normal Not Available [facility] [address] [facility] [address], [place], [address], 08/06/2022 09:38:20 08/05/19 23 08/06/2022 LIPID PANEL REF DLDL HDL cholesterol 48 mg/dL > or = 50 low Not Available [facility] [address] [facility] [address], [place], [address], 08/06/2022 09:38:20 08/05/19 23 08/06/2022 LIPID PANEL REF DLDL triglyceride s 108 mg/dL <150 normal Not Available [facility] [address] [facility] [address] [place], [address], 08/06/2022 09:38:20 08/05/19 23 08/06/2022 LIPID PANEL [...] 2068 (http ://ed ucati on.Qu estDi agnos CreditCardsOnlines. com/f aq/FA Q164) Not Available [facility] [address], [place], [address], 08/06/2022 09:38:20 08/05/19 23 08/06/2022 LIPID PANEL REF DLDL chol/HDLC ratio 2.9 (calc ) <5.0 normal Not Available [facility] [address], [place], [address], 08/06/2022 09:38:20 08/05/19 23 08/06/2022 LIPID PANEL REF DLDL non HDL cholesterol 89 mg/dL _(anthony c) <130 normal For patie nts with diabe raza plus 1 major ASCVD risk facto r, treat ing to a non-H DL-C goal of <100 mg/dL (LDL- C of <70 mg/dL ) is consi dered a thera peuti c optio n. Not Available [facility] [address], [place], [address], 08/06/2022 09:38:20 08/05/19 23 08/06/2022 URIC ACID uric acid 5.0 mg/dL 2.5-7. 0 normal Thera peuti c targe t for gout patie nts: <6.0 mg/dL Not Available [facility] [address], [place], [address], 08/06/2022 09:38:22 08/05/19 23 08/04/2022 VENIP UNCTU RE results Compl ete Not Available [facility] [address], [place], [address], 08/04/2022 11:49:24 12/28/19 23 12/28/2022 ALBUM IN, RANDO M URINE W/CRE ATINI NE creatinine, random urine 83 mg/dL 20-275 normal Not Available [facility] [address], [place], [address], 12/28/2022 11:48:22 12/28/19 23 12/28/2022 ALBUM IN, RANDO M URINE W/CRE ATINI NE albumin, urine 0.4 mg/dL see note: normal Refer ence Range : Refer ence Range Not estab lishe d Not Available [facility] [address], [place], [address], 12/28/2022 11:48:22 12/28/19 23 12/28/2022 ALBUM IN, [...] a diagn ostic categ ory. Not Available [facility] [address], [place], [address], 12/28/2022 11:48:22 12/28/19 23 12/28/2022 LIPID PANEL WITH REFLE X TO DIREC T LDL cholesterol, total 124 mg/dL <200 normal Not Available [facility] [place] [facility] [address], [place], [address], 12/28/2022 11:48:23 12/28/19 23 12/28/2022 LIPID PANEL WITH REFLE X TO DIREC T LDL HDL cholesterol 44 mg/dL > or = 50 low Not Available [facility] [address], [place], [address], 12/28/2022 11:48:23 12/28/19 23 12/28/2022 LIPID PANEL WITH REFLE X TO DIREC T LDL triglyceride s 98 mg/dL <150 normal Not Available [facility] [address], [place], [address], 12/28/2022 11:48:23 12/28/19 23 12/28/2022 LIPID PANEL [...] 310(1 9): 2061- 2068 (http ://ed ucati on.Playviews Cedrick Crossborders. com/f aq/FA Q164) Not Available [facility] [address], [place], [address], 12/28/2022 11:48:23 12/28/19 23 12/28/2022 LIPID PANEL WITH REFLE X TO DIREC T LDL chol/HDLC ratio 2.8 (calc ) <5.0 normal Not Available [facility] [place] [facility] [address], [place], [address], 12/28/2022 11:48:23 12/28/19 23 12/28/2022 LIPID PANEL [...] optio n. Not Available [facility] [address], [place], [address], 12/28/2022 11:48:23 12/28/19 23 12/28/2022 COMPR EHENS AREN METAB OLIC PANEL glucose 88 mg/dL 65-99 normal Fasti ng refer ence inter elias Not Available [facility] [address], [place], [address], 12/28/2022 11:48:24 12/28/19 23 12/28/2022 COMPR EHENS AREN METAB OLIC PANEL urea nitrogen (BUN) 15 mg/dL 7-25 normal Not Available [facility] [address], [place], [address], 12/28/2022 11:48:24 12/28/19 23 12/28/2022 COMPR EHENS AREN METAB OLIC PANEL creatinine 0.82 mg/dL 0.50-1 .03 normal Not Available [facility] [address], [place], [address], 12/28/2022 11:48:24 12/28/19 23 12/28/2022 COMPR EHENS AREN METAB OLIC PANEL eGFR 85 mL/mi n/1.7 3m2 > or = 60 normal Not Available [facility] [address], [place], [address], 12/28/2022 11:48:24 12/28/19 23 12/28/2022 COMPR EHENS AREN METAB OLIC PANEL BUN/creatini ne ratio SEE NOTE: (calc ) 6-22 Not Repor april: BUN and Creat inine are withi n refer ence range . Not Available [facility] [address], [place], [address], 12/28/2022 11:48:24 12/28/19 23 12/28/2022 COMPR EHENS AREN METAB OLIC PANEL sodium 138 mmol/ L 135-14 6 normal Not Available [facility] [address], [place], [address], 12/28/2022 11:48:24 12/28/19 23 12/28/2022 COMPR EHENS AREN METAB OLIC PANEL potassium 4.5 mmol/ L 3.5-5. 3 normal Not Available [facility] [address], [place], [address], 12/28/2022 11:48:24 12/28/19 23 12/28/2022 COMPR EHENS AREN METAB OLIC PANEL chloride 103 mmol/ L 98-110 normal Not Available [facility] [address], [place], [address], 12/28/2022 11:48:24 12/28/19 23 12/28/2022 COMPR EHENS AREN METAB OLIC PANEL carbon dioxide 30 mmol/ L 20-32 normal Not Available [facility] [address], [place], [address], 12/28/2022 11:48:24 12/28/19 23 12/28/2022 COMPR EHENS AREN METAB OLIC PANEL calcium 9.1 mg/dL 8.6-10 .4 normal Not Available [facility] [address], [place], [address], 12/28/2022 11:48:24 12/28/19 23 12/28/2022 COMPR EHENS AREN METAB OLIC PANEL protein, total 7.2 g/dL 6.1-8. 1 normal Not Available [facility] [address], [place], [address], 12/28/2022 11:48:24 12/28/19 23 12/28/2022 COMPR EHENS AREN METAB OLIC PANEL albumin 4.0 g/dL 3.6-5. 1 normal Not Available [facility] [address], [place], [address], 12/28/2022 11:48:24 12/28/19 23 12/28/2022 COMPR EHENS AREN METAB OLIC PANEL globulin 3.2 g/dL_ (calc ) 1.9-3. 7 normal Not Available [facility] [address], [place], [address], 12/28/2022 11:48:24 12/28/19 23 12/28/2022 COMPR EHENS AREN METAB OLIC PANEL albumin/glob ulin ratio 1.3 (calc ) 1.0-2. 5 normal Not Available [facility] [address], [place], [address], 12/28/2022 11:48:24 12/28/19 23 12/28/2022 COMPR EHENS AREN METAB OLIC PANEL bilirubin, total 0.3 mg/dL 0.2-1. 2 normal Not Available [facility] [address], [place], [address], 12/28/2022 11:48:24 12/28/19 23 12/28/2022 COMPR EHENS AREN METAB OLIC PANEL alkaline phosphatase 73 U/L 37-153 normal Not Available [facility] [address], [place], [address], 12/28/2022 11:48:24 12/28/19 23 12/28/2022 COMPR EHENS AREN METAB OLIC PANEL AST 19 U/L 10-35 normal Not Available [facility] [address], [place], [address], 12/28/2022 11:48:24 12/28/19 23 12/28/2022 COMPR EHENS AREN METAB OLIC PANEL ALT 20 U/L 6-29 normal Not Available [facility] [place] [facility] [address], [place], [address], 12/28/2022 11:48:24 12/28/19 23 12/28/2022 HEMOG LOBIN [...] raza(A DA). Not Available [facility] [place] [facility] [address], [place], [address], 12/28/2022 11:48:25 12/28/19 23 12/28/2022 VITAM IN [...] /MS is recom manpreet d: order code 14980 (liz ents >2yrs ). See Note 1 Note 1 For addit ional infor keyla odell refer to http: //pj Edward stDia gnost ics.c om/fa q/FAQ 199 (This link is being provi ded for infor rebeca ovalles/ educa franky block purpo ses only. ) Not Available [facility] [address], [place], [address], 12/28/2022 11:48:26 12/28/19 23 12/28/2022 URIC ACID uric acid 5.5 mg/dL 2.5-7. 0 normal Thera peuti c targe t for gout patie nts: <6.0 mg/dL Not Available [facility] [address], [place], [address], 12/28/2022 11:48:27 12/28/19 23 12/28/2022 CREAT INE KINAS E, TOTAL creatine kinase, total 81 U/L 29-143 normal Not Available [facility] [address], [place], [address], 12/28/2022 11:48:28 12/28/19 23 12/28/2022 TSH TSH 3.14 mIU/L normal Refer ence Range > or = 20 Years 0.40- 4.50 Pregn nely Range s First trime ster 0.26- 2.66 Secon d trime ster 0.55- 2.73 Third trime ster 0.43- 2.91 Not Available [facility] [address], [place], [address], 12/28/2022 11:48:29 12/28/19 23 12/28/2022 T4, FREE T4, free 1.0 NG/dL 0.8-1. 8 normal Not Available [facility] [address], [place], [address], 12/28/2022 11:48:31 12/28/19 23 12/28/2022 CBC (INCL UDES DIFF/ PLT) white blood cell count 9.6 thous and/u L 3.8-10 .8 normal Not Available [facility] [address], [place], [address], 12/28/2022 11:48:32 12/28/19 23 12/28/2022 CBC (INCL UDES DIFF/ PLT) red blood cell count 4.96 yanet on/uL 3.80-5 .10 normal Not Available [facility] [address], [place], [address], 12/28/2022 11:48:32 12/28/19 23 12/28/2022 CBC (INCL UDES DIFF/ PLT) hemoglobin 13.1 g/dL 11.7-1 5.5 normal Not Available [facility] [address], [place], [address], 12/28/2022 11:48:32 12/28/19 23 12/28/2022 CBC (INCL UDES DIFF/ PLT) hematocrit 40.0 % 35.0-4 5.0 normal Not Available [facility] [address], [place], [address], 12/28/2022 11:48:32 12/28/19 23 12/28/2022 CBC (INCL UDES DIFF/ PLT) MCV 80.6 fL 80.0-1 00.0 normal Not Available [facility] [address], [place], [address], 12/28/2022 11:48:32 12/28/19 23 12/28/2022 CBC (INCL UDES DIFF/ PLT) MCH 26.4 pg 27.0-3 3.0 low Not Available [facility] [address], [place], [address], 12/28/2022 11:48:32 12/28/19 23 12/28/2022 CBC (INCL UDES DIFF/ PLT) MCHC 32.8 g/dL 32.0-3 6.0 normal Not Available [facility] [address], [place], [address], 12/28/2022 11:48:32 12/28/19 23 12/28/2022 CBC (INCL UDES DIFF/ PLT) RDW 15.2 % 11.0-1 5.0 high Not Available [facility] [address], [place], [address], 12/28/2022 11:48:32 12/28/19 23 12/28/2022 CBC (INCL UDES DIFF/ PLT) platelet count 257 thous and/u L 140-40 0 normal Not Available [facility] [address], [place], [address], 12/28/2022 11:48:32 12/28/19 23 12/28/2022 CBC (INCL UDES DIFF/ PLT) MPV 10.4 fL 7.5-12 .5 normal Not Available [facility] [address], [place], [address], 12/28/2022 11:48:32 12/28/19 23 12/28/2022 CBC (INCL UDES DIFF/ PLT) absolute neutrophils 6096 cells /uL 1500-7 800 normal Not Available [facility] [address], [place], [address], 12/28/2022 11:48:32 12/28/19 23 12/28/2022 CBC (INCL UDES DIFF/ PLT) absolute lymphocytes 2419 cells /uL 850-39 00 normal Not Available [facility] [address], [place], [address], 12/28/2022 11:48:32 12/28/19 23 12/28/2022 CBC (INCL UDES DIFF/ PLT) absolute monocytes 710 cells /uL 200-95 0 normal Not Available [facility] [address], [place], [address], 12/28/2022 11:48:32 12/28/19 23 12/28/2022 CBC (INCL UDES DIFF/ PLT) absolute eosinophils 336 cells /uL 15-500 normal Not Available [facility] [address], [place], [address], 12/28/2022 11:48:32 12/28/19 23 12/28/2022 CBC (INCL UDES DIFF/ PLT) absolute basophils 38 cells /uL 0-200 normal Not Available [facility] [address], [place], [address], 12/28/2022 11:48:32 12/28/19 23 12/28/2022 CBC (INCL UDES DIFF/ PLT) neutrophils 63.5 % normal Not Available [facility] [address], [place], [address], 12/28/2022 11:48:32 12/28/19 23 12/28/2022 CBC (INCL UDES DIFF/ PLT) lymphocytes 25.2 % normal Not Available [facility] [address], [place], [address], 12/28/2022 11:48:32 12/28/19 23 12/28/2022 CBC (INCL UDES DIFF/ PLT) monocytes 7.4 % normal Not Available [facility] [address], [place], [address], 12/28/2022 11:48:32 12/28/19 23 12/28/2022 CBC (INCL UDES DIFF/ PLT) eosinophils 3.5 % normal Not Available [facility] [address], [place], [address], 12/28/2022 11:48:32 12/28/19 23 12/28/2022 CBC (INCL UDES DIFF/ PLT) basophils 0.4 % normal Not Available [facility] [address], [place], [address], 12/28/2022 11:48:32 12/28/19 23 12/28/2022 URINA LYSIS , COMPL ETE W/REF MARIO TO CULTU RE color YELLOW yellow normal Not Available [facility] [address], [place], [address], 12/28/2022 11:48:33 12/28/19 23 12/28/2022 URINA LYSIS , COMPL ETE W/REF MARIO TO CULTU RE appearance CLEAR clear normal Not Available [facility] [address], [place], [address], 12/28/2022 11:48:33 12/28/19 23 12/28/2022 URINA LYSIS , COMPL ETE W/REF MARIO TO CULTU RE specific gravity 1.016 1.001- 1.035 normal Not Available [facility] [address], [place], [address], 12/28/2022 11:48:33 12/28/19 23 12/28/2022 URINA LYSIS , COMPL ETE W/REF MARIO TO CULTU RE pH 6.0 5.0-8. 0 normal Not Available [facility] [address], [place], [address], 12/28/2022 11:48:33 12/28/19 23 12/28/2022 URINA LYSIS , COMPL ETE W/REF MARIO TO CULTU RE glucose NEGATI VE negati ve normal Not Available [facility] [address], [place], [address], 12/28/2022 11:48:33 12/28/19 23 12/28/2022 URINA LYSIS , COMPL ETE W/REF MARIO TO CULTU RE bilirubin NEGATI VE negati ve normal Not Available [facility] [place] [facility] [address], [place], [address], 12/28/2022 11:48:33 12/28/19 23 12/28/2022 URINA LYSIS , COMPL ETE W/REF MARIO TO CULTU RE ketones NEGATI VE negati ve normal Not Available [facility] [place] [facility] [address], [place], [address], 12/28/2022 11:48:33 12/28/19 23 12/28/2022 URINA LYSIS , COMPL ETE W/REF AMRIO TO CULTU RE occult blood NEGATI VE negati ve normal Not Available [facility] [place] [facility] [address], [place], [address], 12/28/2022 11:48:33 12/28/19 23 12/28/2022 URINA LYSIS , COMPL ETE W/REF MARIO TO CULTU RE protein NEGATI VE negati ve normal Not Available [facility] [place] [facility] [address], [place], [address], 12/28/2022 11:48:33 12/28/19 23 12/28/2022 URINA LYSIS , COMPL ETE W/REF MARIO TO CULTU RE nitrite NEGATI VE negati ve normal Not Available [facility] [place] [facility] [address], [place], [address], 12/28/2022 11:48:33 12/28/19 23 12/28/2022 URINA LYSIS , COMPL ETE W/REF MARIO TO CULTU RE leukocyte esterase NEGATI VE negati ve normal Not Available [facility] [place] [facility] [address], [place], [address], 12/28/2022 11:48:33 12/28/19 23 12/28/2022 URINA LYSIS , COMPL ETE W/REF MARIO TO CULTU RE WBC NONE SEEN /hpf < or = 5 normal Not Available [facility] [address], [place], [address], 12/28/2022 11:48:33 12/28/19 23 12/28/2022 URINA LYSIS , COMPL ETE W/REF MARIO TO CULTU RE RBC NONE SEEN /hpf < or = 2 normal Not Available [facility] [address], [place], [address], 12/28/2022 11:48:33 12/28/19 23 12/28/2022 URINA LYSIS , COMPL ETE W/REF MARIO TO CULTU RE squamous epithelial cells 0-5 /hpf < or = 5 Not Available [facility] [address], [place], [address], 12/28/2022 11:48:33 12/28/19 23 12/28/2022 URINA LYSIS , COMPL ETE W/REF MARIO TO CULTU RE bacteria NONE SEEN /hpf none seen normal Not Available [facility] [address], [place], [address], 12/28/2022 11:48:33 12/28/19 23 12/28/2022 URINA LYSIS , COMPL ETE W/REF MARIO TO CULTU RE hyaline cast NONE SEEN /lpf none seen normal Not Available [facility] [address], [place], [address], 12/28/2022 11:48:33 12/28/19 23 12/28/2022 URINA LYSIS , COMPL ETE W/REF AMRIO TO CULTU RE note This urine was kendall zed for the prese nce of WBC, RBC, bacte corey, casts , and other forme d eleme nts. Only those eleme nts seen were repor april. Not Available [facility] [place] [facility] [address], [place], [address], 12/28/2022 11:48:33 12/28/1912/28/2022 REFLE XIVE URINE CULTU RE reflexive urine culture NO CULTU RE INDIC ATED Not Available [facility] [place] [facility] [address], [place], [address], 12/28/2022 11:48:34 12/28/1912/28/2022 VITAM IN B12 vitamin B12 >2000 pg/mL 200-11 00 high Not Available [facility] [place] [facility] [address], [place], [address], 12/28/2022 11:48:34 08/05/19 elect rocar diogr am [...] By: Michelle Lundberg James Sign Date: [id number] [facility] Imaging Services [facility] Imaging All Locations, [place], [address], 02/29/2024 19:37:36 12/05/1912/01/2022 MAMMO , scree king, [...] Darren potter D.O., David Sign Date: [id number] [facility] Imaging All Locations, [place], [address], 02/29/2024 19:34:36 Result Notes None recorded. Problems Name Problem SNOMED Code Status Onset Date Resolution Date Notes Provider Name and Address Organization Details Recorded Time Mixed hyperlipid emia 239650545 Active 2004 Not Available [facility] 17:20:35 Dyspnea 535966056 Completed 200211/20/[address], [place], [address] , [facility], [facility] 7 16:58:47 Long-term drug therapy Completed 200611/20/[address], [place], [address] , [facility], [facility] 7 16:58:51 Herpes simplex 05609063 Completed 200611/20/[address], [place], [address] , [facility], [facility] 7 16:58:54 Palpitatio ns 28449325 Completed 200502/04/[address], [place], [address] , [facility], [facility] 6 08:14:28 Urinary tract infectious disease 48164738 Completed 200511/20/[address], [place], [address] , [facility], [facility] 7 16:58:59 Screening for malignant neoplasm of cervix Completed 201011/20/[address], [place], [address] , [facility], [facility] 7 16:59:23 Benign essential hypertensi on 4967364 Active 2002 Not Available [facility] 17:20:35 Acute pharyngiti s 825030335 Completed 201002/04/[address] DO [address], [place], [address] , [facility] 6 08:14:58 Allergic rhinitis 24501808 Completed 200211/20/[address], [place], [address] , [facility], [facility] 7 16:59:08 Intrinsic asthma with asthma attack Completed 200502/04/[address], [place], [place], [address] , [facility], [facility] 6 08:13:36 Verruca vulgaris 90171174 Completed 200202/04/[address], [place], [address] , [facility], [facility] 6 08:14:08 Pain of joint 39912123 Completed 200302/04/[address], [place], [address] , [facility], [facility] 6 08:14:23 Knee pain Completed 200302/04/[address], [place], [address] , [facility], [facility] 6 08:15:12 Irregular periods 50587727 Completed 200211/20/[address], [place], [address] , [facility], [facility] 7 16:59:01 Allergic rhinitis caused by pollen 72859730 Completed 200611/20/[address], [place], [address] , [facility], [facility] 7 16:59:16 Acute maxillary sinusitis 66580679 Completed 200611/20/[address], [place], [address] , [facility], [facility] 7 16:59:05 Anemia 673104101 Completed 200411/20/2016 Tatiana Story DO [address], [place], [address] , [facility], [facility] 7 16:58:38 Specialize d medical examinatio n Completed 201008/07/2014 Marialuisa moreno [facility], [facility] 6 15:02:13 Amenorrhea 79341610 Completed 200211/20/[address], [place], [address] , [facility], [facility] 7 16:59:34 Acute bronchitis 81312543 Completed 200611/20/[address], [place], [address] , [facility], [facility] 7 16:59:40 Gynecologi c examinatio n Completed 200411/20/[address], [place], [address] , [facility], [facility] 7 16:58:56 Malaise and fatigue 137787893 Completed 200211/20/[address], [place], [address] , [facility], [facility] 7 16:58:35 Obesity 159863917 Completed 200208/07/2014 Marialuisa moreno [facility], [facility] 6 15:02:13 Lipoprotei n deficiency disorder 948554716 Completed 200211/20/2016 Tatiana Story DO [address], [place], [address] , [facility], [facility] 7 16:58:45 Adult health examinatio n Completed 201011/20/[address], [place], [address] , [facility], [facility] 7 16:58:40 Contact dermatitis 19792877 Completed 200202/04/[address], [place], [address] , [facility], [facility] 6 08:14:55 Cough 97531722 Completed 200602/04/[address], [place], [address] , [facility], [facility] 6 08:14:02 Right upper quadrant pain 078344357 Completed 200602/04/[address], [place], [address] , [facility] [employer] [facility], [employer] 6 08:13:51 Laboratory test Completed 201002/04/[address], [place], [address] , [facility], [employer] 6 08:13:18 Chronic obstructiv e pulmonary disease 81386609 Active 2002 [address], [place], [address] , [facility], [facility] 2 06:35:13 Generalize d anxiety disorder 97996733 Completed 200202/04/[address], [place], [address] , [facility], [facility] 6 08:13:31 Gastro-eso phageal reflux disease with esophagiti s 871616582 Active 2002 Not Available [facility] 17:20:35 Mitral stenosis with insufficie ncy 763638375 Active 2005 Not Available [facility] 1 17:20:35 Heart murmur 09774160 Completed 200502/04/2016 Tatiana Story DO [address], [place], [address] , [facility], [facility] 6 08:14:44 Screening mammograph y Completed 201011/20/2016 Tatiana Story DO [address], [place], [address] , [facility], [facility] 7 16:59:13 Chronic sinusitis 24092107 Completed 200402/04/2016 Tatiana Story DO [address], [place], [address] , [facility], [facility] 6 08:15:02 Allergic asthma without status asthmaticu s 15634571 Active 2002 Not Available [facility] 1 17:20:35 Pure hyperchole sterolemia 036175024 Completed 201002/04/[address], [place], [address] , [facility], [facility] 6 08:13:44 Shoulder joint pain 182324873 Completed 200211/20/[address], [place], [address] , [facility], [facility] 7 16:58:42 Screening for malignant neoplasm of rectum Completed 201002/04/[address], [place], [address] , [facility], [facility] 6 08:15:15 Joint pain in ankle and foot Completed 200602/04/[address] DO [address], [place], [address] , [facility], [facility] 6 08:13:57 Adjustment disorder with depressed mood 26417625 Completed 200611/05/2019 Tatiana Story DO [address], [place], [address] , [facility], [facility] 0 07:50:30 Acute upper respirator y infection 50661796 Completed 200602/04/2016 Tatiana Story DO [address], [place], [address] , [facility], [facility] 6 08:14:17 Chronic lymphoid leukemia in remission 84467800 Completed 200202/04/2016 Tatiana Story DO [address], [place], [address] , [facility], [facility] 6 08:14:37 Abnormal weight loss 578857032 Completed 200411/20/2016 Tatiana Story DO [address], [place], [address] , [facility], [facility] 7 16:58:49 Laboratory procedure performed 145741533 Completed 200411/20/2016 Tatiana Story DO [address], [place], [address] , [facility], [facility] 7 16:59:27 Herpes zoster 6530908 Completed 200202/04/2016 Tatiana Story DO [address], [place], [address] , [facility], [facility] 6 08:14:52 Abnormal weight gain 052463116 Completed 200611/20/2016 Tatiana Story DO [address], [place], [address] , [facility], [facility] 7 16:59:32 Dysuria 91166089 Completed 02/04/2016 Tatiana Story DO [address], [place], [address] , [facility], [facility] 6 08:14:48 Conjunctiv itis 8000958 Completed 200602/04/2016 Tatiana Story DO [address], [place], [address] , [facility], [facility] 6 08:14:33 Hypothyroi dism 81087032 Completed 201004/23/2019 Tatiana Story DO [address], [place], [place], [address] , [facility], [facility] 0 08:11:20 Acute tonsilliti s 45425366 Completed 200202/04/2016 Tatiana Story DO [address], [place], [address] , [facility], [facility] 6 08:13:22 Asthma 401318485 Completed 200211/20/2016 Tatiana Story DO [address], [place], [place], [address] , [facility], [facility] 7 16:59:19 Pain in limb 96112013 Completed 200302/04/2016 Tatiana Story DO [address], [place], [place], [address] , [facility], [facility] 6 08:14:41 Calcaneal spur 91152168 Completed 200602/04/2016 Tatiana Story DO [address], [place], [place], [address] , [facility], [facility] 6 08:14:14 Pulmonary emphysema 61316468 Active 2021 Tatiana Story DO [address], [place], [address] , [facility], [facility] 2 06:34:53 Rheumatoid arthritis of multiple joints 716722361 Active 2022 Tatiana Story, DO [address], [place], [address] , [facility], [facility] 3 09:06:42 Has a sore throat 926107145 Completed 11/20/2016 Tatiana Story, DO [address], [place], [address] , [facility] [employer] [facility], [facility] 7 16:59:29 Obesity 549752487 Completed 11/20/2016 Tatiana Story DO [address], [place], [address] , [facility] [employer] [facility], [facility] 7 16:59:42 Rheumatoid arthritis 68740131 Active 2016 Tatiana Story DO [address], [place], [address] , [facility] [employer] [facility], [facility] 2 06:34:56 Type 2 diabetes mellitus without complicati on 285685784 Active 2017 Tatiana Story DO [address], [place], [address] , [facility] [employer] [facility], [facility] 2 06:35:03 Single major depressive episode Completed 201711/05/2019 Tatiana Story DO [address], [place], [address] , [facility] [employer] [facility], [facility] 0 07:54:41 Mild major depression , single episode 66195785 Completed 201911/05/2019 Tatiana Story DO [address], [place], [address] , [facility], [facility] 2 06:34:50 Mild major depression , single episode 51181402 Active 2019 Tatiana Story DO [address], [place], [address] , [facility] [employer] [facility], [facility] 06:34:50 Immunodefi ciency disorder 640943192 Active 2020 Tatiana Story, DO [address], [place], [address] , [facility], [facility] 06:34:45 Problem Notes None recorded. Procedures Surgical History Date Name Laterality Status Provider Name and Address Organization Details Recorded Time 12/23/19 23 diabetic retinal eye exam completed Theo Mack [facility], [facility] 01/16/2023 08:57:34 05/08/19 23 Incision and Drainage (PCP, WIC, Spec) completed Tatiana Story, DO [address], [place], [address], [facility], [facility] 05/08/2022 08:43:33 12/21/19 22 diabetic retinopathy screening completed Marialuisa Carter [facility], [facility] 12/20/2021 11:02:32 12/01/19 22 mammography completed Yamilemulu Garcia [facility], [facility] 01/17/2022 14:41:28 08/04/19 22 Diabetic Foot Exam completed Tatiana Story, DO [address], [place], [address], [facility], [facility] 07/05/2021 06:33:51 11/30/19 21 Date of Last [facility]ammogram [facility] 08/03/2021 09:32:39 04/28/19 21 Diabetic Foot Exam completed Tatiana Story, DO [address], [place], [address], [facility], [facility] 04/28/2020 08:53:49 05/09/19 20 Colonoscopy completed Tatiana Story, DO [address], [place], [address], [facility], [facility] 05/12/2019 07:15:48 07/03/19 19 Diabetic education completed Di Young RN, [facility], [facility] 07/03/2018 17:33:52 05/09/19 19 Diabetic education completed Di Young RN, [facility] 07/03/2018 17:41:03 05/07/19 19 Diabetic education completed Di Young RN, [facility] 07/03/2018 17:48:24 05/06/19 19 Diabetic education completed Di Young RN, [facility] 07/03/2018 17:51:39 07/09/19 16 Biopsy completed [facility] 02/04/2016 08:03:54 11/08/19 10 Cataract excision completed [facility] 02/04/2016 08:03:54 04/09/19 07 Cholecystectomy completed [facility] 02/04/2016 08:03:54 01/07/19 97 Appendectomy completed [facility] 10/31/2012 15:23:40 02/07/19 96 section completed [facility] 10/31/2012 15:23:40 Cholecystectomy completed [facility] 02/04/2016 08:03:54 Imaging Results None recorded. Procedure Notes None recorded. Medical Equipment None Reported. Allergies Allergen ID Allergen Name Allergen Category Reaction Reaction Severity Criticality Documentation Date Start Date Code Code System Note Provider Name and Address Organization Details Recorded Time 450828 Product containin g penicilli n (product) medicatio n rash mild Not available 05/18/2015 53899 8001 SNOMED Roseline Rico [facility] 6 08:36:38 31171 Diovan medicatio n other Not available Not available 03/15/2012 88162 2 RxNorm Thalia mcguire [facility] 3 10:01:01 Medications Name Sig Start Date [...] TAKE 1 TABLET BY MOUTH TWICE DAILY 01/02 completed Not Available Not Available Not [...] Take 1 mL by injectio n route. 05/243 completed Not Available Not Available Not Available [...] aerosol inhaler 1 AEROSOL (ML) GR QD 03/18 completed PT. STOPPED TAKING Not Available Not [...] Available Not Available Nasonex 50 mcg/actua tion [place] 1 SPRAY, NON-AERO KRISTINA (GRAM) GR QD 09/28 completed PT STOPPED Not Available Not Available Not Available norebrian cortez (contrace ptive) 0.35 mg tablet TK 1 [...] Not Available Vitals Date Recorded Body height Body mass index (BMI) Body weight Body temperature Heart rate Oxygen saturation Oxygen saturation in Arterial blood by Pulse oximetry Respiratory rate Systolic blood pressure Diastolic blood pressure Provider Name and Address Organization Details Last Updated DateTime 3 154.94 cm 47 kg/m2 768523. 5 g 97.7 [degF] 80 /min 99 % 99 % 20 /min 128 mm[Hg] 86 mm[Hg] [employer] [facility] 3 08:23:10 Date Recorded Body height Body temperature Heart rate Oxygen saturation Oxygen saturation in Arterial blood by Pulse oximetry Respiratory rate Body mass index (BMI) Body weight Systolic blood pressure Diastolic blood pressure Provider Name and Address Organization Details Last Updated DateTime 3 154.94 cm 97.4 [degF] 76 /min 97 % 97 % 24 /min 47 kg/m2 362656. 5 g 118 mm[Hg] 76 mm[Hg] [employer] [facility] 3 08:51:38 Date Recorded Body weight Body mass index (BMI) Body height Heart rate Oxygen saturation Oxygen saturation in Arterial blood by Pulse oximetry Respiratory rate Body temperature Systolic blood pressure Diastolic blood pressure Provider Name and Address Organization Details Last Updated DateTime 3 418726. 54 g 46.9 kg/m2 153.67 cm 80 /min 98 % 98 % 20 /min 98.1 [degF] 122 mm[Hg] 82 mm[Hg] [facility] 3 10:45:52 Date Recorded Body height Body mass index (BMI) Body weight Body temperature Heart rate Oxygen saturation Oxygen saturation in Arterial blood by Pulse oximetry Respiratory rate Systolic blood pressure Diastolic blood pressure Provider Name and Address Organization Details Last Updated DateTime 3 153.67 cm 47.1 kg/m2 318110. 13 g 98 [degF] 80 /min 97 % 97 % 20 /min 112 mm[Hg] 84 mm[Hg] Yam[facility]mulu Garcia [facility] 3 11:06:23 Date Recorded Body height Body mass index (BMI) Body weight Body temperature Heart rate Oxygen saturation Oxygen saturation in Arterial blood by Pulse oximetry Respiratory rate Systolic blood pressure Diastolic blood pressure Provider Name and Address Organization Details Last Updated DateTime 3 153.67 cm 43.8 kg/m2 671663. 06 g 98.5 [degF] 67 /min 97 % 97 % 20 /min 112 mm[Hg] 62 mm[Hg] [facility] 3 08:01:09 Social History Question Answer Notes LastModified by Organizat ion Details LastModified Time Tobacco Smoking Status Former Smoker [facility]hely Howell [facility] 03/15/2012 11:31:17 Do You Have An Advance Directive? No [email or web address] Information not available 07/08/2012 Is Blood Transfusion Acceptable In An Emergency? [...] You Used? None Information not available 03/15/2012 Education 12 [email or web address] Information no t available 01/03/2023 What Is The Highest Grade Or Level Of School You Have Completed Or The Highest Degree You Have Received? SF41679-5 Information not available 08/03/2021 How Many Days In The Past Year [...] Smoking Tobacco? 18 Information not available 03/15/2012 How Much Tobacco Do You Smoke? 0.5 [...] ion Details LastModified Time What is your level of alcohol consumption? Occasional Information not available 06/12/2019 Do you or have you ever used smokeless tobacco? Never used smokeless tobacco Information not available 11/07/2018 What is your occupation? employed Information not available 03/15/2012 Do you or have you ever used e-cigarettes or vape? Never used electronic cigarettes Information not available 11/07/2018 What is your exercise level? Occasional Information [...] previo usly record ed as Alzhei sara's adobyelena Not available 12/22/2015 15:04:15 Paternal Grandfather History of dementia adobrowski Not available 02/03 08:05:38 Maternal Grandfather Emphysema previo usly record ed as COPD/E susan campa adobyelena Not available 12/22/2015 15:04:15 Father Arthritis Not available 01/08/2017 15:19:35 Father Natural 83 [email or web address] Not available 2022 07:53:26 Father Hypertensive disorder Not available 2019 10:26:19 Paternal Grandmother Arthritis adobrowski Not available 1 08:05:38 Maternal Grandmother Arthritis adobrowski Not available 1 08:05:38 Maternal Grandmother Asthma adobrowski Not available 08:05:38 Brother Alcoholism Not availab le 01/08/2017 15:20:33 Unspecified Relation Hypertensive disorder Not available 2019 10:26:19 Medical History Condition Response Cancer (location) N Other N Gout N Thyroid Disease N Kidney Stones N Emphysema/COPD N Measles/Mumps N Sexually Transmitted Disease N Depression Y Prostate Problems N Vascular Disease N Rash/Skin Condition Y Amputation (location) N Parkinson's N Paralysis N Headaches/Migraines N Cardiac Pacemaker/defibrillator N Nerve Damage / Neuropathy N Arthritis N Sleep disorder/Insomnia N Infertility N Heart disease / Heart Attack N Crohn's Disease N HIV/AIDS N Stroke/TIA N High Cholesterol N Colon Problems N Serious Injuries N Kidney Disease N [...] Influenza, MDCK, quadrivalent, PF 2 [facility]/20/2022 14:05:38 Influenza, split virus, trivalent, preservative 7 completed Not Available [facility] 03/11/2021 17:20:36 Influenza, split virus, trivalent, PF 6 completed Not Available [facility] 03/11/2021 17:20:35 Pneumococcal conjugate PCV20, polysaccharide [id number] conjugate, adjuvant, PF 3 [facility] 08/04/2022 17:20:56 Influenza, MDCK, quadrivalent, PF 3 [facility] 01/03/2023 09:58:37 Influenza, split virus, quadrivalent, preservative 8 completed [facility] 01/02/2023 13:20:22 Influenza, split virus, quadrivalent, preservative 9 [facility] 01/02/2023 13:20:22 Novel [id number], all formulations 9 [facility] 01/02/2023 13:20:22 Influenza, split virus, quadrivalent, PF 8 completed Not Available [facility] 03/11/2021 17:20:35 Influenza, MDCK, quadrivalent, PF 0 completed Not Available [facility] 03/11/2021 17:20:36 Influenza, MDCK, quadrivalent, PF 1 completed Not Available [facility] 03/11/2021 17:20:36 COVID-19, mRNA, LNP-S, PF, 100 mcg/0.5mL dose or 50 mcg/0.25mL dose 1 completed Not Available [facility] 03/11/2021 17:20:35 COVID-19, mRNA, LNP-S, PF, 100 mcg/0.5mL dose or 50 mcg/0.25mL dose 1 completed Yamile moreno [facility], [facility] 01/02/2023 13:20:22 COVID-19, mRNA, LNP-S, PF, 100 mcg/0.5mL dose or 50 mcg/0.25mL dose 1 completed Not Available [facility] 03/11/2021 17:20:35 COVID-19, mRNA, LNP-S, PF, 100 mcg/0.5mL dose or 50 mcg/0.25mL dose 1 completed Yamile moreno, [facility], [facility] 12/02/2021 08:58:57 COVID-19, mRNA, LNP-S, bivalent, PF, 30 mcg/0.3 mL dose 2 [facility] 05/08/2022 08:19:03 Td (adult), 2 Lf tetanus toxoid, preservative free, adsorbed 5 completed Not Available [facility] 03/11/2021 17:20:36 zoster recombinant 3 [facility] 01/02/2023 13:20:22 zoster recombinant 3 completed [facility] 01/02/2023 13:20:22 Influenza, split virus, trivalent, PF 6 completed Not Available [facility] 03/11/2021 17:20:36 Novel [id number] 9 completed Not Available [facility] 03/11/2021 17:20:35 Influenza, split virus, trivalent, PF 7 completed Not Available [facility] 03/11/2021 17:20:36 Past Encounters Encounter ID Performer Location Encounter Start Date Encounter Closed Date Diagnosis/Indication Diagnosis SNOMED-CT Code Diagnosis ICD10 Code Diagnosis Note [id number] Tatiana Story DO [facility] [address] [place] [address] 03/15/2012 11:12:54 03/15/2012 12:41:34 [id number] Tatiana Story DO [facility] [address] [place] [address] 07/08/2012 08:24:23 07/08/2012 09:29:27 [id number] MARY Irene [facility] [address] [place] [address] 09/20/2012 13:15:51 09/20/2012 14:38:55 [id number] MARY Irene [facility] [address] [address] [place] [address] 10/31/2012 15:10:52 10/31/2012 15:55:36 [id number] MARY Irene [facility] [address] [address] [place] [address] 11/11/2012 10:23:19 11/11/2012 15:55:59 [id number] MARY Irene [facility] [address] [place] [address] 11/13/2012 14:52:42 11/13/2012 16:10:34 [id number] MARY Irene [facility] [place] [address] [place] [address] 11/21/2012 15:49:43 11/21/2012 16:24:19 [id number] MARY Irene [facility] [place] [address] [place] [address] 11/25/2012 11:12:43 11/25/2012 11:41:15 [id number] MARY Irene [facility] [place] [address] [place] [address] 12/11/2012 09:45:39 12/11/2012 15:23:49 [id number] Tatiana Story DO [facility] [place] [address] [place] [address] 01/07/2013 13:11:04 01/07/2013 16:16:24 Ingrowing toenail [id number] MARY Irene [facility] [place] [address] [place] [address] 02/14/2013 08:02:26 02/14/2013 15:18:59 Obesity [id number] MARY Irene [facility] [place] [address] [place] [address] 03/24/2013 08:55:24 03/24/2013 11:43:25 Obesity 725930418 Pain of elbow region 18009428 rest ice, nsaids as discussed. fu in 2 weeks if not better [id number] MARY Irene [facility] [place] [address] [place] [address] 05/08/2013 08:25:55 05/08/2013 10:11:37 Obesity 991405709 pt has not adhered to meds as she has been over whelmed with loss of her father, and her mother in law having surgery. she anthony contact us when she is ready to resume her meds. Tinea pedis [id number] Tatiana Story DO [facility] [place] [address] [place] [address] 01/06/2014 15:15:13 01/06/2014 17:01:10 Adult health examination [id number] Gynecologi c examination 87781659 Screening for malignant neoplasm of cervix 903664403 Screening for malignant neoplasm of rectum 395160052 Body mass index 40+ - severely obese 063382272 weight issues discussed and informatio n on weight loss given. needs follow up on weight control as scheduled. Education handout on diets given. Exercise counseling done. Will arrange referral for dietitian, nutritioni st, Physical/o ccupationa l therapy as needed or desired. Also will consider pharmaceut ical and supplement al interventi ons Morbid obesity 438079940 see BMI above for details [id number] Tatiana Story DO [facility] [place] [address] [place] [address] 02/11/2014 13:17:19 02/11/2014 14:32:56 Influenza 9580195 [id number] MARY Irene [facility] [address] [place] [address] 02/20/2014 10:14:41 02/20/2014 14:37:31 Sinusitis 49617189 [id number] Tatiana Story DO [facility] [address] [place] [address] 05/20/2014 13:47:36 05/20/2014 14:58:13 Goiter 2517242 [id number] Tatiana Story DO [facility] [address] [place] [address] 06/03/2014 14:47:40 06/03/2014 15:55:28 Benign essential hypertension 2644266 Body mass index 40+ - severely obese 013719160 weight issues discussed and informatio n on weight loss given. needs follow up on weight control as scheduled. Education handout on diets given. Exercise counseling done. Will arrange referral for dietitian, nutritioni st, Physical/o ccupationa l therapy as needed or desired. Also will consider pharmaceut ical and supplement al interventi ons [id number] [facility] [address] [place] [address] 08/07/2014 16:03:12 08/07/2014 17:22:24 Cough 86816536 hot showers, hot fluids, vicks vapo rub Has a sore throat 185356395 gargle soak toothbrush Acute sinusitis 13445414 warm compresses , Tylenol prn Otitis 35860875 pt aware med will cover this too. [id number] Tatiana Story DO [facility] [address] [place] [address] 05/07/2015 09:12:43 05/07/2015 12:31:11 Contact dermatitis 37690870 L25.9 [id number] [facility] [address] [place] [address] 05/14/2015 14:39:37 05/14/2015 17:12:21 Pain in throat 115732370 R07.0 Candidiasis of mouth 797 29899 B37.9 [id number] Tatiana Story DO [facility] [address] [place] [address] 05/18/2015 07:49:37 05/18/2015 17:00:31 Eruption caused by drug 33663449 L27.0 acute, begin medication s [id number] Tatiana Story DO [facility] [address] [place] [address] 05/28/2015 08:33:38 05/28/2015 13:45:14 Contact dermatitis 96720528 L25.9 acute, worsening, needs further work up and consult. discussed case with dermalogy, they will see her today in 1 hour Purpuric rash 412026563 D69.2 [id number] MARY Irene [facility] [address] [place] [address] 06/03/2015 13:45:29 06/03/2015 14:52:08 Vasculitis of the skin 03770095 L95.9 acute, just came from dermatolog y, increased concern with disease process, will send to rheumatolo gy obtain further labs. I feel her anemia can progress from this as well, send to hematology for further eval per Dr Olivares request. she will see Dr Reina today Anemia 976261169 D64.9 Cough 01408507 R05 [id number] Tatiana Story DO [facility] [address] [place] [address] 06/29/2015 11:09:37 06/29/2015 14:29:47 Cyst of ovary 65636594 N83.20 Anemia 923663289 D64.9 chronic, cont. iron infusions and monitor Vasculitis of the skin 07027948 L95.9 acute, resolving, cont. methotrexa te and cont. to f/u with Rheumology [id number] Tatiana Story DO [facility] [address] [place] [address] 08/16/2015 15:42:00 08/16/2015 16:58:17 Tinea corporis 69654807 B35.4 acute, begin medication s Chest pain 55990355 R07. 9 Electrocar diogram abnormal 434224638 R94.31 [id number] Tatiana Story DO [facility] [address] [place] [address] 08/20/2015 14:14:26 08/20/2015 15:11:29 Acute conjunctivitis 41359546 H10.33 acute Vasculitis of the skin 12446356 L95.9 acute, resolving, cont. methotrexa te and cont. to f/u with Rheumology [id number] Tatiana Story DO [facility] [place] [address] [place] [address] 10/22/2015 15:53:10 10/22/2015 16:28:15 Edema of lower extremity 092293320 R60.0 Body mass index 40+ - severely obese 880561089 Z68.43 weight issues discussed and informatio n on weight loss given. needs follow up on weight control as scheduled. Education handout on diets given. Exercise counseling done. Will arrange referral for dietitian, nutritioni st, Physical/o ccupationa l therapy as needed or desired. Also will consider pharmaceut ical and supplement al interventi ons Morbid obesity 662201408 E66.01 see BMI above for details [id number] Tatiana Story DO [facility] [place] [address] [place] [address] 12/08/2015 10:15:34 12/08/2015 12:10:48 Adult health examination 547843502 Z00.00 Benign ess ential hypertension 9433775 I10 Body mass index 40+ - severely obese 095492890 Z68.43 weight issues discussed and informatio n on weight loss given. needs follow up on weight control as scheduled. Education handout on diets given. Exercise counseling done. Will arrange referral for dietitian, nutritioni st, Physical/o ccupationa l therapy as needed or desired. Also will consider pharmaceut ical and supplement al interventi ons Morbid obesity 105863546 E66.01 see BMI above for details Allergic a sthma without status asthmaticus 56596248 J45.297 [id number] Tatiana Story DO [facility] [address] [place] [address] 12/22/2015 14:51:57 12/22/2015 16:56:58 Lower abdominal pain 19582645 R10.30 Acute constipation 62823 9006 K59.00 [id number] MARY Irene [facility] [address] [place] [address] 01/28/2016 08:52:41 01/28/2016 16:25:43 Abdominal pain 60008985 R10.9 acute, start work up, begin medication . Monitor close [id number] Tatiana Story DO [facility] [address] [place] [address] 02/04/2016 07:50:12 02/04/2016 11:56:59 Obesity 129692616 E66.9 Body mass index 40+ - severely obese 349247003 Z68.42 weight issues discussed and informatio n on weight loss given. needs follow up on weight control as scheduled. Education handout on diets given. Exercise counseling done. Will arrange referral for dietitian, nutritioni st, Physical/o ccupationa l therapy as needed or desired. Also will consider pharmaceut ical and supplement al interventi ons Morbid obesity 586526614 E66.01 see BMI above for details Asthma 400934946 J45.90 9 Onychomyco sis due to dermatophyte 100472263 B35.1 Influenza vaccine needed 2477373393 106 Z23 [id number] Tatiana Story DO [facility] [address] [place] [address] 05/05/2016 11:22:29 05/05/2016 17:21:55 Abnormal vision 2446732 H54.7 Body mass index 40+ - severely obese 999127798 Z68.41 weight issues discussed and informatio n on weight loss given. needs follow up on weight control as scheduled. Education handout on diets given. Exercise counseling done. Will arrange referral for dietitian, nutritioni st, Physical/o ccupationa l therapy as needed or desired. Also will consider pharmaceut ical and supplement al interventi ons Morbid obesity 465204312 E66.01 see BMI above for details. [id number] Tatiana Story DO [facility] [place] [address] [place] [address] 05/15/2016 08:54:13 05/15/2016 16:43:35 Acute gastroenteritis 18154690 K52.9 acute, fluids monitor [id number] Tatiana Story DO [facility] [place] [address] [place] [address] 10/18/2016 09:56:39 10/18/2016 17:56:02 Coronary arteriosclerosis in [place] artery 7826930956 107 I25.10 [id number] Tatiana Story DO [facility] [address] [place] [address] 12/08/2016 15:39:37 12/08/2016 16:49:23 Adult health examination 139372313 Z00.00 Chronic ob structive pulmonary disease 75179344 J44.9 Gastro-eso phageal reflux disease with esophagitis 683642828 K21.0 Mixed hyperlipidemia 267 826006 E78.2 Benign ess ential hypertension 1926852 I10 Body mass index 40+ - severely obese 403674577 Z68.42 weight issues discussed and informatio n on weight loss given. needs follow up on weight control as scheduled. Education handout on diets given. Exercise counseling done. Will arrange referral for dietitian, nutritioni st, Physical/o ccupationa l therapy as needed or desired. Also will consider pharmaceut ical and supplement al interventi ons Morbid obesity 216303983 E66.01 see BMI above for details [id number] Tatiana Wanben DO [facility] [address] [place] [address] 01/08/2017 15:18:25 01/08/2017 16:58:46 Pain in throat 282513434 R07.0 Rheumatoid arthritis 698 03285 M06.9 chronic, stable [id number] Tatiana Rigoberto DO [facility] [address] [place] [address] 03/19/2017 09:55:53 03/20/2017 14:05:40 Acute maxillary sinusitis 20282095 J01.00 acute Body mass index 40+ - severely obese 035617355 Z68.42 weight issues discussed and informatio n on weight loss given. needs follow up on weight control as scheduled. Education handout on diets given. Exercise counseling done. Will arrange referral for dietitian, nutritioni st, Physical/o ccupationa l therapy as needed or desired. Also will consider pharmaceut ical and supplement al interventi ons Morbid obesity 394825234 E66.01 see BMI above for details Diet education 97351949 Z71.3 as above [id number] Tatiana Story, DO [facility] [address] [place] [address] 08/31/2017 08:23:39 08/31/2017 11:50:16 Cellulitis 661545961 L03.90 acute, begin medication s and monitor [id number] Tatiana Story DO [facility] [address] [place] [address] 09/07/2017 12:49:49 09/07/2017 15:00:13 Cellulitis 095942840 L03.90 acute, improving. monitor [id number] Tatianamartinez Story, DO [facility] [address] [place] [address] 04/08/2018 08:07:40 04/11/2018 15:10:29 Adult health examination 926184416 Z00.00 Body mass index 40+ - severely obese 040481110 Z68.43 weight issues discussed and informatio n on weight loss given. needs follow up on weight control as scheduled. Education handout on diets given. Exercise counseling done. Will arrange referral for dietitian, nutritioni st, Physical/o ccupationa l therapy as needed or desired. Also will consider pharmaceut ical and supplement al interventi ons Morbid obesity 497548653 E66.01 see BMI above for details Diet education 26885095 Z71.3 as above Rheumatoid arthritis 698 77011 M06.9 chronic, stable, cont. with rheum Benign ess ential hypertension 9834190 I10 stable, monitor Chronic ob structive pulmonary disease 87457021 J44.9 chronic with emphysema. Continue same treatments and monitor for worsening symptoms. Pulmonary emphysema 8743 3001 J43.8 chronic, continue current regimen and monitor for worsening symptoms Gastro-eso phageal reflux disease with esophagitis 946753055 K21.0 Mixed hyperlipidemia 267 527455 E78.2 Hypothyroidism 64896746 E03.9 Allergic a sthma without status asthmaticus 14901734 J45.909 Type 2 elizabeth betes mellitus without complication 357445676 E11.9 acute, needs education and ADA diets and therapeuti c lifesytyle changes Single pj or depressive episode 685695077 F32.0 chronic, stable. treatment needed. Follow up as scheduled. Screening mammography 24 415346 Z12.31 [id number] Tatiana Story DO [facility] [address] [place] [address] 05/06/2018 16:46:36 05/06/2018 17:26:27 Type 2 diabetes mellitus without complication 226395295 E11.9 [id number] Tatiana Story DO [facility] [address] [place] [address] 05/07/2018 17:04:36 05/07/2018 17:34:07 Type 2 diabetes mellitus without complication 624198491 E11.9 [id number] Tatiana Story DO [facility] [address] [place] [address] 05/09/2018 17:55:44 05/10/2018 09:09:42 Type 2 diabetes mellitus without complication 123055983 E11.9 Staci completed the 3 day DM Ed Program. Very motivated. To return in 1 month for individual follow up with glucose log and 2 day food diary. Please see Chart note for Patient DM Assess/Olimpia f Management goals. Di Young RN CDE [id number] Tatiana Story DO [facility] [address] [place] [address] 06/05/2018 15:40:26 06/05/2018 16:43:40 Type 2 diabetes mellitus without complication 928130586 E11.9 chronic stable, improving monitor Rheumatoid arthritis 698 17531 M06.9 chronic, stable, cont. with rheum Benign ess ential hypertension 6265058 I10 stable, monitor Chronic ob structive pulmonary disease 02056133 J44.9 chronic with emphysema. Continue same treatments and monitor for worsening symptoms. [id number] Tatiana Story DO [facility] [address] [place] [address] 07/02/2018 10:12:39 07/03/2018 17:14:37 Type 2 diabetes mellitus without complication 523135319 E11.9 Staci is here for individual follow [...] eye exam Nov 2017 w/Dr Babcock @ [facility], consult note pending. Advised pt to follow up as recommende d and request vision care provider send copy of note to Dr Story. Reinforced the many positive lifestyle changes she has made. Very motivated, but has a lot of medical issues on her plate. Please see Chart note for Patient DM Assess/Olimpia f-Manageme nt goals. Di Young RN CDE [id number] Tatiana Story DO [facility] [address] [place] [address] 07/08/2018 10:52:57 07/09/2018 12:33:56 Type 2 diabetes mellitus without complication 370268810 E11.9 chronic stable cont tx and monitor Rheumatoid arthritis 698 98325 M06.9 chronic, stable, cont. with rheum Benign ess ential hypertension 5668941 I10 stable, monitor Chronic ob structive pulmonary disease 94210621 J44.9 chronic with emphysema. Continue same treatments and monitor for worsening symptoms. Body mass index 40+ - severely obese 003036613 Z68.42 weight issues discussed and informatio n on weight loss given. needs follow up on weight control as scheduled. Education handout on diets given. Exercise counseling done. Will arrange referral for dietitian, nutritioni st, Physical/o ccupationa l therapy as needed or desired. Also will consider pharmaceut ical and supplement al interventi ons Morbid obesity 694665823 E66.01 see BMI above for details Diet education 01142222 Z71.3 as above Allergic a sthma without status asthmaticus 02876066 J45.500 [id number] Tatiana Story DO [facility] [address] [place] [address] 11/13/2018 08:22:21 11/13/2018 13:44:08 Type 2 diabetes mellitus without complication 041458235 E11.9 chronic stable cont tx and monitor Rheumatoid arthritis 698 22933 M06.9 chronic, stable, cont. with rheum Benign ess ential hypertension 9717410 I10 stable, monitor Chronic ob structive pulmonary disease 49901449 J44.9 chronic with emphysema. Continue same treatments and monitor for worsening symptoms. Mixed hyperlipidemia 267 546685 E78.2 Hypothyroidism 76843656 E03.9 Body mass index 40+ - severely obese 463615863 Z68.42 weight issues discussed and informatio n on weight loss given. needs follow up on weight control as scheduled. Education handout on diets given. Exercise counseling done. Will arrange referral for dietitian, nutritioni st, Physical/o ccupationa l therapy as needed or desired. Also will consider pharmaceut ical and supplement al interventi ons Morbid obesity 835102715 E66.01 see BMI above for details Diet education 60029797 Z71.3 as above [id number] Tatiana Story DO [facility] [address] [place] [address] 11/27/2018 08:21:15 12/03/2018 16:44:41 Neck pain 98126009 M54.2 acute, begin medication s and monitor Muscle spa sm of cervical muscle of neck 6170657695 04 M62.838 acute, begin medication s above and monitor [id number] Tatiana Story DO [facility] [place] [address] [place] [address] 04/23/2019 07:43:21 04/23/2019 13:00:29 Adult health examination 816858492 Z00.00 Benign ess ential hypertension 6219235 I10 stable, monitor Chronic ob structive pulmonary disease 37602270 J44.9 chronic with emphysema. Continue same treatments and monitor for worsening symptoms. Rheumatoid arthritis 698 76510 M06.9 chronic, stable, cont. with rheum Type 2 elizabeth betes mellitus without complication 917888871 E11.9 chronic stable cont tx and monitor Body mass index 40+ - severely obese 783997458 Z68.42 weight issues discussed and informatio n on weight loss given. needs follow up on weight control as scheduled. Education handout on diets given. Exercise counseling done. Will arrange referral for dietitian, nutritioni st, Physical/o ccupationa l therapy as needed or desired. Also will consider pharmaceut ical and supplement al interventi ons Morbid obesity 990721104 E66.01 see BMI above for details Diet education 11891201 Z71.3 as above Dyslipidemia 039683347 E 78.5 [id number] MARY Irene [facility] [address] [address] [place] [address] 06/12/2019 10:25:02 06/25/2019 18:10:38 Acute maxillary sinusitis 18163336 J01.00 acute start medsDiscus sed with patient potential complicati ons of medication s presdcribe d, increase po fluids and rest, use OTC medication for symptomati c relief, pt agrees with POC denies any questions at this time [id number] Tatiana Story DO [facility] [address] [address] [place] [address] 06/16/2019 08:43:25 06/18/2019 16:15:35 Acute maxillary sinusitis 18038135 J01.00 acute begin medication s and monitor [id number] Tatiana Story DO [facility] [address] [place] [address] 11/05/2019 07:43:56 11/05/2019 14:48:17 Type 2 diabetes mellitus without complication 084319630 E11.9 chronic stable cont tx and monitor Mixed hyperlipidemia 267 678121 E78.2 Chronic, controlled , continue same, follow up as scheduled Gastro-eso phageal reflux disease with esophagitis 401316203 K21.0 Chronic, controlled , continue same, follow up as scheduled Chronic ob structive pulmonary disease 84353535 J44.9 chronic with emphysema. Continue same treatments and monitor for worsening symptoms. Benign ess ential hypertension 4119803 I10 stable, monitor Body mass index 40+ - severely obese 303554190 Z68.42 weight issues discussed and informatio n on weight loss given. needs follow up on weight control as scheduled. Education handout on diets given. Exercise counseling done. Will arrange referral for dietitian, nutritioni st, Physical/o ccupationa l therapy as needed or desired. Also will consider pharmaceut ical and supplement al interventi ons Morbid obesity 670122061 E66.01 see BMI above for details Diet education 75968432 Z71.3 as above Mild major depression, single episode 10980830 F32.0 chronic, controlled , cont. medication s and monitor [id number] Tatiana Story DO [facility] [address] [place] [address] 11/14/2019 07:43:00 11/14/2019 13:32:51 Cellulitis 105954969 L03.90 acute, begin medication s Type 2 elizabeth betes mellitus without complication 383395367 E11.9 chronic stable cont tx and monitor [id number] Tatiana Story DO [facility] [address] [place] [address] 12/26/2019 12:45:31 12/26/2019 16:07:03 Pain in left knee [id number] 59992 M25.562 chronic, worsening Pain in left foot 781205 8182 55678 M79.672 chronic, worsening Lumbar dis c disorder with myelopathy 126723883 M51.06 [id number] Tatiana Story DO [facility] [address] [place] [address] 04/28/2020 08:20:52 04/28/2020 16:17:59 Adult health examination 921915473 Z00.00 Benign ess ential hypertension 9679179 I10 Chronic problem, stable at blood pressure goal. Needs monitoring . Prescripti on drug management : Ramipril 10mg q d # Add meds to current as noted below Corbyi n meds as noted below Dion ge medication s as noted below Cont inue medication s as in med list Disco ntinue meds as noted No meds given at this time No meds given until results back No rx indicated OTC meds only Pt refuses rx Restart meds as noted in prescripti on below . Continue with therapeuti c lifestyle changes (TLC) and continue home bp monitoring . Plan of care will be to use TLC and/or medication s with periodic follow up visits to maintain a safe blood pressure goal of 140/90 or lower. Follow up as scheduled. Follow up as scheduled. Mixed hyperlipidemia 267 405285 E78.2 Chronic problem, stable - at or near LDL goal. Needs monitoring . Prescripti on drug management : No meds given at this time . Follow up as scheduled. Plan of care: Continue therapeuti c lifestyle changes and/or medication s to maintain an LDL below 100. Periodic visits and labs and appropriat e therapeuti c changes will occur to help meet this goal to minimize risk of atheroscle rotic disease. Recheck labs as ordered. Rheumatoid arthritis 698 92869 M06.9 chronic problem, stable with no significan t clinical changes. Needs monitoring . Prescripti on drug management : Cosentyx 300mL q 5 weeks# Add meds to [...] rx No rx indicated OTC meds only . Pt cont to follow up with rheumology and Follow up as scheduled with myself to monitor for progressio n. Type 2 elizabeth betes mellitus without complication 603453031 E11.9 Chronic problem, stable - at or near HbA1c goal. Needs monitoring . Prescripti on drug management : No meds given at this time . Follow up as scheduled. Plan of care: Continue therapeuti c lifestyle changes and/or medication s to maintain a healthy blood sugar with goal HbA1c of 5.6# 6.5 < 7.0 7.0-7. 5 <7.5 7.5 -8.0 <8.0 <9.0. Periodic visits and recheck of labs with appropriat e therapeuti c changes will be done to help with this goal. Allergic a sthma without status asthmaticus 24272947 J45.909 chronic problem, stable with no significan t clinical changes. Needs monitoring . Prescripti on drug management : albuterol for neb prn and advair 2 puffs [...] rx No rx indicated OTC meds only . Follow up as scheduled. Chronic ob structive pulmonary disease 91653495 J44.9 chronic problem, stable with no significan t clinical changes. Needs monitoring . Prescripti on drug management : albuterol for neb prn and advair 2 puffs [...] rx No rx indicated OTC meds only . Plan of care: Reduce Impairment , prevent [...] monitor for worsening symptoms Immunodefi ciency disorder 295343289 D84.81 chronic problem, stable with no significan t clinical changes. Needs monitoring . Prescripti on drug management : No rx indicated. Follow up as scheduled. Education given to pt. about increase risk for secondary infections and follow up as scheduled to monitor for secondary issues. Mild major depression, single episode 32533847 F32.0 chronic problem, stable, Needs monitoring , Prescripti on drug Fluoxetine 20mg q d needed at this time, Cont. with TCL including healthy diet, exercise with periodic follow up visits to monitor Body mass index 40+ - severely obese 485300658 Z68.42 weight issues discussed and informatio n on weight loss given. needs follow up on weight control as scheduled. Education handout on diets given. Exercise counseling done. Will arrange referral for dietitian, nutritioni st, Physical/o ccupationa l therapy as needed or desired. Also will consider pharmaceut ical and supplement al interventi ons Morbid obesity 601318952 E66.01 see BMI above for details Diet education 96869281 Z71.3 as above [id number] Tatiana StoryDO [facility] [address] [place] [address] 08/27/2020 07:51:46 08/27/2020 13:47:46 Abscess 483088156 L02.91 Acute self-limit ed uncompl iated undi agnosed with uncertain prognosis with systemic symptoms c omplicated injury lif e threatenin g Improvin g problem. Prescripti on drug management : No rx indicated. Pt informed to seek immediate medical attention should symptoms worsen. Benign ess ential hypertension 6384879 I10 R94.31 Chronic condition, stable at blood pressure goal. Needs monitoring . Prescripti on drug management : Add meds to current as noted below [...] on below Rami pril 10mg q d . Continue with therapeuti c lifestyle changes (TLC) and continue home bp monitoring . Plan of care will be to use TLC and/or medication s with periodic follow up visits to maintain a safe blood pressure goal of 140/90 or lower. Follow up as scheduled. Follow up as scheduled. Rheumatoid arthritis 698 12486 M06.9 chronic problem, stable with no significan t clinical changes. Needs monitoring . Prescripti on drug management : Cosentyx 300mL q 5 weeks# Add meds to [...] rx No rx indicated OTC meds only . Pt cont to follow up with rheumology and Follow up as scheduled with myself to monitor for progressio n. Type 2 elizabeth betes mellitus without complication 106341550 E11.9 Chronic problem, stable - at or near HbA1c goal. Needs monitoring . Prescripti on drug management : No meds given at this time . Follow up as scheduled. Plan of care: Continue therapeuti c lifestyle changes and/or medication s to maintain a healthy blood sugar with goal HbA1c of 5.6# 6.5 < 7.0 7.0-7. 5 <7.5 7.5 -8.0 <8.0 <9.0. Periodic visits and recheck of labs with appropriat e therapeuti c changes will be done to help with this goal. [id number] Tatiana Story DO [facility] [address] [place] [address] 12/29/2020 11:33:55 12/29/2020 15:05:20 Allergic asthma without status asthmaticus 93375508 J45.909 chronic problem, stable with no significan t clinical changes. Needs monitoring . Prescripti on drug management : albuterol for neb prn and advair 2 puffs [...] rx No rx indicated OTC meds only . Follow up as scheduled. Benign ess ential hypertension 5540220 I10 R94.31 Chronic condition, stable at blood pressure goal. Needs monitoring . Prescripti on drug management : Add meds to current as noted below [...] on below Rami pril 10mg q d . Continue with therapeuti c lifestyle changes (TLC) and continue home bp monitoring . Plan of care will be to use TLC and/or medication s with periodic follow up visits to maintain a safe blood pressure goal of 140/90 or lower. Follow up as scheduled. Follow up as scheduled. Chronic ob structive pulmonary disease 78408183 J44.9 chronic problem, stable with no significan t clinical changes. Needs monitoring . Prescripti on drug management : albuterol for neb prn and advair 2 puffs [...] rx No rx indicated OTC meds only . Plan of care: Reduce Impairment , prevent chronic symptoms, require infrequent use of short-acti ng beta 2-agonist (ANTHONY). Maintain (near) normal lung function and normal activity levels.. Reduce Risk, prevent exacerbati ons. Minimize need for emergency care, hospitaliz ation.. Prevent loss of lung function. Minimize adverse effects of therapy. Follow up as scheduled Immunodefi ciency disorder 270801892 D84.81 chronic problem, Secondary to RA and tx plan. stable with no significan t clinical changes. Needs monitoring . Prescripti on drug management : No rx indicated. Follow up as scheduled. Education given to pt. about increase risk for secondary infections and follow up as scheduled to monitor for secondary issues. Mild major depression, single episode 33521927 F32.0 chronic problem, stable, Needs monitoring , Prescripti on drug Fluoxetine 20mg q d needed at this time, Cont. with TCL including healthy diet, exercise with periodic follow up visits to monitor Mixed hyperlipidemia 267 072398 E78.2 Chronic problem, stable - at or near unsta ble - not at stable - at or near, LDL 91 LDL goal. Needs monitoring . Prescripti on drug management : Add meds to current as noted below [...] on below ifeanyi tor 5mg q d . Follow up as scheduled. Plan of care: Continue therapeuti c lifestyle changes and/or medication s to maintain an LDL below 100. Periodic visits and labs and appropriat e therapeuti c changes will occur to help meet this goal to minimize risk of atheroscle rotic disease. Recheck labs as ordered. Rheumatoid arthritis 698 51855 M06.9 chronic problem, stable with no significan t clinical changes. Needs monitoring . Prescripti on drug management : Cosentyx 300mL q 5 weeks# Add meds to [...] rx No rx indicated OTC meds only . Pt cont to follow up with rheumology and Follow up as scheduled with myself to monitor for progressio n. Type 2 elizabeth betes mellitus without complication 862267865 E11.9 Chronic problem, stable - at or near unsta ble - not at stable - at or near, A1C 5.7 HbA1c goal. Needs monitoring . Prescripti on drug management : No meds given at this time . Follow up as scheduled. Plan of care: Continue therapeuti c lifestyle changes and/or medication s to maintain a healthy blood sugar with goal HbA1c of 6.5 <7.0 7 .0-7.5 <7. 5 7.5-8.0 <8.0 <9.0 5.6. Periodic visits and recheck of labs with appropriat e therapeuti c changes will be done to help with this goal. Body mass index 40+ - severely obese 481009012 Z68.43 weight issues discussed and informatio n on weight loss given. needs follow up on weight control as scheduled. Education handout on diets given. Exercise counseling done. Will arrange referral for dietitian, nutritioni st, Physical/o ccupationa l therapy as needed or desired. Also will consider pharmaceut ical and supplement al interventi ons Morbid obesity 705466534 E66.01 see BMI above for details Diet education 62059731 Z71.3 as above [id number] DO CIRIL[facility] [address] [place] [address] 01/25/2021 15:40:17 01/26/2021 11:39:10 Cellulitis 989897266 L03.90 Acute problem. Prescripti on drug management : Add meds to current as noted below [...] prescripti on below begi n cipro 500mg BID. Needs monitoring to determine stability of condition. Type 2 elizabeth betes mellitus without complication 900424684 E11.9 Chronic problem, stable - at or near unsta ble - not at stable - at or near, A1C 5.7 HbA1c goal. Needs monitoring . Prescripti on drug management : No meds given at this time . Follow up as scheduled. Plan of care: Continue therapeuti c lifestyle changes and/or medication s to maintain a healthy blood sugar with goal HbA1c of 6.5 <7.0 7 .0-7.5 <7. 5 7.5-8.0 <8.0 <9.0 5.6. Periodic visits and recheck of labs with appropriat e therapeuti c changes will be done to help with this goal. [id number] Tatiana Story DO [facility] [address] [address] [place] [address] 02/04/2021 15:41:28 02/07/2021 11:17:04 Cellulitis 800990200 L03.90 Acute problem. Prescripti on drug management : Add meds to current as noted below [...] prescripti on below cont . cipro 500mg BID. Needs monitoring to determine stability of condition. Type 2 elizabeth betes mellitus without complication 380091640 E11.9 Chronic problem, stable - at or near unsta ble - not at stable - at or near, A1C 5.7 HbA1c goal. Needs monitoring . Prescripti on drug management : No meds given at this time . Follow up as scheduled. Plan of care: Continue therapeuti c lifestyle changes and/or medication s to maintain a healthy blood sugar with goal HbA1c of 6.5 <7.0 7 .0-7.5 <7. 5 7.5-8.0 <8.0 <9.0 5.6. Periodic visits and recheck of labs with appropriat e therapeuti c changes will be done to help with this goal. [id number] Tatiana Story DO [facility] [address] [facility] [place] [address] 03/16/2021 08:48:34 03/18/2021 18:07:29 Vaginitis 71519593 N76.0 Acute uncompliat ed problem. Prescripti on drug management : No rx indicated . Resolved, will monitor, education given. Pt informed to seek immediate medical attention should symptoms worsen. Body mass index 40+ - severely obese 193008629 Z68.43 weight issues discussed and informatio n on weight loss given. needs follow up on weight control as scheduled. Education handout on diets given. Exercise counseling done. Will arrange referral for dietitian, nutritioni st, Physical/o ccupationa l therapy as needed or desired. Also will consider pharmaceut ical and supplement al interventi ons Morbid obesity 245409186 E66.01 see BMI above for details Diet education 78591015 Z71.3 as above [id number] Tatiana Story DO [facility] [address] [address] [facility] [address] [place] [address] 04/18/2021 15:54:09 2021 14:41:02 Intervertebral disc disorder of lumbar region with myelopathy 65039790 M51.06 Acute with systemic symptoms problem. Prescripti on drug management : Change medication s as noted below. Needs monitoring to determine stability of condition. Type 2 elizabeth betes mellitus without complication 041497153 E11.9 Chronic problem, stable - at or near unsta ble - not at stable - at or near, A1C 5.7 HbA1c goal. Needs monitoring . Prescripti on drug management : No meds given at this time . Follow up as scheduled. Plan of care: Continue therapeuti c lifestyle changes and/or medication s to maintain a healthy blood sugar with goal HbA1c of 6.5 <7.0 7 .0-7.5 <7. 5 7.5-8.0 <8.0 <9.0 5.6. Periodic visits and recheck of labs with appropriat e therapeuti c changes will be done to help with this goal. Rheumatoid arthritis 698 36582 M06.9 chronic problem, stable with no significan t clinical changes. Needs monitoring . Prescripti on drug management : Cosentyx 300mL q 5 weeks# Add meds to [...] rx No rx indicated OTC meds only . Pt cont to follow up with rheumology and Follow up as scheduled with myself to monitor for progressio n. Benign ess ential hypertension 4459741 I10 R94.31 Chronic condition, stable at blood pressure goal. Needs monitoring . Prescripti on drug management : Add meds to current as noted below [...] on below Rami pril 10mg q d . Continue with therapeuti c lifestyle changes (TLC) and continue home bp monitoring . Plan of care will be to use TLC and/or medication s with periodic follow up visits to maintain a safe blood pressure goal of 140/90 or lower. Follow up as scheduled. Follow up as scheduled. Body mass index 40+ - severely obese 712803737 Z68.43 weight issues discussed and informatio n on weight loss given. needs follow up on weight control as scheduled. Education handout on diets given. Exercise counseling done. Will arrange referral for dietitian, nutritioni st, Physical/o ccupationa l therapy as needed or desired. Also will consider pharmaceut ical and supplement al interventi ons Morbid obesity 047567786 E66.01 see BMI above for details Diet education 70344773 Z71.3 as above Immunodefi ciency disorder 499249446 D84.81 chronic problem, Secondary to RA and tx plan. stable with no significan t clinical changes. Needs monitoring . Prescripti on drug management : No rx indicated. Follow up as scheduled. Education given to pt. about increase risk for secondary infections and follow up as scheduled to monitor for secondary issues. Mild major depression, single episode 55915225 F32.0 chronic problem, stable, Needs monitoring , Prescripti on drug Fluoxetine 20mg q d needed at this time, Cont. with TCL including healthy diet, exercise with periodic follow up visits to monitor Pulmonary emphysema 8743 3001 J43.8 chronic problem, stable with no significan t clinical changes. Needs monitoring . Prescripti on drug management : Continue medication s as in med list. Follow up as scheduled. [id number] Tatiana Story DO [facility] [address] [address] [facility] [place] [address] 08/03/2021 09:21:24 08/03/2021 14:12:06 Adult health examination 214279437 Z00.00 Preventive visit done today. Anticipato ry guidance given as noted below. Type 2 elizabeth betes mellitus without complication 548885886 E11.9 Chronic problem, stable - at or near unsta ble - not at stable - at or near, A1C 6.4 HbA1c goal. Needs monitoring . Prescripti on drug management : No meds given at this time . Follow up as scheduled. Plan of care: Continue therapeuti c lifestyle changes and/or medication s to maintain a healthy blood sugar with goal HbA1c of 6.5 <7.0 7 .0-7.5 <7. 5 7.5-8.0 <8.0 <9.0 5.6. Periodic visits and recheck of labs with appropriat e therapeuti c changes will be done to help with this goal. Rheumatoid arthritis 698 17365 M06.9 chronic problem, stable with no significan t clinical changes. Needs monitoring . Prescripti on drug management : Cosentyx 300mL q 5 weeks# Add meds to [...] rx No rx indicated OTC meds only . Pt cont to follow up with rheumology and Follow up as scheduled with myself to monitor for progressio n. Pulmonary emphysema 8743 3001 J43.8 chronic problem, stable with no significan t clinical changes. Needs monitoring . Prescripti on drug management : Continue medication s as in med list. Follow up as scheduled. Mild major depression, single episode 61457096 F32.0 chronic problem, stable, Needs monitoring , Prescripti on drug Fluoxetine 20mg q d needed at this time, Cont. with TCL including healthy diet, exercise with periodic follow up visits to monitor Immunodefi ciency disorder 859184725 D84.81 chronic problem, Secondary to RA and tx plan. stable with no significan t clinical changes. Needs monitoring . Prescripti on drug management : No rx indicated. Follow up as scheduled. Education given to pt. about increase risk for secondary infections and follow up as scheduled to monitor for secondary issues. Mixed hyperlipidemia 267 722288 E78.2 Chronic problem, stable - at or near unsta ble - not at stable - at or near, LDL 57 LDL goal. Needs monitoring . Prescripti on drug management : Add meds to current as noted below [...] on below ifeanyi tor 5mg q d . Follow up as scheduled. Plan of care: Continue therapeuti c lifestyle changes and/or medication s to maintain an LDL below 100. Periodic visits and labs and appropriat e therapeuti c changes will occur to help meet this goal to minimize risk of atheroscle rotic disease. Recheck labs as ordered. Benign ess ential hypertension 0366214 I10 R94.31 Chronic condition, stable at blood pressure goal. Needs monitoring . Prescripti on drug management : Add meds to current as noted below [...] on below Rami pril 10mg q d . Continue with therapeuti c lifestyle changes (TLC) and continue home bp monitoring . Plan of care will be to use TLC and/or medication s with periodic follow up visits to maintain a safe blood pressure goal of 140/90 or lower. Follow up as scheduled. Follow up as scheduled. 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 Needs monitoring . Prescripti on drug management : albuterol for neb prn and advair 2 puffs [...] rx No rx indicated OTC meds only . Follow up as scheduled. Gynecologi c examination 59275663 Z01.419 low risk Screening for malignant neoplasm of cervix 129996740 Z12.4 low risk with liquid based pap performed [id number] MARY Irene [facility] [address] [place] [address] 10/14/2021 08:10:13 10/17/2021 09:05:45 Candidiasis of vagina 25974423 B37.3 Acute uncompliat ed problem. Prescripti on drug management : Begin meds as noted below. Pt informed to seek immediate medical attention should symptoms worsen. [id number] Tatiana Story DO [facility] [address] [place] [address] 12/02/2021 08:57:04 12/02/2021 13:21:05 Intervertebral disc disorder of lumbar region with myelopathy 10386858 M51.06 Acute with systemic symptoms problem. Prescripti on drug management : Add meds to current as noted below [...] now then flexeril TID prn and prednisone taper. Needs monitoring to determine stability of condition. Cellulitis of breast 758 76180 N61.0 Acute problem. Prescripti on drug management : Add meds to current as noted below [...] in prescripti on below bact rim DS BID. Needs monitoring to determine stability of condition. Benign ess ential hypertension 7427250 I10 R94.31 Chronic condition, stable at blood pressure goal. Needs monitoring . Prescripti on drug management : Add meds to current as noted below [...] on below Rami pril 10mg q d . Continue with therapeuti c lifestyle changes (TLC) and continue home bp monitoring . Plan of care will be to use TLC and/or medication s with periodic follow up visits to maintain a safe blood pressure goal of 140/90 or lower. Follow up as scheduled. Follow up as scheduled. Type 2 elizabeth betes mellitus without complication 042613139 E11.9 Chronic problem, stable - at or near unsta ble - not at stable - at or near, A1C 6.4 HbA1c goal. Needs monitoring . Prescripti on drug management : No meds given at this time . Follow up as scheduled. Plan of care: Continue therapeuti c lifestyle changes and/or medication s to maintain a healthy blood sugar with goal HbA1c of 6.5 <7.0 7 .0-7.5 <7. 5 7.5-8.0 <8.0 <9.0 5.6. Periodic visits and recheck of labs with appropriat e therapeuti c changes will be done to help with this goal. [id number] Tatiana Story [facility] [address] [place] [address] 01/17/2022 14:52:17 01/18/2022 13:37:03 Pain in throat 594821951 R07.0 COVID-19 091447148 U07.1 Discussed the need for immediate isolation, Advised patient to inform their immediate household/ contacts that they wish to be tested and quarantine d as well. Reviewed locations and people they have been in contact with over the last 2 weeksResimon anderson the s/s of COVID-19In formed patient that [...] me MILE or go directly to ER. [id number] Tatiana Story DO [facility] [address] [place] [address] 02/20/2022 11:38:23 02/20/2022 17:04:46 Administration of influenza vaccine 23330970 Z23 Benign ess ential hypertension 0924936 I10 R94.31 Chronic condition, stable at blood pressure goal. Needs monitoring . Prescripti on drug management : Add meds to current as noted below [...] on below Rami pril 10mg q d . Continue with therapeuti c lifestyle changes (TLC) and continue home bp monitoring . Plan of care will be to use TLC and/or medication s with periodic follow up visits to maintain a safe blood pressure goal of 140/90 or lower. Follow up as scheduled. Follow up as scheduled. Type 2 elizabeth betes mellitus without complication [id number] E11.9 Chronic problem, stable - at or near unsta ble - not at unstabl e - not at A1C 7.1 HbA1c goal. Needs monitoring . Prescripti on drug management : Add meds to current as noted below Begi n meds as noted below Ashley ge medication s as noted below Cont inue medication s as in med list Disco ntinue meds as noted No meds given at this time No meds given until results back No rx indicated OTC meds only Pt refuses rx Restart meds as noted in prescripti on below add Ozempic. Follow up as scheduled. Plan of care: Continue therapeuti c lifestyle changes and/or medication s to maintain a healthy blood sugar with goal HbA1c of 6.5 <7.0 7 .0-7.5 <7. 5 7.5-8.0 <8.0 <9.0 5.6. Periodic visits and recheck of labs with appropriat e therapeuti c changes will be done to help with this goal. Rheumatoid arthritis [id number] M06.9 chronic problem, stable with no significan t clinical changes. Needs monitoring . Prescripti on drug management : Cosentyx 300mL q 5 weeks# Add meds to [...] rx No rx indicated OTC meds only . Pt cont to follow up with rheumology and Follow up as scheduled with myself to monitor for progressio n. Pulmonary emphysema 8743 3001 J43.8 chronic problem, stable with no significan t clinical changes. Needs monitoring . Prescripti on drug management : Continue medication s as in med list. Follow up as scheduled. Mixed hyperlipidemia [id number] E78.2 Chronic problem, stable - at or near unsta ble - not at stable - at or near, LDL 57 LDL goal. Needs monitoring . Prescripti on drug management : Add meds to current as noted below [...] on below ifeanyi tor 5mg q d . Follow up as scheduled. Plan of care: Continue therapeuti c lifestyle changes and/or medication s to maintain an LDL below 100. Periodic visits and labs and appropriat e therapeuti c changes will occur to help meet this goal to minimize risk of atheroscle rotic disease. Recheck labs as ordered. [id number] Tatiana Story DO [facility] [address] [place] [address] 05/08/2022 08:18:00 05/08/2022 11:25:30 Abscess [id number] L02.91 Acute self-limit ed uncompl iated undi agnosed with uncertain prognosis with systemic symptoms c omplicated injury lif e threatenin g Improvin g problem. Prescripti on drug management : Begin meds as noted below. Pt informed to seek immediate medical attention should symptoms worsen. Type 2 elizabeth betes mellitus without complication [id number] E11.9 Chronic problem, stable - at or near unsta ble - not at unstabl e - not at A1C 7.1 HbA1c goal. Needs monitoring . Prescripti on drug management : Add meds to current as noted below Begi n meds as noted below Ashley ge medication s as noted below Cont inue medication s as in med list Disco ntinue meds as noted No meds given at this time No meds given until results back No rx indicated OTC meds only Pt refuses rx Restart meds as noted in prescripti on below add Ozempic. Follow up as scheduled. Plan of care: Continue therapeuti c lifestyle changes and/or medication s to maintain a healthy blood sugar with goal HbA1c of 6.5 <7.0 7 .0-7.5 <7. 5 7.5-8.0 <8.0 <9.0 5.6. Periodic visits and recheck of labs with appropriat e therapeuti c changes will be done to help with this goal. [id number] Tatiana Story DO [facility] [address] [facility] [place] [address] 05/16/2022 08:46:57 05/16/2022 15:33:56 Acute bronchitis 81571750 J20.9 Asthma 432951157 J45.90 9 chronic problem, stable with no significan t clinical changes. Needs monitoring . Prescripti on drug management : Continue medication s as in med list. Follow up as scheduled. Type 2 elizabeth betes mellitus without complication 547402733 E11.9 Chronic problem, stable - at or near unsta ble - not at unstabl e - not at A1C 7.1 HbA1c goal. Needs monitoring . Prescripti on drug management : Add meds to current as noted below Begi n meds as noted below Ashley ge medication s as noted below Cont inue medication s as in med list Disco ntinue meds as noted No meds given at this time No meds given until results back No rx indicated OTC meds only Pt refuses rx Restart meds as noted in prescripti on below add Ozempic. Follow up as scheduled. Plan of care: Continue therapeuti c lifestyle changes and/or medication s to maintain a healthy blood sugar with goal HbA1c of 6.5 <7.0 7 .0-7.5 <7. 5 7.5-8.0 <8.0 <9.0 5.6. Periodic visits and recheck of labs with appropriat e therapeuti c changes will be done to help with this goal. Pulmonary emphysema 8743 3001 J43.8 chronic problem, stable with no significan t clinical changes. Needs monitoring . Prescripti on drug management : Continue medication s as in med list. Follow up as scheduled. Body mass index 40+ - severely obese [id number] Z68.42 weight issues discussed and informatio n on weight loss given. needs follow up on weight control as scheduled. Education handout on diets given. Exercise counseling done. Will arrange referral for dietitian, nutritioni st, Physical/o ccupationa l therapy as needed or desired. Also will consider pharmaceut ical and supplement al interventi ons Morbid obesity 899482582 E66.01 see BMI above for details Diet education 84520871 Z71.3 as above Mild major depression, single episode 64885759 F32.0 chronic problem, stable, Needs monitoring , Prescripti on drug Fluoxetine 20mg q d needed at this time, Cont. with TCL including healthy diet, exercise with periodic follow up visits to monitor Immunodefi ciency disorder 211421036 D84.81 chronic problem, Secondary to RA and tx plan. stable with no significan t clinical changes. Needs monitoring . Prescripti on drug management : No rx indicated. Follow up as scheduled. Education given to pt. about increase risk for secondary infections and follow up as scheduled to monitor for secondary issues. Rheumatoid arthritis of multiple joints 525059266 M06.09 chronic problem, stable with no significan t clinical changes. Needs monitoring . Prescripti on drug management : Add meds to current as noted below [...] meds only Cosen tyx 300mL q 5 weeks. Pt cont to follow up with rheumology and Follow up as scheduled with myself to monitor for progressio n. Psoriasis with arthropathy 36803343 L40.59 chronic problem, stable with no significan t clinical changes. Needs monitoring . Prescripti on drug management : Continue medication s as in med list. Follow up as scheduled. Morbid obesity 319957450 E66.01 see BMI above for details Pulmonary emphysema 8743 3001 J43.9 chronic problem, stable with no significan t clinical changes. Needs monitoring . Prescripti on drug management : Continue medication s as in med list. Follow up as scheduled. [id number] Tatiana Story DO [facility] [address] [place] [address] 05/26/2022 10:39:55 05/26/2022 15:21:06 Benign essential hypertension 7518290 I10 R94.31 Chronic condition, stable at blood pressure goal. Needs monitoring . Prescripti on drug management : Add meds to current as noted below [...] on below Rami pril 10mg q d . Continue with therapeuti c lifestyle changes (TLC) and continue home bp monitoring . Plan of care will be to use TLC and/or medication s with periodic follow up visits to maintain a safe blood pressure goal of 140/90 or lower. Follow up as scheduled. Follow up as scheduled. Mixed hyperlipidemia 267 498288 E78.2 Chronic problem, stable - at or near unsta ble - not at stable - at or near, LDL 57 LDL goal. Needs monitoring . Prescripti on drug management : Add meds to current as noted below [...] on below ifeanyi tor 5mg q d . Follow up as scheduled. Plan of care: Continue therapeuti c lifestyle changes and/or medication s to maintain an LDL below 100. Periodic visits and labs and appropriat e therapeuti c changes will occur to help meet this goal to minimize risk of atheroscle rotic disease. Recheck labs as ordered. Rheumatoid arthritis 698 05652 M06.9 chronic problem, stable with no significan t clinical changes. Needs monitoring . Prescripti on drug management : Cosentyx 300mL q 5 weeks# Add meds to [...] rx No rx indicated OTC meds only . Pt cont to follow up with rheumology and Follow up as scheduled with myself to monitor for progressio n. Type 2 elizabeth betes mellitus without complication [id number] E11.9 Chronic problem, stable - at or near unsta ble - not at unstabl e - not at A1C 5.9 HbA1c goal. Needs monitoring . Prescripti on drug management : Add meds to current as noted below Begi n meds as noted below Ashley ge medication s as noted below Cont inue medication s as in med list Disco ntinue meds as noted No meds given at this time No meds given until results back No rx indicated OTC meds only Pt refuses rx Restart meds as noted in prescripti on below add Ozempic. Follow up as scheduled. Plan of care: Continue therapeuti c lifestyle changes and/or medication s to maintain a healthy blood sugar with goal HbA1c of 6.5 <7.0 7 .0-7.5 <7. 5 7.5-8.0 <8.0 <9.0 5.6. Periodic visits and recheck of labs with appropriat e therapeuti c changes will be done to help with this goal. Mild major depression, single episode 97416668 F32.0 chronic problem, stable, Needs monitoring , Prescripti on drug Fluoxetine 20mg q d needed at this time, Cont. with TCL including healthy diet, exercise with periodic follow up visits to monitor Immunodefi ciency disorder 255095886 D84.81 chronic problem, Secondary to RA and tx plan. stable with no significan t clinical changes. Needs monitoring . Prescripti on drug management : No rx indicated. Follow up as scheduled. Education given to pt. about increase risk for secondary infections and follow up as scheduled to monitor for secondary issues. Acute maxi llary sinusitis 39083866 J01.00 Acute problem. Prescripti on drug management : Change medication s as noted below. Needs monitoring to determine stability of condition. [id number] Tatiana Story DO [facility] [address] [place] [address] 08/04/2022 10:53:46 08/07/2022 15:53:55 Adult health examination 455162439 Z00.00 Preventive visit done today. Anticipato ry guidance given as noted below. Interverte bral disc disorder of lumbar region with myelopathy 83311464 M51.06 Acute with systemic symptoms problem. Prescripti on drug management : Add meds to current as noted below [...] now then flexeril TID prn and prednisone taper. Needs monitoring to determine stability of condition. Benign ess ential hypertension 5102420 I10 R94.31 Chronic condition, stable at blood pressure goal. Needs monitoring . Prescripti on drug management : Add meds to current as noted below [...] on below Rami pril 10mg q d . Continue with therapeuti c lifestyle changes (TLC) and continue home bp monitoring . Plan of care will be to use TLC and/or medication s with periodic follow up visits to maintain a safe blood pressure goal of 140/90 or lower. Follow up as scheduled. Follow up as scheduled. Immunodefi ciency disorder 175226399 D84.81 chronic problem, Secondary to RA and tx plan. stable with no significan t clinical changes. Needs monitoring . Prescripti on drug management : No rx indicated. Follow up as scheduled. Education given to pt. about increase risk for secondary infections and follow up as scheduled to monitor for secondary issues. Mixed hyperlipidemia 267 666170 E78.2 Chronic problem, stable - at or near unsta ble - not at stable - at or near, LDL 57 LDL goal. Needs monitoring . Prescripti on drug management : Add meds to current as noted below [...] on below ifeanyi tor 5mg q d . Follow up as scheduled. Plan of care: Continue therapeuti c lifestyle changes and/or medication s to maintain an LDL below 100. Periodic visits and labs and appropriat e therapeuti c changes will occur to help meet this goal to minimize risk of atheroscle rotic disease. Recheck labs as ordered. Pulmonary emphysema 8743 3001 J43.8 J43.9 chronic problem, stable with no significan t clinical changes. Needs monitoring . Prescripti on drug management : Continue medication s as in med list. Follow up as scheduled. Rheumatoid arthritis 698 37822 M06.9 chronic problem, stable with no significan t clinical changes. Needs monitoring . Prescripti on drug management : Cosentyx 300mL q 5 weeks# Add meds to [...] rx No rx indicated OTC meds only . Pt cont to follow up with rheumology and Follow up as scheduled with myself to monitor for progressio n. Type 2 elizabeth betes mellitus without complication 620604219 E11.9 Chronic problem, stable - at or near unsta ble - not at unstabl e - not at A1C 5.9 HbA1c goal. Needs monitoring . Prescripti on drug management : Add meds to current as noted below Begi n meds as noted below Ashley ge medication s as noted below Cont inue medication s as in med list Disco ntinue meds as noted No meds given at this time No meds given until results back No rx indicated OTC meds only Pt refuses rx Restart meds as noted in prescripti on below add Ozempic. Follow up as scheduled. Plan of care: Continue therapeuti c lifestyle changes and/or medication s to maintain a healthy blood sugar with goal HbA1c of 6.5 <7.0 7 .0-7.5 <7. 5 7.5-8.0 <8.0 <9.0 5.6. Periodic visits and recheck of labs with appropriat e therapeuti c changes will be done to help with this goal. Mild major depression, single episode 43113333 F32.0 chronic problem, stable, Needs monitoring , Prescripti on drug Fluoxetine 20mg q d needed at this time, Cont. with TCL including healthy diet, exercise with periodic follow up visits to monitor Body mass index 40+ - severely obese 922816348 Z68.42 weight issues discussed and informatio n on weight loss given. needs follow up on weight control as scheduled. Education handout on diets given. Exercise counseling done. Will arrange referral for dietitian, nutritioni st, Physical/o ccupationa l therapy as needed or desired. Also will consider pharmaceut ical and supplement al interventi ons Morbid obesity 617840479 E66.01 see BMI above for details Diet education 48031676 Z71.3 as above Administra tion of pneumococcal vaccine 13423655 Z23 Screening mammography 24 408918 Z12.31 Laboratory test 95238572 Z00.00 Onychomycosis 373400832 B35.1 Chronic problem with . Prescripti on drug management : No meds given at this time. Recheck as scheduled. [id number] Tatiana Story, [facility] [address] [place] [address] 01/03/2023 07:53:21 01/03/2023 10:10:07 Benign essential hypertension 5799922 I10 R94.31 Chronic condition, stable at blood pressure goal. Needs monitoring . Prescripti on drug management : Add meds to current as noted below [...] on below Rami pril 10mg q d . Continue with therapeuti c lifestyle changes (TLC) and continue home bp monitoring . Plan of care will be to use TLC and/or medication s with periodic follow up visits to maintain a safe blood pressure goal of 140/90 or lower. Follow up as scheduled. Follow up as scheduled. Mixed hyperlipidemia 267 835220 E78.2 Chronic problem, stable - at or near unsta ble - not at stable - at or near, LDL 62 LDL goal. Needs monitoring . Prescripti on drug management : Add meds to current as noted below [...] on below ifeanyi tor 5mg q d . Follow up as scheduled. Plan of care: Continue therapeuti c lifestyle changes and/or medication s to maintain an LDL below 100. Periodic visits and labs and appropriat e therapeuti c changes will occur to help meet this goal to minimize risk of atheroscle rotic disease. Recheck labs as ordered. Pulmonary emphysema 8743 3001 J43.8 J43.9 chronic problem, stable with no significan t clinical changes. Needs monitoring . Prescripti on drug management : Continue medication s as in med list. Follow up as scheduled. Rheumatoid arthritis 698 08733 M06.9 chronic problem, stable with no significan t clinical changes. Needs monitoring . Prescripti on drug management : Add meds to current as noted below [...] meds only Cosen tyx 300mL q 5 weeks. Pt cont to follow up with rheumology and Follow up as scheduled with myself to monitor for progressio n. Type 2 elizabeth betes mellitus without complication 889714147 E11.9 Chronic problem, stable - at or near unsta ble - not at unstabl e - not at A1C 5.1 HbA1c goal. Needs monitoring . Prescripti on drug management : Add meds to current as noted below [...] prescripti on below Ozem pic 1mg q week. Follow up as scheduled. Plan of care: Continue therapeuti c lifestyle changes and/or medication s to maintain a healthy blood sugar with goal HbA1c of 6.5 <7.0 7 .0-7.5 <7. 5 7.5-8.0 <8.0 <9.0 5.6. Periodic visits and recheck of labs with appropriat e therapeuti c changes will be done to help with this goal. Mild major depression, single episode 24092550 F32.0 chronic problem, stable, Needs monitoring , Prescripti on drug Fluoxetine 20mg q d needed at this time, Cont. with TCL including healthy diet, exercise with periodic follow up visits to monitor Immunodefi ciency disorder 307912232 D84.81 chronic problem, Secondary to RA and tx plan. stable with no significan t clinical changes. Needs monitoring . Prescripti on drug management : No rx indicated. Follow up as scheduled. Education given to pt. about increase risk for secondary infections and follow up as scheduled to monitor for secondary issues. Administra tion of influenza vaccine 44375711 Z23 Health Concerns Section Related Observation LastModified by Organization Laine lagunas LastModified Time None Recorded Concern Status LastModified by Organization Details LastModified Time None Recorded Advance Directives Directive N: Payers Insurance Date Sequence Insurance Name Policy Number Policy Clarke Covered Member ID Clarke Member ID Guarantor Name 08/28/2023 1 [employer] [id number] Staci Winter New [id number] Staci Winter [place] 11/28/2022 2 [place]) [id number] Cristian New [id number] Staci Winter [place] 07/20/2015 1 [place] [id number] Cristian New [id number] Staci Winter [place] Notes Date Note Type Note Provider Name [...] eye doctor regularly Tatiana Story DO [address], [place], [address], [facility], [employer] 05/08/2022 08:47:02 05/16/19 23 text/htm l Cough / ColdReported bypatient.Quality:productive Sputum Quality:yellow-green, thick (purulent) Severity:moderate Duration:constant Associated Symptoms:malaise Tatiana Story DO [address], [place], [address], [facility], [facility] 05/16/2022 09:07:40 05/26/19 23 text/htm l ArthritisReported [...] controlled Current Symptoms/Concerns:none stated Tatiana Story DO [address] [address], [place], [address], [facility], [facility] 05/26/2022 11:10:06 08/05/19 23 text/htm l ArthritisReported [...] annual diabetic eye exam 12/20/2021 Imported from [facility] on 08/04/2022 Tataina Story DO [address], [place], [address], [facility] - [facility], [facility] 08/04/2022 11:37:45 01/04/20 23 text/htm l ArthritisReported [...] controlled Current Symptoms/Concerns:none stated Tatiana Story DO [address] [facility] [address], [place], [address], [facility] - [facility], [facility] 01/03/2023 08:12:59 OBGyn Episode No OBEpisode recorded.
[2024-09-08 09:32] LABS: Basophils Absolute Auto 0.1 K/mm3 (0.0-0.1); Basophils Percent Auto 0.7 % (0.2-1.2); Eosinophils Absolute Auto 0.4 K/mm3 (0-0.3); Eosinophils Percent Auto 3.7 % (0-4.4); Hematocrit 43.1 % (37.0-47.0); Hemoglobin 13.3 g/dL (12.0-15.0); Immature Granulocyte Absolute 0.02 K/mm3 (0.00-0.031); Immature Granulocyte Percent A 0.2 % (0-0.5); Immature Reticulocyte Fraction 16.7 % (3.0-15.9); Lymphocytes Absolute Auto 2.99 K/mm3 (0.9-3.2); Mean Corpuscular HGB Conc 30.9 g/dl (32-36); Mean Corpuscular Hemoglobin 26.2 pg (26-34); Mean Corpuscular Volume 84.8 fl (80-100); Monocytes Absolute Auto 0.8 K/mm3 (0.1-0.6); Monocytes Percent Auto 7.9 % (2.6-8.5); Neutrophils Absolute Auto 5.7 K/mm3 (1.3-6.7); Neutrophils Percent Auto 57.5 % (45.5-73.1); Platelet Count Result 289 k/mm3 (150-375); Red Blood Count 5.08 M/mm3 (4.2-5.4); Red Cell Distribution Width 15.9 % (11.5-14.5); Reticulocyte Hemoglobin Conten 28.8 pg (28.2-36.6); Reticulocyte Percent 1.72 % (0.7-4.3); Reticulocytes Absolute 0.09 10^6/uL (0.02-0.10)
[2024-09-08 09:59] LABS: Iron 61 ug/dL (37-170)
[2024-09-08 10:08] LABS: Percent Iron Saturation 19 % (20-50)
== END 2024-09-08 09:01 | disposition home or self-care (01) ==
LOC: ANHIMG 09:01 → ANHLAB 09:02
PROVIDERS: PCP Family Medicine; Visit Provider Family Medicine
DX: D50.9 Iron deficiency anemia, unspecified (principal)
CPT/HCPCS: 36415; 82728; 83540; 83550; 85025; 85046

== ENCOUNTER 2024-12-29 12:58 | Outpatient (CLI) | payer OTHER, SELFPAY ==
--- OUTSIDE RECORDS SUMMARY | 2022-12-21 19:00 | XMS_ITS | Continuity of Care Document ---
Author Organization [facility] Address [address] [place] [address] Phone Care Team Providers [employer] Team Member Name Role Phone Rebecca SANTOS Cait Unavailable Unavailable Allergies, Adverse Reactions, Alerts Substance Reaction Status Criticality valsartan Active No Information Penicillins Active No Information Advance Directives Directive Yes / No Effective Date File Name No Information Encounters Encounter Description Practice Location Reason(s) For Visit Diagnoses Date Provider Providers Copied on Encounter [facility], [address] [place], [place], [id number] , [place] tel: [phone] [facility] Other secondary cataract, right eyeType 2 diabetes mellitus without complicationsLong-t erm (current) use of injectable non-insulin antidiabetic drugs Sep- 3 Rebecca Chavira. [address] [place], [address], [place]. tel:[phone] [facility], [address] [place], [place], [id number] , [place] tel: [phone] [facility] Type [address] for examination of eyes and vision with abnormal findingsPresbyopia Sep- 2 Sadiq Carrero. [address] [place], [address], [place]. tel:[phone] [facility], [address] [place], [place], [id number] , [place] tel:[phone] [facility] Type 2 diabetes mellitus without complicationsOther chronic allergic conjunctivitis Sep- 1 [facility]. [address] [place], [place], [facility], . tel:[phone] [facility], [place], [id number] , tel: [phone] [facility] Location Type 2 diabetes mellitus without complications 0 [facility]. [address]admin[address] [place], [place], [facility], [place]. tel:[phone] [facility], [address]admin[address] [place], [place], [id number] , [place] tel: [phone] [facility] Presence of intraocular lensPresence of intraocular lensPsoriatic arthritis mutilans 0 9 [facility]. [facility] [place], [place], [facility], . 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 [facility] [place], [place], [facility], . tel:[phone] [facility], [address] [place], [id number] , tel: [phone] [facility] Location No Information 8 [facility]. [address] [place], [place] [address], [place], [facility], [place]. tel:[phone] Family History Family Member Type Diagnosis Age At Onset Problem (finding) Fhx of diabetes mellitu s Problem (finding) Fhx of cancer Problem (finding) Fhx of arthritis Problem (finding) Fhx of cardiovascular d isease Payers Payer name Insurance type Covered alliance party ID Authoriza tion(s) No Information Social History Type Description Quantity Date Captured Comments Alcohol Use Details Unknown Caffeine Use Details Unknown Tobacco Use Status Former smoker Smoking Status Former smoker Non-Smoking Tobacco Use Details : No Details Available : No Details Available Sex Female Chief Complaint And Reason For Visit No Information Reason For Referral Reason For Referral No Information History Of Present Illness Encounter Date Complaint History Of Prese nt Illness No Information Functional Status Date Functional Assessmen t No Information Instructions Date Instruction Additional Infor mation Impression/Plan Related to [place] revealed posterior capsular opacification. Impression/Plan Related to No pa thology noted from medication Impression/Plan Related to Patie nt has type II diabetes with no complications- no meds for diabetes , diet controlled. Impression/Plan Related to Refra ctive testing reveals presbyopia. Impression/Plan Related to Patie nt has type II diabetes with no complications- no meds for diabetes , diet controlled. Impression/Plan Related to Routi ne examination with abnormal findings. Impression/Plan Related to Locat ion 1: RT\nLocation 2: LT\nPriority: 3 Impression/Plan Related to Locat ion 1: OD\nLocation 2: OS Impression/Plan Related to Locat ion 1: OD\nLocation 2: OS\nPriority: 3 Impression/Plan Related to \nPri ority: 3 Impression/Plan Related to Locat ion 1: OD\nLocation 2: OS\nPriority: 3 \nSeverity 1: 2 \nSeverity 2: 2 Impression/Plan Related to Locat ion 1: OD\nLocation 2: OS\nPriority: 3 Impression/Plan Related to Locat ion 1: OD\nLocation 2: OS\[id number]\nINACTIVE\nPriority: 2 Impression/Plan Related to Locat ion 1: OD\nLocation 2: OS\[id number]\nINACTIVE\nPriority: 3 Impression/Plan Related to \nPri ority: 2 Assessments Type Assessment Date No Information Patient Care Teams Name Effective Dates (start - stop) Status Members No Information
--- NOTE | ~2024-12-29 | XR_ITS ---
EXAMINATION: XR knee LT 3V, 12/29/2024 13:10 CDT HISTORY: M25.562 - Pain in left knee, swelling x 1 wk COMPARISON: No comparisons available. Findings: No acute fracture or malalignment. Moderate tricompartmental degenerative changes, small effusion Soft tissues unremarkable. Impression: No acute fracture or malalignment. Reviewed, dictated and finalized at location A. Impression: No acute fracture or malalignment.
--- OUTSIDE RECORDS SUMMARY | 2024-12-29 13:27 | XMS_ITS | Clinical Summary ---
Author Organization [facility] Address [address] [place] [address] Care Team Providers Care Last Waxer Name Role Phone Unavailable Primary Care Provider Unavailabl e Social History Tobacco Use Types Packs/Day Years Used Date Smoking Tobacco: Never Assessed Comments Unknown Sex and Gender Information Value Date Recorded Sex Assigned at Not on file Legal Sex Female 2:53 PM CDT Gender Identity Not on file Sexual Orientation Not on file Plan of Treatment Upcoming Encounters Date Type Department Care Team (Late st Contact Info) Description 01/22/2025 10:30 AM CDT Office Visit [facility] Oncology and Hematology - [place] [address] [facility] [address] [place] [address] Kian Barajas MD [address] [facility] [address] [place] [address] Health Maintenance Due Date Last Done Comments DTAP/TDAP/TD VACCINES (1 - Tdap) 1988 HEPATITIS B VACCINES (1 of 3 - 19+ 3-dose series) 04/09 HPV/Cotest (21-29) 1990 CERVICAL CANCER SCREENING 1999 HPV/Cotest (30-65) 1999 PAP SMEAR 1999 BREAST CANCER SCREENING 2009 COLORECTAL SCREENING 2014 Colorectal Cancer Screening 2014 FIT-DNA Q 3 years 2014 FIT/FOBT Q 1 year 2014 Flex Sig/CT Colonography Q 5 years 2014 ZOSTER VACCINE (1 of 2) 2019 INFLUENZA VACCINE (#1) 2024 Insurance [facility] CORE [id number]
== END 2024-12-29 12:59 | disposition home or self-care (01) ==
PROVIDERS: PCP Family Medicine; Visit Provider Nurse Practitioner Family
DX: M25.562 Pain in left knee (principal)
CPT/HCPCS: 73562

== ENCOUNTER 2025-01-22 10:47 | Outpatient (CLI) | payer OTHER, SELFPAY ==
--- OUTSIDE RECORDS SUMMARY | 2025-01-22 10:30 | XMS_ITS | Encounter Summary ---
Author Organization [facility] Address [address] [place] [address] Care Team Providers Care Grating Machine Operator Name Role Phone Laura Shepard MD Primary Care Provider [phone] Reason for Visit * Reason Comments Establish Care Encounter Details Date Type Department Care Team (Late st Contact Info) Description 01/22/2025 10:30 AM CDT Office Visit [facility] Oncology and Hematology - [place] [address] [facility] [address] [place] [address] Kian Barajas MD [address] [facility] [address] [place] [address] Chronic anemia (Primary Dx) Social History Tobacco Use Types Packs/Day Years Used Date Smoking Tobacco: Former Cigarettes 0.5 8 0 04/09/1987 - 04/09/1995 Smokeless Tobacco: Never Alcohol Use Standard Drinks/Week Comments Yes 0 (1 standard drink = 0.6 oz pur e alcohol) Occasionally Comments Unknown Sex and Gender Information Value Date Recorded Sex Assigned at Not on file Legal Sex Female 2:53 PM CDT Gender Identity Not on file Sexual Orientation Not on file documented as of this encounter Last Filed Vital Signs Vital Sign Reading Time Taken Comments Blood Pressure 146/81 01/22/2025 10:17 AM CDT Pulse 76 01/22/2025 10:14 AM CDT Temperature 36.7 C (98.1 F) 01/22/2025 10:14 AM CDT Respiratory Rate 15 01/22/2025 10:14 AM CDT Oxygen Saturation 96% 01/22/2025 10:14 AM CDT Inhaled Oxygen Concentration - - Weight 109.8 kg (242 lb) 01/22/2025 10:14 AM CDT Height 154.9 cm (5' 1) 01/22/2025 10:14 AM CDT Body Mass Index 45.73 01/22/2025 10:14 AM CDT documented in this encounter Progress Notes * Kian Barajas MD - 01/22/2025 10:05 AM CDT Hematology-oncology consult Note Requesting Physician Laura Shepard MD Primary Care Physician Laura Shepard MD Problem list There is no problem list on file for this patient. Previous TREATMENT ? Measurable Disease ? Reason for Visit Staci New is a 54 y.o. female who was referred for consultation for iron deficiency anemia. History of present illness This is a 54-year-old female with history of hyperlipidemia, type 2 diabetes and asthma along with history of iron deficiency anemia moved from [place] in 2022 and referred to me for iron deficiency anemia. According to the patient she used to get iron infusion in [place] and was told to have iron deficiency due to malabsorption. She her last iron infusion was in September 2022. She used to have heavy menstrual bleeding but the last menses was in August 2024. She had uterine ablation done in the last year. She denies any stomach surgeries. Denies being a vegetarian. Her weight and appetite stable. Her last colonoscopy was in 2022 and was unremarkable. She is not taking any iron supplements. She has been complaining of tiredness and fatigue. Denies any melena or hematochezia. No other new complaints. Past Medical History Past Medical History: Diagnosis Date Asthma Depression Diabetes mellitus Hypertension Surgical History Past Surgical History: Procedure Laterality Date HX APPENDECTOMY HX SECTION HX CHOLECYSTECTOMY HX LASER ABLATION Medications Current Outpatient Medications Medication Sig Dispense Refill FLUoxetine (PROzac) 20 mg capsule Take 1 Capsule by mouth daily. Wixela Inhub 100-50 mcg/dose disk inhaler inhale 1 puff by mouth every 12 hours montelukast (SINGULAIR) 10 mg tablet Take 1 Tablet by mouth daily. ramipriL (ALTACE) 10 mg capsule Take 1 Capsule by mouth 2 times daily. rosuvastatin (CRESTOR) 5 mg tablet Take 1 Tablet by mouth daily. Ozempic 2 mg/dose (8 mg/3 mL) Pen Injector ADMINISTER 2 MG UNDER THE SKIN WEEKLY triamcinolone acetonide (KENALOG) 0.1 % Cream APPLY TO GROIN TWICE DAILY FOR 2 WEEKS clobetasoL (TEMOVATE) 0.05 % Ointment APPLY UNDER THE BREAST TWICE DAILY FOR 2 WEEKS No current facility-administered medications for this visit. Allergies Allergies Allergen Reactions Dioval Other (See Comments) Stomach cramping Penicillin Other (See Comments) Stomach cramps Immunizations: There is no immunization history on file for this patient. Family History Family History Problem Relation Name Age of Onset Heart Disease Father Heart Disease Mother Heart Disease Half-Brother Heart Disease Half-Brother Heart Disease Half-Brother Heart Disease Half-Brother Breast Cancer Half-Sister Heart Disease Half-Sister Skin Cancer Half-Sister Heart Disease Half-Sister Heart Disease Half-Sister No Known Problems Child Social History Social History Tobacco Use Smoking status: Former Current packs/day: 0.00 Average packs/day: 0.5 packs/day for 8.0 years (4.0 ttl pk-yrs) Types: Cigarettes Start date: 04/09/1987 Quit date: 04/09/1995 Years since quittin.8 Smokeless tobacco: Never Substance Use Topics Alcohol use: Yes Comment: Occasionally Review of Systems Constitutional: Patient did not mention fever; no night sweats; no anorexia; no weight loss; complain of tiredness and fatigue NEENT: Patient did not mention headache; no change in vision; no change in hearing; no sore throat;no dysphagia Respiratory: Patient did not mention shortness of breath; no pleuritic chest pain; no cough; no hemoptysis Cardiac: Patient did not mention cardiac-like chest pain; no palpitations; no orthopnea; no PND; noDOE Breasts: Patient did not mention tenderness; no masses GI: Patient did not mention abdominal pain; no nausea; no vomiting; no diarrhea; no hematochezia; no melena : Patient did not mention dysuria; no frequency; no hesitancy; no hematuria SOURCING ASSOCIATE: Musculosketetal: Patient did not mention bone pain; no arthralgia; no joint swelling; no myalgia; Skin: Patient did not mention pruritis; no rash; no petechiae; no ecchymoses Endocrine: Patient did not mention polydipsia; no polyuria; no unusual weight gain Neuro: Patient did not mention headache; no change in vision; no sensory changes; no muscle weakness; no confusion; no seizures Psych: Patient did not mention anxiety; no depression; Physical Exam Vitals: As per nursing note Constitutional: Well developed, well nourished, no acute distress, non-toxic appearance Teeth and gum. No signs of infection or swelling. Eyes: PERRL, conjunctiva normal HEENT: Atraumatic, external ears normal, nose normal, oropharynx moist, no pharyngeal exudates. no sinus tenderness Neck- normal range of motion, no tenderness, supple Respiratory: No respiratory distress, normal breath sounds, no rales, no wheezing Cardiovascular: Normal rate, normal rhythm, no murmurs, no gallops, no rubs GI: Soft, nondistended, normal bowel sounds, nontender, no splenomegaly, no hepatomegaly, no mass, no rebound, no guarding : No costovertebral angle tenderness Musculoskeletal: No edema, no tenderness, no deformities. Back- no tenderness Integument: Well hydrated, no rash, Digits and nails inspection normal Lymphatic: No lymphadenopathy noted Neurologic: Alert & oriented x 3, CN 2-12 normal, normal motor function, normal sensory function, no focal deficits noted Psychiatric: Speech and behavior appropriate ? labs No results found for this or any previous visit (from the past 24 hours). Labs from September 2024 showed hemoglobin 13.3 iron 61 saturation 19 ferritin 29 Pathology ? Imaging & Other Studies Performance Status? Assessment / Plan: ? Iron deficiency without anemia. Patient is a 54-year-old female with history of hyperlipidemia, type 2 diabetes, asthma and iron deficiency anemia. She used to get iron infusion while she was in [place] and the last infusion was in September 2022. 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 Patient also used to have heavy menstrual bleeding but her last menses was in August 2024. She had uterine ablation done last year. She denies any gastric bypass surgery. Denies being a vegetarian. Labs showed mild iron deficiency with a low iron saturation but hemoglobin was normal. She denies any other bleeding complaints. She is quite symptomatic with tiredness and fatigue. She is nottaking any iron supplement at this time. I will order the workup for anemia that will include CBC with differential, CMP, iron profile, soluble transferrin receptor, TSH and vitamin B12 level. Based on the lab we will decide about oral iron supplementation versus IV iron infusion. I have answered all the questions the patient satisfaction. Follow-up with me in 1 week. Hyperlipidemia. Patient is on Crestor. Depression anxiety. She is on Prozac. Asthma. Patient is on Singulair. Type II diabetes. She is on Ozempic. Thank you very much for allowing me to participate in Staci New's evaluation and management. Please feel free to contact if I can be of any further assistance in your patient???s care requiring hematology or oncology evaluation. Sincerely, ? ? Kian Barajas M.D. cell TOBACCO COUNSELING She is not a tobacco/nicotine user. Kian Barajas MD ,01/22/2025 10:42 AM ? Total time spent 60 minutes, two third of the total time spent counseling patient [id number]. CC:?Laura Shepard MD documented in this encounter Plan of Treatment Upcoming Encounters Date Type Department Care Team (Late st Contact Info) Description 01/29/2025 4:30 PM CDT Telephone Check Up [facility] Oncology and Hematology - [place] [address] [address] Kian Barajas MD [address] [facility] [address] [place] [address] Scheduled Orders Name Type Priority Associated Diagnoses Orde r Schedule CBC WITH DIFFERENTIAL Lab Stat Chronic anemia Expected: 01/22/2025, Expires: 01/22/2026 COMPREHENSIVE METABOLIC PANEL Lab Stat Chronic anemia Expected: 01/22/2025, Expires: 01/22/2026 FERRITIN Lab Routine Chronic anemia Expected: 01/22/2025, Expires: 01/22/2026 IRON, TIBC, AND PERCENT SATURATION Lab Routine Chronic anemia Expected: 01/22/2025, Expires: 01/22/2026 METHYLMALONIC ACID Lab Routine Chronic anemia Expected: 01/22/2025, Expires: 01/22/2026 TRANSFERRIN RECEPTOR TFR SOLUBLE Lab Routine Chronic anemia Expected: 01/22/2025, Expires: 01/22/2026 VITAMIN B12 AND FOLATE Lab Routine Chronic anemia Expected: 01/22/2025, Expires: 01/22/2026 TSH Lab Routine Chronic anemia Expected: 01/22/2025, Expires: 01/22/2026 documented as of this encounter Visit Diagnoses Diagnosis Chronic anemia- Primary Anemia, unspecified documented in this encounter Care Teams Grating Machine Operator Relationship Specialty Start Date End Date Laura Shepard MD [address] [facility] [address] [address] PCP - General Family Practice 01/22/25 documented as of this encounter
[2025-01-22 11:25] LABS: Hematocrit 42.7 % (37.0-47.0); Hemoglobin 13.2 g/dL (12.0-15.0); Immature Granulocyte Percent A 0.2 % (0-0.5); Lymphocytes Absolute Auto 2.59 K/mm3 (0.9-3.2); Mean Corpuscular HGB Conc 30.9 g/dl (32-36); Mean Corpuscular Hemoglobin 25.1 pg (26-34); Mean Corpuscular Volume 81.3 fl (80-100); Nucleated Red Blood Cells Absolute Auto 0.000 K/mm3 (0.0-0.012); Nucleated Red Blood Cells Perc 0.0 % (0.0-0.2); Platelet Count Result 267 k/mm3 (150-375); Red Blood Count 5.25 M/mm3 (4.2-5.4); White Blood Count 10.2 K/mm3 (4.5-10.0)
[2025-01-22 11:48] LABS: Alanine Aminotransferase 33 U/L (6-35); Albumin Level 4.4 g/dL (3.5-5.1); Alkaline Phosphatase 88 U/L (38-126); Anion Gap 12 mmol/L (4-12); Aspartate Amino Transferase 29 U/L (14-36); Bilirubin,Total 0.4 mg/dL (0.2-1.3); Blood Urea Nitrogen 9 mg/dL (7-17); Calcium 9.2 mg/dL (8.4-10.2); Carbon Dioxide 25 mmol/L (22-30); Chloride 102 mmol/L (98-107); Estimated Glomerular Filt Rate > 60; Glucose 77 mg/dL (65-110); Potassium 4.3 mmol/L (3.4-5.0); Sodium 139 mmol/L (137-145); Total Protein 8.3 g/dL (6.3-8.2)
[2025-01-22 12:24] LABS: Thyroid Stimulating Hormone 2.490 uIU/mL (0.465-4.680)
--- OUTSIDE RECORDS SUMMARY | 2025-01-22 12:46 | XMS_ITS | Clinical Summary ---
Author Organization [facility] [place] Address [address] [place] [address] Care Team Providers Care Endocrinology Specialist Name Role Phone Laura Shepard MD Primary Care Provider [phone] Allergies Active Allergy Reactions Criticality Noted Date Comments Dioval Other (See Comments) 01/22/2025 Stomach cramping Penicillin Other (See Comments) 01/22/2025 Stomach cramps Medications FLUoxetine (PROzac) 20 mg capsule Take 1 Capsule by mouth daily. 5 Active Wixela Inhub 100-50 mcg/dose disk inhaler inhale 1 puff by mouth every 12 hours 5 Active montelukast (SINGULAIR) 10 mg tablet Take 1 Tablet by mouth daily. 5 Active ramipriL (ALTACE) 10 mg capsule Take 1 Capsule by mouth 2 times daily. 5 Active rosuvastatin (CRESTOR) 5 mg tablet Take 1 Tablet by mouth daily. 5 Active Ozempic 2 mg/dose (8 mg/3 mL) Pen Injector ADMINISTER 2 MG UNDER THE SKIN WEEKLY 5 Active triamcinolone acetonide (KENALOG) 0.1 % Cream APPLY TO GROIN TWICE DAILY FOR 2 WEEKS 5 Active clobetasoL (TEMOVATE) 0.05 % Ointment APPLY UNDER THE BREAST TWICE DAILY FOR 2 WEEKS 5 Active Active Problems No known active problems Encounters Date Type Department Care Team Description 01/22/2025 10:30 AM CDT Office Visit [facility] Oncology and Hematology - [place] [address] [place] [address] Kian Barajas MD Chronic anemia (Primary Dx) from Last 3 Months Family History Medical History Relation Name Comments No Known Problems Child Heart Disease Father Heart Disease Half-Brother 1 Heart Disease Half-Brother 2 Heart Disease Half-Brother 3 Heart Disease Half-Brother 4 Breast Cancer Half-Sister 1 Heart Disease Half-Sister 1 Skin Cancer Half-Sister 2 Heart Disease Half-Sister 3 Heart Disease Half-Sister 4 Heart Disease Mother Relation Name Status Comments Child Alive Father Half-Brother 1 Alive Half-Brother 2 Alive Half-Brother 3 Half-Brother 4 Half-Sister 1 Alive Half-Sister 2 Alive Half-Sister 3 Half-Sister 4 Mother Social History Tobacco Use Types Packs/Day Years [...] on file Sexual Orientation Not on file Last Filed Vital Signs Vital Sign Reading [...] Mass Index 45.73 01/22/2025 10:14 AM CDT Plan of Treatment Upcoming Encounters Date Type Department Care Team (Late st Contact Info) Description 01/29/2025 4:30 PM CDT Telephone Check Up [facility] Oncology and Hematology - [place] [address] [facility] [address] [place] [address] Kian Barajas MD [address] [facility] [address] [place] [address] Health Maintenance Due Date Last Done Comments Pre-Diabetes and Diabetes Screening 1969 DTAP/TDAP/TD VACCINES (1 - Tdap) 1988 HEPATITIS [...] 2) 2019 INFLUENZA VACCINE (#1) 2024 Insurance [facility] CORE [id number] Care Teams Endocrinology Specialist Relationship Specialty Start Date End Date Laura Shepard MD [facility] [address] [place] [address] PCP - General Family Practice 01/22/25
[2025-01-22 19:14] LABS: Iron 53 ug/dL (37-170)
[2025-01-22 20:03] LABS: Ferritin 36.00 ng/mL (11.1-264)
[2025-01-22 20:04] LABS: Percent Iron Saturation 16 % (20-50)
[2025-01-22 20:14] LABS: Vitamin B12 719.0 pg/mL (239-931)
== END 2025-01-22 10:48 | disposition home or self-care (01) ==
LOC: ANHIMG 10:50 → ANHLAB 10:51
PROVIDERS: PCP Family Medicine; Visit Provider Internal Medicine Hematology & Oncology
DX: D64.9 Anemia, unspecified (principal)
CPT/HCPCS: 36415; 80053; 82607; 82728; 82746; 83540; 83550; 84238; 84443; 85025

== ENCOUNTER 2025-03-31 10:21 | Outpatient (CLI) | payer OTHER, SELFPAY ==
--- OUTSIDE RECORDS SUMMARY | 2025-03-31 10:59 | XMS_ITS | Clinical Summary ---
Author Organization [facility] [place] [facility] Address [address] [place] [address] Care Team Providers Care Fiberglass Autobody Repairer Name Role Phone Laura Shepard MD Primary Care Provider [phone] Allergies Active Allergy Reactions Criticality Noted Date [...] TO GROIN TWICE DAILY FOR 2 WEEKS Active clobetasoL (TEMOVATE) 0.05 % Ointment APPLY UNDER THE BREAST TWICE DAILY FOR 2 WEEKS 5 Active Active Problems No known active problems Encounters Date Type Department Care Team Description 03/24/2025 External Device Data STL ABSTRACTION Provider, Abstract 02/24/2025 External Device Data STL ABSTRACTION Provider, Abstract 02/10/2025 4:30 PM TOWEL CABINET REPAIRER Telephone Check Up [facility] Oncology and Hematology - [place] [address] [place] [address] Kian Barajas MD Chronic anemia (Primary Dx) 02/02/2025 Orders Only [facility] Oncology and Hematology - [place] [address] [place] [address] Kian Barajas MD 01/28/2025 External Device Data STL ABSTRACTION Provider, Abstract 01/28/2025 Orders Only [facility] Oncology and Hematology - [place] [address] [place] [address] Kian Barajas MD 01/28/2025 External Device Data STL ABSTRACTION Provider, Abstract 01/27/2025 External Device Data STL ABSTRACTION Provider, Abstract 01/23/2025 Orders Only [facility] Oncology and Hematology - [place] [address] [place] [address] Kian Barajas MD 01/22/2025 10:30 AM CDT Office Visit [facility] Oncology and Hematology - [place] [address] [place] [address] Kian Barajas MD Chronic anemia (Primary Dx) [...] Care Team (Late st Contact Info) Description 05/13/2025 10:00 AM TOWEL CABINET REPAIRER Office Visit [facility] Oncology and Hematology - [place] [address] [facility] [address] [place] [address] Kian Barajas MD [address] [facility] [address] [place] [address] Health Maintenance Due Date Last [...] of 2) 2019 INFLUENZA VACCINE (#1) 2024 Procedures Procedure Name Priority Date/Time Associated Diagnosis Comments METHYLMALONIC ACID Routine 01/22/2025 1: 11 PM CDT COMPREHENSIVE METABOLIC PANEL Routine 01/22/2025 12:10 PM CDT CHG SOLUBLE TRANSFERRIN RECEPTOR Routine 01/22/2025 9:52 AM CDT from Last 3 Months Results * METHYLMALONIC ACID (01/22/2025 1:11 PM CDT) Blood us Kian Barajas MD CHEMISTRY ORDERABLES Final Resu lt * COMPREHENSIVE METABOLIC PANEL (01/22/2025 12:10 PM CDT) Blood us Kian Barajas MD CHEMISTRY ORDERABLES Final Resu lt * CHG SOLUBLE TRANSFERRIN RECEPTOR (01/22/2025 9:52 AM CDT) us Kian Barajas MD CHG - LABORATORY Final Result from Last 3 Months Insurance [facility] CHOICE [id number] Care Teams Fiberglass Autobody Repairer Relationship Specialty Start Date End Date Laura Shepard MD [facility] [facility] [address] [place] [address] PCP - General Family Practice 01/22/25
[2025-03-31 12:21] LABS: Hemoglobin A1C 6.0 % (<5.7)
== END 2025-03-31 10:22 | disposition home or self-care (01) ==
LOC: ANHLAB 10:22
PROVIDERS: PCP Family Medicine; Visit Provider Family Medicine
DX: R80.9 Proteinuria, unspecified (principal); E11.29 Type 2 diabetes mellitus with other diabetic kidney complication
CPT/HCPCS: 36415; 83036